=== PATIENT | female | born 1965 | race African-American/Black ===

== ENCOUNTER 2016-05-16 05:58 | Emergency (ER) | payer OTHER ==
[2016-05-16] MEDS ORDERED: Ketorolac INJ* 60 MG/2 ML VIAL IM ONE (07:10)
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
[2016-05-16 07:52] VITALS: BP 136/106
== END 2016-05-16 07:51 | disposition home or self-care (01) ==
LOC: ED 05:58
DX: T14.8 Other injury of unspecified body region (principal); E11.9 Type 2 diabetes mellitus without complications; W17.2XXA Fall into hole, initial encounter; Y92.9 Unspecified place or not applicable; G89.29 Other chronic pain; F32.9 Major depressive disorder, single episode, unspecified; Z87.891 Personal history of nicotine dependence
CPT/HCPCS: 96372; 99282; J1885

== ENCOUNTER 2016-09-28 03:17 | Emergency (ER) | payer OTHER ==
[2016-09-28] MEDS ORDERED: HYDROmorphone* 1 MG/ML 1 ML SYR IM ONE (04:25)
[2016-09-28] MEDS ORDERED: Ketorolac INJ* 60 MG/2 ML VIAL IM ONE (04:25)
[2016-09-28 05:10] VITALS: BP 130/66
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
== END 2016-09-28 05:09 | disposition home or self-care (01) ==
LOC: ED 03:17
DX: M25.572 Pain in left ankle and joints of left foot (principal); Z87.891 Personal history of nicotine dependence; R61 Generalized hyperhidrosis
CPT/HCPCS: 96372; 99282; J1170; J1885

== ENCOUNTER 2016-11-28 13:53 | Emergency (ER) | payer OTHER ==
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
[2016-11-28] MEDS ORDERED: Ketorolac INJ* 60 MG/2 ML VIAL IM ONE (15:25)
[2016-11-28] MEDS ORDERED: hydrOXYzine HCL TAB* 25 MG PO ONE (15:25)
[2016-11-28] MEDS ORDERED: hydrOXYzine HCL TAB* 50 MG PO ONE (15:40)
[2016-11-28] MEDS ORDERED: LORazepam TAB(*) 0.5 MG PO ONE (16:28)
[2016-11-28 16:47] VITALS: BP 154/83
== END 2016-11-28 16:47 | disposition home or self-care (01) ==
LOC: ED 13:53
DX: G89.29 Other chronic pain (principal); R07.9 Chest pain, unspecified; M25.572 Pain in left ankle and joints of left foot; M25.551 Pain in right hip; F41.9 Anxiety disorder, unspecified; Z87.891 Personal history of nicotine dependence
CPT/HCPCS: 99282; A9270-GY; J1885

== ENCOUNTER 2017-01-15 15:34 | Emergency (ER) | payer OTHER ==
[2017-01-15] MEDS ORDERED: HYDROcodone/ACETAMIN 5-325 MG* 1 TAB PO ONE (18:51)
[2017-01-15 19:32] VITALS: BP 149/74
--- NOTE | 2017-01-15 19:47 | RAD ---
INDICATION: Left lower extremity pain. COMPARISON: Comparison is made with a prior study from February 09, 2012. TECHNIQUE: Multiple real-time, color flow and Doppler tracings of the left lower extremity were obtained. FINDINGS: The common femoral, femoral, profunda femoral and popliteal veins all demonstrate normal compressibility, augmentation with compression and phasic response with respiration. The posterior tibial and peroneal veins demonstrate normal compressibility and augmentation with compression. There is a popliteal fossa cyst measuring 5.7 x 1.0 x 3.9 cm in size which appears similar to the prior study. IMPRESSION: 1. NO EVIDENCE FOR DEEP VENOUS THROMBOSIS. 2. POPLITEAL FOSSA CYST.
--- NOTE | 2017-01-15 20:05 | RAD ---
INDICATION: Left ankle pain. TECHNIQUE: 3 views of the left ankle were obtained. FINDINGS: There is diffuse soft tissue swelling present. There is deformity of the distal tibia most consistent with an old healed fracture. There is a single surgical screw in the distal tibial metaphysis. No acute fracture is seen. There is moderate osteoarthritic change in the tibiotalar joint with a prominent anterior spur arising from the distal tibia which would predispose to anterior impingement. IMPRESSION: 1. SOFT TISSUE SWELLING. 2. DEFORMITY OF THE DISTAL TIBIA MOST CONSISTENT WITH POSTTRAUMATIC AND SURGICAL CHANGES. 3. MODERATE OSTEOARTHRITIC CHANGES IN THE TIBIOTALAR JOINT.
--- NOTE | 2017-01-15 20:08 | RAD ---
INDICATION: Left lower leg pain. TECHNIQUE: 2 views of the left lower leg were obtained. FINDINGS: There is diffuse soft tissue swelling present. There is deformity of the distal tibia most consistent with postsurgical and posttraumatic changes. There is a single surgical screw present in the distal tibial metaphysis. No acute fracture is seen. There is moderate osteoarthritic change in the tibiotalar joint. IMPRESSION: 1. SOFT TISSUE SWELLING. 2. POSTSURGICAL POSTERIOR MATTER CHANGES IN THE DISTAL TIBIA.
[2017-01-15] MEDS ORDERED: Ketorolac INJ* 30 MG/ML 1 ML VIAL IM ONE (20:47)
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
== END 2017-01-15 21:08 | disposition home or self-care (01) ==
LOC: ED 15:34
DX: M13.872 Other specified arthritis, left ankle and foot (principal); M71.20 Synovial cyst of popliteal space [Baker], unspecified knee; M25.569 Pain in unspecified knee
CPT/HCPCS: 96372; 99282

== ENCOUNTER 2017-03-29 11:15 | Emergency (ER) | payer OTHER ==
[2017-03-29] MEDS ORDERED: HYDROcodone/ACETAMIN 5-325 MG* 1 TAB PO ONE (12:36)
[2017-03-29] MEDS ORDERED: Ketorolac INJ* 60 MG/2 ML VIAL IM ONE (13:38)
--- NOTE | 2017-03-29 13:43 | RAD ---
INDICATION: Pain and swelling. COMPARISON: None TECHNIQUE: Duplex interrogation of the Lowerextremity was performed. FINDINGS: Deep veins: The common femoral, great saphenous, profunda femoris, proximal, mid, and distal deep femoral, popliteal, posterior tibial, and peroneal veins are patent. There is normal compressibility, augmentation, and phasic flow. Superficial veins: There are no findings of superficial thrombophlebitis. Popliteal fossa:There is a popliteal cyst measuring 4.4 x 0.8 x 2.2 cm, formerly 5.7 x 1.0 x 3.9 cm. Soft tissues:There are no soft tissue abnormalities. IMPRESSION: POPLITEAL CYST WITH MILD INTERVAL DECREASE IN SIZE. NO EVIDENCE OF DEEP VENOUS THROMBOSIS.
[2017-03-29 14:20] VITALS: BP 125/86
--- NOTE | 2017-03-29 14:38 | ED ---
Lower Extremity - HPI Summary HPI Summary: Patient presents to the ED with CC of swelling in the left calf just below the posterior knee. Hx of bakers cyst, but states she feels it has moved and thinks there is a cyst in the calf medially. Concerned with DVT as patient has had a previous PE. Notes to 9/10 pain and feels as though she cannot get comfortable. Allergy to NSAIDS. Surgery to the ankle scheduled for 2 months. Denies previous pain in the area. She has not been doing anything for the pain and ambulating well. Denies color or temperature changes to the area. Takes pain medications for several previous fractures. Pain is worse with movement, better with rest. Denies smoking, travel or OCP use. - History of Current Complaint Chief Complaint: EDExtremityLower Stated Complaint: LEFT ANKLE INFECTION-UPCOMING SURGERY Time Seen by Provider: 03/29/17 11:42 Hx Obtained From: Patient, Family/Communications Billing Analyst Mechanism Of Injury: Unknown Onset of Pain: Days Onset/Duration: Days Severity Initially: Moderate Severity Currently: Moderate Pain Intensity: 7 Pain Scale Used: 0-10 Numeric Timing: Constant Location: Is Discrete @ - posterior knee and medial calf Character Of Pain: Aching Associated Signs And Symptoms: Positive: Swelling Aggravating Factor(s): Standing, Ambulation Alleviating Factor(s): Rest Able to Bear Weight: Yes - Risk Factors Gout Risk Factors: Negative DVT Risk Factors: Negative Septic Arthritis Risk Factor: Negative - Allergies/Home Medications Allergies/Adverse Reactions: Allergies Allergy/AdvReac Type Severity Reaction Status Date / Time Rofecoxib [From Vioxx] Allergy Unknown Swelling Verified 05/16/16 06:14 Nalbuphine [From Nubain] Allergy Difficulty Verified 05/16/16 06:14 Breathing PMH/Surg Hx/FS Hx/Imm Hx Previously Healthy: Yes Endocrine/Hematology History: Reports: Hx Diabetes - previously, however no longer medicated per patient Cardiovascular History: Denies: Hx Angina, Hx Pacemaker/ICD Musculoskeletal History: Reports: Other Musculoskeletal History - CHRONIC PAIN Sensory History: Denies: Hx Hearing Aid Neurological History: Reports: Other Neuro Impairments/Disorders - DEPRESSION Psychiatric History: Reports: Hx Anxiety Denies: Hx Panic Disorder - Surgical History Surgery Procedure, Year, and Place: Lt WRIST - Xs 2. Rt HIP REPLACEMENT. Lt ANKLE -FX'd (PINS REMOVED). Rt ARM - FX - Immunization History Date of Tetanus Vaccine: UTD Date of Influenza Vaccine: NO Hx Pertussis Vaccination: No Immunizations Up to Date: Unable to Obtain/Confirm Infectious Disease History: No Infectious Disease History: Reports: Hx Shingles - 10 YEARS AGO Denies: Traveled Outside the [place] in Last 30 Days - Family History Known Family History: Positive: Cardiac Disease, Hypertension, Diabetes, Other - Asthma. [place]. - Social History Occupation: Employed Full-time Lives: With Family Alcohol Use: None Hx Substance Use: Yes Substance Use Type: Reports: Prescribed Substance Use Comment - Amount & Last Used: morphine, hydrocodcone, xanax Hx Tobacco Use: Yes Smoking Status (MU): Former Smoker Review of Systems Constitutional: Negative Negative: Fever, Chills, Fatigue Eyes: Negative Cardiovascular: Negative Respiratory: Negative Genitourinary: Negative Positive: no symptoms reported, see HPI Positive: Arthralgia - left posterior knee pain and medial calf tenderness Neurological: Negative All Other Systems Reviewed And Are Negative: Yes Physical Exam Triage Information Reviewed: Yes Vital Signs On Initial Exam: Initial Vitals Temp Pulse Resp BP Pulse Ox 97.4 F 93 20 153/92 99 03/29/17 11:19 03/29/17 11:19 03/29/17 11:19 03/29/17 11:19 03/29/17 11:19 Vital Signs Reviewed: Yes Appearance: Positive: Well-Appearing, Well-Nourished Skin: Positive: Warm, Skin Color Reflects Adequate Perfusion Head/Face: Positive: Normal Head/Face Inspection Eyes: Positive: EOMI, DONA, Conjunctiva Clear Neck: Positive: Supple, Nontender, No Lymphadenopathy Respiratory/Lung Sounds: Positive: Clear to Auscultation, Breath Sounds Present Cardiovascular: Positive: Normal, RRR, Pulses are Symmetrical in both Upper and Lower Extremities Musculoskeletal: Positive: Pain @ - left medial knee and posterior knee on palpation with no cords or deformities. No swelling, warmth or redness noted. Neurological: Positive: Speech Normal Psychiatric: Positive: Normal - [place] Coma Scale Coma Scale Total: 15 Diagnostics - Vital Signs Vital Signs Temp Pulse Resp BP Pulse Ox 03/29/17 14:18 97.7 F 82 16 125/86 95 03/29/17 11:19 97.4 F 93 20 153/92 99 - Laboratory Lab Statement: Any lab studies that have been ordered have been reviewed, and results considered in the medical decision making process. Lower Extremity Course/Dx - Course Course Of Treatment: Patient evaluated for possible DVT d/t history of PE. NO warmth, redness or palpable cords in the left medial calf. Posterior calf with small bursa - bakers. Patient is given 5mg norco to tolerate US. IMPRESSION: POPLITEAL CYST WITH MILD INTERVAL DECREASE IN SIZE. NO EVIDENCE OF DEEP. VENOUS THROMBOSIS. She is encouraged to rest and use any ice for perceived swelling. She is Ok with discharge and will follow up with ortho. - Diagnoses Differential Diagnosis/HQI/PQRI: Positive: DVT, Sprain, Strain, Tendonitis Provider Diagnoses: Bakers cyst Discharge - Discharge Plan Condition: Stable Disposition: HOME Patient Education Materials: Knee Bursitis (ED) Referrals: Dory Goodman [Primary Care Provider] - Additional Instructions: I think you have a bursa which is not infected Elevate Ice Rest However, you must continue to walk around to prevent any blood clots Follow up with your ortho physician
== END 2017-03-29 14:20 | disposition home or self-care (01) ==
LOC: ED 11:15
DX: M71.22 Synovial cyst of popliteal space [Baker], left knee (principal); G89.29 Other chronic pain; F32.9 Major depressive disorder, single episode, unspecified; F41.9 Anxiety disorder, unspecified; Z87.891 Personal history of nicotine dependence
CPT/HCPCS: 96372; 99281; J1885

== ENCOUNTER 2017-05-07 03:43 | Emergency (ER) | payer OTHER ==
[2017-05-07 04:15] VITALS: BP 151/85
[2017-05-07] MEDS ORDERED: NS 0.9% 1000 ML* 1,000 ML IV ONE ×2 (04:34→04:36)
[2017-05-07] MEDS ORDERED: LORazepam INJ* 2 MG/ML 1 ML VIAL IV PUSH ONE (04:36)
--- NOTE | 2017-05-07 06:26 | ED ---
Abel Bragg Nilda, scribed for Beata Stanley MD on 05/07/17 at 0447 . Influenza-Like Illness - HPI Summary HPI Summary: This patient is a 51 year old F presenting to [facility] with a chief complaint of influenza-like symptoms since yesterday. The patient rates the pain 6/10 in severity. Symptoms aggravated and alleviated by nothing. Patient reports abd pain, fever, diaphoresis, chills, dyspnea, LE pain, body aches, and loss of appetite. Medications include abx for teeth and anxiety. 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 She states shes on Xanax 0.5 3 times per day. - History of Current Complaint Chief Complaint: EDShortnessOfBreath Time Seen by Provider: 05/07/17 03:55 Hx Obtained From: Patient Onset/Duration: Sudden Onset Associated Signs & Symptoms: Negative - Allergy/Home Medications Allergies/Adverse Reactions: Allergies Allergy/AdvReac Type Severity Reaction Status Date / Time Rofecoxib [From Vioxx] Allergy Unknown Swelling Verified 05/07/17 03:48 Nalbuphine [From Nubain] Allergy Difficulty Verified 05/07/17 03:48 Breathing PMH/Surg Hx/FS Hx/Imm Hx Endocrine/Hematology History: Reports: Hx Diabetes - previously, however no longer medicated per patient Cardiovascular History: Denies: Hx Angina, Hx Pacemaker/ICD Musculoskeletal History: Reports: Other Musculoskeletal History - CHRONIC PAIN Sensory History: Denies: Hx Hearing Aid Neurological History: Reports: Other Neuro Impairments/Disorders - DEPRESSION Psychiatric History: Reports: Hx Anxiety Denies: Hx Panic Disorder - Surgical History Surgery Procedure, Year, and Place: Lt WRIST - Xs 2. Rt HIP REPLACEMENT. Lt ANKLE -FX'd (PINS REMOVED). Rt ARM - FX - Immunization History Date of Tetanus Vaccine: UTD Date of Influenza Vaccine: NO Infectious Disease History: No Infectious Disease History: Reports: Hx Shingles - 10 YEARS AGO Denies: Traveled Outside the [place] in Last 30 Days - Family History Known Family History: Positive: Cardiac Disease, Hypertension, Diabetes, Other - Asthma. [place]. - Social History Alcohol Use: None Hx Substance Use: Yes Substance Use Type: Reports: Prescribed Substance Use Comment - Amount & Last Used: morphine, hydrocodcone, xanax Hx Tobacco Use: Yes Smoking Status (MU): Former Smoker Review of Systems Positive: Fever, Chills, Skin Diaphoresis - dyspnea Positive: Other - dyspnea Positive: Abdominal Pain, Other - loss of appetite Positive: Other - body aches All Other Systems Reviewed And Are Negative: Yes Physical Exam - Summary Physical Exam Summary: VITAL SIGNS: Reviewed. GENERAL: Patient is a well-developed and nourished female who is lying comfortable in the stretcher. Patient is not in any acute respiratory distress. HEAD AND FACE: No signs of trauma. No ecchymosis, hematomas or skull depressions. No sinus tenderness. EYES: PERRLA, EOMI x 2, No injected conjunctiva, no nystagmus. EARS: Hearing grossly intact. Ear canals and tympanic membranes are within normal limits. MOUTH: Oropharynx within normal limits. NECK: Supple, trachea is midline, no adenopathy, no JVD, no carotid bruit, no c- spine tenderness, neck with full ROM. CHEST: Symmetric, no tenderness at palpation LUNGS: Clear to auscultation bilaterally. No wheezing or crackles. CVS: Tachycardic, S1 and S2 present, no murmurs or gallops appreciated. ABDOMEN: Soft, non-tender. No signs of distention. No rebound no guarding, and no masses palpated. Bowel sounds are normal. EXTREMITIES: FROM in all major joints, no edema, no cyanosis or clubbing. NEURO: Alert and oriented x 3. No acute neurological deficits. Speech is normal and follows commands. SKIN: Dry and warm Triage Information Reviewed: Yes Vital Signs On Initial Exam: Initial Vitals Temp Pulse Resp BP Pulse Ox 97.5 F 127 18 148/90 94 05/07/17 03:45 05/07/17 03:45 05/07/17 03:45 05/07/17 03:45 05/07/17 03:45 Vital Signs Reviewed: Yes - [place] Coma Scale Coma Scale Total: 15 Diagnostics - Vital Signs Vital Signs Temp Pulse Resp BP Pulse Ox 05/07/17 03:45 97.5 F 127 18 148/90 94 - Laboratory Lab Statement: Any lab studies that have been ordered have been reviewed, and results considered in the medical decision making process. - Radiology CXR Radiology Interpretation Completed By: Radiologist - NAD - EKG 0357 Cardiac Rate: NL EKG Rhythm: Sinus Tachycardia - 103 bpm EKG Interpretation: nonspecific T wave changes Flu Symptom Course/Dx - Course Assessment/Plan: Pt presented to ER with difficulty breathing. Pt found to be tachycardic. Bloodwork was ordered to rule out acute coronary syndrome v PE v PNA. Pt refused blood work. Pt only requesting Xanax without doing blood work. Pt walked out of ER AMA. An EKG reveals sinus tachy, 103 bpm, nonspecific T wave changes. CXR reveals NAD. Dx. SOB. - Diagnoses Provider Diagnoses: SOB (shortness of breath) Discharge - Discharge Plan Condition: Stable Disposition: AGAINST MEDICAL ADVICE Referrals: Dory Goodman [Primary Care Provider] - The documentation as recorded by the Abel dunn Nilda accurately reflects the service I personally performed and the decisions made by , Beata Stanley MD.
--- NOTE | 2017-05-07 08:14 | RAD ---
Indication: Chest pain. Single frontal view of the chest performed at 0450 hours was reviewed. Comparison is made with previous exam dated May 10, 2015. No mediastinal shift is noted. Heart is of normal size and configuration. Lung leslie appear clear. IMPRESSION: NO ACTIVE CARDIOPULMONARY DISEASE IS NOTED.
== END 2017-05-07 04:43 | disposition left against medical advice (07) ==
LOC: ED 03:43
DX: R06.02 Shortness of breath (principal); R50.9 Fever, unspecified; R06.00 Dyspnea, unspecified; R00.0 Tachycardia, unspecified; R61 Generalized hyperhidrosis; M79.1 Myalgia; R10.9 Unspecified abdominal pain; E11.9 Type 2 diabetes mellitus without complications; F32.9 Major depressive disorder, single episode, unspecified; Z96.641 Presence of right artificial hip joint; Z88.8 Allergy status to other drugs, medicaments and biological substances; Z87.891 Personal history of nicotine dependence
CPT/HCPCS: 71045; 93005; 99282; J2060

== ENCOUNTER 2017-06-26 18:03 | Emergency (ER) | payer OTHER ==
--- NOTE | 2017-06-26 20:08 | ED ---
Lower Extremity - HPI Summary HPI Summary: 51-year-old female presents with acute on chronic joint pain. She denies any new injury. She denies any fevers. She states she is seeing her doctor on Sunday. She states her left ankles was suppose to have surgery months ago but they Rescheduling her. She denies any history of gout. She states she has chronic swelling of her left ankle. She states her pain feels weather related. She is complaining of left ankle pain, right hip pain, and right-sided back pain and left wrist pain. She denies any loss of bowel or bladder. She denies any saddle anesthesia. She states her right hip is prosthetic and was supposed to be replaced after 10 years which was not done. She sees Dr. Landin is her orthopedic. She takes morphine and oxycodone daily. She states this pain medication isn't working. She states her doctor told her to come here. She also has a history of anxiety and depression. She is diabetic. She states occasionally the pain in her left ankle radiates to her left calf. She does have a history of blood clots. - History of Current Complaint Chief Complaint: EDExtremityLower Stated Complaint: ANKLE, WRIST, HIP PAIN Time Seen by Provider: 06/26/17 19:08 Pain Intensity: 10 - Allergies/Home Medications Allergies/Adverse Reactions: Allergies Allergy/AdvReac Type Severity Reaction Status Date / Time nalbuphine [From Nubain] Allergy Difficulty Verified 06/26/17 19:49 Breathing rofecoxib [From Vioxx] Allergy Swelling Verified 06/26/17 19:49 PMH/Surg Hx/FS Hx/Imm Hx Endocrine/Hematology History: Reports: Hx Diabetes - previously, however no longer medicated per patient Cardiovascular History: Denies: Hx Angina, Hx Pacemaker/ICD Musculoskeletal History: Reports: Other Musculoskeletal History - CHRONIC PAIN Sensory History: Denies: Hx Hearing Aid Neurological History: Reports: Other Neuro Impairments/Disorders - DEPRESSION Psychiatric History: Reports: Hx Anxiety Denies: Hx Panic Disorder - Surgical History Surgery Procedure, Year, and Place: Lt WRIST - Xs 2. Rt HIP REPLACEMENT. Lt ANKLE -FX'd (PINS REMOVED). Rt ARM - FX - Immunization History Date of Tetanus Vaccine: UTD Date of Influenza Vaccine: NO Infectious Disease History: No Infectious Disease History: Reports: Hx Shingles - 10 YEARS AGO Denies: Traveled Outside the [place] in Last 30 Days - Family History Known Family History: Positive: Cardiac Disease, Hypertension, Diabetes, Other - Asthma. [place]. - Social History Alcohol Use: None Hx Substance Use: Yes Substance Use Type: Reports: Prescribed Substance Use Comment - Amount & Last Used: morphine, hydrocodcone, xanax Hx Tobacco Use: Yes Smoking Status (MU): Former Smoker Review of Systems Negative: Fever Negative: Chest Pain Negative: Shortness Of Breath Positive: Myalgia - left ankle and wrist, right hip and back All Other Systems Reviewed And Are Negative: Yes Physical Exam Triage Information Reviewed: Yes Vital Signs On Initial Exam: Initial Vitals Temp Pulse Resp BP Pulse Ox 97.0 F 89 16 174/99 99 06/26/17 18:07 06/26/17 18:07 06/26/17 18:07 06/26/17 18:07 06/26/17 18:07 Vital Signs Reviewed: Yes Appearance: Positive: Well-Appearing Skin: Positive: Warm, Dry Head/Face: Positive: Normal Head/Face Inspection Eyes: Positive: Normal, Conjunctiva Clear Respiratory/Lung Sounds: Positive: Clear to Auscultation, Breath Sounds Present Cardiovascular: Positive: Normal, RRR Musculoskeletal: Positive: Strength/ROM Intact - left ankle, right hip, lower back, and left wrist, Other - tenderness over left wrist dorsum, tenderness over left ankle, tenderness right side of back, neg SLR, good pulses, capillary refill<2 secs, Neurological: Positive: Normal Diagnostics - Vital Signs Vital Signs Temp Pulse Resp BP Pulse Ox 06/26/17 18:07 97.0 F 89 16 174/99 99 - Laboratory Lab Statement: Any lab studies that have been ordered have been reviewed, and results considered in the medical decision making process. Lower Extremity Course/Dx - Course Course Of Treatment: 51-year-old female presents with acute on chronic joint pain. She denies any new injury. She denies any fevers. She states she is seeing her doctor on Sunday. She states her left ankles was suppose to have surgery months ago but they Rescheduling her. She denies any history of gout. She states she has chronic swelling of her left ankle. She states her pain feels weather related. She is complaining of left ankle pain, right hip pain, and right-sided back pain and left wrist pain. She denies any loss of bowel or bladder. She denies any saddle anesthesia. She states her right hip is prosthetic and was supposed to be replaced after 10 years which was not done. She sees Dr. Landin is her orthopedic. She takes morphine and oxycodone daily. She states this pain medication isn't working. She states her doctor told her to come here. She also has a history of anxiety and depression. She is diabetic. She states occasionally the pain in her left ankle radiates to her left calf. She does have a history of blood clots. On exam has mild swelling of left ankle. Full range of motion of the ankle. Joint is not erythematous. Full range of motion of left hip. No midline tenderness back. Full range of motion of left wrist. Has tenderness over dorsum left wrist. when attempted to perform capillary refill patient jumped off table yelling but when checked it again while patient was talking no similiar response. Looking through previous note patient has been seen here multiple times for similar complaints. Patient is stating that she needs morphine. Patient declined any lab work and ultrasound or x-rays. Due to number times patient has been seen here for these complaints believe patient is possibly pain seeking. Will give Toradol. Will have add on ranitidine to prevent an ulcer so that may patient can take NSAIDs. patient understand and agrees with plan. - Diagnoses Differential Diagnosis/HQI/PQRI: Positive: DVT, Fracture (Closed), Sprain, Strain Provider Diagnoses: Left ankle pain, Right hip pain, Back pain, Left wrist pain Discharge - Discharge Plan Condition: Good Disposition: HOME Patient Education Materials: R.I.C.E. Treatment (ED) Referrals: Dory Goodman [Primary Care Provider] - Additional Instructions: Add on famotidine twice a day, try ibuprofen twice a day for until Sunday continue normal pain medication Follow up with primary with in 5 days Return to ED if develop any new or worsening symptoms
[2017-06-26] MEDS ORDERED: Ketorolac INJ* 60 MG/2 ML VIAL IM ONE (20:09)
[2017-06-26] MEDS ORDERED: O ndansetron ODT 4MG 2TAB PRPK 4 MG PAK PO ONE (20:41)
[2017-06-26 20:58] VITALS: BP 151/82
== END 2017-06-26 20:53 | disposition home or self-care (01) ==
LOC: ED 18:03
DX: M25.551 Pain in right hip (principal); M54.9 Dorsalgia, unspecified; M25.572 Pain in left ankle and joints of left foot; M25.532 Pain in left wrist; G89.29 Other chronic pain; Z87.891 Personal history of nicotine dependence; Z88.8 Allergy status to other drugs, medicaments and biological substances
CPT/HCPCS: 96372; 99282; A9270-GY; J1885

== ENCOUNTER 2017-09-24 07:59 | Emergency (ER) | payer OTHER ==
[2017-09-24 08:49] LABS: ABS Basophils 0.1 10^3/ul (0-0.2); ABS Eosinophils 0 10^3/ul (0-0.6); ABS Lymphocytes 1.5 10^3/ul (1.0-4.8); ABS Monocytes 0.5 10^3/ul (0-0.8); ABS Neutrophils 6.9 10^3/ul (1.5-7.7); ABS Nucleated RBC 0 10^3/ul; Eosinophil % 0.4 % (0-6); Hematocrit 38 % (35-47); Hemoglobin 12.5 g/dl (12.0-16.0); Lymphocyte % 17.1 % (25-47); Mean Corpuscular HGB Conc 33 g/dl (31-36); Mean Corpuscular Hemoglobin 27 pg (27-31); Mean Corpuscular Volume 83 fL (80-97); Mean Platelet Volume 7.5 um3 (7.4-10.4); Nucleated Red Blood Cells % 0; Platelet Count 429 10^3/ul (150-450); Red Blood Count 4.58 10^6/ul (4.0-5.4); Red Cell Distribution Width 16 % (10.5-15); White Blood Count 9.1 10^3/ul (3.5-10.8)
[2017-09-24 08:56] LABS: EGFR Non-African American 95.3 (>60)
[2017-09-24] MEDS ORDERED: Metoprolol Succinate XL TAB* 25 MG PO ONE (09:28)
[2017-09-24] MEDS ORDERED: Acetaminophen TAB* 325 MG PO ONE (10:14)
--- NOTE | 2017-09-24 10:55 | RAD ---
HISTORY: Left ankle pain, history of DVT COMPARISONS: March 29, 2017 TECHNIQUE: Multiple transverse and longitudinal ultrasound images were obtained of the left lower extremity from the level of the common femoral vein inferiorly through to the infrapopliteal veins using grayscale, color Doppler, and spectral Doppler imaging with and without compression and with augmentation. Comparison images were obtained of the contralateral common femoral vein. FINDINGS: VEINS: The venous system of the left lower extremity is compressible throughout its course, with normal flow on color Doppler imaging and normal response to augmentation on spectral Doppler imaging. SOFT TISSUES: Unremarkable. OTHER FINDINGS: There is a popliteal fossa fluid collection measuring 5.8 x 1 x 2 cm in size, consistent with a Brown's cyst, increased from 4.4 cm in maximum dimension on the previous examination. IMPRESSION: 1. NO LEFT LOWER EXTREMITY DEEP VEIN THROMBOSIS 2. BROWN'S CYST
--- NOTE | 2017-09-24 11:20 | RAD ---
HISTORY: Altered mental status COMPARISONS: None TECHNIQUE: Multiple contiguous axial CT scans were obtained of the head without intravenous contrast. FINDINGS: HEMORRHAGE/INFARCT: There is no hemorrhage or acute infarct. MASSES/SHIFT: There is no mass or shift. EXTRA-AXIAL SPACES: There are no extra-axial fluid collections. SULCI AND VENTRICLES: The sulci and ventricles are normal in size and position for the patient's stated age. CEREBRUM: There are no focal parenchymal abnormalities. BRAINSTEM: There are no focal parenchymal abnormalities. CEREBELLUM: There are no focal parenchymal abnormalities. VESSELS: The vessels are grossly normal. PARANASAL SINUSES: The paranasal sinuses are clear. ORBITS: The orbits are unremarkable. BONES AND SOFT TISSUE: No bone or soft tissue abnormalities are noted. OTHER: None IMPRESSION: NO ACUTE INTRACRANIAL PATHOLOGY.
--- NOTE | 2017-09-24 11:36 | RAD ---
Indication: LEFT ankle pain without known injury. Comparison: January 15, 2017 Technique: AP, mortise, and lateral views LEFT ankle. Report: Bone density appears decreased about the ankle most likely reflecting disuse osteoporosis with evidence for prior trauma. Persistent solitary lag screw at the distal metaphysis of the tibia. Severe osteophytosis and joint space narrowing at the talocrural joint most marked anteriorly without significant change. Partial flattening of the articular surfaces. Less marked osteoarthritis at the posterior facet of the subtalar joint. Nonfocal soft tissue swelling about the ankle. 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
[2017-09-24] MEDS ORDERED: Morphine TAB Extended Release (*) 30 MG TAB.ER PO ONE (12:52)
[2017-09-24] MEDS ORDERED: HYDROcodone/ACETAMIN 5-325 MG* 1 TAB PO ONE (12:53)
[2017-09-24 13:38] VITALS: BP 173/106
--- NOTE | 2017-09-25 01:33 | ED ---
Charlene Bragg Elizabeth scribed for Paige Leung MD on 09/24/17 at 0912 . Psychiatric Complaint - HPI Summary HPI Summary: This patient is a 51 year old F presenting to [facility] accompanied by Danis Krishnan with a chief complaint of altered mental status since this morning. The patient states I can see my sister but she is not there, she is really far but close at the same time. The patients friend Danis Krishnan says that her sister, Devi , is not alive. The patient talked about her siblings, all according to Danis Krishnan, and said I cant remember what time they . When asked how they , the patient said they of people beating them and using their bodies as a sex toy. When asked if anyone was hurting her, she said not anymore. When being physically examined, the patient asked are we going to work? and said its white. When asked if she is suicidal she states she wants to be with her sister. After being asked if she was having HI, the patient asked did they kill another child? The patient states I want to go see my sister, Devi and, upon being reminded that Devi had , said I dont know if I believe that, I wasnt there. The patient rates the pain 10/ 10 in severity. Symptoms aggravated by nothing. Symptoms alleviated by nothing. Patient reports left leg pain. She says I must have worn my high heels or something, I cant remember. I havent worn them in years. Patient was wearing an ortiz bandage around her left ankle. Pt has hx left ankle surgery and left Brown's cyst. Per triage note, the patient has been increased anxiety, increased depression, chronic pain and memory problems. LEVEL 5 CAVEAT - History Of Current Complaint Chief Complaint: EDGeneral Time Seen by Provider: 09/24/17 08:22 Hx Obtained From: Patient, Medical Records, Other: - Danis Krishnan Hx From Patient Unobtainable Due To: Altered Mental Status - difficult to obtain hx ?: No Onset/Duration: Gradual Onset, Still Present Timing: Constant Severity Initially: Moderate Severity Currently: Moderate Character: Depressed Aggravating Factor(s): Nothing Alleviating Factor(s): Nothing Associated Signs And Symptoms: Positive: Confused, Hallucinating Related History: Positive For: Prior Psychiatric Issues Has Suicidal: Reports: Thoughts Recent Stressor(s): chronic pain, of siblings - Allergies/Home Medications Allergies/Adverse Reactions: Allergies Allergy/AdvReac Type Severity Reaction Status Date / Time nalbuphine [From Nubain] Allergy Difficulty Verified 09/24/17 08:15 Breathing rofecoxib [From Vioxx] Allergy Swelling Verified 09/24/17 08:15 Home Medications: Home Medications Albuterol inh POWDER (NF) [Proair Respiclick] 1 puff INH .Q4-6H PRN 09/24/17 [ History Confirmed 09/24/17] Calcium Carbonate [Calcium] 500 mg PO BID 09/24/17 [History Confirmed 09/24/17] Cranberry Conc/C/Bacill Coag [Cranberry Tablet] 1 tab PO DAILY 09/24/17 [ History Confirmed 09/24/17] Desoximetasone [Topicort] 0.25 % TOPICAL BID PRN 09/24/17 [History Confirmed 08/08] HYDROcodone/ACETAMIN 5-325 MG* [[place] 5-325 TAB*] 1 tab PO BID PRN 09/24/17 [ History Confirmed 09/24/17] Ketoconazole 2 % CREAM (NF) [Nizoral 2% CREAM (NF)] 1 applic TOPICAL BID PRN 08/08 [History Confirmed 09/24/17] Lactobacillus Acidophilus [Probiotic] 1 cap PO DAILY 09/24/17 [History Confirmed 09/24/17] Metoprolol Succinate XL TAB* [Toprol XL TAB*] 25 mg PO DAILY 09/24/17 [History Confirmed 09/24/17] Nortriptyline CAP* [Nortriptylline CAP*] 10 mg PO BEDTIME 09/24/17 [History Confirmed 09/24/17] Omeprazole CAP* [Prilosec CAP* 20 MG] 40 mg PO BID 09/24/17 [History Confirmed 09/24/17] Polyethylene Glycol 3350* [Miralax*] 17 gm PO DAILY 09/24/17 [History Confirmed 09/24/17] QUEtiapine TAB* [Seroquel 100 MG *] 100 mg PO QPM 09/24/17 [History Confirmed ] QUEtiapine TAB* [Seroquel 25 MG TAB*] 50 mg PO QAM 09/24/17 [History Confirmed 09/24/17] Sennosides [Senna Lax] 17.2 mg PO BID 09/24/17 [History Confirmed 09/24/17] Sucralfate TAB* [Carafate*] 1 gm PO QID 09/24/17 [History Confirmed 09/24/17] hydrOXYzine HCL TAB* [Atarax 25 MG TAB*] 25 mg PO BID PRN 09/24/17 [History Confirmed 09/24/17] metFORMIN* [Glucophage 500 MG TAB *] 1,000 mg PO BID 09/24/17 [History Confirmed 09/24/17] metFORMIN* [Glucophage 500 MG TAB *] 500 mg PO QAM 09/24/17 [History Confirmed 09/24/17] PMH/Surg Hx/FS Hx/Imm Hx Previously Healthy: No Cardiovascular History: Denies: Hx Angina, Hx Pacemaker/ICD Musculoskeletal History: Reports: Other Musculoskeletal History - CHRONIC PAIN, Brown's cyst, left ankle surgery Sensory History: Denies: Hx Hearing Aid Neurological History: Reports: Other Neuro Impairments/Disorders - DEPRESSION Psychiatric History: Reports: Hx Anxiety, Hx Depression Denies: Hx Panic Disorder - Surgical History Surgery Procedure, Year, and Place: Lt WRIST - Xs 2. Rt HIP REPLACEMENT. Lt ANKLE -FX'd (PINS REMOVED). Rt ARM - FX - Immunization History Date of Tetanus Vaccine: UTD Date of Influenza Vaccine: NO Infectious Disease History: Yes Infectious Disease History: Reports: Hx Shingles Denies: Traveled Outside the [place] in Last 30 Days - Family History Known Family History: Positive: Cardiac Disease, Hypertension, Diabetes, Other - Asthma. [place]. - Social History Alcohol Use: None Hx Substance Use: Yes Substance Use Type: Reports: Prescribed Substance Use Comment - Amount & Last Used: morphine, hydrocodcone, xanax Hx Tobacco Use: Yes Smoking Status (MU): Former Smoker Review of Systems Eyes: Negative Negative: Epistaxis Cardiovascular: Negative Negative: Cough Negative: Vomiting Positive: Other - left leg pain Skin: Negative Neurological: Negative Positive: Depressed, Other - hallucinating All Other Systems Reviewed And Are Negative: Yes - Comments Additional Review of Systems Comments: LEVEL 5 CAVEAT Physical Exam - Summary Physical Exam Summary: Appearance no pain distress, well-nourished, stares off without focusing Skin: Warm, color reflects adequate perfusion, dry Head: Normal Head/Face inspection, atraumatic Eyes: Conjunctiva clear, PERRL, EOMI ENT: Normal inspection Neck: Supple, no nodes, no JVD Respiratory: Lungs clear, normal breath sounds, no respiratory distress Cardio: RRR, No murmur, pulses normal, brisk capillary refill Abdomen: Soft, nontender Bowel sounds: Present Musculoskeletal: Strength Intact/ROM intact, no calf tenderness, no edema, left ankle scars and tenderness on palpation, no open areas, no deformity Psychological: Depressed affect, stares off, answers nonsensical at times Neuro: Alert, muscle tone normal, no focal deficit Triage Information Reviewed: Yes Vital Signs On Initial Exam: Initial Vitals Temp Pulse Resp BP Pulse Ox 97.3 F 90 19 167/102 98 09/24/17 08:09 09/24/17 08:09 09/24/17 08:09 09/24/17 08:09 09/24/17 08:09 Vital Signs Reviewed: Yes Diagnostics - Vital Signs Vital Signs Temp Pulse Resp BP Pulse Ox 09/24/17 08:09 97.3 F 90 19 167/102 98 - Laboratory Lab Results: Lab Results 09/24/17 09/24/17 Range/Units 08:29 08:29 WBC 9.1 (3.5-10.8) 10^3/ul RBC 4.58 (4.0-5.4) 10^6/ul Hgb 12.5 (12.0-16.0) g/dl Hct 38 (35-47) % MCV 83 (80-97) fL MCH 27 (27-31) pg MCHC 33 (31-36) g/dl RDW 16 H (10.5-15) % Plt Count 429 (150-450) 10^3/ul MPV 7.5 (7.4-10.4) um3 Neut % (Auto) 76.6 (38-83) % Lymph % (Auto) 17.1 L (25-47) % [place] % (Auto) 5.3 (0-7) % Eos % (Auto) 0.4 (0-6) % Baso % (Auto) 0.6 (0-2) % Absolute Neuts (auto) 6.9 (1.5-7.7) 10^3/ul Absolute Lymphs (auto) 1.5 (1.0-4.8) 10^3/ul Absolute Monos (auto) 0.5 (0-0.8) 10^3/ul Absolute Eos (auto) 0 (0-0.6) 10^3/ul Absolute Basos (auto) 0.1 (0-0.2) 10^3/ul Absolute Nucleated RBC 0 10^3/ul Nucleated RBC % 0 Sodium 141 (139-145) mmol/L Potassium 3.6 (3.5-5.0) mmol/L Chloride 104 (101-111) mmol/L Carbon Dioxide 27 (22-32) mmol/L Anion Gap 10 (2-11) mmol/L BUN 17 (6-24) mg/dL Creatinine 0.65 (0.51-0.95) mg/dL Est GFR ( Amer) 122.6 (>60) Est GFR (Non-Af Amer) 95.3 (>60) BUN/Creatinine Ratio 26.2 H (8-20) Glucose 119 H (70-100) mg/dL Calcium 9.5 (8.6-10.3) mg/dL Total Bilirubin 0.40 (0.2-1.0) mg/dL AST 28 (13-39) U/L ALT 25 (7-52) U/L Alkaline Phosphatase 72 (34-104) U/L Total Creatine Kinase 57 (10-223) U/L Total Protein 7.3 (6.4-8.9) g/dL Albumin 4.3 (3.2-5.2) g/dL Globulin 3.0 (2-4) g/dL Albumin/Globulin Ratio 1.4 (1-3) TSH Pending Salicylates Pending Acetaminophen Pending Serum Alcohol Pending Result Diagrams: 09/24/17 08:29 09/24/17 08:29 Lab Statement: Any lab studies that have been ordered have been reviewed, and results considered in the medical decision making process. 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 Dr. Leung has reviewed this report. Radiology Interpretation Completed By: Radiologist - CT CT Brain CT Interpretation: No Acute Changes - IMPRESSION: NO ACUTE INTRACRANIAL PATHOLOGY. Dr. Leung has reviewed this report. CT Interpretation Completed By: Radiologist - EKG 08:41 Cardiac Rate: NL - at 82 BPM EKG Rhythm: Sinus Rhythm EKG Interpretation: nml AV IV CT, nml QTC, axis (-11), and no acute changes EKG Comparison: No Significant Change - from EKG on 05/07/2017 - Additional Comments Diagnostic Additional Comments: VL Lower Ext Veins Left Interpreted by radiologist. IMPRESSION: 1. NO LEFT LOWER EXTREMITY DEEP VEIN THROMBOSIS 2. BROWN'S CYST Dr. Leung has reviewed this report. Re-Evaluation - Re-Evaluation First Eval Re-Evaluation Time: 09:40 Change: Unchanged Comment: pt wants her clothes, doesn't know why she is here. C/O left ankle pain. No swelling or deformity of ankle. Pain anteriorly. Will check xray and US left leg. Will give acetaminophen for pain. Will check CT brain for altered mental status. Pupils 3mm (not constricted), speech is not slurred, pt is ambulatory, so do not feel pt is over narcotized. Will continue to monitor. Second Re-eval Change: Improved Comment: Discussed imaging results with patient. Patient reports she has been tired. I saw Jossie alone with CA by herself and it reminded me of seeing Devi alone by herself. Cannot recall her birthday month, but knows the day, year, and her age. Patient knows where she is and who she is. Danis Krishnan reports that she has had counseling for mental health but has not had counseling for a while. Patient advised to see a counselor and to visit the pain clinic. Patient denies SI. Danis Krishnan says he thinks she is acting her usual self again Course/Dx - Course Course Of Treatment: Pt presented with altered mental status, hallucinating at times about seeing siblings, possible suicidal in that she wanted to be with siblings. Pt is presribed oxycontin and hydrocodone for chronic pain. Diff dx includes intentional or accidental overdose, psychosis, metabolic abnormality. Pt was observed treated for pain and evaluated over time , and mental status continued to clear with time. Pt had a mental health examination while in the ED and per Dr. Xiao was felt to be a safe discharge home, with dx opioid use disorder. Patient said her left leg was hurting and came in wearing an ortiz-bandage around her left ankle. With hx of prior surg and pain, did xray to r/o fracture and also venous doppler to r/o DVT. An EKG at 08: 41 reveals sinus rhythm at 82 bpm with nml AV IV CT, nml QTC, axis (-11), and no acute changes. There is no change from EKG taken on 05/07/2017. VL Lower Ext Veins Left reveals, per radiologist, no LLE DVT and Bakers cyst. CT Brain reveals, per radiologist, no acute intracranial pathology. Ankle XR reveals, per radiologist, posttraumatic accelerated osteoarthritis at the talocrural joint and less marked osteoarthritis at the subtalar joint with interval worsening. ED physician has reviewed these radiology reports. Lab reults did not explain pt's altered mental status. In the ED course the patient was given Hydrocodone, Morphine, Tylenol and Toprol. Discussed imaging results with patient upon re-evaluation at 12:41. Patient reports she has been tired. Cannot recall her birthday month, but knows the day, year, and her age. Patient knows where she is and who she is. Patient advised to see a counselor and to visit the pain clinic. Patient denies SI. Danis Krishnan, friend with pt, says he thinks she is acting her usual self again. We discussed patient care with Jennifer Vieira NP, covering for pt's provider and she was made aware of patients presence in the ED. Patient is diagnosed with suicidal ideation (resolved) and altered mental status (improved) and acute and chronic left ankle pain. Patient will be discharged home and is advised to follow up with her primary care physician in 2 days. The patient is agreeable with this plan. - Differential Dx/Clinical Impression Differential Diagnosis/HQI/PQRI: Positive: Acute Psychosis, Depression, Drug Overdose/Intentional, Drug Overdose/Unintentional, Suicide Attempt, Suicidal Ideation Provider Diagnosis: Altered mental status, Suicidal ideation, Opioid use, Brown's cyst of knee, Left ankle pain, Chronic pain - Physician Notifications Discussed Care Of Patient With: Jennifer Vieira Time Discussed With Above Provider: 13:19 Instructed by Provider To: Have Pt Call For Appt. - Discussed patient care with Jennifer Vieira VOICE WRITING REPORTER who was made aware of patient's presence in the ED. Discharge - Sign-Out/Discharge Documenting (check all that apply): Discharge/Admit/Transfer - Discharge Plan Condition: Stable Disposition: HOME Patient Education Materials: Chronic Pain (ED) Referrals: Dory Goodman [Primary Care Provider] - As Soon As Possible Additional Instructions: Follow up with you doctor as soon as possible. Your ultrasound shows you still have a Brown's cyst. Your ankle xray did not show any new problems. Return to the ER if you have any new or worsening symptoms. - Billing Disposition and Condition Condition: STABLE Disposition: Home The documentation as recorded by the Charlene dunn Elizabeth accurately reflects the service I personally performed and the decisions made by , Paige Leung MD.
== END 2017-09-24 13:36 | disposition home or self-care (01) ==
LOC: ED 07:59
DX: R41.82 Altered mental status, unspecified (principal); R45.851 Suicidal ideations; F11.90 Opioid use, unspecified, uncomplicated; R44.3 Hallucinations, unspecified; M25.572 Pain in left ankle and joints of left foot; M71.22 Synovial cyst of popliteal space [Baker], left knee; F41.9 Anxiety disorder, unspecified; F32.9 Major depressive disorder, single episode, unspecified; Z86.718 Personal history of other venous thrombosis and embolism; Z96.641 Presence of right artificial hip joint; Z82.49 Family history of ischemic heart disease and other diseases of the circulatory system; Z83.3 Family history of diabetes mellitus; Z82.5 Family history of asthma and other chronic lower respiratory diseases; Z80.9 Family history of malignant neoplasm, unspecified; Z88.8 Allergy status to other drugs, medicaments and biological substances; Z87.891 Personal history of nicotine dependence
CPT/HCPCS: 36415; 70450; 80053; 80320; 80329; 82550; 84443; 85025; 93005; 99283; A9270-GY; G0480

== ENCOUNTER 2017-12-03 07:29 | Emergency (ER) | payer OTHER ==
--- NOTE | 2017-12-03 07:58 | ED ---
GI/ HPI - HPI Summary HPI Summary: Pt. is a 52 y.o female who presents to the ER for lower abd. cramping and hematuria x 1 days. Denies fever, chills, N/V. No current modifying factors. Symptoms are milld in severity. Pt. resides at assisted. - History of Current Complaint Chief Complaint: EDAbdPain Time Seen by Provider: 12/03/17 07:41 Stated Complaint: ABD PAIN Hx Obtained From: Patient Pain Intensity: 10 - Allergy/Home Medications Allergies/Adverse Reactions: Allergies Allergy/AdvReac Type Severity Reaction Status Date / Time nalbuphine [From Nubain] Allergy Difficulty Verified 12/03/17 07:52 Breathing rofecoxib [From Vioxx] Allergy Swelling Verified 12/03/17 07:52 PMH/Surg Hx/FS Hx/Imm Hx Previously Healthy: Yes Endocrine/Hematology History: Reports: Hx Diabetes - previously, however no longer medicated per patient Cardiovascular History: Denies: Hx Angina, Hx Pacemaker/ICD Musculoskeletal History: Reports: Other Musculoskeletal History - CHRONIC PAIN, Brown's cyst, left ankle surgery Sensory History: Denies: Hx Hearing Aid Neurological History: Reports: Other Neuro Impairments/Disorders - DEPRESSION Psychiatric History: Reports: Hx Anxiety, Hx Depression Denies: Hx Panic Disorder, Hx of Violent Episodes Against Others - Surgical History Surgery Procedure, Year, and Place: Lt WRIST - Xs 2. Rt HIP REPLACEMENT. Lt ANKLE -FX'd (PINS REMOVED). Rt ARM - FX - Immunization History Date of Tetanus Vaccine: UTD Date of Influenza Vaccine: NO Immunizations Up to Date: Yes Infectious Disease History: No Infectious Disease History: Reports: Hx Shingles Denies: Traveled Outside the [place] in Last 30 Days - Family History Known Family History: Positive: Cardiac Disease, Hypertension, Diabetes, Other - Asthma. [place]. - Social History Occupation: Retired Lives: At [facility] Alcohol Use: None Hx Substance Use: Yes Substance Use Type: Reports: Prescribed Substance Use Comment - Amount & Last Used: morphine, hydrocodcone, xanax Hx Tobacco Use: Yes Smoking Status (MU): Former Smoker Review of Systems Constitutional: Negative Cardiovascular: Negative Respiratory: Negative Positive: Abdominal Pain Positive: hematuria, other - Denies flank pain All Other Systems Reviewed And Are Negative: Yes Physical Exam Triage Information Reviewed: Yes Vital Signs On Initial Exam: Initial Vitals Temp Pulse Resp BP Pulse Ox 97.8 F 76 18 110/71 98 12/03/17 07:30 12/03/17 07:30 12/03/17 07:30 12/03/17 07:30 12/03/17 07:30 Vital Signs Reviewed: Yes Appearance: Positive: Well-Appearing - Pt. lying on bed in NAD> Skin: Positive: Warm, Dry Head/Face: Positive: Normal Head/Face Inspection Eyes: Positive: Normal Neck: Positive: Supple Respiratory/Lung Sounds: Positive: Clear to Auscultation, Breath Sounds Present Cardiovascular: Positive: Normal, RRR Abdomen Description: Positive: Other: - Obese. Abd. is soft with mild tenderness to the suprapubic region. No rebound tenderness or guarding. Neurological: Positive: Normal, CN Intact II-III Psychiatric: Positive: Affect/Mood Appropriate Diagnostics - Vital Signs Vital Signs Temp Pulse Resp BP Pulse Ox 12/03/17 07:38 75 8 110/71 98 12/03/17 07:37 75 98 12/03/17 07:30 97.8 F 76 18 110/71 98 - Laboratory Lab Statement: Any lab studies that have been ordered have been reviewed, and results considered in the medical decision making process. GIGU Course/Dx - Course Course Of Treatment: Pt. presenting for hematuria and lower abd. pain. She is afebrile and well appearing. She has a benign abd. exam. She has no flank pain to suspect kidney stone. U/A shows RBCs but was unable to be interpreted secondary to color of urine according to lab. Will send for culture. Given symptoms will treat for suscepted UTI. Pt. stated on keflex. To increase fluids. Tylenol or motrin for pain as directed. To return to ER for increased pain, fever, vomiting. - Diagnoses Differential Diagnoses - Female: Cancer, Cystitis, Renal Calculi, Urinary Tract Infection Provider Diagnoses: Hemorrhagic cystitis Discharge - Sign-Out/Discharge Documenting (check all that apply): Patient Departure - Discharge Plan Condition: Good Disposition: HOME Prescriptions: Cephalexin CAP* [Keflex CAP*] 500 mg PO BID #20 cap Patient Education Materials: Urinary Tract Infection in Women (ED) Referrals: Dory Goodman [Primary Care Provider] - Additional Instructions: Schedule a follow up appointment with your PCP Take antibiotic as directed Increase fluids Tylenol or Motrin for pain as directed Return to ER for fever, vomiting, increased pain or if concerned - Billing Disposition and Condition Condition: GOOD Disposition: Home
[2017-12-03 08:56] LABS: Urine Appearance Clear; Urine Color Orange
[2017-12-03 08:57] LABS: Urine Specific Gravity 1.023 (1.010-1.030)
[2017-12-03 09:02] LABS: Urine White Blood Cell Absent (Absent)
[2017-12-03 09:03] LABS: Urine Red Blood Cell 1+(3-5/hpf) (Absent)
[2017-12-03] MEDS ORDERED: Cephalexin CAP* 500 MG PO ONE (09:30)
[2017-12-03] MEDS ORDERED: Acetaminophen TAB* 325 MG PO ONE (09:49)
[2017-12-03 10:20] VITALS: BP 129/77
== END 2017-12-03 10:20 | disposition home or self-care (01) ==
LOC: ED 07:29
DX: N30.91 Cystitis, unspecified with hematuria (principal); Z87.891 Personal history of nicotine dependence; Z88.8 Allergy status to other drugs, medicaments and biological substances
CPT/HCPCS: 81003; 81015; 99283; A9270-GY

== ENCOUNTER 2017-12-07 15:09 | Emergency (ER) | payer OTHER ==
[2017-12-07] MEDS ORDERED: HYDROcodone/ACETAMIN 5-325 MG* 1 TAB PO ONE (18:04)
[2017-12-07 18:08] LABS: Urine Appearance Clear; Urine Blood 1+ (Negative); Urine Color Yellow; Urine Ketones Negative (Negative); Urine Protein Negative (Negative); Urine Red Blood Cell 3+(>10/hpf) (Absent); Urine Specific Gravity 1.014 (1.010-1.030); Urine Urobilinogen Negative (Negative); Urine White Blood Cell 1+(6-10/hpf) (Absent)
[2017-12-07 18:28] LABS: ABS Basophils 0 10^3/ul (0-0.2); ABS Eosinophils 0.1 10^3/ul (0-0.6); ABS Lymphocytes 2.3 10^3/ul (1.0-4.8); ABS Monocytes 0.6 10^3/ul (0-0.8); ABS Neutrophils 3.1 10^3/ul (1.5-7.7); ABS Nucleated RBC 0 10^3/ul; Eosinophil % 2.3 % (0-6); Hematocrit 34 % (35-47); Hemoglobin 11.1 g/dl (12.0-16.0); Lymphocyte % 36.7 % (25-47); Mean Corpuscular HGB Conc 33 g/dl (31-36); Mean Corpuscular Hemoglobin 27 pg (27-31); Mean Corpuscular Volume 83 fL (80-97); Mean Platelet Volume 7.2 um3 (7.4-10.4); Nucleated Red Blood Cells % 0; Platelet Count 360 10^3/ul (150-450); Red Blood Count 4.06 10^6/ul (4.00-5.40); Red Cell Distribution Width 17 % (10.5-15); White Blood Count 6.2 10^3/ul (3.5-10.8)
[2017-12-07 18:32] LABS: INR 0.87 (0.77-1.02)
[2017-12-07 18:43] LABS: EGFR Non-African American 104.2 (>60)
--- NOTE | 2017-12-07 18:45 | RAD ---
INDICATION: Hematuria. Flank pain COMPARISON: CT abdomen pelvis 2008 TECHNIQUE: Noncontrast axial source images were acquired from the level hemidiaphragms to the symphysis pubis as part of CT imaging for renal stone. Lung bases: The lung bases are clear. Liver: The liver is enlarged with findings of hepatic steatosis. Noncontrast imaging shows no evidence of a hepatic mass or ductal dilatation. Gallbladder: Cholecystectomy. Spleen: The spleen is normal in size. The noncontrast CT appearance is normal. Pancreas: Noncontrast imaging shows no pancreatic mass or ductal dilitation. Adrenal glands: No masses are identified. Kidneys/Bladder: There are multiple nonobstructive left renal calculi. There is a 4 mm mid pole left renal calculus and a 2 mm lower pole left renal calculus There is no evidence of hydronephrosis or hydroureter of either kidney. The distal ureters are not well evaluated due to beam hardening artifact. Limited views the bladder show no specific abnormalities. Adenopathy: There is no evidence of intraperitoneal or retroperitoneal adenopathy. Evaluation is limited without oral contrast. Fluid collections: There are no free or localized fluid collections. Vessels: The aorta and iliac vessels are normal in caliber. There are no significant atherosclerotic changes. The IVC appears normal Pelvic organs: The uterus is not visualized. There is a 3.3 cm right adnexal cystic structure which is likely ovarian in origin. GI tract: Evaluation of the bowel is limited without oral contrast. There is prior bariatric surgery. The upper and lower GI tract including the appendix otherwise appear normal. Soft tissues: No soft tissue abnormalities of the extraperitoneal abdomen or pelvis are identified. Osseous structures: There are postoperative changes of the right hemipelvis and there is right hip arthroplasty both which produce significant beam hardening artifact. The appearance unchanged. There is a chronic L5 spondylolysis with a grade 1-2 anterolisthesis of L5 on S1 IMPRESSION: 1. There are multiple small left renal calculi. These are nonobstructive. There is no hydronephrosis or hydroureter. It would be difficult to exclude a nonobstructive distal ureteral calculus due to beam hardening artifact from right pelvic and hip surgery. 2. Hepatomegaly with hepatic steatosis. 3. Hysterectomy. 3.3 cm right adnexal mass likely ovarian in origin representing a cyst. 4. Prior bariatric surgery 5. Chronic L5 spondylolysis with grade 1-2 anterolisthesis
--- NOTE | 2017-12-07 19:15 | ED ---
GI/ HPI - HPI Summary HPI Summary: 52 female presents with hematuria for the past two week. She states that is coming from her urethra. She admits to flank pain and lower bowel pain. She denies any fevers. She admits urgency and frequency at night. She states she may be on blood thinners as she is in rehabilitation. She is currently at [facility] and was discharge today. She states "I am suppose to come here to get admitted to get placed in [facility]". She does admits to chronic left leg pain that is unchanged from a fall 2 weeks ago. She denies any loss of bowel or bladder or saddle anesthesia. She has had her uterus appendix and gallbladder removed. She states that she is not having vaginal bleeding. She states she was recently she treated for a UTI with Keflex. She states she was seen at [facility] two weeks ago for a fall and a stroke and was place in [facility] for rehab. She denies any diarrhea or constipation. She denies any nausea or vomiting. - History of Current Complaint Chief Complaint: EDUrogenitalProblems Time Seen by Provider: 12/07/17 17:50 Stated Complaint: VAGINAL BLEEDING Pain Intensity: 8 - Allergy/Home Medications Allergies/Adverse Reactions: Allergies Allergy/AdvReac Type Severity Reaction Status Date / Time nalbuphine [From Nubain] Allergy Difficulty Verified 12/03/17 07:52 Breathing rofecoxib [From Vioxx] Allergy Swelling Verified 12/03/17 07:52 PMH/Surg Hx/FS Hx/Imm Hx Endocrine/Hematology History: Reports: Hx Diabetes - previously, however no longer medicated per patient Cardiovascular History: Denies: Hx Angina, Hx Pacemaker/ICD Musculoskeletal History: Reports: Other Musculoskeletal History - CHRONIC PAIN, Brown's cyst, left ankle surgery Sensory History: Denies: Hx Hearing Aid Neurological History: Reports: Other Neuro Impairments/Disorders - DEPRESSION Psychiatric History: Reports: Hx Anxiety, Hx Depression Denies: Hx Panic Disorder, Hx of Violent Episodes Against Others - Surgical History Surgery Procedure, Year, and Place: Lt WRIST - Xs 2. Rt HIP REPLACEMENT. Lt ANKLE -FX'd (PINS REMOVED). Rt ARM - FX - Immunization History Date of Tetanus Vaccine: UTD Date of Influenza Vaccine: NO Infectious Disease History: No Infectious Disease History: Reports: Hx Shingles Denies: Traveled Outside the [place] in Last 30 Days - Family History Known Family History: Positive: Cardiac Disease, Hypertension, Diabetes, Other - Asthma. [place]. - Social History Alcohol Use: Occasionally Hx Substance Use: Yes Substance Use Type: Reports: Prescribed Substance Use Comment - Amount & Last Used: morphine, hydrocodcone, xanax Hx Tobacco Use: Yes Smoking Status (MU): Former Smoker Review of Systems Negative: Fever Negative: Chest Pain Negative: Shortness Of Breath Positive: Abdominal Pain Positive: flank pain, hematuria All Other Systems Reviewed And Are Negative: Yes Physical Exam Triage Information Reviewed: Yes Vital Signs On Initial Exam: Initial Vitals Temp Pulse Resp BP Pulse Ox 97.7 F 98 16 140/91 98 12/07/17 15:15 12/07/17 15:15 12/07/17 15:15 12/07/17 15:15 12/07/17 15:15 Vital Signs Reviewed: Yes Appearance: Positive: Well-Appearing Skin: Positive: Warm, Dry Head/Face: Positive: Normal Head/Face Inspection Eyes: Positive: Normal, Conjunctiva Clear ENT: Positive: Pharynx normal Respiratory/Lung Sounds: Positive: Clear to Auscultation, Breath Sounds Present Cardiovascular: Positive: Normal, RRR Abdomen Description: Positive: Soft, CVA Tenderness (R), CVA Tenderness (L), Other: - mild tenderness suprapubic Bowel Sounds: Positive: Present Musculoskeletal: Positive: Normal Neurological: Positive: Normal Psychiatric: Positive: Normal Diagnostics - Vital Signs Vital Signs Temp Pulse Resp BP Pulse Ox 12/07/17 15:15 97.7 F 98 16 140/91 98 - Laboratory Lab Results: Lab Results 12/07/17 12/07/17 12/07/17 Range/Units 17:49 18:09 18:09 WBC 6.2 (3.5-10.8) 10^3/ul RBC 4.06 (4.00-5.40) 10^6/ul Hgb 11.1 L (12.0-16.0) g/dl Hct 34 L (35-47) % MCV 83 (80-97) fL MCH 27 (27-31) pg MCHC 33 (31-36) g/dl RDW 17 H (10.5-15) % Plt Count 360 (150-450) 10^3/ul MPV 7.2 L (7.4-10.4) um3 Neut % (Auto) 50.5 (38-83) % Lymph % (Auto) 36.7 (25-47) % [place] % (Auto) 9.8 H (0-7) % Eos % (Auto) 2.3 (0-6) % Baso % (Auto) 0.7 (0-2) % Absolute Neuts (auto) 3.1 (1.5-7.7) 10^3/ul Absolute Lymphs (auto) 2.3 (1.0-4.8) 10^3/ul Absolute Monos (auto) 0.6 (0-0.8) 10^3/ul Absolute Eos (auto) 0.1 (0-0.6) 10^3/ul Absolute Basos (auto) 0 (0-0.2) 10^3/ul Absolute Nucleated RBC 0 10^3/ul Nucleated RBC % 0 INR (Anticoag Therapy) (0.77-1.02) APTT (26.0-36.3) seconds Sodium 140 (135-145) mmol/L Potassium 4.2 (3.5-5.0) mmol/L Chloride 106 (101-111) mmol/L Carbon Dioxide 30 (22-32) mmol/L Anion Gap 4 (2-11) mmol/L BUN 14 (6-24) mg/dL Creatinine 0.60 (0.51-0.95) mg/dL Est GFR ( Amer) 126.1 (>60) Est GFR (Non-Af Amer) 104.2 (>60) BUN/Creatinine Ratio 23.3 H (8-20) Glucose 98 (70-100) mg/dL Calcium 9.0 (8.6-10.3) mg/dL Total Bilirubin 0.30 (0.2-1.0) mg/dL AST 103 H (13-39) U/L ALT 217 H (7-52) U/L Alkaline Phosphatase 135 H (34-104) U/L Total Protein 6.6 (6.4-8.9) g/dL Albumin 3.8 (3.2-5.2) g/dL Globulin 2.8 (2-4) g/dL Albumin/Globulin Ratio 1.4 (1-3) Urine Color Yellow Urine Appearance Clear Urine pH 6.0 (5-9) Ur Specific [place] 1.014 (1.010-1.030) Urine Protein Negative (Negative) Urine Ketones Negative (Negative) Urine Blood 1+ A (Negative) Urine Nitrate Negative (Negative) Urine Bilirubin Negative (Negative) Urine Urobilinogen Negative (Negative) Ur Leukocyte Esterase 3+ A (Negative) Urine WBC (Auto) 1+(6-10/hpf) A (Absent) Urine RBC (Auto) 3+(>10/hpf) A (Absent) Ur Squamous Epith Cells Present A (Absent) Urine Bacteria Absent (Absent) Urine Glucose Negative (Negative) 12/07/17 Range/Units 18:09 WBC (3.5-10.8) 10^3/ul RBC (4.00-5.40) 10^6/ul Hgb (12.0-16.0) g/dl Hct (35-47) % MCV (80-97) fL MCH (27-31) pg MCHC (31-36) g/dl RDW (10.5-15) % Plt Count (150-450) 10^3/ul MPV (7.4-10.4) um3 Neut % (Auto) (38-83) % Lymph % (Auto) (25-47) % [place] % (Auto) (0-7) % Eos % (Auto) (0-6) % Baso % (Auto) (0-2) % Absolute Neuts (auto) (1.5-7.7) 10^3/ul Absolute Lymphs (auto) (1.0-4.8) 10^3/ul Absolute Monos (auto) (0-0.8) 10^3/ul Absolute Eos (auto) (0-0.6) 10^3/ul Absolute Basos (auto) (0-0.2) 10^3/ul Absolute Nucleated RBC 10^3/ul Nucleated RBC % INR (Anticoag Therapy) 0.87 (0.77-1.02) APTT 30.3 (26.0-36.3) seconds Sodium (135-145) mmol/L Potassium (3.5-5.0) mmol/L Chloride (101-111) mmol/L Carbon Dioxide (22-32) mmol/L Anion Gap (2-11) mmol/L BUN (6-24) mg/dL Creatinine (0.51-0.95) mg/dL Est GFR ( Amer) (>60) Est GFR (Non-Af Amer) (>60) BUN/Creatinine Ratio (8-20) Glucose (70-100) mg/dL Calcium (8.6-10.3) mg/dL Total Bilirubin (0.2-1.0) mg/dL AST (13-39) U/L ALT (7-52) U/L Alkaline Phosphatase (34-104) U/L Total Protein (6.4-8.9) g/dL Albumin (3.2-5.2) g/dL Globulin (2-4) g/dL Albumin/Globulin Ratio (1-3) Urine Color Urine Appearance Urine pH (5-9) Ur Specific [place] (1.010-1.030) Urine Protein (Negative) Urine Ketones (Negative) Urine Blood (Negative) Urine Nitrate (Negative) Urine Bilirubin (Negative) Urine Urobilinogen (Negative) Ur Leukocyte Esterase (Negative) Urine WBC (Auto) (Absent) Urine RBC (Auto) (Absent) Ur Squamous Epith Cells (Absent) Urine Bacteria (Absent) Urine Glucose (Negative) Result Diagrams: 12/07/17 18:09 12/07/17 18:09 Lab Statement: Any lab studies that have been ordered have been reviewed, and results considered in the medical decision making process. - CT abd CT Interpretation: Positive (See Comments) - IMPRESSION: 1. There are multiple small left renal calculi. These are nonobstructive. There is no hydronephrosis or hydroureter. It would be difficult to exclude a nonobstructive distal ureteral calculus due to beam hardening artifact from right pelvic and hip surgery. 2. Hepatomegaly with hepatic steatosis. 3. Hysterectomy. 3.3 cm right adnexal mass likely ovarian in origin representing a cyst. 4. Prior bariatric surgery 5. Chronic L5 spondylolysis with grade 1-[address] Interpretation Completed By: Radiologist Re-Evaluation - Re-Evaluation First Eval Re-Evaluation Time: 20:26 Comment: spoke with olga and patient was ambulatory and was discharge to home today. GIGU Course/Dx - Course Course Of Treatment: 52 female presents with hematuria for the past two week. She states that is coming from her urethra. She admits to flank pain and lower bowel pain. She denies any fevers. She admits urgency and frequency at night. She states she may be on blood thinners as she is in rehabilitation. She is currently at [facility] and was discharge today. She states "I am suppose to come here to get admitted to get placed in [facility]". She does admits to chronic left leg pain that is unchanged from a fall 2 weeks ago. She denies any loss of bowel or bladder or saddle anesthesia. She has had her uterus appendix and gallbladder removed. She states that she is not having vaginal bleeding. She states she was recently she treated for a UTI with Keflex. She states she was seen at [facility] two weeks ago for a fall and a stroke and was place in [facility] for rehab. She denies any diarrhea or constipation. She denies any nausea or vomiting. on exam appears in no distress. is moving around the bed. mild suprapubic tenderness and mild cva tenderness. wbc 6.2. kidney function normal. urine shows uti. will treat with cipro. CT shows no pyelo and nonobstructing renal stones. told to follow up with urology about hematuria. when went to discharge patient states needs to be admitted. discussed with dr gar and there is no clinical need to be admitted. confirmed with [facility] that can ambulate without assistance and complete rehab today and was discharge home. patient requesting wheelchair at home which gave script for. told to continue cipro. patient understand and agrees with plan. - Diagnoses Differential Diagnoses - Female: Pyelonephritis, Urinary Tract Infection, Ureteral Calculi Provider Diagnoses: Hematuria, UTI (urinary tract infection) Discharge - Sign-Out/Discharge Documenting (check all that apply): Patient Departure - Discharge Plan Condition: Good Disposition: HOME Prescriptions: Ciprofloxacin TAB* [Cipro 500 MG TAB*] 500 mg PO BID #13 tab Patient Education Materials: Urinary Tract Infection in Women (ED) Referrals: Dory Goodman [Primary Care Provider] - Juan R Kim MD [Medical Doctor] - Additional Instructions: Take Cipro twice a day for 5 days Follow up with primary within 5 days Follow up with urology about hematuria Drink plenty of fluids Take normal pain medication Return to ED if develop any new or worsening symptoms - Billing Disposition and Condition Condition: GOOD Disposition: Home
[2017-12-07] MEDS ORDERED: Ciprofloxacin TAB* 500 MG PO ONE (19:18)
[2017-12-07 21:13] VITALS: BP 126/70
== END 2017-12-07 21:11 | disposition home or self-care (01) ==
LOC: ED 15:09
DX: N20.2 Calculus of kidney with calculus of ureter (principal); K76.0 Fatty (change of) liver, not elsewhere classified; N85.9 Noninflammatory disorder of uterus, unspecified; M43.06 Spondylolysis, lumbar region; Z87.440 Personal history of urinary (tract) infections; Z79.899 Other long term (current) drug therapy; Z87.891 Personal history of nicotine dependence; Z90.710 Acquired absence of both cervix and uterus; Z86.73 Personal history of transient ischemic attack (TIA), and cerebral infarction without residual deficits
CPT/HCPCS: 36415; 74176; 80053; 81003; 85025; 85610; 85730; 99282; A9270-GY

== ENCOUNTER → 2018-01-25 05:10 | Emergency (ER) | payer OTHER ==
[~2018-01-25 05:10] MED LIST: Ketorolac INJ* 60 MG/2 ML VIAL IM ONE
[2018-01-25 05:15] VITALS: BP 176/96
[2018-01-25 05:59] LABS: Urine Appearance Cloudy; Urine Blood Negative (Negative); Urine Color Yellow; Urine Ketones Negative (Negative); Urine Protein Negative (Negative); Urine Red Blood Cell 2+(6-10/hpf) (Absent); Urine Specific Gravity 1.023 (1.010-1.030); Urine Urobilinogen Negative (Negative); Urine White Blood Cell Trace(0-5/hpf) (Absent)
--- NOTE | 2018-01-25 06:03 | ED ---
Neurological HPI - HPI Summary HPI Summary: Patient is a 52-year-old female with a history of recent CVA and fall in September presenting to the ED with pain to the right hip and right ankle, requesting morphine IV. She is unable to give a complete history d/t her slurred speech, what appears to be difficulty word finding, and continuation of stating she would like to mckenna her apartment instead of telling provider her CC. On arrival into the room, patient does not immediately speak to provider. Instead, staring off to the left and not answering questions when asked by provider. She then begins to give talk with slurred speech but only giving one- word at a time. She is unable to piece together a sentence. Boyfriend at bedside. Provider asked if this is new, and he states he does not know. She continues to use one-word answers, slowly piecing them together faster yet not making full sentences, stating she would like to mckenna her apartment for not placing railing and again would like pain control. She is requesting IM morphine at home. When asked about her pain in her hip, she quickly answers without slurred speech and with appropriate responses. However, she then quickly returned to her one word responses stating, "no pictures" and "hungry" and "hurt bad real, mckenna bad people." Again, I asked partner if this is normal for her and he said he did not know and she was speaking well last night if he can remember correctly. Previous visit to the ED for vaginal bleeding and leg pain (2 separate visits) - there is no documentation of slurred speech, word finding or other neurological deficit. She states she would like morphine and to be discharged. Provider refused this request as she is obviously having a neurological deficit, or malingering of such. She is offered an AMA. She refuses this and states she will agree to a CT brain. Code howard not called as last known well according to patient and partner was 5 months ago (September, upon falling.) And again, patient states word finding difficulty has been since the fall. - History of Current Complaint Chief Complaint: EDWeakness Stated Complaint: WEAKNESS Time Seen by Provider: 01/25/18 05:33 Hx Obtained From: Patient Hx From Patient Unobtainable Due To: Altered Mental Status Onset/Duration: Sudden Onset Timing: Constant Onset Severity: Moderate Current Severity: Moderate Neurological Deficit Location: Generalized Pain Intensity: 0 Pain Scale Used: pain to the R hip - severe Character: Weak, Motor Weakness, Impaired Speech, Confusion, Lethargy, Responsiveness - decreased, Visual Changes Alleviating: Nothing Associated Signs and Symptoms: Positive: Unsteady Gait, Visual Changes, Confusion, AMS, Impaired Speech, Emotional Distress TPA Considered: No Similar Episode/Dx as: patient experiencing sxs since september - Allergy/Home Medications Allergies/Adverse Reactions: Allergies Allergy/AdvReac Type Severity Reaction Status Date / Time nalbuphine [From Nubain] Allergy Difficulty Verified 12/03/17 07:52 Breathing rofecoxib [From Vioxx] Allergy Swelling Verified 12/03/17 07:52 PMH/Surg Hx/FS Hx/Imm Hx Previously Healthy: Yes Endocrine/Hematology History: Reports: Hx Diabetes - previously, however no longer medicated per patient Cardiovascular History: Denies: Hx Angina, Hx Pacemaker/ICD Musculoskeletal History: Reports: Other Musculoskeletal History - CHRONIC PAIN, Brown's cyst, left ankle surgery Sensory History: Denies: Hx Hearing Aid Neurological History: Reports: Other Neuro Impairments/Disorders - DEPRESSION Psychiatric History: Reports: Hx Anxiety, Hx Depression Denies: Hx Panic Disorder, Hx of Violent Episodes Against Others - Surgical History Surgery Procedure, Year, and Place: Lt WRIST - Xs 2. Rt HIP REPLACEMENT. Lt ANKLE -FX'd (PINS REMOVED). Rt ARM - FX - Immunization History Date of Tetanus Vaccine: UTD Date of Influenza Vaccine: NO Hx Pertussis Vaccination: No Immunizations Up to Date: Yes Infectious Disease History: No Infectious Disease History: Reports: Hx Shingles Denies: Traveled Outside the [place] in Last 30 Days - Family History Known Family History: Positive: Cardiac Disease, Hypertension, Diabetes, Other - Asthma. [place]. - Social History Occupation: Unemployed, Disabled Lives: With Family Alcohol Use: Occasionally Hx Substance Use: Yes Substance Use Type: Reports: Prescribed Substance Use Comment - Amount & Last Used: morphine, hydrocodcone, xanax Hx Tobacco Use: Yes Smoking Status (MU): Former Smoker Review of Systems Negative: Fever, Chills, Fatigue, Skin Diaphoresis Negative: Blurred Vision, Diplopia, Drainage, Erythema Negative: Palpitations, Chest Pain Negative: Shortness Of Breath, Cough Positive: no symptoms reported, see HPI Negative: Arthralgia, Myalgia Skin: Negative Positive: Weakness, Slurred Speech All Other Systems Reviewed And Are Negative: Yes Physical Exam Triage Information Reviewed: Yes Vital Signs On Initial Exam: Initial Vitals Temp Pulse Resp BP Pulse Ox 97.6 F 74 16 176/96 99 01/25/18 05:12 01/25/18 05:12 01/25/18 05:12 01/25/18 05:12 01/25/18 05:12 Completion Of Physical Exam Limited Due To: Other - unable to give full history Appearance: Positive: Well-Appearing, Well-Nourished Skin: Positive: Warm, Skin Color Reflects Adequate Perfusion Eyes: Positive: EOMI, DONA, Conjunctiva Clear Neck: Positive: Supple Respiratory/Lung Sounds: Positive: Clear to Auscultation, Breath Sounds Present Cardiovascular: Positive: RRR, Pulses are Symmetrical in both Upper and Lower Extremities. Negative: Leg Edema Left, Leg Edema Right Musculoskeletal: Positive: Strength/ROM Intact Neurological: Positive: Slurred Speech Psychiatric: Positive: Patient Uncooperative for Exam AVPU Assessment: Alert - Michelle Coma Scale Best Eye Response: 4 - Spontaneous Best Motor Response: 6 - Obeys Commands Best Verbal Response: 5 - Oriented Coma Scale Total: 15 Diagnostics - Vital Signs Vital Signs Temp Pulse Resp BP Pulse Ox 01/25/18 05:12 97.6 F 74 16 176/96 99 - Laboratory Lab Results: Lab Results 01/25/18 Range/Units 05:43 Urine Color Yellow Urine Appearance Cloudy Urine pH 5.0 (5-9) Ur Specific [place] 1.023 (1.010-1.030) Urine Protein Negative (Negative) Urine Ketones Negative (Negative) Urine Blood Negative (Negative) Urine Nitrate Negative (Negative) Urine Bilirubin Negative (Negative) Urine Urobilinogen Negative (Negative) Ur Leukocyte Esterase 1+ A (Negative) Urine WBC (Auto) Trace(0-5/hpf) (Absent) Urine RBC (Auto) 2+(6-10/hpf) A (Absent) Ur Squamous Epith Cells Present A (Absent) Urine Bacteria Absent (Absent) Urine Glucose Negative (Negative) Result Diagrams: 01/25/18 06:38 01/25/18 06:38 Lab Statement: Any lab studies that have been ordered have been reviewed, and results considered in the medical decision making process. - Radiology No standard instances Xray Interpretation: No Acute Changes Radiology Interpretation Completed By: ED Physician - No acute cardiopulmonary disease, read and reviewed by Lena Brown, PAC - CT No standard instances CT Interpretation: No Acute Changes, Positive (See Comments) CT Interpretation Completed By: Radiologist - No intracranial pathology NIH Scale - NIH Scale Level of Consciousness: Alert/Keenly Responsive Ask Patient the Month and His/Her Age: Both Correct Ask Pt to Open/Close Eyes and Classroom Technology Technician/Release Non-Paretic Hand: One Correctly Best Gaze (Only Horizontal Eye Movement): Normal Visual Field Testing: No Visual Loss Facial Paresis-Pt to Smile & Close Eyes or Grimace Symmetry: Normal/Symmetrical Motor Function - Right Arm: Drifts LT 10 seconds Motor Function - Left Arm: No Movement Motor Function - Right Leg: Drifts LT 10 seconds Motor Function - Left Leg: No Movement - 38 Limb Ataxia-Must be out of Proportion to Weakness Present: Absent Sensory (Use Pinprick to Test Arms/Legs/Trunk/Face): Pinprick Less on Affected Best Language (Describe Picture, Name Items): Severe Aphasia Dysarthria (Read Several Words): Slurs Some Words Extinction and Inattention: Inattention Total Score: 16 Course/Dx - Course Course Of Treatment: Please see HPI for full course of treatment/HPI. CT brain obtained and shows no neuro deficits. Last CT 1 month ago and shows no changes. Toradol given IM. On reexamination, patient is very agitated, however speaking without slurred speech or difficulty word finding, stating "I want my morphine." ISTOP reveals she has been getting multiple pain medications by different providers. Patient states she is refusing to leave without her morphine. Again, I have refused morphine as patient was sleeping and appeared comfortable on reexamination. There is absolutely no neuro deficits just prior to discharge and patient is walking and talking without difficulty. When asked if symptoms had resolved during her stay in the ED, she becomes agitated and leads without answering. Labs, UA, EKG, chest x-ray and CT of the brain were all completed in the ED course. Labs are WNL, and other imaging is negative. I have referred her to a neurologist. - Differential Dx Differential Diagnoses Neuro: Positive: Cerebrovascular Accident - Diagnoses Provider Diagnoses: Malingering, Request for narcotic pain medication, Deficit in communication due to slurred speech Discharge - Sign-Out/Discharge Documenting (check all that apply): Patient Departure - Discharge Plan Condition: Stable Disposition: HOME Referrals: Dory Goodman [Primary Care Provider] - Jennifer Rodriguez MD [Medical Doctor] - Additional Instructions: Follow up with neurology as soon as possible Call today for an appt - Billing Disposition and Condition Condition: STABLE Disposition: Home
--- NOTE | 2018-01-25 06:31 | RAD ---
EXAM: CT Head Without Intravenous Contrast EXAM DATE/TIME: 01/25/2018 6:15 AM CLINICAL HISTORY: 52 years old, female; Injury or trauma; Fall; Injury details: HX of a fall and stroke in september; Additional info: Fall 2 months ago - unable to speak properly TECHNIQUE: Axial computed tomography images of the head/brain without intravenous contrast. All CT scans at this facility use at least one of these dose optimization techniques: automated exposure control; mA and/or kV adjustment per patient size (includes targeted exams where dose is matched to clinical indication); or iterative reconstruction. COMPARISON: BRAIN WO CT BRAIN WO 09/24/2017 11:00 AM FINDINGS: Brain: Unremarkable. No hemorrhage. No significant white matter disease. No edema. Ventricles: Unremarkable. No ventriculomegaly. Bones/joints: Unremarkable. No acute fracture. Soft tissues: Unremarkable. Sinuses: Unremarkable as visualized. No acute sinusitis. Mastoid air cells: Unremarkable as visualized. No mastoid effusion. IMPRESSION: No acute intracranial abnormality. To contact [facility] with a general question: [facility] - [phone] For direct physician to physician contact: Physician Hotline - [phone] [facility] ([facility] Facility ID #[id number])
[2018-01-25 07:15] LABS: Hematocrit 34 % (35-47); Hemoglobin 11.3 g/dl (12.0-16.0); Mean Corpuscular HGB Conc 33 g/dl (31-36); Mean Corpuscular Hemoglobin 27 pg (27-31); Mean Corpuscular Volume 83 fL (80-97); Mean Platelet Volume 7.7 um3 (7.4-10.4); Platelet Count 354 10^3/ul (150-450); Red Blood Count 4.13 10^6/ul (4.00-5.40); Red Cell Distribution Width 17 % (10.5-15); White Blood Count 11.8 10^3/ul (3.5-10.8)
[2018-01-25 07:16] LABS: ABS Basophils 0.1 10^3/ul (0-0.2); ABS Eosinophils 0.1 10^3/ul (0-0.6); ABS Lymphocytes 3.4 10^3/ul (1.0-4.8); ABS Monocytes 0.7 10^3/ul (0-0.8); ABS Neutrophils 7.5 10^3/ul (1.5-7.7); ABS Nucleated RBC 0 10^3/ul; Eosinophil % 0.7 % (0-6); Lymphocyte % 28.9 % (25-47); Nucleated Red Blood Cells % 0.2
[2018-01-25 07:22] LABS: EGFR Non-African American 112.8 (>60)
--- NOTE | 2018-01-25 07:57 | RAD ---
INDICATION: Weakness COMPARISON: Most recent comparison chest x-rays dated May 07, 2017 TECHNIQUE: PA and lateral views of the chest were obtained. FINDINGS: The heart and mediastinum are normal in size and contour. The lungs are grossly clear. There is no evidence of large pleural effusion. Visualized bones are normal for the patient's age. There is no radiographic evidence of free air beneath the diaphragm IMPRESSION: No radiographic evidence of acute cardiopulmonary disease. R1
== END | disposition home or self-care (01) ==
LOC: ED 05:10
DX: Z76.5 Malingerer [conscious simulation] (principal); R53.1 Weakness; R47.81 Slurred speech
CPT/HCPCS: 36415; 70450; 71046; 80053; 80320; 81003; 81015; 83605; 83735; 84443; 84484; 84702; 85025; 86140; 87086; 93005; 96372; 99283; G0480; J1885

== ENCOUNTER 2018-03-28 22:35 | Emergency (ER) | payer OTHER ==
--- NOTE | 2018-03-29 02:01 | ED ---
Lower Extremity - HPI Summary HPI Summary: 52 year old female with history of chronic pain syndrome presents with complaints of left ankle pain. She state that 2 days ago she was accidentally struck with a grocery cart causing her to fall to the ground. States she both twisted the ankle and the cart ran over the back of her ankle. She takes MS Contin and hydrocodone twice a day for her chronic pain and she states this is not controlling the pain. She only took her morning dose today. States she is unable to bear weight. Denies numbness or tingling. She has a history of a previous injury to this extremity requiring an open reduction and fixation. - History of Current Complaint Chief Complaint: EDExtremityLower Stated Complaint: LT ANKLE PAIN/SWELLING Time Seen by Provider: 03/29/18 01:54 Hx Obtained From: Patient Mechanism Of Injury: Direct Blow, Fall From A Standing Position, Twisted Onset of Pain: Immediate Onset/Duration: Days - 2 Severity Currently: Severe Pain Intensity: 10 Timing: Constant Character Of Pain: Aching, Throbbing Associated Signs And Symptoms: Positive: Bruising. Negative: Swelling, Redness Aggravating Factor(s): Standing, Movement, Weight Bearing Alleviating Factor(s): Nothing Able to Bear Weight: No - Allergies/Home Medications Allergies/Adverse Reactions: Allergies Allergy/AdvReac Type Severity Reaction Status Date / Time nalbuphine [From Nubain] Allergy Difficulty Verified 03/28/18 22:42 Breathing rofecoxib [From Vioxx] Allergy Swelling Verified 03/28/18 22:42 PMH/Surg Hx/FS Hx/Imm Hx Endocrine/Hematology History: Reports: Hx Diabetes - previously, however no longer medicated per patient Cardiovascular History: Reports: Hx Hypertension Denies: Hx Angina, Hx Pacemaker/ICD Respiratory History: Reports: Other Respiratory Problems/Disorders - PE 2003 Musculoskeletal History: Reports: Other Musculoskeletal History - CHRONIC PAIN, Brown's cyst, left ankle surgery Sensory History: Denies: Hx Hearing Aid Psychiatric History: Reports: Hx Anxiety, Hx Depression Denies: Hx Panic Disorder, Hx of Violent Episodes Against Others - Surgical History Surgery Procedure, Year, and Place: Lt WRIST - Xs 2. Rt HIP REPLACEMENT. Lt ANKLE -FX'd (PINS REMOVED). Rt ARM - FX - Immunization History Date of Tetanus Vaccine: UTD Date of Influenza Vaccine: NO Infectious Disease History: No Infectious Disease History: Reports: Hx Shingles Denies: Traveled Outside the [place] in Last 30 Days - Family History Known Family History: Positive: Cardiac Disease, Hypertension, Diabetes, Other - Asthma. [place]. - Social History Occupation: Disabled Lives: With Family Alcohol Use: Occasionally Hx Substance Use: Yes Substance Use Type: Reports: Prescribed Substance Use Comment - Amount & Last Used: morphine, hydrocodcone, xanax Hx Tobacco Use: Yes Smoking Status (MU): Former Smoker Review of Systems Negative: Fever, Chills Negative: Palpitations, Chest Pain Negative: Shortness Of Breath, Cough Positive: Other - See HPI Positive: Bruising Negative: Paresthesia, Numbness All Other Systems Reviewed And Are Negative: Yes Physical Exam - Summary Physical Exam Summary: GENERAL APPEARANCE: Chronically ill appearing, obese, female appears to be in no acute distress. HEAD: Atraumatic. normocephalic. NECK: Neck supple, non-tender. CARDIAC: Normal S1 and S2. No S3, S4 or murmurs. Rhythm is regular. There is no peripheral edema, cyanosis or pallor. Extremities are warm and well perfused. Capillary refill is less than 2 seconds. LUNGS: Clear to auscultation and percussion without rales, rhonchi, wheezing or diminished breath sounds. ABDOMEN: Positive bowel sounds. Soft, nondistended, nontender. No guarding or rebound. No masses or hepatosplenomegally. MUSKULOSKELETAL: Tenderness to the anterior and medial aspect of the left ankle with mild swelling. Normal muscular development. Calf supple and non-tender. BACK: Examination of the spine reveals no spinal deformity or tenderness or muscular spasm. EXTREMITIES: No significant deformity or joint abnormality. Peripheral pulses intact. NEUROLOGICAL: Strength and sensation intact. SKIN: General skin color, texture and turgor normal. Ecchymosis noted to the medial aspect of her left ankle. Triage Information Reviewed: Yes Vital Signs On Initial Exam: Initial Vitals Temp Pulse Resp BP Pulse Ox 98.2 F 94 16 139/86 96 03/28/18 22:37 03/28/18 22:37 03/28/18 22:37 03/28/18 22:37 03/28/18 22:37 Vital Signs Reviewed: Yes Diagnostics - Vital Signs Vital Signs Temp Pulse Resp BP Pulse Ox 03/28/18 22:37 98.2 F 94 16 139/86 96 - Laboratory Lab Statement: Any lab studies that have been ordered have been reviewed, and results considered in the medical decision making process. - Radiology No standard instances Radiology Interpretation Completed By: ED Physician Summary of Radiographic Findings: Soft tissue swelling. No acute fracture or dislocation noted. There is evidence of a well healed old fracture of the distal tibia with a single screw intact. Lower Extremity Course/Dx - Course Course Of Treatment: 52 year old female with history of chronic pain syndrome presents with complaints of left ankle pain. She state that 2 days ago she was accidentally struck with a grocery cart causing her to fall to the ground. States she both twisted the ankle and the cart ran over the back of her ankle. She takes MS Contin and hydrocodone twice a day for her chronic pain and she states this is not controlling the pain. She only took her morning dose today. States she is unable to bear weight. Denies numbness or tingling. She has a history of a previous injury to this extremity requiring an open reduction and fixation. Her exam revealed some mild anterior and medial tenderness of the left ankle with mild swelling and ecchymosis present. Good dorsalis pedis pulse. Sensation intact. No acute fracute or dislocation seen on x-ray. There is a well healed old fracture with intact screw. Suspect patient has ankle sprain. Due to the patient's body habitus and chronic narcotic use, I do not feel non-weightbearing with crutches is safe. Patient has walker at home therefore will place her in a CAM boot with partial weightbearing. She has a reported allergy to rofecoxib however states she has safely taken ketorolac in the past therefore she was given an injection and instructed to maintain her normal pain medication regimen as directed. Recommend RICE. She is to follow up with orthopedic surgery. Warning symptoms reviewed. Verbalizes understanding and agrees with POC. - Diagnoses Differential Diagnosis/HQI/PQRI: Positive: Contusion, Dislocation, Fracture ( Closed), Sprain, Strain Provider Diagnoses: Left ankle sprain Discharge - Sign-Out/Discharge Documenting (check all that apply): Patient Departure - Discharge Plan Condition: Stable Disposition: HOME Patient Education Materials: Ankle Sprain (ED) Referrals: Dory Goodman [Primary Care Provider] - () Ishan Peterson MD [Medical Doctor] - 7 Days (If no improvement in symptoms.) Additional Instructions: The x-ray of your ankle performed in the emergency room today showed no evidence of a new fracture. The x-ray will be reviewed by the radiologist in the morning and we will contact you if there is any change in the treatment plan. Your were given a shot of kerorolac (Toradol) in the emergency room to help with the pain. It is important that you take your regular pain medication as prescribed. Take your evening dose as soon as you get home. Wear the CAM boot that was provided to you in the emergency room until you are able to follow up with orthopedic surgery. You may remove to bath and sleep but should wear at all other times. Rest the ankle as much as possible. Use your walker at home to help ambulate. You may slowly increase weight bearing as tolerated. Apply ice to the ankle for 15-20 minutes at least 4 times a day. Keep the foot elevated while sitting to reduce swelling. Follow up with orthopedic surgery within 7 days for evaluation and treatment. Call for an appointment. Return to the emergency room if you have pain not managed with your pain medication, have worsening swelling, develop numbness or tingling in the foot or toes, or have any worsening of symptoms. - Billing Disposition and Condition Condition: STABLE Disposition: Home
[2018-03-29] MEDS ORDERED: Ketorolac INJ* 30 MG/ML 1 ML VIAL IM ONE (02:23)
[2018-03-29 03:16] VITALS: BP 128/71
== END 2018-03-29 03:15 | disposition home or self-care (01) ==
LOC: ED 22:35
DX: S93.402A Sprain of unspecified ligament of left ankle, initial encounter (principal); W18.09XA Striking against other object with subsequent fall, initial encounter; Y92.9 Unspecified place or not applicable; Z88.5 Allergy status to narcotic agent; Z88.8 Allergy status to other drugs, medicaments and biological substances; Z96.641 Presence of right artificial hip joint; Z87.891 Personal history of nicotine dependence
CPT/HCPCS: 96372; 99282; J1885

== ENCOUNTER 2018-06-14 04:38 | Emergency (ER) | payer OTHER ==
[2018-06-14] MEDS ORDERED: Ketorolac INJ* 60 MG/2 ML VIAL IM ONE (06:13)
[2018-06-14 06:48] LABS: ABS Basophils 0 10^3/ul (0-0.2); ABS Eosinophils 0.1 10^3/ul (0-0.6); ABS Lymphocytes 2.4 10^3/ul (1.0-4.8); ABS Monocytes 0.5 10^3/ul (0-0.8); ABS Neutrophils 5.3 10^3/ul (1.5-7.7); ABS Nucleated RBC 0 10^3/ul; Eosinophil % 0.8 %; Hematocrit 35 % (35-47); Hemoglobin 11.3 g/dl (12.0-16.0); Lymphocyte % 29.3 %; Mean Corpuscular HGB Conc 32 g/dl (31-36); Mean Corpuscular Hemoglobin 26 pg (27-31); Mean Corpuscular Volume 82 fL (80-97); Mean Platelet Volume 7.1 fL (7.4-10.4); Nucleated Red Blood Cells % 0.1; Platelet Count 353 10^3/ul (150-450); Red Blood Count 4.28 10^6/ul (4.00-5.40); Red Cell Distribution Width 18 % (10.5-15); White Blood Count 8.3 10^3/ul (3.5-10.8)
[2018-06-14 07:13] LABS: Acetaminophen < 15 mcg/mL; Alcohol < 10 mg/dL (<10); Salicylate < 2.50 mg/dL (<30)
[2018-06-14 07:14] LABS: ALT 16 U/L (7-52); AST 19 U/L (13-39); Albumin 3.8 g/dL (3.2-5.2); Albumin/Globulin Ratio 1.4 (1-3); Alkaline Phosphatase 71 U/L (34-104); Anion Gap 8 mmol/L (2-11); BUN/Creatinine Ratio 21.4 (8-20); Blood Urea Nitrogen 12 mg/dL (6-24); CO2 Carbon Dioxide 27 mmol/L (22-32); Calcium 9.3 mg/dL (8.6-10.3); Chloride 107 mmol/L (101-111); EGFR African American 136.5 (>60); EGFR Non-African American 112.8 (>60); Globulin 2.8 g/dL (2-4); Glucose 109 mg/dL (70-100); Potassium 3.7 mmol/L (3.5-5.0); Sodium 142 mmol/L (135-145); Total Protein 6.6 g/dL (6.4-8.9)
[2018-06-14 07:28] LABS: TSH (Thyroid Stimulating Horm) 0.21 mcIU/mL (0.34-5.60)
--- NOTE | 2018-06-14 09:00 | ED ---
Complex/Multi-Sys Presentation - HPI Summary HPI Summary: Pt. is a 52 y.o female who presents to the ER for exacerbation of chronic pain. Pt. has a hx of chronic back pain and left ankle pain. Pt. notes she fell last February and since has had exacerbation of pain. Pt. currently following with orthopedic at [facility]. Pt. is prescribed Lortab, morphine 60mg ER, and alprazolam chronically. Pt. denies recent falls or injury. Pt. states she did not take her morning medication stating it does not help. Pt. otherwise denies CP, SOB, abd. pain, V/D, fever, urinary sxs, numbness, tingling or weakness. Pt. notes that she has been very depressed over the last two weeks. She has a hx of depression , SI and psychiatric admissions. Pt. states she has been cutting her left forearm over the last month. She also notes a decrease in activity, sleep, and appetite. Pt. states she wants the pain to stop and wants to be with and hold her sister's hand. Sxs are moderate in severity. No current modifying factors. - History Of Current Complaint Chief Complaint: EDGeneral Time Seen by Provider: 06/14/18 05:53 Hx Obtained From: Patient - Allergies/Home Medications Allergies/Adverse Reactions: Allergies Allergy/AdvReac Type Severity Reaction Status Date / Time nalbuphine [From Nubain] Allergy Difficulty Verified 06/14/18 04:47 Breathing rofecoxib [From Vioxx] Allergy Swelling Verified 06/14/18 04:47 PMH/Surg Hx/FS Hx/Imm Hx Previously Healthy: Yes Endocrine/Hematology History: Reports: Hx Diabetes - previously, however no longer medicated per patient Cardiovascular History: Reports: Hx Hypertension Denies: Hx Angina, Hx Pacemaker/ICD Respiratory History: Reports: Other Respiratory Problems/Disorders - PE 2003 Musculoskeletal History: Reports: Other Musculoskeletal History - CHRONIC PAIN, Brown's cyst, left ankle surgery Sensory History: Denies: Hx Hearing Aid Neurological History: Reports: Other Neuro Impairments/Disorders - DEPRESSION Psychiatric History: Reports: Hx Anxiety, Hx Depression Denies: Hx Panic Disorder, Hx of Violent Episodes Against Others - Surgical History Surgery Procedure, Year, and Place: Lt WRIST - Xs 2. Rt HIP REPLACEMENT. Lt ANKLE -FX'd (PINS REMOVED). Rt ARM - FX - Immunization History Date of Tetanus Vaccine: UTD Date of Influenza Vaccine: NO Immunizations Up to Date: Yes Infectious Disease History: No Infectious Disease History: Reports: Hx Shingles Denies: Traveled Outside the [place] in Last 30 Days - Family History Known Family History: Positive: Cardiac Disease, Hypertension, Diabetes, Other - Asthma. [place]. - Social History Occupation: Disabled Lives: With Family Alcohol Use: Occasionally Hx Substance Use: Yes Substance Use Type: Reports: Prescribed Substance Use Comment - Amount & Last Used: morphine, hydrocodcone, xanax Hx Tobacco Use: Yes Smoking Status (MU): Former Smoker Review of Systems Constitutional: Negative Negative: Fever, Chills Cardiovascular: Negative Respiratory: Negative Negative: Shortness Of Breath Gastrointestinal: Negative Negative: Abdominal Pain, Vomiting, Diarrhea Genitourinary: Negative Positive: Other - chronic pain--back, legs Neurological: Negative All Other Systems Reviewed And Are Negative: Yes Physical Exam Triage Information Reviewed: Yes Vital Signs On Initial Exam: Initial Vitals Temp Pulse Resp BP Pulse Ox 97.0 F 77 16 168/116 99 06/14/18 04:40 06/14/18 04:40 06/14/18 04:40 06/14/18 04:40 06/14/18 04:40 Vital Signs Reviewed: Yes Appearance: Positive: Well-Nourished - Pt. lying in bed, very sleepy. SO present. Skin: Positive: Warm, Cold Head/Face: Positive: Normal Head/Face Inspection Eyes: Positive: Normal, EOMI Neck: Positive: Supple Respiratory/Lung Sounds: Positive: Clear to Auscultation, Breath Sounds Present Cardiovascular: Positive: Normal, RRR Musculoskeletal: Positive: Normal, Strength/ROM Intact, Other - 5/5 strength in bilateral UEs and LEs. Healed surgical scar to left LE. No calf swelling. Extremities neurovascularly intact. Neurological: Positive: Normal, CN Intact II-III Psychiatric: Positive: Affect/Mood Appropriate - [place] Coma Scale Best Eye Response: 4 - Spontaneous Best Motor Response: 6 - Obeys Commands Best Verbal Response: 5 - Oriented Coma Scale Total: 15 Diagnostics - Vital Signs Vital Signs Temp Pulse Resp BP Pulse Ox 06/14/18 04:40 97.0 F 77 16 168/116 99 - Laboratory Lab Results: Lab Results 06/14/18 06/14/18 Range/Units 06:37 06:37 WBC 8.3 (3.5-10.8) 10^3/ul RBC 4.28 (4.00-5.40) 10^6/ul Hgb 11.3 L (12.0-16.0) g/dl Hct 35 (35-47) % MCV 82 (80-97) fL MCH 26 L (27-31) pg MCHC 32 (31-36) g/dl RDW 18 H (10.5-15) % Plt Count 353 (150-450) 10^3/ul MPV 7.1 L (7.4-10.4) fL Neut % (Auto) 63.3 % Lymph % (Auto) 29.3 % [place] % (Auto) 6.2 % Eos % (Auto) 0.8 % Baso % (Auto) 0.4 % Absolute Neuts (auto) 5.3 (1.5-7.7) 10^3/ul Absolute Lymphs (auto) 2.4 (1.0-4.8) 10^3/ul Absolute Monos (auto) 0.5 (0-0.8) 10^3/ul Absolute Eos (auto) 0.1 (0-0.6) 10^3/ul Absolute Basos (auto) 0 (0-0.2) 10^3/ul Absolute Nucleated RBC 0 10^3/ul Nucleated RBC % 0.1 Sodium 142 (135-145) mmol/L Potassium 3.7 (3.5-5.0) mmol/L Chloride 107 (101-111) mmol/L Carbon Dioxide 27 (22-32) mmol/L Anion Gap 8 (2-11) mmol/L BUN 12 (6-24) mg/dL Creatinine 0.56 (0.51-0.95) mg/dL Est GFR ( Amer) 136.5 (>60) Est GFR (Non-Af Amer) 112.8 (>60) BUN/Creatinine Ratio 21.4 H (8-20) Glucose 109 H (70-100) mg/dL Calcium 9.3 (8.6-10.3) mg/dL Total Bilirubin 0.30 (0.2-1.0) mg/dL AST 19 (13-39) U/L ALT 16 (7-52) U/L Alkaline Phosphatase 71 (34-104) U/L Total Protein 6.6 (6.4-8.9) g/dL Albumin 3.8 (3.2-5.2) g/dL Globulin 2.8 (2-4) g/dL Albumin/Globulin Ratio 1.4 (1-3) TSH 0.21 L (0.34-5.60) mcIU/mL Salicylates < 2.50 (<30) mg/dL Acetaminophen < 15 mcg/mL Serum Alcohol < 10 (<10) mg/dL Result Diagrams: 06/14/18 06:37 06/14/18 06:37 Lab Statement: Any lab studies that have been ordered have been reviewed, and results considered in the medical decision making process. Complex Multi-Symp Course/Dx Course Of Treatment: Pt. presenting initially for chronic pain. She states she did not take her narcotic medication today because they're not helping her however patient appears sedated she falls asleep frequently while talking to her. She has no new symptoms or recent falls. Blood pressure elevated patient states she did not take her blood pressure medication today. While interviewing patient she notes to me how depressed she has been and she's been cutting her left arm. Patient states she wants her pain to and and she would like to be with her sister and hold her hand. Patient has been admitted to the psychiatric unit in the past. Patient agrees on psychiatric evaluation. Blood work is unremarkable. Patient angry she is not getting further pain medication. Patient at this time is more awake and alert. Patient was evaluated by Dr. Marcus as well. Patient was given a dose of Lortab. Patient will eventually moved to and asked for psychiatric evaluation. Patient was examined by social service coordinator Char. Her case was discussed with psychiatrist, Dr. Mendiola they feel patient is safe to return home and follow-up as an outpatient. Patient's friend who is present takes care of her and will come back to the ER for anything changes. Patient to follow-up with her normal outpatient physicians as well. To return to the ER if symptoms change or worsen. - Diagnoses Provider Diagnoses: Chronic pain, Depression, Self-mutilation Discharge - Sign-Out/Discharge Documenting (check all that apply): Patient Departure Patient Received Moderate/Deep Sedation with Procedure: No - Discharge Plan Condition: Improved Disposition: HOME Patient Education Materials: Chronic Pain (ED), Depression (ED) Referrals: Dory Goodman [Primary Care Provider] - - Billing Disposition and Condition Condition: IMPROVED Disposition: Home
[2018-06-14] MEDS ORDERED: HYDROcodone/ACETAMIN 5-325 MG* 1 TAB PO ONE (09:17)
[2018-06-14 09:20] LABS: Urine Appearance Clear; Urine Bilirubin Negative (Negative); Urine Blood Negative (Negative); Urine Color Yellow; Urine Glucose Negative (Negative); Urine Ketones Negative (Negative); Urine Nitrite Negative (Negative); Urine Protein Negative (Negative); Urine Specific Gravity 1.014 (1.010-1.030); Urine Urobilinogen Negative (Negative)
[2018-06-14 09:21] LABS: Barbiturates Urine Screen None Detected (None Detect); Benzodiazepine Urine Screen Presumptive Positive (None Detect); Urine Cannabinoids Screen None Detected (None Detect)
[2018-06-14] MEDS ORDERED: Metoprolol Succinate XL TAB* 25 MG PO ONE (13:29)
[2018-06-14 14:15] VITALS: BP 152/86
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
== END 2018-06-14 14:21 | disposition home or self-care (01) ==
LOC: ED 04:38
DX: F32.9 Major depressive disorder, single episode, unspecified (principal); Z91.5 Personal history of self-harm; G89.29 Other chronic pain; M54.9 Dorsalgia, unspecified; M25.572 Pain in left ankle and joints of left foot; Z87.891 Personal history of nicotine dependence
CPT/HCPCS: 36415; 80053; 80307; 80320; 80329; 81003; 84443; 85025; 96372; 99285; G0480; J1885

== ENCOUNTER 2018-08-07 12:34 | Emergency (ER) | payer OTHER ==
--- NOTE | 2018-08-07 14:25 | ED ---
Back Pain - HPI Summary HPI Summary: 52-year-old female presents with right-sided back pain for the past month. States that she fell a month ago and has been having pain since. She has not followed up with her primary. She is on multiple pain medications daily. She also states she's been feeling more confused since the fall. She keeps changing the day of the fall. She denies any numbness or tingling. She states pain is worse when she takes deep breath. Denies any cough. No chest pain. No numbness or tingling. States she has all over weakness. She has not followed up with anyone about her symptoms. She's been having issues with her depression and feels that her depression medications are not working. She denies any suicidal or homicidal ideation. She states she is going to call her primary for follow-up by her psych meds and her symptoms today. She declines mental health exam. She states she did not want take her pain medication today because wanted to tell where the pains was. She has been having a slow speech and difficulties forming thoughts on exam. I have seen this patient before and have seen this kind of behavior before with her. She denies any recent change in mental status. No difficulties with speech finding. No appreciable neuro defect seen. - History of Current Complaint Chief Complaint: EDBackInjuryPain Stated Complaint: FELL MONTH AGO/BACK PAIN PER PT Time Seen by Provider: 08/07/18 13:36 Pain Intensity: 10 - Allergies/Home Medications Allergies/Adverse Reactions: Allergies Allergy/AdvReac Type Severity Reaction Status Date / Time nalbuphine [From Nubain] Allergy Difficulty Verified 08/07/18 12:39 Breathing rofecoxib [From Vioxx] Allergy Swelling Verified 08/07/18 12:39 PMH/Surg Hx/FS Hx/Imm Hx Endocrine/Hematology History: Reports: Hx Diabetes - previously, however no longer medicated per patient Cardiovascular History: Reports: Hx Hypertension Denies: Hx Angina, Hx Pacemaker/ICD Respiratory History: Reports: Other Respiratory Problems/Disorders - PE 2003 Musculoskeletal History: Reports: Other Musculoskeletal History - CHRONIC PAIN, Brown's cyst, left ankle surgery Sensory History: Denies: Hx Hearing Aid Neurological History: Reports: Other Neuro Impairments/Disorders - DEPRESSION Psychiatric History: Reports: Hx Anxiety, Hx Eating Disorder, Hx Depression Denies: Hx Panic Disorder, Hx of Violent Episodes Against Others - Surgical History Surgery Procedure, Year, and Place: Lt WRIST - Xs 2. Rt HIP REPLACEMENT. Lt ANKLE -FX'd (PINS REMOVED). Rt ARM - FX - Immunization History Date of Tetanus Vaccine: UTD Date of Influenza Vaccine: NO Infectious Disease History: No Infectious Disease History: Reports: Hx Shingles Denies: Traveled Outside the [place] in Last 30 Days - Family History Known Family History: Positive: Cardiac Disease, Hypertension, Diabetes, Other - Asthma. [place]. - Social History Alcohol Use: Occasionally Hx Substance Use: Yes Substance Use Type: Reports: Prescribed Substance Use Comment - Amount & Last Used: morphine, hydrocodcone, xanax Hx Tobacco Use: Yes Smoking Status (MU): Former Smoker Review of Systems Negative: Fever Negative: Chest Pain Positive: Other - right rib pain. Negative: Shortness Of Breath Negative: Abdominal Pain Positive: Myalgia - upper back pain All Other Systems Reviewed And Are Negative: Yes Physical Exam Triage Information Reviewed: Yes Vital Signs On Initial Exam: Initial Vitals Temp Pulse Resp BP Pulse Ox 98.8 F 84 18 175/107 99 08/07/18 12:36 08/07/18 12:36 08/07/18 12:36 08/07/18 12:36 08/07/18 12:36 Vital Signs Reviewed: Yes Appearance: Positive: Well-Appearing Skin: Positive: Warm, Dry Head/Face: Positive: Normal Head/Face Inspection Eyes: Positive: Normal, EOMI, DONA, Conjunctiva Clear ENT: Positive: Normal ENT inspection, Pharynx normal, TMs normal Respiratory/Lung Sounds: Positive: Clear to Auscultation, Breath Sounds Present , Other - tenderness over right ribs, Cardiovascular: Positive: Normal, RRR Abdomen Description: Positive: Nontender, Soft Bowel Sounds: Positive: Present Musculoskeletal: Positive: Other - tenderness over right side upper back, 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 - Radiology rib Radiology Interpretation Completed By: Radiologist Summary of Radiographic Findings: IMPRESSION: NO DISPLACED RIB FRACTURE OR PNEUMOTHORAX. back Radiology Interpretation Completed By: Radiologist Summary of Radiographic Findings: IMPRESSION: DEGENERATIVE DISC DISEASE Back Pain Course/Dx - Course Course Of Treatment: 52-year-old female presents with right-sided back pain for the past month. States that she fell a month ago and has been having pain since. She has not followed up with her primary. She is on multiple pain medications daily. She also states she's been feeling more confused since the fall. She keeps changing the day of the fall. She denies any numbness or tingling. She states pain is worse when she takes deep breath. Denies any cough. No chest pain. No numbness or tingling. States she has all over weakness. She has not followed up with anyone about her symptoms. She's been having issues with her depression and feels that her depression medications are not working. She denies any suicidal or homicidal ideation. She states she is going to call her primary for follow-up by her psych meds and her symptoms today. She declines mental health exam. She states she did not want take her pain medication today because wanted to tell where the pains was. on exam has tenderness over right ribs and right side of back. neurovascular intact. gave toradol and feeling better. xrays show no fx. will prescribe flexeril. told contact primary as may need psych meds adjusted as may be mental health causing issues. patient understand and agrees with plan. - Diagnoses Differential Diagnosis/HQI/PQRI: Positive: Fracture, Herniated Disc, Strain Provider Diagnoses: Rib pain on right side, Upper back pain Discharge - Sign-Out/Discharge Documenting (check all that apply): Patient Departure Patient Received Moderate/Deep Sedation with Procedure: No - Discharge Plan Condition: Stable Disposition: HOME Prescriptions: Cyclobenzaprine TAB* [Flexeril 10 MG TAB*] 10 mg PO BID PRN #10 tab PRN Reason: Pain Patient Education Materials: Rib Contusion (ED) Referrals: Dory Goodman [Primary Care Provider] - Additional Instructions: Take muscle relaxers twice a day continue normal pain medications ice/heat area, move as much as possible Follow up with primary within 5 days Return to ED if develop any new or worsening symptoms - Billing Disposition and Condition Condition: STABLE Disposition: Home
[2018-08-07] MEDS ORDERED: Ketorolac INJ* 30 MG/ML 1 ML VIAL IM ONE (14:39)
[2018-08-07] MEDS ORDERED: Diazepam TAB(*) 5 MG PO ONE (15:34)
[2018-08-07 15:49] VITALS: BP 173/90
== END 2018-08-07 15:48 | disposition home or self-care (01) ==
LOC: ED 12:34
DX: R07.81 Pleurodynia (principal); M54.6 Pain in thoracic spine; I10 Essential (primary) hypertension; E11.9 Type 2 diabetes mellitus without complications; F32.9 Major depressive disorder, single episode, unspecified; F41.9 Anxiety disorder, unspecified; Z88.8 Allergy status to other drugs, medicaments and biological substances; Z87.891 Personal history of nicotine dependence
CPT/HCPCS: 72070; 96374; 99282; A9270-GY; J1885

== ENCOUNTER 2018-08-09 19:21 | Emergency (ER) | payer OTHER ==
--- NOTE | 2018-08-09 23:57 | ED ---
Back Pain - HPI Summary HPI Summary: 52 yo hx depression on meds, c/o chronic back pain, worse since a fall 4 weeks ago, came tonight because continued worsening back pain and no relief with medications and depresion due to chronic back pain. Also has left wrist pain that started 4 weeks ago after the fall, and had wrist xray that was negative. Also has left ankle pain and swelling, worse after the fall 4 weeks ago, and pain and swelling are getting worse such that she has difficulty walking. All of the pain is making her anxiety worse. Pt is not suicidal or homicidal. No new injury since 4 weeks. Pt is with Danis, her friend who lives with her, not her SO, and he concurs with the hx and that pt is not suicidal or homicidal. Pt has long acting morphine 60mg, hydrocodone 5/325 bid, xanax 0.5 bid. Pt was on prozac, and spoke to her provider on the phone who has been adjusting her depression medications, and has added a new for depression and pt does not know the name of that medication. Pt also states she is queasy, did not eat all day. No vomiting and some diarrhea. No fever. Pt has not slept in 3 days, per Danis and pt. Gilma states her doctor advised her to come to the ED today to be evaluated, to seek relief of her pain, and she advised a mental health evaluation to determine if pt would benefit from a voluntary admission for depression. Pt is agreeable to a voluntary admission. - History of Current Complaint Chief Complaint: EDGeneral Stated Complaint: MHE PER PT Hx Obtained From: Patient, Family/Washtub Worker - friend Danis Onset/Duration: Gradual Onset, Lasting Weeks, Worse Since - today Onset/Duration: Started Weeks Ago, Traumatic - but trauma was 4 weeks ago Timing: Constant Back Pain Location: Is Discrete @ - lower back Severity Initially: Moderate Severity Currently: Severe Pain Intensity: 10 Pain Scale Used: 0-10 Numeric Character: Sharp - stabbing Aggravating Symptom(s): Movement, Lifting Alleviating Symptom(s): Nothing Associated Signs And Symptoms: Positive: Weakness - chronic weakness left leg due to broken ankle in the past - Allergies/Home Medications Allergies/Adverse Reactions: Allergies Allergy/AdvReac Type Severity Reaction Status Date / Time nalbuphine [From Nubain] Allergy Difficulty Verified 08/07/18 12:39 Breathing rofecoxib [From Vioxx] Allergy Swelling Verified 08/07/18 12:39 PMH/Surg Hx/FS Hx/Imm Hx Previously Healthy: No Endocrine/Hematology History: Reports: Hx Diabetes - is on metformin, did not take 08/10/18 Cardiovascular History: Reports: Hx Hypertension Denies: Hx Angina, Hx Pacemaker/ICD Respiratory History: Reports: Hx Pulmonary Embolism - 2003 GI History: Reports: Hx Ulcer - takes protonix Musculoskeletal History: Reports: Other Musculoskeletal History - CHRONIC PAIN, Brown's cyst, left ankle surgery Sensory History: Denies: Hx Hearing Aid Psychiatric History: Reports: Hx Anxiety, Hx Eating Disorder - anorexia , Hx Depression, Hx Inpatient Treatment, Hx Suicide Attempt - six attempts, last time was 3-4 years ago. Denies: Hx Panic Disorder, Hx of Violent Episodes Against Others - Surgical History Surgery Procedure, Year, and Place: Lt WRIST - Xs 2. Rt HIP REPLACEMENT. Lt ANKLE -FX'd (PINS REMOVED). Rt ARM - FX - Immunization History Date of Influenza Vaccine: 2017 Infectious Disease History: Yes Infectious Disease History: Reports: Hx Shingles Denies: Traveled Outside the [place] in Last 30 Days - Family History Known Family History: Positive: Cardiac Disease, Hypertension, Diabetes, Other - Asthma. [place]. - Social History Occupation: Disabled Lives: With Family - with friend Alcohol Use: former ETOH abuse, none for 10 years Hx Substance Use: Yes Substance Use Type: Reports: Prescribed Substance Use Comment - Amount & Last Used: morphine, hydrocodcone, xanax Hx Tobacco Use: No - quit 06/2018 Smoking Status (MU): Former Smoker Review of Systems Positive: Fatigue Positive: Blurred Vision ENT: Negative Cardiovascular: Negative Respiratory: Negative Positive: Diarrhea, Nausea Positive: frequency. Negative: burning, dysuria, incontinence Positive: Arthralgia, Myalgia Skin: Negative Positive: Headache, Weakness - generalized Positive: Anxious, Depressed All Other Systems Reviewed And Are Negative: Yes Physical Exam Triage Information Reviewed: Yes Vital Signs On Initial Exam: Initial Vitals Temp Pulse Resp BP Pulse Ox 97.6 F 102 16 170/121 98 08/09/18 19:27 08/09/18 19:27 08/09/18 19:27 08/09/18 19:27 08/09/18 19:27 Vital Signs Reviewed: Yes Appearance: Positive: Ill-Appearing, Pain Distress, Obese Skin: Positive: Warm, Skin Color Reflects Adequate Perfusion, Dry Head/Face: Positive: Normal Head/Face Inspection Eyes: Positive: Conjunctiva Clear ENT: Positive: Normal ENT inspection Neck: Positive: Supple, Nontender Respiratory/Lung Sounds: Positive: Clear to Auscultation, Breath Sounds Present Cardiovascular: Positive: RRR, Tachycardia, Leg Edema Left - worse than right, Leg Edema Right. Negative: Murmur Abdomen Description: Positive: Nontender, Soft Bowel Sounds: Positive: Present Musculoskeletal: Positive: Strength/ROM Intact, Pain @ - left wrist, left ankle , lower back Neurological: Positive: Sensory/Motor Intact, Alert, Oriented to Person Place, Time, CN Intact II-III, Normal Gait - with walker, Facial Symmetry, Speech Normal Psychiatric: Positive: Depressed - affect Diagnostics - Vital Signs Vital Signs Temp Pulse Resp BP Pulse Ox 08/09/18 22:52 98.5 F 103 16 159/113 99 08/09/18 21:24 97.3 F 92 16 150/114 97 08/09/18 19:27 97.6 F 102 16 170/121 98 - Laboratory Result Diagrams: 08/10/18 00:20 08/10/18 00:20 Lab Statement: Any lab studies that have been ordered have been reviewed, and results considered in the medical decision making process. Re-Evaluation - Re-Evaluation First Eval Re-Evaluation Time: 02:00 Change: Improved Comment: Pt's pain is improved after meds. Remains calm and in behavioral control. Still denies SI/HI, but wishes evaluation for possible voluntary admission to U. Pt is medically cleared for MHE. Back Pain Course/Dx - Diagnoses Provider Diagnoses: Depression, Chronic pain due to injury Discharge - Sign-Out/Discharge Documenting (check all that apply): Sign-Out Patient Signing out patient TO: Robert Scott - pending MHE - Discharge Plan Condition: Stable Referrals: Dory Goodman [Primary Care Provider] - - Billing Disposition and Condition Condition: STABLE
[2018-08-10] MEDS ORDERED: Ketorolac INJ* 30 MG/ML 1 ML VIAL IM ONE ×2 (00:07→10:03)
[2018-08-10] MEDS ORDERED: Morphine TAB Extended Release (*) 30 MG TAB.ER PO ONE (00:08)
[2018-08-10] MEDS ORDERED: ALPRAZolam TAB* 0.5 MG PO ONE (00:08)
[2018-08-10] MEDS ORDERED: Metoprolol Succinate XL TAB* 25 MG PO ONE (00:21)
[2018-08-10 00:37] LABS: ABS Basophils 0.1 10^3/ul (0-0.2); ABS Eosinophils 0 10^3/ul (0-0.6); ABS Lymphocytes 2.8 10^3/ul (1.0-4.8); ABS Monocytes 0.7 10^3/ul (0-0.8); ABS Neutrophils 5.9 10^3/ul (1.5-7.7); ABS Nucleated RBC 0 10^3/ul; Eosinophil % 0.5 %; Hematocrit 38 % (33-41); Hemoglobin 12.3 g/dL (12.0-16.0); Lymphocyte % 29.7 %; Mean Corpuscular HGB Conc 32 g/dL (31-36); Mean Corpuscular Hemoglobin 26 pg (27-31); Mean Corpuscular Volume 81 fL (80-97); Mean Platelet Volume 7.4 fL (7.4-10.4); Nucleated Red Blood Cells % 0.2; Platelet Count 454 10^3/uL (150-450); Red Blood Count 4.69 10^6 /uL (3.70-4.87); Red Cell Distribution Width 17 % (10.5-15); White Blood Count 9.5 10^3/uL (3.5-10.8)
[2018-08-10 00:44] LABS: ALT 12 U/L (7-52); AST 15 U/L (13-39); Albumin 4.3 g/dL (3.2-5.2); Albumin/Globulin Ratio 1.3 (1-3); Alkaline Phosphatase 78 U/L (34-104); Anion Gap 13 mmol/L (2-11); BUN/Creatinine Ratio 18.8 (8-20); Blood Urea Nitrogen 13 mg/dL (6-24); CO2 Carbon Dioxide 26 mmol/L (22-32); Calcium 9.8 mg/dL (8.6-10.3); Chloride 103 mmol/L (101-111); Creatine Kinase 32 U/L (10-223); EGFR African American 107.3 (>60); EGFR Non-African American 88.7 (>60); Globulin 3.2 g/dL (2-4); Glucose 114 mg/dL (70-100); Potassium 3.6 mmol/L (3.5-5.0); Sodium 142 mmol/L (135-145); Total Protein 7.5 g/dL (6.4-8.9)
[2018-08-10 00:51] LABS: Acetaminophen < 15 mcg/mL; Alcohol < 10 mg/dL (<10); Salicylate < 2.50 mg/dL (<30)
[2018-08-10 01:07] LABS: TSH (Thyroid Stimulating Horm) 0.98 mcIU/mL (0.34-5.60)
[2018-08-10 06:31] LABS: Urine Appearance Cloudy; Urine Bacteria Absent (Absent); Urine Bilirubin Negative (Negative); Urine Blood Negative (Negative); Urine Color Amber; Urine Glucose Negative (Negative); Urine Ketones 1+ (Negative); Urine Nitrite Negative (Negative); Urine Protein 2+(100 mg/dL) (Negative); Urine Red Blood Cell 1+(3-5/hpf) (Absent); Urine Specific Gravity 1.031 (1.010-1.030); Urine Squamous Epithelial Cell Present (Absent); Urine Urobilinogen Negative (Negative); Urine White Blood Cell 1+(6-10/hpf) (Absent)
[2018-08-10 06:44] LABS: Urine Benzodiazepine Screen Presumptive Positive (None Detect)
[2018-08-10 06:45] LABS: Urine Opiates Screen Presumptive Positive (None Detect)
--- NOTE | 2018-08-10 07:40 | ED ---
Progress - Progress Note Progress Note: Patient signed out to Dr. Baron from Dr. Scott pending MHE at 0700. MHE plans to discharge this patient with a diagnoses of depression and chronic pain due to injury. Pt refused to be discharged without getting pain medications. Pt states she fell 6 weeks ago and will get a left ankle and left wrist XR to determine any potential traumatic injury. Left Wrist XR: No Fracture of the wrist is noted. Degenerative changes of the radiocarpal joint. ED Provider has reviewed this report. Left Ankle XR: No Fracture is noted although arthritis at the talocrural joint is noted. ED Provider has reviewed this report. Patient is medically cleared and will be seen by MHE again for reevaluation. Upon reevaluation, MHE decided to discharge her, per Dr. Tompkins, psychiatry. - Consult/PCP Time Called: 03:00 Re-Evaluation - Re-Evaluation First Eval Re-Evaluation Time: 08:17 Comment: Pt refused to leave without getting pain medications. Pt states she fell 6 weeks ago and will get a left ankle and left wrist XR to determine any potential traumatic injury. Course/Dx - Course Course Of Treatment: I am not comfortable giving her pain medication at this time. Her mouth is dry and she slurs her speech a little bit. I'm actually concerned she may have been taking pain medication while she's been here. She was concerned that her about her living situation and we have notified social work instructor to go out and see her as an outpatient and see if she needs anything that were able to help with. In terms of her pain medication I think that needs to be managed by a pain specialist as she has a complicated history and is taking multiple medications at this time. There was a rumor that she has been cut off from her pain medications and she filled her prescription last July 15. If this were the case she could be starting to run out but she adamantly denies that. She currently does not appear to be in any kind of withdrawal and if she were to return in that condition I would be glad to treat her. - Diagnoses Provider Diagnoses: Depression, Chronic pain due to injury Discharge - Sign-Out/Discharge Documenting (check all that apply): Patient Departure - Discharge, Receiving Sign-Out Receiving patient FROM: Robert Scott Patient Received Moderate/Deep Sedation with Procedure: No - Discharge Plan Condition: Stable Disposition: HOME Patient Education Materials: Depression (DC) Referrals: Dory Goodman [Primary Care Provider] - Additional Instructions: Per completion of a mental health evaluation, you are cleared for release and do not require inpatient psychiatric hospitalization at this time. Please go to nearest emergency room or call 911 if safety concerns arise or condition worsens. Please follow up with your outpatient therapy. you can get a medicaid cab for transportation if you are unable to go to therapy on your own Important Phone Numbers: [facility] [phone] Suicide Prevention and Crisis Services........................ [phone] National Suicide Prevention Lifeline............................ 657-555-SYJG (4688) [facility]....................... [phone] Alcoholics Anonymous............................................... [facility].............. [phone] [facility] Police.............................................. [phone] Substance Abuse Treatment Programs [facility] [phone] Alcohol and Drug [facility] - Billing Disposition and Condition Condition: STABLE Disposition: Home - Attestation Statements Document Initiated by Scribe: Yes Documenting Scribe: Diego Mcconnell Provider For Whom Rodolfoibe is Documenting (Include Credential): Robert Baron MD Scribe Attestation: Diego Bragg scribed for Robert Baron MD on 08/10/18 at 3891. Scribe Documentation Reviewed: Yes Provider Attestation: The documentation as recorded by the scribe, Diego Mcconnell accurately reflects the service I personally performed and the decisions made by me, Robert Baron MD Status of Rodolfoibalex Document: Viewed
--- NOTE | 2018-08-10 07:47 | ED ---
Progress - Progress Note Progress Note: The patient is a sign-out from Dr. Paige Leung MD, to Dr. Robert Scott MD , at change of shift at 22:00 pending mental health evaluation and disposition. The patient is a sign-out to Dr. Robert Baron MD, from Dr. Robert Scott MD , at change of shift at 0700 pending mental health evaluation and disposition. - Consult/PCP Time Called: 03:00 Re-Evaluation - Re-Evaluation First Eval Re-Evaluation Time: 02:00 Change: Improved Comment: Pt's pain is improved after meds. Remains calm and in behavioral control. Still denies SI/HI, but wishes evaluation for possible voluntary admission to U. Pt is medically cleared for MHE. Course/Dx - Diagnoses Provider Diagnoses: Depression, Chronic pain due to injury Discharge - Sign-Out/Discharge Documenting (check all that apply): Sign-Out Patient, Receiving Sign-Out Signing out patient TO: Robert Baron - Patient is a sign-out at shift change at 0700 pending MHE and disposition. Receiving patient FROM: Paige Leung - Patient is a sign-out at shift change at 2200 pending MHE and disposition. Patient Received Moderate/Deep Sedation with Procedure: No - Discharge Plan Condition: Stable Disposition: HOME Patient Education Materials: Depression (DC) Referrals: Dory Goodman [Primary Care Provider] - Additional Instructions: Per completion of a mental health evaluation, you are cleared for release and do not require inpatient psychiatric hospitalization at this time. Please go to nearest emergency room or call 911 if safety concerns arise or condition worsens. Please follow up with your outpatient therapy. you can get a medicaid cab for transportation if you are unable to go to therapy on your own Important Phone Numbers: [facility] [phone] Suicide Prevention and Crisis Services........................ [phone] National Suicide Prevention Lifeline............................ 449-203-NEUB (9853) [facility]....................... [phone] Alcoholics Anonymous............................................... [phone] [facility].............. [phone] [facility] Police.............................................. Substance Abuse Treatment Programs [facility] Alcohol and Drug [facility] - Billing Disposition and Condition Condition: STABLE Disposition: Home - Attestation Statements Document Initiated by Rodolfoibe: Yes Documenting Scribe: Sara Saunders Provider For Whom Paula is Documenting (Include Credential): Dr. Robert Scott MD Scribe Attestation: ISara scribed for Dr. Robert Scott MD on 08/11/18 at 0541. Scribe Documentation Reviewed: Yes Provider Attestation: The documentation as recorded by the Sara dunn accurately reflects the service I personally performed and the decisions made by me, Dr. Robert Scott MD Status of Scribe Document: Viewed
[2018-08-10 08:24] VITALS: BP 124/92
== END 2018-08-10 07:30 | disposition home or self-care (01) ==
LOC: ED 19:21
DX: F32.9 Major depressive disorder, single episode, unspecified (principal); G89.29 Other chronic pain; I10 Essential (primary) hypertension; E11.9 Type 2 diabetes mellitus without complications; Z79.84 Long term (current) use of oral hypoglycemic drugs; Z87.891 Personal history of nicotine dependence; Z86.711 Personal history of pulmonary embolism
CPT/HCPCS: 36415; 80053; 80307; 80320; 80329; 81003; 81015; 82550; 84443; 85025; 87077; 87086; 87186; 96372; 99285; A9270-GY; G0480; J1885

== ENCOUNTER → 2018-08-11 13:09 | Emergency (ER) | payer OTHER ==
[2018-08-11 13:16] VITALS: BP 156/93
== END | disposition left against medical advice (07) ==
LOC: ED 13:09
DX: Z53.21 Procedure and treatment not carried out due to patient leaving prior to being seen by health care provider (principal)

== ENCOUNTER 2018-09-10 08:58 | Inpatient (IN) | payer OTHER ==
[2018-09-10 09:37] LABS: INR 1.08 (0.82-1.09)
[2018-09-10] MEDS ORDERED: Acetaminophen TAB* 325 MG PO ONE (09:45)
--- NOTE | 2018-09-10 10:29 | ED ---
Altered Mental Status - HPI Summary HPI Summary: Patient is a 52-year-old female who is a frequent visitor to the ED with request for pain control coming in today with AMS per EMS on arrival. Patient is refusing to speak on arrival. However when RN asks anything regarding pain management, patient is very alert and able to answer questions appropriately. However when provider asks about her chief complaint, she states "i don't want the pictures, make the pictures go away." She has been seen here multiple times in the past with same type of situation/complaints. Patient often will refuse blood draws until pain medication is given. She will often states she will hurt herself or hurt others if we end up discharging her. on arrival, patient states she is unable to use her lower extremities, however on painful stimuli she immediately pulls away and c/o pain. - History Of Current Complaint Chief Complaint: EDAltMentalStatus Stated Complaint: AMS PER EMS Time Seen by Provider: 09/10/18 09:00 Hx Obtained From: Patient Onset/Duration: Still Present Timing: Constant Severity Initially: Moderate Severity Currently: Moderate Character: Confusion, Agitation, Lethargy Alleviating Factor(s): Nothing Associated Signs And Symptoms: Positive: Negative Has Suicidal: Thoughts Has Homicidal: Thoughts - states she will hurt someone if discharged - Risk Factors Cardiac Risk Factors: Negative CVA Risk Factor: Negative - Allergies/Home Medications Allergies/Adverse Reactions: Allergies Allergy/AdvReac Type Severity Reaction Status Date / Time nalbuphine [From Nubain] Allergy Difficulty Verified 08/11/18 13:14 Breathing rofecoxib [From Vioxx] Allergy Swelling Verified 08/11/18 13:14 Home Medications: Home Medications FLUoxetine CAP* [PROzac CAP*] 20 mg PO DAILY 09/10/18 [History Confirmed ] PMH/Surg Hx/FS Hx/Imm Hx Previously Healthy: Yes Endocrine/Hematology History: Reports: Hx Diabetes - is on metformin, did not take 08/10/18 Cardiovascular History: Reports: Hx Hypertension, Other Cardiovascular Problems/ Disorders - DIABETIC / ANXIOTY, AND DEPRSSION Denies: Hx Angina, Hx Pacemaker/ICD Respiratory History: Reports: Hx Pulmonary Embolism - 2003, Other Respiratory Problems/Disorders - PE 2003 GI History: Reports: Hx Ulcer - takes protonix Musculoskeletal History: Reports: Other Musculoskeletal History - CHRONIC PAIN, Brown's cyst, left ankle surgery Sensory History: Denies: Hx Hearing Aid Neurological History: Reports: Other Neuro Impairments/Disorders - DEPRESSION Psychiatric History: Reports: Hx Anxiety, Hx Eating Disorder - anorexia , Hx Depression, Hx Inpatient Treatment, Hx Suicide Attempt - six attempts, last time was 3-4 years ago. Denies: Hx Panic Disorder, Hx of Violent Episodes Against Others - Surgical History Surgery Procedure, Year, and Place: Lt WRIST - Xs 2. Rt HIP REPLACEMENT. Lt ANKLE -FX'd (PINS REMOVED). Rt ARM - FX - Immunization History Date of Tetanus Vaccine: UTD Date of Influenza Vaccine: 2017 Hx Pertussis Vaccination: No Immunizations Up to Date: Yes Infectious Disease History: No Infectious Disease History: Reports: Hx Shingles Denies: Traveled Outside the [place] in Last 30 Days - Family History Known Family History: Positive: Cardiac Disease, Hypertension, Diabetes, Other - Asthma. [place]. - Social History Occupation: Unemployed Lives: Alone Alcohol Use: unknown Alcohol Amount: unkown Hx Substance Use: Yes Substance Use Type: Reports: Prescribed Substance Use Comment - Amount & Last Used: morphine, hydrocodcone, xanax Hx Tobacco Use: No - quit 06/2018 Smoking Status (MU): Former Smoker Review of Systems Constitutional: Negative Negative: Fever, Chills, Fatigue, Skin Diaphoresis Negative: Palpitations, Chest Pain Negative: Shortness Of Breath, Cough Genitourinary: Negative Positive: no symptoms reported, see HPI Positive: Other - endorses L leg pain (10/10 present x several mos). Negative: Arthralgia Negative: Weakness, Paresthesia, Numbness, Syncope Psychological: Normal All Other Systems Reviewed And Are Negative: Yes Physical Exam Triage Information Reviewed: Yes Vital Signs On Initial Exam: Initial Vitals Temp Pulse Resp BP Pulse Ox 97 F 87 16 138/61 97 09/10/18 09:06 09/10/18 09:06 09/10/18 09:06 09/10/18 09:06 09/10/18 09:06 Vital Signs Reviewed: Yes Appearance: Positive: Well-Appearing, Well-Nourished Skin: Positive: Skin Color Reflects Adequate Perfusion Head/Face: Positive: Normal Head/Face Inspection Eyes: Positive: EOMI, Conjunctiva Clear Neck: Positive: Supple, No Lymphadenopathy Respiratory/Lung Sounds: Positive: Clear to Auscultation, Breath Sounds Present Cardiovascular: Positive: Pulses are Symmetrical in both Upper and Lower Extremities Musculoskeletal: Positive: Pain @ - anterior left left on palpation, patient pulls back Neurological: Positive: Sensory/Motor Intact, Speech Normal Psychiatric: Positive: Affect/Mood Appropriate AVPU Assessment: Alert Diagnostics - Vital Signs Vital Signs Temp Pulse Resp BP Pulse Ox 09/10/18 09:06 97 F 87 16 138/61 97 - Laboratory Lab Results: Lab Results 09/10/18 09/10/18 Range/Units 09:04 09:21 INR (Anticoag Therapy) 1.08 (0.82-1.09) POC Glucose (mg/dL) 118 H (70-100) mg/dL Result Diagrams: 09/10/18 14:37 09/10/18 14:37 Lab Statement: Any lab studies that have been ordered have been reviewed, and results considered in the medical decision making process. Altered Mental Statu Course/Dx - Course Course Of Treatment: Patient is a 52-year-old female who is a frequent visitor to the ED with request for pain control coming in today with AMS per EMS on arrival. Patient is refusing to speak on arrival. However when RN asks anything regarding pain management, patient is very alert and able to answer questions appropriately. However when provider asks about her chief complaint, she states "i don't want the pictures, make the pictures go away." She has been seen here multiple times in the past with same type of situation/ complaints. Patient often will refuse blood draws until pain medication is given. She will often states she will hurt herself or hurt others if we end up discharging her. On physical examination, there are no signs of altered mental. Patient is answering questions appropriately when pertained to pain medication, however is refusing to answer other questions. After arrival and requesting pain medications, provider has agreed to give her Tylenol. To this she becomes very upset and begins to raise her voice. She states she will hurt someone unless she gets her pain control as well as her someone if we do not keep her in the hospital. When asked why she wants to stay in the hospital, she states she needs her pain medications. It is at this time she has absolutely no neurologic deficits, speaking well, acting appropriately, however angry. She is stating she will hurt someone if we discharge her, I have asked the mental health unit to come given an evaluation. She is refusing blood draws. MHE completed and will involuntary admit for SI. - Diagnoses Differential Diagnosis/HQI/PQRI: Other - malingering, request for narcotics Provider Diagnoses: Verbalizes suicidal thoughts Discharge - Sign-Out/Discharge Documenting (check all that apply): Patient Departure All imaging exams completed and their final reports reviewed: No Studies Patient Received Moderate/Deep Sedation with Procedure: No - Discharge Plan Condition: Fair Disposition: [facility]IATRIC FACILITY-[facility] [place] - Billing Disposition and Condition Condition: FAIR Disposition: Psychiatric Facility [facility]
[2018-09-10 13:54] LABS: Urine Appearance Cloudy; Urine Bacteria Absent (Absent); Urine Bilirubin Negative (Negative); Urine Blood Negative (Negative); Urine Color Yellow; Urine Glucose Negative (Negative); Urine Ketones 1+ (Negative); Urine Nitrite Negative (Negative); Urine Protein 1+(30 mg/dL) (Negative); Urine Red Blood Cell Trace(0-2/hpf) (Absent); Urine Specific Gravity 1.027 (1.010-1.030); Urine Squamous Epithelial Cell Present (Absent); Urine Urobilinogen Negative (Negative); Urine White Blood Cell Trace(0-5/hpf) (Absent)
[2018-09-10 14:35] LABS: Urine Benzodiazepine Screen Presumptive Positive (None Detect); Urine Opiates Screen Presumptive Positive (None Detect)
[2018-09-10] MEDS ORDERED: Ketorolac INJ* 60 MG/2 ML VIAL IM ONE (14:51)
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
[2018-09-10] MEDS ORDERED: Nicotine PATCH 21 MG/24 HR* PATCH TRANSDERM SCH (15:00)
[2018-09-10 15:05] LABS: ABS Lymphocytes 1.3 10^3/ul (1.0-4.8); ABS Monocytes 0.3 10^3/ul (0-0.8); ABS Neutrophils 6.1 10^3/ul (1.5-7.7); Hematocrit 38 % (35-47); Hemoglobin 12.4 g/dL (12.0-16.0); Lymphocyte % 16.7 %; Mean Corpuscular HGB Conc 33 g/dL (31-36); Mean Corpuscular Hemoglobin 27 pg (27-31); Mean Corpuscular Volume 82 fL (80-97); Mean Platelet Volume 7.7 fL (7.4-10.4); Platelet Count 372 10^3/uL (150-450); Red Blood Count 4.66 10^6 /uL (3.70-4.87); Red Cell Distribution Width 16 % (10.5-15); White Blood Count 7.7 10^3/uL (3.5-10.8)
[2018-09-10 15:26] LABS: Albumin 4.2 g/dL (3.2-5.2); Albumin/Globulin Ratio 1.3 (1-3); BUN/Creatinine Ratio 18.3 (8-20); Calcium 9.9 mg/dL (8.6-10.3); EGFR African American 126.1 (>60); EGFR Non-African American 104.2 (>60); Globulin 3.3 g/dL (2-4); Magnesium 1.5 mg/dL (1.9-2.7); Potassium 3.8 mmol/L (3.5-5.0); Total Bilirubin 0.3 mg/dL (0.2-1.0); Total Protein 7.5 g/dL (6.4-8.9)
[2018-09-10] MEDS: DULoxetine DR CAP* 30 MG CAP.DR PO SCH (15:33)
[2018-09-10] MEDS: Pantoprazole TAB * 40 MG TAB PO SCH (15:59)
[2018-09-10] MEDS ORDERED: QUEtiapine TAB* 100 MG PO SCH (16:00)
[2018-09-10] MEDS: LORazepam TAB(*) 0.5 MG PO PRN (17:20)
[2018-09-10] MEDS ORDERED: Ondansetron TAB* 4 MG ONE (18:57)
[2018-09-10] MEDS ORDERED: Ondansetron TAB* 4 MG PO PRN (19:03)
[2018-09-10] MEDS: metFORMIN* 500 MG TAB PO SCH (19:39)
[2018-09-10] MEDS: Magnesium Oxide TAB* 400 MG PO SCH (19:39)
[2018-09-10] MEDS: Morphine TAB Extended Release (*) 30 MG TAB.ER PO SCH (19:40)
[2018-09-10 20:43] LABS: Acetaminophen < 15 mcg/mL; Alcohol < 10 mg/dL (<10); Salicylate < 2.50 mg/dL (<30)
[2018-09-10 20:56] LABS: TSH (Thyroid Stimulating Horm) 0.14 mcIU/mL (0.34-5.60)
[2018-09-10] MEDS ORDERED: Nicotine Patch Removal NOTE PATCH OFF SCH (21:00)
[2018-09-11 07:18] LABS: HDL Cholesterol 46.5 mg/dL
[2018-09-11] MEDS: metFORMIN* 500 MG TAB PO SCH ×2 (08:07→19:59)
[2018-09-11] MEDS: Morphine TAB Extended Release (*) 30 MG TAB.ER PO SCH ×2 (08:07→20:00)
[2018-09-11] MEDS: Magnesium Oxide TAB* 400 MG PO SCH ×2 (08:07→19:59)
[2018-09-11] MEDS: Pantoprazole TAB * 40 MG TAB PO SCH (08:07)
[2018-09-11] MEDS: DULoxetine DR CAP* 30 MG CAP.DR PO SCH (08:07)
[2018-09-11] MEDS: Multivitamins/Minerals TAB PO SCH (08:10)
[2018-09-11] MEDS ORDERED: Naloxone Nasal Spray* 4 MG/0.1 ML NASAL.SPR INTRANASAL PRN (09:04)
--- NOTE | 2018-09-11 10:49 | PN ---
Subjective - Subjective Date of Service: 09/11/18 Service Type: 05829 Hosp care 35 min high complexity Subjective: Nursing Report: Patient was visible on unit eating breakfast this morning CC: "Alright Patient was seen and evaluated today in the common room. She spoke about how her sister "nicanor" being a prostitute and she plans to buy her earnings and put them on her grave. She spoke about how she has a daughter that is and lives in [place]. She reported adequate pain control today. The patient reported she feels safe on the unit and is interacting with peers. She reported having a better appetite and ate some of her breakfast. Patient reported that she is tolerating medications without side effects. She reported seeing images yesterday of her family members. Objective - General Observations Appearance: Disheveled Appears Stated Age: No - older Stature: Overweight Posture: Slumped Eye Contact: Intermittent Behavior/Activity: Slowed - Interaction Observations Attitude Towards Examiner: Anxious Stated Mood: Dysphoric Affect: Blunted Speech Pattern/Tone: Delayed Thought Process: Loose Associations Perception: Depersonalization Thought Content: Depressive Thought Process: Lethality: Passive Wish Hallucination Type: Visual Delusion Type: None - Cognitive Function Orientation: A&O x 4 Level of Consciousness: Awake Ability to Make Reasonable Decisions: Mildly Impaired - Medication Compliance Cooperative with Inpatient Medication Regimen: Yes - Group Participation Participates in Group Activities: No Assessment - Assessment Merits Inpatient Hospitalization: For Immediate Safety Clinical Impression: 52 year old female with past psychiatric hospitalizations expressing suicidal ideation and homicidal ideation in the Emergency room. Today she is more alert and orientated. Plan - Plan Treatment Plan: Name: JONATHAN KATE Birthdate: 1965 [id number] # Q15 minute observation. #Today the patient shows improvement of attention and concentration as well as thought process. # The patient requires inpatient admission at this time to assure safety, receive treatment and work toward stabilization. # Obtain collateral information once release is signed. # Collaboration with Social Work to assist with disposition and after care. #Hospitalist team contacted and plans to address medical issues #Total T3/ T4 ordered # Walker for assistance with ambulation # PT consult for assistance with ambulation # OT consulted for assistance with showering # Increase Cymbalta 40mg daily. # Pain control achieved with current treatment #MOCA #MMPI #Goals before discharge include: Psychiatric Stabilization Vital Signs Temp Pulse Resp BP Pulse Ox 98.6 F 100 16 132/75 100 09/11/18 07:58 09/11/18 07:58 09/11/18 10:58 09/11/18 07:58 09/11/18 07:58 09/10/18 09/10/18 09/10/18 09:04 09:21 12:48 WBC RBC Hgb Hct MCV MCH MCHC RDW Plt Count MPV Neut % (Auto) Lymph % (Auto) Rice % (Auto) Eos % (Auto) Baso % (Auto) Absolute Neuts (auto) Absolute Lymphs (auto) Absolute Monos (auto) Absolute Eos (auto) Absolute Basos (auto) Absolute Nucleated RBC Nucleated RBC % INR (Anticoag Therapy) 1.08 Sodium Potassium Chloride Carbon Dioxide Anion Gap BUN Creatinine Est GFR ( Amer) Est GFR (Non-Af Amer) BUN/Creatinine Ratio Glucose POC Glucose (mg/dL) 118 H Hemoglobin A1c Lactic Acid Calcium Magnesium Total Bilirubin AST ALT Alkaline Phosphatase Ammonia Troponin I Total Protein Albumin Globulin Albumin/Globulin Ratio Triglycerides Cholesterol LDL Cholesterol HDL Cholesterol TSH Urine Color Yellow Urine Appearance Cloudy Urine pH 6.0 Ur Specific [place]ton 1.027 Urine Protein 1+(30 mg/dl) A Urine Ketones 1+ A Urine Blood Negative Urine Nitrate Negative Urine Bilirubin Negative Urine Urobilinogen Negative Ur Leukocyte Esterase Negative Urine WBC (Auto) Trace(0-5/hpf) Urine RBC (Auto) Trace(0-2/hpf) Ur Squamous Epith Cells Present A Urine Bacteria Absent Hyaline Casts Present A Urine Glucose Negative Salicylates Urine Opiates Screen Acetaminophen Ur Barbiturates Screen Ur Phencyclidine Scrn Ur Amphetamines Screen U Benzodiazepines Scrn Urine Cocaine Screen U Cannabinoids Screen Serum Alcohol 09/10/18 09/10/18 09/10/18 12:51 14:37 14:37 WBC 7.7 RBC 4.66 Hgb 12.4 Hct 38 MCV 82 MCH 27 MCHC 33 RDW 16 H Plt Count 372 MPV 7.7 Neut % (Auto) 79.5 Lymph % (Auto) 16.7 Rice % (Auto) 3.5 Eos % (Auto) 0.0 Baso % (Auto) 0.3 Absolute Neuts (auto) 6.1 Absolute Lymphs (auto) 1.3 Absolute Monos (auto) 0.3 Absolute Eos (auto) 0.0 Absolute Basos (auto) 0.0 Absolute Nucleated RBC 0.0 Nucleated RBC % 0.0 INR (Anticoag Therapy) Sodium 142 Potassium 3.8 Chloride 105 Carbon Dioxide 24 Anion Gap 13 H BUN 11 Creatinine 0.60 Est GFR ( Amer) 126.1 Est GFR (Non-Af Amer) 104.2 BUN/Creatinine Ratio 18.3 Glucose 105 H POC Glucose (mg/dL) Hemoglobin A1c Lactic Acid Calcium 9.9 Magnesium 1.5 L Total Bilirubin 0.30 AST 17 ALT 12 Alkaline Phosphatase 92 Ammonia Troponin I 0.00 Total Protein 7.5 Albumin 4.2 Globulin 3.3 Albumin/Globulin Ratio 1.3 Triglycerides Cholesterol LDL Cholesterol HDL Cholesterol TSH Cancelled Urine Color Urine Appearance Urine pH Ur Specific Elton Urine Protein Urine Ketones Urine Blood Urine Nitrate Urine Bilirubin Urine Urobilinogen Ur Leukocyte Esterase Urine WBC (Auto) Urine RBC (Auto) Ur Squamous Epith Cells Urine Bacteria Hyaline Casts Urine Glucose Salicylates Cancelled Urine Opiates Screen Presumptive positive A Acetaminophen Cancelled Ur Barbiturates Screen None detected Ur Phencyclidine Scrn None detected Ur Amphetamines Screen None detected U Benzodiazepines Scrn Presumptive positive A Urine Cocaine Screen None detected U Cannabinoids Screen None detected Serum Alcohol Cancelled 09/10/18 09/10/18 09/10/18 15:46 15:46 17:53 WBC RBC Hgb Hct MCV MCH MCHC RDW Plt Count MPV Neut % (Auto) Lymph % (Auto) Rice % (Auto) Eos % (Auto) Baso % (Auto) Absolute Neuts (auto) Absolute Lymphs (auto) Absolute Monos (auto) Absolute Eos (auto) Absolute Basos (auto) Absolute Nucleated RBC Nucleated RBC % INR (Anticoag Therapy) Sodium Potassium Chloride Carbon Dioxide Anion Gap BUN Creatinine Est GFR ( Amer) Est GFR (Non-Af Amer) BUN/Creatinine Ratio Glucose POC Glucose (mg/dL) 191 H Hemoglobin A1c Lactic Acid 1.6 Calcium Magnesium Total Bilirubin AST ALT Alkaline Phosphatase Ammonia 44 Troponin I Total Protein Albumin Globulin Albumin/Globulin Ratio Triglycerides Cholesterol LDL Cholesterol HDL Cholesterol TSH Urine Color Urine Appearance Urine pH Ur Specific Elton Urine Protein Urine Ketones Urine Blood Urine Nitrate Urine Bilirubin Urine Urobilinogen Ur Leukocyte Esterase Urine WBC (Auto) Urine RBC (Auto) Ur Squamous Epith Cells Urine Bacteria Hyaline Casts Urine Glucose Salicylates Urine Opiates Screen Acetaminophen Ur Barbiturates Screen Ur Phencyclidine Scrn Ur Amphetamines Screen U Benzodiazepines Scrn Urine Cocaine Screen U Cannabinoids Screen Serum Alcohol 09/10/18 09/11/18 09/11/18 19:47 06:38 06:38 WBC RBC Hgb Hct MCV MCH MCHC RDW Plt Count MPV Neut % (Auto) Lymph % (Auto) Rice % (Auto) Eos % (Auto) Baso % (Auto) Absolute Neuts (auto) Absolute Lymphs (auto) Absolute Monos (auto) Absolute Eos (auto) Absolute Basos (auto) Absolute Nucleated RBC Nucleated RBC % INR (Anticoag Therapy) Sodium Potassium Chloride Carbon Dioxide Anion Gap BUN Creatinine Est GFR ( Amer) Est GFR (Non-Af Amer) BUN/Creatinine Ratio Glucose POC Glucose (mg/dL) Hemoglobin A1c 6.0 H Lactic Acid Calcium Magnesium Total Bilirubin AST ALT Alkaline Phosphatase Ammonia Troponin I Total Protein Albumin Globulin Albumin/Globulin Ratio Triglycerides 98 Cholesterol 134 LDL Cholesterol 68 HDL Cholesterol 46.5 TSH 0.14 L Urine Color Urine Appearance Urine pH Ur Specific El[place] Urine Protein Urine Ketones Urine Blood Urine Nitrate Urine Bilirubin Urine Urobilinogen Ur Leukocyte Esterase Urine WBC (Auto) Urine RBC (Auto) Ur Squamous Epith Cells Urine Bacteria Hyaline Casts Urine Glucose Salicylates < 2.50 Urine Opiates Screen Acetaminophen < 15 Ur Barbiturates Screen Ur Phencyclidine Scrn Ur Amphetamines Screen U Benzodiazepines Scrn Urine Cocaine Screen U Cannabinoids Screen Serum Alcohol < 10 09/11/18 08:07 WBC RBC Hgb Hct MCV MCH MCHC RDW Plt Count MPV Neut % (Auto) Lymph % (Auto) Rice % (Auto) Eos % (Auto) Baso % (Auto) Absolute Neuts (auto) Absolute Lymphs (auto) Absolute Monos (auto) Absolute Eos (auto) Absolute Basos (auto) Absolute Nucleated RBC Nucleated RBC % INR (Anticoag Therapy) Sodium Potassium Chloride Carbon Dioxide Anion Gap BUN Creatinine Est GFR ( Amer) Est GFR (Non-Af Amer) BUN/Creatinine Ratio Glucose POC Glucose (mg/dL) 70 Hemoglobin A1c Lactic Acid Calcium Magnesium Total Bilirubin AST ALT Alkaline Phosphatase Ammonia Troponin I Total Protein Albumin Globulin Albumin/Globulin Ratio Triglycerides Cholesterol LDL Cholesterol HDL Cholesterol TSH Urine Color Urine Appearance Urine pH Ur Specific [place] Urine Protein Urine Ketones Urine Blood Urine Nitrate Urine Bilirubin Urine Urobilinogen Ur Leukocyte Esterase Urine WBC (Auto) Urine RBC (Auto) Ur Squamous Epith Cells Urine Bacteria Hyaline Casts Urine Glucose Salicylates Urine Opiates Screen Acetaminophen Ur Barbiturates Screen Ur Phencyclidine Scrn Ur Amphetamines Screen U Benzodiazepines Scrn Urine Cocaine Screen U Cannabinoids Screen Serum Alcohol Continued Medication Management: Start Medication Medications: Current Medications Acetaminophen (Tylenol Tab*) 650 mg PO Q4H PRN PRN Reason: for pain; or Temp >101 F Duloxetine HCl (Cymbalta Cap*) 30 mg PO DAILY [facility] Last Admin: 09/11/18 08:07 Dose: 30 mg Lorazepam (Ativan Tab(*)) 0.5 mg PO Q6H PRN PRN Reason: ANXIETY Last Admin: 09/10/18 17:20 Dose: 0.5 mg Magnesium Oxide (Magox 400 Tab*) 400 mg PO BID [facility] Last Admin: 09/11/18 08:07 Dose: 400 mg Metformin HCl (Glucophage*) 500 mg PO BID [facility] Last Admin: 09/11/18 08:07 Dose: 500 mg Morphine Sulfate (Ms Contin(*)) 60 mg PO BID [facility] Last Admin: 09/11/18 08:07 Dose: 60 mg Multivitamins/Minerals (Theragran/Minerals Tab*) 1 tab PO DAILY [facility] Last Admin: 09/11/18 08:10 Dose: Not Given Naloxone HCl (Narcan Nasal [place]) 4 mg INTRANASAL .REPEAT Q2M to Q3M PRN PRN Reason: BEHAVIOR Ondansetron HCl (Zofran Tab*) 4 mg PO BID PRN PRN Reason: NAUSEA/VOMITING Pantoprazole Sodium (Protonix Tab*) 40 mg PO DAILY [facility] Last Admin: 09/11/18 08:07 Dose: 40 mg Quetiapine Fumarate (Seroquel Tab*) 100 mg PO BEDTIME [facility] - Discharge Plan Discharge Plan: Inpatient Hospitalization
[2018-09-11 12:19] LABS: T4, Total 5.97 mcg/dL (6.09-12.23)
[2018-09-11] MEDS: Acetaminophen TAB* 325 MG PO PRN ×2 (13:10→16:56)
[2018-09-11] MEDS: LORazepam TAB(*) 0.5 MG PO PRN (13:11)
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
[2018-09-11 15:14] LABS: Free T3 2.8 pg/mL (2.5-3.9)
[2018-09-11 15:15] LABS: Free T4 0.74 ng/dL (0.61-1.12)
[2018-09-11] MEDS: QUEtiapine TAB* 100 MG PO SCH (20:00)
[2018-09-12] MEDS: Acetaminophen TAB* 325 MG PO PRN (01:00)
[2018-09-12] MEDS: LORazepam TAB(*) 0.5 MG PO PRN ×3 (01:00→16:59)
[2018-09-12] MEDS: Pantoprazole TAB * 40 MG TAB PO SCH (07:00)
[2018-09-12] MEDS: DULoxetine DR CAP* 20 MG CAP.DR PO SCH (07:00)
[2018-09-12] MEDS: Morphine TAB Extended Release (*) 30 MG TAB.ER PO SCH ×2 (07:00→21:31)
[2018-09-12] MEDS: Magnesium Oxide TAB* 400 MG PO SCH ×2 (07:00→21:30)
[2018-09-12] MEDS: Multivitamins/Minerals TAB PO SCH (07:00)
[2018-09-12] MEDS: metFORMIN* 500 MG TAB PO SCH ×2 (07:00→21:30)
--- NOTE | 2018-09-12 11:20 | PN ---
BSU: Group Therapy Note - Service Type Service Type: [id number] Group Psychotherapy - Cognitive Behavioral Group Therapy ( CBT):Patient was attentive and participatory in CBT programming this morning, and remained in good behavioral control. Patient expressed positive insights regarding relevant treatment interventions and goals.
--- NOTE | 2018-09-12 13:14 | PN ---
Subjective - Subjective Date of Service: 09/12/18 Service Type: 34749 Hosp care 35 min high complexity Subjective: Nursing Report: Patient was visible on unit, Slept overnight without incident. Attending group activities. CC: "Fine Patient was seen and evaluated today in the common room. The patient ate breakfast this morning. She reported that her pain is in control. She reported having an adequate appetite and sleep. The patient reports attending and participating in day groups. Per nursing no behavioral issues or overnight events reported. Patient reported that she is tolerating medications without side effects. Objective - General Observations Appearance: Disheveled Appears Stated Age: Yes Stature: Overweight Posture: Slumped Eye Contact: Average Behavior/Activity: Slowed - Interaction Observations Attitude Towards Examiner: Cooperative Stated Mood: Dysphoric Affect: Blunted Speech Pattern/Tone: Clear Thought Process: Coherent Perception: Derealization Thought Content: WNL Hallucination Type: None Delusion Type: None - Cognitive Function Orientation: A&O x 4 Level of Consciousness: Awake - Medication Compliance Cooperative with Inpatient Medication Regimen: Yes - Group Participation Participates in Group Activities: Yes Assessment - Assessment Clinical Impression: 52 year old female with past psychiatric hospitalizations expressing suicidal ideation and homicidal ideation in the Emergency room. Today she is more alert and orientated. Plan - Plan Treatment Plan: Name: JONATHAN KATE Birthdate: 1965 [id number] # Q30 minute observation. Staff pass with wheelchair. #Today the patient shows improvement of attention and concentration as well as thought process. # The patient requires inpatient admission at this time to assure safety, receive treatment and work toward stabilization. # Obtain collateral information once release is signed. # Collaboration with Social Work to assist with disposition and after care. #Hospitalist team contacted and plans to address medical issues patient was diaphoretic with tachycardia # Walker for assistance with ambulation # PT consult for assistance with ambulation # OT consulted for assistance with showering # Continue Cymbalta 40mg daily. # Pain control achieved with current treatment # Collateral from PCP TONE obtained who plans to see her for a follow up appointment on Sunday. #Collateral obtained from Farhat who confirmed that she has no access to firearms, and he manages her medications #MOCA patient refused to complete in full #MMPI pending #Goals before discharge include: Psychiatric Stabilization Vital Signs Temp Pulse Resp BP Pulse Ox 97.6 F 133 16 147/75 100 0523/19 13:00 09/12/18 13:00 09/12/18 13:00 09/12/18 13:00 09/12/18 13:00 09/10/18 09/10/18 09/10/18 09:04 09:21 12:48 WBC RBC Hgb Hct MCV MCH MCHC RDW Plt Count MPV Neut % (Auto) Lymph % (Auto) [place] % (Auto) Eos % (Auto) Baso % (Auto) Absolute Neuts (auto) Absolute Lymphs (auto) Absolute Monos (auto) Absolute Eos (auto) Absolute Basos (auto) Absolute Nucleated RBC Nucleated RBC % INR (Anticoag Therapy) 1.08 Sodium Potassium Chloride Carbon Dioxide Anion Gap BUN Creatinine Est GFR ( Amer) Est GFR (Non-Af Amer) BUN/Creatinine Ratio Glucose POC Glucose (mg/dL) 118 H Hemoglobin A1c Lactic Acid Calcium Magnesium Total Bilirubin AST ALT Alkaline Phosphatase Ammonia Troponin I Total Protein Albumin Globulin Albumin/Globulin Ratio Triglycerides Cholesterol LDL Cholesterol HDL Cholesterol TSH Urine Color Yellow Urine Appearance Cloudy Urine pH 6.0 Ur Specific [place] 1.027 Urine Protein 1+(30 mg/dl) A Urine Ketones 1+ A Urine Blood Negative Urine Nitrate Negative Urine Bilirubin Negative Urine Urobilinogen Negative Ur Leukocyte Esterase Negative Urine WBC (Auto) Trace(0-5/hpf) Urine RBC (Auto) Trace(0-2/hpf) Ur Squamous Epith Cells Present A Urine Bacteria Absent Hyaline Casts Present A Urine Glucose Negative Salicylates Urine Opiates Screen Acetaminophen Ur Barbiturates Screen Ur Phencyclidine Scrn Ur Amphetamines Screen U Benzodiazepines Scrn Urine Cocaine Screen U Cannabinoids Screen Serum Alcohol 09/10/18 09/10/18 09/10/18 12:51 14:37 14:37 WBC 7.7 RBC 4.66 Hgb 12.4 Hct 38 MCV 82 MCH 27 MCHC 33 RDW 16 H Plt Count 372 MPV 7.7 Neut % (Auto) 79.5 Lymph % (Auto) 16.7 Anson % (Auto) 3.5 Eos % (Auto) 0.0 Baso % (Auto) 0.3 Absolute Neuts (auto) 6.1 Absolute Lymphs (auto) 1.3 Absolute Monos (auto) 0.3 Absolute Eos (auto) 0.0 Absolute Basos (auto) 0.0 Absolute Nucleated RBC 0.0 Nucleated RBC % 0.0 INR (Anticoag Therapy) Sodium 142 Potassium 3.8 Chloride 105 Carbon Dioxide 24 Anion Gap 13 H BUN 11 Creatinine 0.60 Est GFR ( Amer) 126.1 Est GFR (Non-Af Amer) 104.2 BUN/Creatinine Ratio 18.3 Glucose 105 H POC Glucose (mg/dL) Hemoglobin A1c Lactic Acid Calcium 9.9 Magnesium 1.5 L Total Bilirubin 0.30 AST 17 ALT 12 Alkaline Phosphatase 92 Ammonia Troponin I 0.00 Total Protein 7.5 Albumin 4.2 Globulin 3.3 Albumin/Globulin Ratio 1.3 Triglycerides Cholesterol LDL Cholesterol HDL Cholesterol TSH Cancelled Urine Color Urine Appearance Urine pH Ur Specific [place] Urine Protein Urine Ketones Urine Blood Urine Nitrate Urine Bilirubin Urine Urobilinogen Ur Leukocyte Esterase Urine WBC (Auto) Urine RBC (Auto) Ur Squamous Epith Cells Urine Bacteria Hyaline Casts Urine Glucose Salicylates Cancelled Urine Opiates Screen Presumptive positive A Acetaminophen Cancelled Ur Barbiturates Screen None detected Ur Phencyclidine Scrn None detected Ur Amphetamines Screen None detected U Benzodiazepines Scrn Presumptive positive A Urine Cocaine Screen None detected U Cannabinoids Screen None detected Serum Alcohol Cancelled 09/10/18 09/10/18 09/10/18 15:46 15:46 17:53 WBC RBC Hgb Hct MCV MCH MCHC RDW Plt Count MPV Neut % (Auto) Lymph % (Auto) Anson % (Auto) Eos % (Auto) Baso % (Auto) Absolute Neuts (auto) Absolute Lymphs (auto) Absolute Monos (auto) Absolute Eos (auto) Absolute Basos (auto) Absolute Nucleated RBC Nucleated RBC % INR (Anticoag Therapy) Sodium Potassium Chloride Carbon Dioxide Anion Gap BUN Creatinine Est GFR ( Amer) Est GFR (Non-Af Amer) BUN/Creatinine Ratio Glucose POC Glucose (mg/dL) 191 H Hemoglobin A1c Lactic Acid 1.6 Calcium Magnesium Total Bilirubin AST ALT Alkaline Phosphatase Ammonia 44 Troponin I Total Protein Albumin Globulin Albumin/Globulin Ratio Triglycerides Cholesterol LDL Cholesterol HDL Cholesterol TSH Urine Color Urine Appearance Urine pH Ur Specific [place] Urine Protein Urine Ketones Urine Blood Urine Nitrate Urine Bilirubin Urine Urobilinogen Ur Leukocyte Esterase Urine WBC (Auto) Urine RBC (Auto) Ur Squamous Epith Cells Urine Bacteria Hyaline Casts Urine Glucose Salicylates Urine Opiates Screen Acetaminophen Ur Barbiturates Screen Ur Phencyclidine Scrn Ur Amphetamines Screen U Benzodiazepines Scrn Urine Cocaine Screen U Cannabinoids Screen Serum Alcohol 09/10/18 09/11/18 09/11/18 19:47 06:38 06:38 WBC RBC Hgb Hct MCV MCH MCHC RDW Plt Count MPV Neut % (Auto) Lymph % (Auto) [place] % (Auto) Eos % (Auto) Baso % (Auto) Absolute Neuts (auto) Absolute Lymphs (auto) Absolute Monos (auto) Absolute Eos (auto) Absolute Basos (auto) Absolute Nucleated RBC Nucleated RBC % INR (Anticoag Therapy) Sodium Potassium Chloride Carbon Dioxide Anion Gap BUN Creatinine Est GFR ( Amer) Est GFR (Non-Af Amer) BUN/Creatinine Ratio Glucose POC Glucose (mg/dL) Hemoglobin A1c 6.0 H Lactic Acid Calcium Magnesium Total Bilirubin AST ALT Alkaline Phosphatase Ammonia Troponin I Total Protein Albumin Globulin Albumin/Globulin Ratio Triglycerides 98 Cholesterol 134 LDL Cholesterol 68 HDL Cholesterol 46.5 TSH 0.14 L Urine Color Urine Appearance Urine pH Ur Specific [place] Urine Protein Urine Ketones Urine Blood Urine Nitrate Urine Bilirubin Urine Urobilinogen Ur Leukocyte Esterase Urine WBC (Auto) Urine RBC (Auto) Ur Squamous Epith Cells Urine Bacteria Hyaline Casts Urine Glucose Salicylates < 2.50 Urine Opiates Screen Acetaminophen < 15 Ur Barbiturates Screen Ur Phencyclidine Scrn Ur Amphetamines Screen U Benzodiazepines Scrn Urine Cocaine Screen U Cannabinoids Screen Serum Alcohol < 10 09/11/18 08:07 WBC RBC Hgb Hct MCV MCH MCHC RDW Plt Count MPV Neut % (Auto) Lymph % (Auto) [place] % (Auto) Eos % (Auto) Baso % (Auto) Absolute Neuts (auto) Absolute Lymphs (auto) Absolute Monos (auto) Absolute Eos (auto) Absolute Basos (auto) Absolute Nucleated RBC Nucleated RBC % INR (Anticoag Therapy) Sodium Potassium Chloride Carbon Dioxide Anion Gap BUN Creatinine Est GFR ( Amer) Est GFR (Non-Af Amer) BUN/Creatinine Ratio Glucose POC Glucose (mg/dL) 70 Hemoglobin A1c Lactic Acid Calcium Magnesium Total Bilirubin AST ALT Alkaline Phosphatase Ammonia Troponin I Total Protein Albumin Globulin Albumin/Globulin Ratio Triglycerides Cholesterol LDL Cholesterol HDL Cholesterol TSH Urine Color Urine Appearance Urine pH Ur Specific [place] Urine Protein Urine Ketones Urine Blood Urine Nitrate Urine Bilirubin Urine Urobilinogen Ur Leukocyte Esterase Urine WBC (Auto) Urine RBC (Auto) Ur Squamous Epith Cells Urine Bacteria Hyaline Casts Urine Glucose Salicylates Urine Opiates Screen Acetaminophen Ur Barbiturates Screen Ur Phencyclidine Scrn Ur Amphetamines Screen U Benzodiazepines Scrn Urine Cocaine Screen U Cannabinoids Screen Serum Alcohol Continued Medication Management: Continue Outpt Medication Medications: Current Medications Acetaminophen (Tylenol Tab*) 650 mg PO Q4H PRN PRN Reason: for pain; or Temp >101 F Last Admin: 09/12/18 01:00 Dose: 650 mg Duloxetine HCl (Cymbalta Cap*) 40 mg PO DAILY@0700 [facility] Last Admin: 09/12/18 07:00 Dose: 40 mg Lorazepam (Ativan Tab(*)) 0.5 mg PO Q6H PRN PRN Reason: ANXIETY Last Admin: 09/12/18 10:37 Dose: 0.5 mg Magnesium Oxide (Magox 400 Tab*) 400 mg PO BID [facility] Last Admin: 09/12/18 07:00 Dose: 400 mg Metformin HCl (Glucophage*) 500 mg PO BID [facility] Last Admin: 09/12/18 07:00 Dose: 500 mg Morphine Sulfate (Ms Contin(*)) 60 mg PO BID [facility] Last Admin: 09/12/18 07:00 Dose: 60 mg Multivitamins/Minerals (Theragran/Minerals Tab*) 1 tab PO DAILY [facility] Last Admin: 09/12/18 07:00 Dose: 1 tab Naloxone HCl (Narcan Nasal [place]) 4 mg INTRANASAL .REPEAT Q2M to Q3M PRN PRN Reason: BEHAVIOR Ondansetron HCl (Zofran Tab*) 4 mg PO BID PRN PRN Reason: NAUSEA/VOMITING Pantoprazole Sodium (Protonix Tab*) 40 mg PO DAILY [facility] Last Admin: 09/12/18 07:00 Dose: 40 mg Quetiapine Fumarate (Seroquel Tab*) 100 mg PO BEDTIME [facility] Last Admin: 09/11/18 20:00 Dose: 100 mg - Discharge Plan Discharge Plan: Inpatient Hospitalization
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
[2018-09-12] MEDS: HYDROcodone/ACETAMIN 5-325 MG* 1 TAB PO PRN (16:29)
[2018-09-12] MEDS: QUEtiapine TAB* 100 MG PO SCH (21:32)
[2018-09-13] MEDS: Magnesium Oxide TAB* 400 MG PO SCH ×2 (08:30→20:00)
[2018-09-13] MEDS: metFORMIN* 500 MG TAB PO SCH ×2 (08:30→20:01)
[2018-09-13] MEDS: Morphine TAB Extended Release (*) 30 MG TAB.ER PO SCH ×2 (08:30→20:01)
[2018-09-13] MEDS: Pantoprazole TAB * 40 MG TAB PO SCH (08:31)
[2018-09-13] MEDS: Multivitamins/Minerals TAB PO SCH (08:31)
[2018-09-13] MEDS: DULoxetine DR CAP* 20 MG CAP.DR PO SCH (08:31)
[2018-09-13] MEDS: LORazepam TAB(*) 0.5 MG PO PRN (08:32)
--- NOTE | 2018-09-13 12:03 | PN ---
Subjective - Subjective Date of Service: 09/13/18 Service Type: 20058 Hosp care 35 min high complexity Subjective: Nursing Report: Patient was visible on unit, Slept overnight without incident. Attending some group activities. CC: "I am doing much better Patient was seen and evaluated today. The patient reported she feels safe on the unit and is interacting with peers. She reported that she is not in any pain and that her ankle has not felt this well in some time. She reported having an adequate appetite and sleep. The patient reports attending and participating in some of the day groups. Per nursing no behavioral issues or overnight events reported. Patient reported that she is tolerating medications without side effects. Objective - General Observations Appearance: Disheveled Appears Stated Age: Yes Stature: Overweight Posture: Slumped Eye Contact: Average Behavior/Activity: WNL - Interaction Observations Attitude Towards Examiner: Cooperative Stated Mood: Dysphoric Affect: Blunted Speech Pattern/Tone: Clear Thought Process: Loose Associations Thought Content: Depressive Hallucination Type: None Delusion Type: None, Persecution - Cognitive Function Orientation: A&O x 4 Level of Consciousness: Awake - Medication Compliance Cooperative with Inpatient Medication Regimen: Yes - Group Participation Participates in Group Activities: Yes Assessment - Assessment Merits Inpatient Hospitalization: For Immediate Safety Clinical Impression: 52 year old female with past psychiatric hospitalizations expressing suicidal ideation and homicidal ideation in the Emergency room. Plan - Plan Treatment Plan: Name: JONATHAN KATE Birthdate: 1965 [id number] # Q30 minute observation. Staff pass with wheelchair. # The patient requires inpatient admission at this time to assure safety, receive treatment and work toward stabilization. # Collaboration with Social Work to assist with disposition and after care. #Medical management per Hospitalist team # Walker for assistance with ambulation # PT consult for assistance with ambulation # OT consulted for assistance with showering # Continue Cymbalta 40mg daily. # Pain control achieved with current treatment # Collateral from PCP TONE obtained who plans to see her for a follow up appointment on Sunday. #Collateral obtained from Farhat who confirmed that she has no access to firearms, and he manages her medications #MMPI not completed Plan for discharge Sunday #Goals before discharge include: Psychiatric Stabilization Continued Medication Management: Start Medication Medications: Current Medications Acetaminophen (Tylenol Tab*) 650 mg PO Q4H PRN PRN Reason: for pain; or Temp >101 F Last Admin: 09/12/18 01:00 Dose: 650 mg Hydrocodone Bitart/Acetaminophen ([place] 5-325 Tab*) 1 tab PO BID PRN PRN Reason: PAIN Last Admin: 09/12/18 16:29 Dose: 1 tab Duloxetine HCl (Cymbalta Cap*) 40 mg PO DAILY@0700 [facility] Last Admin: 09/13/18 08:31 Dose: 40 mg Lorazepam (Ativan Tab(*)) 0.5 mg PO Q6H PRN PRN Reason: ANXIETY Last Admin: 09/13/18 08:32 Dose: 0.5 mg Magnesium Oxide (Magox 400 Tab*) 400 mg PO BID [facility] Last Admin: 09/13/18 08:30 Dose: 400 mg Metformin HCl (Glucophage*) 500 mg PO BID [facility] Last Admin: 09/13/18 08:30 Dose: 500 mg Morphine Sulfate (Ms Contin(*)) 60 mg PO BID [facility] Last Admin: 09/13/18 08:30 Dose: 60 mg Multivitamins/Minerals (Theragran/Minerals Tab*) 1 tab PO DAILY [facility] Last Admin: 09/13/18 08:31 Dose: 1 tab Naloxone HCl (Narcan Nasal [place]) 4 mg INTRANASAL .REPEAT Q2M to Q3M PRN PRN Reason: BEHAVIOR Ondansetron HCl (Zofran Tab*) 4 mg PO BID PRN PRN Reason: NAUSEA/VOMITING Pantoprazole Sodium (Protonix Tab*) 40 mg PO DAILY [facility] Last Admin: 09/13/18 08:31 Dose: 40 mg Quetiapine Fumarate (Seroquel Tab*) 100 mg PO BEDTIME [facility] Last Admin: 09/12/18 21:32 Dose: 100 mg - Discharge Plan Discharge Plan: Inpatient Hospitalization
[2018-09-13] MEDS: HYDROcodone/ACETAMIN 5-325 MG* 1 TAB PO PRN ×2 (13:00→18:14)
[2018-09-13] MEDS ORDERED: Docusate CAP* 100 MG PO PRN (13:04)
[2018-09-13] MEDS: QUEtiapine TAB* 100 MG PO SCH (20:02)
[2018-09-14] MEDS: HYDROcodone/ACETAMIN 5-325 MG* 1 TAB PO PRN ×2 (05:21→17:59)
[2018-09-14] MEDS: metFORMIN* 500 MG TAB PO SCH ×2 (08:52→20:55)
[2018-09-14] MEDS: Magnesium Oxide TAB* 400 MG PO SCH ×2 (08:52→20:55)
[2018-09-14] MEDS: Pantoprazole TAB * 40 MG TAB PO SCH (08:52)
[2018-09-14] MEDS: Multivitamins/Minerals TAB PO SCH (08:52)
[2018-09-14] MEDS: Morphine TAB Extended Release (*) 30 MG TAB.ER PO SCH ×2 (08:52→20:55)
[2018-09-14] MEDS: DULoxetine DR CAP* 20 MG CAP.DR PO SCH (08:54)
[2018-09-14] MEDS: Acetaminophen TAB* 325 MG PO PRN (11:55)
[2018-09-14] MEDS: LORazepam TAB(*) 0.5 MG PO PRN ×2 (11:55→17:59)
[2018-09-14] MEDS: QUEtiapine TAB* 100 MG PO SCH (20:55)
[2018-09-15] MEDS: Magnesium Oxide TAB* 400 MG PO SCH ×2 (12:06→20:35)
[2018-09-15] MEDS: Multivitamins/Minerals TAB PO SCH (12:06)
[2018-09-15] MEDS: metFORMIN* 500 MG TAB PO SCH ×2 (12:06→20:21)
[2018-09-15] MEDS: Morphine TAB Extended Release (*) 30 MG TAB.ER PO SCH ×2 (12:06→20:21)
[2018-09-15] MEDS: Pantoprazole TAB * 40 MG TAB PO SCH (12:07)
[2018-09-15] MEDS: DULoxetine DR CAP* 20 MG CAP.DR PO SCH (12:08)
[2018-09-15] MEDS: HYDROcodone/ACETAMIN 5-325 MG* 1 TAB PO PRN (16:41)
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
[2018-09-15] MEDS: QUEtiapine TAB* 100 MG PO SCH (20:22)
[2018-09-16] MEDS: Acetaminophen TAB* 325 MG PO PRN ×3 (00:14→17:58)
[2018-09-16] MEDS: metFORMIN* 500 MG TAB PO SCH ×2 (08:40→21:26)
[2018-09-16] MEDS: Morphine TAB Extended Release (*) 30 MG TAB.ER PO SCH ×2 (08:40→21:25)
[2018-09-16] MEDS: Magnesium Oxide TAB* 400 MG PO SCH ×2 (08:41→21:26)
[2018-09-16] MEDS: Multivitamins/Minerals TAB PO SCH (08:41)
[2018-09-16] MEDS: Pantoprazole TAB * 40 MG TAB PO SCH (08:41)
[2018-09-16] MEDS: DULoxetine DR CAP* 20 MG CAP.DR PO SCH (08:43)
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
[2018-09-16] MEDS: LORazepam TAB(*) 0.5 MG PO PRN (16:19)
[2018-09-16] MEDS: HYDROcodone/ACETAMIN 5-325 MG* 1 TAB PO PRN (16:19)
[2018-09-16] MEDS: QUEtiapine TAB* 100 MG PO SCH (21:26)
[2018-09-17] MEDS: HYDROcodone/ACETAMIN 5-325 MG* 1 TAB PO PRN (05:10)
[2018-09-17 08:09] VITALS: BP 156/95
[2018-09-17] MEDS: Magnesium Oxide TAB* 400 MG PO SCH (08:32)
[2018-09-17] MEDS: metFORMIN* 500 MG TAB PO SCH (08:32)
[2018-09-17] MEDS: Pantoprazole TAB * 40 MG TAB PO SCH (08:32)
[2018-09-17] MEDS: Multivitamins/Minerals TAB PO SCH (08:33)
[2018-09-17] MEDS: Morphine TAB Extended Release (*) 30 MG TAB.ER PO SCH (08:33)
[2018-09-17] MEDS: DULoxetine DR CAP* 20 MG CAP.DR PO SCH (08:34)
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
[2018-09-17] MEDS ORDERED: VENLAFAXINE 100 MG PO SCH (11:00)
== END 2018-09-17 12:43 | disposition home or self-care (01) | DRG 751 ==
LOC: ED 08:58 → BSU 13:15
PROVIDERS: ADMIT Psychiatry & Neurology Psychiatry; ATTEND Psychiatry & Neurology Psychiatry
DX: F33.3 Major depressive disorder, recurrent, severe with psychotic symptoms (principal); R45.851 Suicidal ideations; F43.10 Post-traumatic stress disorder, unspecified; F60.3 Borderline personality disorder; R45.850 Homicidal ideations; G89.29 Other chronic pain; E11.9 Type 2 diabetes mellitus without complications; K21.9 Gastro-esophageal reflux disease without esophagitis; M19.90 Unspecified osteoarthritis, unspecified site; Z96.649 Presence of unspecified artificial hip joint; E05.90 Thyrotoxicosis, unspecified without thyrotoxic crisis or storm; E83.42 Hypomagnesemia; R00.0 Tachycardia, unspecified; R61 Generalized hyperhidrosis; E07.89 Other specified disorders of thyroid; M25.572 Pain in left ankle and joints of left foot; Z79.891 Long term (current) use of opiate analgesic; Z87.891 Personal history of nicotine dependence; Z81.8 Family history of other mental and behavioral disorders; Z79.899 Other long term (current) drug therapy; Z79.84 Long term (current) use of oral hypoglycemic drugs
CPT/HCPCS: 36415; 80053; 80061; 80307; 80320; 80329; 81003; 81015; 82140; 83036; 83605; 83735; 84436; 84439; 84443; 84479; 84481; 84484; 85025; 85610; 86780; 87086; 90853; 93005; 99222; 99231; 99233; 99284; A9270-GY; G0480; G8978-GP-CJ; G8979-GP-CI; G8987-GO-CI; G8988-GO-CI; G8989-GO-CI; J1885

== ENCOUNTER 2018-09-25 18:26 | Inpatient (IN) | payer OTHER ==
--- NOTE | 2018-09-25 19:14 | ED ---
Complex/Multi-Sys Presentation - HPI Summary HPI Summary: Patient is a 52 y/o F presenting to ED with complaints of depression and, per triage, bilateral leg pain. Per triage, "Pt states she has been depressed and it is making her have no appetite. Pt denies SI. Pt reports she also has pain to bilat legs and wants a referral to the pain clinic. Pt states she was recently admitted to the [facility] and thinks she was discharged to early". In the room, patient is somnolent and slow to answer questions. Patient denies substance usage. She denies SI, HI in room as well. Patient lives with a housemates. Patient reports depression and pain in the room as well. On triage, pain is rated 10/10, nothing is noted to aggravate/alleviate Sx. Home medications and allergies. - History Of Current Complaint Chief Complaint: EDMentalHealth Time Seen by Provider: 09/25/18 18:55 Hx Obtained From: Patient Onset/Duration: Still Present Timing: Constant Severity Currently: Severe Severity Initially: Severe Location: Pain At: - legs bilaterally Aggravating Factor(s): nothing Alleviating Factor(s): nothing Associated Signs And Symptoms: Positive: Other - bilateral leg pain, depression , decreased appetite endorsed; denies SI, HI - Allergies/Home Medications Allergies/Adverse Reactions: Allergies Allergy/AdvReac Type Severity Reaction Status Date / Time nalbuphine [From Nubain] Allergy Difficulty Verified 08/11/18 13:14 Breathing rofecoxib [From Vioxx] Allergy Swelling Verified 08/11/18 13:14 PMH/Surg Hx/FS Hx/Imm Hx Endocrine/Hematology History: Reports: Hx Diabetes - is on metformin, did not take 08/10/18 Cardiovascular History: Reports: Hx Hypertension, Other Cardiovascular Problems/ Disorders - DIABETIC / ANXIOTY, AND DEPRSSION Denies: Hx Angina, Hx Pacemaker/ICD Respiratory History: Reports: Hx Pulmonary Embolism - 2003, Other Respiratory Problems/Disorders - PE 2003 GI History: Reports: Hx Ulcer - takes protonix Musculoskeletal History: Reports: Other Musculoskeletal History - CHRONIC PAIN, Brown's cyst, left ankle surgery Sensory History: Denies: Hx Contacts or Glasses, Hx Hearing Aid Opthamlomology History: Denies: Hx Contacts or Glasses Neurological History: Reports: Hx Headaches, Hx Migraine, Other Neuro Impairments/Disorders - DEPRESSION Psychiatric History: Reports: Hx Anxiety, Hx Eating Disorder - anorexia , Hx Depression, Hx Inpatient Treatment, Hx Suicide Attempt - six attempts, last time was 3-4 years ago. Denies: Hx Panic Disorder, Hx of Violent Episodes Against Others - Surgical History Surgery Procedure, Year, and Place: Lt WRIST - Xs 2. Rt HIP REPLACEMENT. Lt ANKLE -FX'd (PINS REMOVED). Rt ARM - FX - Immunization History Date of Tetanus Vaccine: UTD Date of Influenza Vaccine: 2017 Infectious Disease History: No Infectious Disease History: Reports: Hx Shingles Denies: Traveled Outside the [place] in Last 30 Days - Family History Known Family History: Positive: Cardiac Disease, Hypertension, Diabetes, Other - Asthma. CA. - Social History Alcohol Use: unknown Alcohol Amount: unkown Hx Substance Use: Yes Substance Use Type: Reports: Prescribed Substance Use Comment - Amount & Last Used: morphine, hydrocodcone, xanax Hx Tobacco Use: No - quit 06/2018 Smoking Status (MU): Former Smoker Review of Systems Gastrointestinal: Other - POSITIVE - DECREASED APPETITE Musculoskeletal: Other - POSITIVE - BILATERAL LEG PAIN Psychological: Other - PATIENT DENIES SI, HI Positive: Depressed All Other Systems Reviewed And Are Negative: Yes Physical Exam - Summary Physical Exam Summary: GENERAL: Patient is a well-developed and nourished female who is lying comfortable in the stretcher. Patient is not in any acute respiratory distress. HEAD AND FACE: Normocephalic EYES: PERRLA, EOMI x 2. EARS: Hearing grossly intact. MOUTH: Oropharynx within normal limits. NECK: Supple, trachea is midline, no adenopathy, no JVD, no carotid bruit. CHEST: Symmetric, no tenderness at palpation LUNGS: Clear to auscultation bilaterally. No wheezing or crackles. CVS: Regular rate and rhythm, S1 and S2 present, no murmurs or gallops appreciated. ABDOMEN: Soft, non-tender. Bowel sounds are normal. No abnormal abdominal pulsations. EXTREMITIES: Full ROM in all major joints, no edema, no cyanosis or clubbing. NEURO: Alert and oriented x 3. No acute neurological deficits. Speech is normal and follows commands. SKIN: Dry and warm PSYCH: flat affect, patient denies SI, HI Triage Information Reviewed: Yes Vital Signs On Initial Exam: Initial Vitals Temp Pulse Resp BP Pulse Ox 95.4 F 77 18 166/109 97 09/25/18 18:30 09/25/18 18:30 09/25/18 18:30 09/25/18 18:30 09/25/18 18:30 Vital Signs Reviewed: Yes Diagnostics - Vital Signs Vital Signs Temp Pulse Resp BP Pulse Ox 09/25/18 18:30 95.4 F 77 18 166/109 97 - Laboratory Result Diagrams: 09/25/18 19:20 09/25/18 19:20 Lab Statement: Any lab studies that have been ordered have been reviewed, and results considered in the medical decision making process. Re-Evaluation - Re-Evaluation First Eval Re-Evaluation Time: 21:23 Comment: Patient is medically cleared for MHE. Complex Multi-Symp Course/Dx Course Of Treatment: Patient is a 52 y/o F presenting to ED with complaints of depression and, per triage, bilateral leg pain. Per triage, "Pt states she has been depressed and it is making her have no appetite. Pt denies SI. Pt reports she also has pain to bilat legs and wants a referral to the pain clinic. Pt states she was recently admitted to the [facility] and thinks she was discharged to early". In the room, patient is somnolent and slow to answer questions. Patient denies substance usage. She denies SI, HI in room as well. Patient lives with a housemates. Patient reports depression and pain in the room as well. On physical exam, patient has a flat affect, patient denies SI, HI. Labs showed Hgb 11.2, RDW 17, MPV 7.3, glucose 121. UA showed trace ketones, 1+ leukocyte esterase, 2+ WBC, 1+ RBC, present squamous epith cells. Tox screen was negative. Patient was medically cleared for MHE, patient is signed out to Dr. Stanley pending MHE and disposition of this patient. - Diagnoses Provider Diagnoses: Mental health problem Discharge - Sign-Out/Discharge Documenting (check all that apply): Sign-Out Patient Signing out patient TO: Beata Stanley - Discharge Plan Referrals: Dory Goodman [Primary Care Provider] - - Attestation Statements Document Initiated by Scribe: Yes Documenting Scribe: DEJA MATSON Provider For Whom Scribe is Documenting (Include Credential): ARUNA PATINO MD Scribe Attestation: DEJA Bragg scribed for ARUNA PATINO MD on 09/25/18 at 2151. Scribe Documentation Reviewed: Yes Provider Attestation: The documentation as recorded by the scribeDEJA accurately reflects the service I personally performed and the decisions made by me, ARUNA PATINO MD Status of Scribe Document: Viewed
[2018-09-25 19:24] LABS: ABS Eosinophils 0.1 10^3/ul (0-0.6); ABS Lymphocytes 2.3 10^3/ul (1.0-4.8); ABS Monocytes 0.6 10^3/ul (0-0.8); ABS Neutrophils 5.3 10^3/ul (1.5-7.7); Eosinophil % 0.7 %; Hematocrit 35 % (35-47); Hemoglobin 11.2 g/dL (12.0-16.0); Lymphocyte % 27.4 %; Mean Corpuscular HGB Conc 32 g/dL (31-36); Mean Corpuscular Hemoglobin 27 pg (27-31); Mean Corpuscular Volume 82 fL (80-97); Mean Platelet Volume 7.3 fL (7.4-10.4); Platelet Count 386 10^3/uL (150-450); Red Blood Count 4.19 10^6 /uL (3.70-4.87); Red Cell Distribution Width 17 % (10.5-15); White Blood Count 8.2 10^3/uL (3.5-10.8)
[2018-09-25 19:49] LABS: ALT 13 U/L (7-52); AST 19 U/L (13-39); Albumin 3.8 g/dL (3.2-5.2); Albumin/Globulin Ratio 1.3 (1-3); Alkaline Phosphatase 67 U/L (34-104); Anion Gap 8 mmol/L (2-11); BUN/Creatinine Ratio 16.4 (8-20); Blood Urea Nitrogen 10 mg/dL (6-24); CO2 Carbon Dioxide 26 mmol/L (22-32); Calcium 9.2 mg/dL (8.6-10.3); Chloride 108 mmol/L (101-111); EGFR African American 123.7 (>60); EGFR Non-African American 102.2 (>60); Globulin 2.9 g/dL (2-4); Glucose 121 mg/dL (70-100); Potassium 3.6 mmol/L (3.5-5.0); Sodium 142 mmol/L (135-145); Total Protein 6.7 g/dL (6.4-8.9)
[2018-09-25 19:52] LABS: Acetaminophen < 15 mcg/mL; Alcohol < 10 mg/dL (<10); Salicylate < 2.50 mg/dL (<30)
[2018-09-25 20:07] LABS: TSH (Thyroid Stimulating Horm) 0.47 mcIU/mL (0.34-5.60)
[2018-09-25 20:50] LABS: Urine Appearance Cloudy; Urine Bacteria Absent (Absent); Urine Bilirubin Negative (Negative); Urine Blood Negative (Negative); Urine Color Yellow; Urine Glucose Negative (Negative); Urine Ketones Trace (Negative); Urine Nitrite Negative (Negative); Urine Protein Negative (Negative); Urine Red Blood Cell 1+(3-5/hpf) (Absent); Urine Specific Gravity 1.017 (1.010-1.030); Urine Squamous Epithelial Cell Present (Absent); Urine Urobilinogen Negative (Negative); Urine White Blood Cell 2+(11-20/hpf) (Absent)
[2018-09-25 21:05] LABS: Urine Benzodiazepine Screen Presumptive Positive (None Detect); Urine Opiates Screen Presumptive Positive (None Detect)
[2018-09-25] MEDS ORDERED: Acetaminophen TAB* 325 MG PO ONE (21:20)
--- NOTE | 2018-09-25 22:02 | ED ---
Progress - Progress Note Progress Note: This patient was signed out from Dr. Alba to Dr. Stanley at 22:00 09/25/18 pending MHE. Per mental health hull builder, Dr. Alba has decided that the patient will be admitted. Dx: recurrent depressive disorder. Re-Evaluation - Re-Evaluation First Eval Re-Evaluation Time: 22:27 Change: Unchanged Comment: Pt reports ankle pain and depression. Course/Dx - Course Course Of Treatment: This patient was signed out from Dr. Alba to Dr. Stanley at 22:00 09/25/18 pending MHE. Per mental health hull builder, Dr. Alba has decided that the patient will be admitted. Dx: recurrent depressive disorder. - Diagnoses Provider Diagnoses: Recurrent depressive disorder - Provider Notifications Discussed Care Of Patient With: Viktor Alba Time Discussed With Above Provider: 02:21 Instructed by Provider To: Other - Per mental health hull builder, Dr. Alba has decided that the patient will be admitted. Dx: recurrent depressive disorder. Discharge - Sign-Out/Discharge Documenting (check all that apply): Patient Departure - admit, Receiving Sign- Out Receiving patient FROM: Brennen Alba Patient Received Moderate/Deep Sedation with Procedure: No - Discharge Plan Condition: Fair Disposition: PSYCHIATRIC FACILITY-[facility] [place] - Billing Disposition and Condition Condition: FAIR Disposition: Psychiatric Facility [facility] [place] - Attestation Statements Document Initiated by Paula: Yes Documenting Scribe: Ramiro Goodson Provider For Whom Paula is Documenting (Include Credential): Beata Stanley MD Scribe Attestation: Ramiro Bragg scribed for Beata Stanley MD on 09/26/18 at 2054. Scribe Documentation Reviewed: Yes Provider Attestation: The documentation as recorded by the Ramiro dunn accurately reflects the service I personally performed and the decisions made by me, Beata Stanley MD Status of Scribe Document: Viewed
[2018-09-25] MEDS ORDERED: oxyCODONE TAB* 5 MG TAB PO ONE (22:31)
[2018-09-26] MEDS ORDERED: Ketorolac INJ* 30 MG/ML 1 ML VIAL IM ONE (00:23)
[2018-09-26] MEDS ORDERED: Morphine 4 MG/ML VIAL (1 ml) 4 MG/ML VIAL IM ONE (02:24)
[2018-09-26] MEDS ORDERED: Al Hydrox/Mg Hydrox/Simet LIQ* 30 ML UDC PO PRN (05:08)
[2018-09-26] MEDS ORDERED: Docusate CAP* 100 MG PO PRN (05:09)
[2018-09-26] MEDS ORDERED: HYDROcodone/ACETAMIN 5-325 MG* 1 TAB PO PRN (05:09)
[2018-09-26] MEDS ORDERED: Ondansetron TAB* 4 MG PO PRN (05:10)
[2018-09-26] MEDS: Multivitamins/Minerals TAB PO SCH (08:50)
[2018-09-26] MEDS: Magnesium Oxide TAB* 400 MG PO SCH ×2 (08:50→20:40)
[2018-09-26] MEDS: metFORMIN* 500 MG TAB PO SCH ×2 (08:50→20:40)
[2018-09-26] MEDS: Acetaminophen TAB* 325 MG PO PRN (12:27)
[2018-09-26] MEDS: Pantoprazole TAB * 40 MG TAB PO SCH (13:59)
[2018-09-26] MEDS: DULoxetine DR CAP* 60 MG CAP.DR PO SCH (13:59)
[2018-09-26] MEDS: LORazepam TAB(*) 0.5 MG PO PRN ×2 (14:00→20:40)
[2018-09-26] MEDS: HYDROcodone/ACETAMIN 5-325 MG* 1 TAB PO PRN ×2 (17:36→19:23)
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
[2018-09-26] MEDS ORDERED: Morphine TAB Extended Release (*) 30 MG TAB.ER PO SCH (21:00)
[2018-09-26] MEDS ORDERED: QUEtiapine TAB* 100 MG PO SCH (21:00)
[2018-09-27] MEDS: Acetaminophen TAB* 325 MG PO PRN (01:35)
[2018-09-27 08:10] VITALS: BP 168/92
[2018-09-27] MEDS: LORazepam TAB(*) 0.5 MG PO PRN (08:12)
[2018-09-27] MEDS: HYDROcodone/ACETAMIN 5-325 MG* 1 TAB PO PRN (08:13)
[2018-09-27] MEDS: metFORMIN* 500 MG TAB PO SCH (08:13)
[2018-09-27] MEDS: DULoxetine DR CAP* 60 MG CAP.DR PO SCH (08:13)
[2018-09-27] MEDS: Magnesium Oxide TAB* 400 MG PO SCH (08:13)
[2018-09-27] MEDS: Multivitamins/Minerals TAB PO SCH (08:13)
[2018-09-27] MEDS: Pantoprazole TAB * 40 MG TAB PO SCH (08:14)
[2018-09-27 08:16] LABS: HDL Cholesterol 60.1 mg/dL
[2018-09-27] MEDS ORDERED: Morphine TAB Extended Release (*) 30 MG TAB.ER PO ONE (10:36)
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
== END 2018-09-27 12:30 | disposition home or self-care (01) | DRG 755 ==
LOC: ED 18:26 → BSU 09-26 04:30
PROVIDERS: ADMIT Psychiatry & Neurology Psychiatry; ATTEND Psychiatry & Neurology Psychiatry
DX: F43.10 Post-traumatic stress disorder, unspecified (principal); F50.00 Anorexia nervosa, unspecified; F32.9 Major depressive disorder, single episode, unspecified; E11.9 Type 2 diabetes mellitus without complications; I10 Essential (primary) hypertension; F41.9 Anxiety disorder, unspecified; G89.29 Other chronic pain; G43.909 Migraine, unspecified, not intractable, without status migrainosus; F60.3 Borderline personality disorder; M19.90 Unspecified osteoarthritis, unspecified site; K21.9 Gastro-esophageal reflux disease without esophagitis; E66.9 Obesity, unspecified; Z96.641 Presence of right artificial hip joint; Z82.49 Family history of ischemic heart disease and other diseases of the circulatory system; Z83.3 Family history of diabetes mellitus; Z82.5 Family history of asthma and other chronic lower respiratory diseases; Z79.84 Long term (current) use of oral hypoglycemic drugs; Z87.891 Personal history of nicotine dependence; Z86.711 Personal history of pulmonary embolism; Z88.8 Allergy status to other drugs, medicaments and biological substances; Z81.8 Family history of other mental and behavioral disorders; Z91.5 Personal history of self-harm; Z72.89 Other problems related to lifestyle; Z68.34 Body mass index [BMI] 34.0-34.9, adult
CPT/HCPCS: 36415; 80053; 80061; 80307; 80320; 80329; 81003; 81015; 83036; 84443; 85025; 87086; 99222; 99238; 99285; A9270-GY; G0480; J1885; J2270

== ENCOUNTER 2018-11-16 15:58 | Inpatient (IN) | payer OTHER ==
[2018-11-16] MEDS ORDERED: Midazolam* 1 MG/ML 2 ML VIAL (2 MG) IM ONE (16:21)
[2018-11-16] MEDS ORDERED: Haloperidol INJ IV/IM* 5 MG/ML AMP IM ONE (16:22)
[2018-11-16] MEDS ORDERED: LORazepam INJ* 2 MG/ML 1 ML VIAL IM ONE (16:23)
[2018-11-16] MEDS ORDERED: Lorazepam PYXIS KEY PRN (16:23)
[2018-11-16] MEDS ORDERED: Lorazepam PYXIS KEY ONE (16:27)
[2018-11-16] MEDS ORDERED: NS 0.9% 1000 ML** 1,000 ML IV ONE ×2 (17:09→18:29)
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
[2018-11-16 17:24] LABS: ABS Basophils 0.1 10^3/ul (0-0.2); ABS Lymphocytes 2.2 10^3/ul (1.0-4.8); ABS Monocytes 0.5 10^3/ul (0-0.8); ABS Neutrophils 5.5 10^3/ul (1.5-7.7); Eosinophil % 0.3 %; Hematocrit 38 % (35-47); Hemoglobin 12.4 g/dL (12.0-16.0); Lymphocyte % 26.9 %; Mean Corpuscular HGB Conc 33 g/dL (31-36); Mean Corpuscular Hemoglobin 27 pg (27-31); Mean Corpuscular Volume 82 fL (80-97); Mean Platelet Volume 7.6 fL (7.4-10.4); Nucleated Red Blood Cells % 0.1; Platelet Count 457 10^3/uL (150-450); Red Cell Distribution Width 17 % (10-15); White Blood Count 8.3 10^3/uL (3.5-10.8)
[2018-11-16 17:46] LABS: ALT 14 U/L (7-52); AST 20 U/L (13-39); Albumin 4.4 g/dL (3.2-5.2); Albumin/Globulin Ratio 1.3 (1-3); Alkaline Phosphatase 76 U/L (34-104); Anion Gap 13 mmol/L (2-11); BUN/Creatinine Ratio 21.9 (8-20); Blood Urea Nitrogen 14 mg/dL (6-24); CO2 Carbon Dioxide 23 mmol/L (22-32); Chloride 103 mmol/L (101-111); EGFR African American 116.6 (>60); EGFR Non-African American 96.3 (>60); Globulin 3.4 g/dL (2-4); Glucose 102 mg/dL (70-100); Potassium 3.8 mmol/L (3.5-5.0); Sodium 139 mmol/L (135-145); Total Protein 7.8 g/dL (6.4-8.9)
[2018-11-16 17:48] LABS: Troponin I 0.01 ng/mL (<0.04)
[2018-11-16 18:28] LABS: Acetaminophen < 15 mcg/mL; Alcohol < 10 mg/dL (<10); Salicylate < 2.50 mg/dL (<30)
[2018-11-16 20:48] LABS: Urine Appearance Cloudy; Urine Bacteria 1+ (Absent); Urine Bilirubin Negative (Negative); Urine Blood Negative (Negative); Urine Color Yellow; Urine Glucose Negative (Negative); Urine Ketones 2+ (Negative); Urine Nitrite Negative (Negative); Urine Protein Negative (Negative); Urine Red Blood Cell Trace(0-2/hpf) (Absent); Urine Specific Gravity 1.021 (1.010-1.030); Urine Squamous Epithelial Cell Present (Absent); Urine Urobilinogen Negative (Negative); Urine White Blood Cell Trace(0-5/hpf) (Absent)
[2018-11-16 21:02] LABS: Urine Benzodiazepine Screen Presumptive Positive (None Detect); Urine Opiates Screen Presumptive Positive (None Detect)
[2018-11-16] MEDS ORDERED: Al Hydrox/Mg Hydrox/Simet LIQ* 30 ML UDC PO PRN (23:10)
[2018-11-16] MEDS ORDERED: Docusate CAP* 100 MG PO PRN (23:11)
[2018-11-17] MEDS: Pantoprazole TAB * 40 MG TAB PO SCH ×3 (04:21→22:27)
[2018-11-17] MEDS: QUEtiapine TAB* 100 MG PO SCH ×2 (04:21→22:28)
[2018-11-17] MEDS: metFORMIN* 500 MG TAB PO SCH ×3 (04:21→22:27)
[2018-11-17] MEDS: Magnesium Oxide TAB* 400 MG PO SCH ×3 (04:21→22:27)
[2018-11-17] MEDS: Vitamin THERAPEUTIC TAB PO SCH (09:31)
[2018-11-17] MEDS: DULoxetine DR CAP* 60 MG CAP.DR PO SCH (09:31)
[2018-11-17] MEDS: LORazepam TAB(*) 0.5 MG PO PRN (09:33)
[2018-11-17] MEDS: Acetaminophen TAB* 325 MG PO PRN (12:18)
[2018-11-17] MEDS: HYDROcodone/ACET. 7.5/325 LIQ* 15 ML UDC PO SCH ×2 (16:49→22:28)
[2018-11-17] MEDS: ALPRAZolam TAB* 0.5 MG PO SCH ×2 (16:49→19:05)
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
[2018-11-18 07:45] LABS: HDL Cholesterol 53.3 mg/dL
[2018-11-18] MEDS: DULoxetine DR CAP* 60 MG CAP.DR PO SCH (08:18)
[2018-11-18] MEDS: HYDROcodone/ACET. 7.5/325 LIQ* 15 ML UDC PO SCH ×3 (08:18→20:38)
[2018-11-18] MEDS: metFORMIN* 500 MG TAB PO SCH ×2 (08:20→20:35)
[2018-11-18] MEDS: Vitamin THERAPEUTIC TAB PO SCH (08:20)
[2018-11-18] MEDS: Pantoprazole TAB * 40 MG TAB PO SCH ×2 (08:21→20:36)
[2018-11-18] MEDS: Magnesium Oxide TAB* 400 MG PO SCH ×2 (08:21→20:36)
[2018-11-18] MEDS: ALPRAZolam TAB* 0.5 MG PO SCH ×3 (08:21→20:36)
[2018-11-18] MEDS: Acetaminophen TAB* 325 MG PO PRN (10:59)
--- NOTE | 2018-11-18 15:09 | PN ---
Subjective - Subjective Service Type: 95193 Hosp care 25 min moderate complexity Subjective: Patient is calm but tells a long, rambling story ostensibly about her history of her siblings and her mother and of worrying about her daughter who lives in [place]. Has no suicidal ideation and has been sleeping well based on staff notes. Only takes cymbalta and benzodiazepines for anxiety and does not want medication change. Objective - General Observations Appearance: Neat Appears Stated Age: No - appears younger than stated age Stature: Overweight Posture: WNL Eye Contact: Average Behavior/Activity: WNL Separation from Parent/Guardian: Unremarkable/Age Appropriate - Interaction Observations Attitude Towards Examiner: Cooperative, Ingratiating Stated Mood: Euthymic Affect: Incongruent Speech Pattern/Tone: Normal Volume, Rambling Thought Process: Disorganized, Circumstantial, Over Inclusive Perception: WNL Thought Content: Preoccupation/Ruminations - ruminating about family of origin Hallucination Type: Denies Delusion Type: Denies - Cognitive Function Orientation: A&O x 4 Level of Consciousness: Awake Cognition: WNL Estimated Intelligence: Normal Insight: Difficulty Acknowledging Presence of Psyciatric Problems Judgment Within Normal Limits: Yes Ability to Make Reasonable Decisions: Mildly Impaired - Medication Compliance Cooperative with Inpatient Medication Regimen: Partial - reluctant to add medications - Group Participation Participates in Group Activities: Partial - Elaboration on Positive Findings Positive MSE Findings: circumstantial speech and grandiose disorganization about family; almost speaks as if she is doing a mannered monologue in a play. Assessment - Assessment Merits Inpatient Hospitalization: For Stabilization Inpatient DSM-V Dx: F60.3 Clinical Impression: Woman with borderline personality who seems to have decompensated with lack of sleep before admission but who does not have bipolar history and is now sleeping well. Still rambling about family of origin. Will continue to stabilize here. BSU: Problem List - Patient Problems (1) Depression Current Visit: No Status: Acute Priority: Medium Code(s): F32.9 - MAJOR DEPRESSIVE DISORDER, SINGLE EPISODE, UNSPECIFIED SNOMED Code(s): 16578687 (2) PTSD (post-traumatic stress disorder) Current Visit: No Status: Acute Priority: Medium Code(s): F43.10 - POST- TRAUMATIC STRESS DISORDER, UNSPECIFIED SNOMED Code(s): 36905478 Plan - Plan Treatment Plan: Name: JONATHAN KATE Birthdate: 1965 [id number] Continued Medication Management: Continue Outpt Medication Medications: Current Medications Acetaminophen (Tylenol Tab*) 650 mg PO Q4H PRN PRN Reason: PAIN or TEMP > 101 F Last Admin: 11/18/18 10:59 Dose: 650 mg Hydrocodone Bitart/Acetaminophen (Nortab 7.5/325 Liq*) 15 ml PO TID [facility] Last Admin: 11/18/18 14:29 Dose: 15 ml Al Hydrox/Mg Hydrox/Simethicone (Maalox Plus*) 30 ml PO Q4H PRN PRN Reason: INDIGESTION Alprazolam (Xanax Tab*) 0.5 mg PO TID [facility] Last Admin: 11/18/18 14:28 Dose: 0.5 mg Docusate Sodium (Colace Cap*) 100 mg PO BID PRN PRN Reason: CONSTIPATION Duloxetine HCl (Cymbalta Cap*) 60 mg PO DAILY [facility] Last Admin: 11/18/18 08:18 Dose: 60 mg Lorazepam (Ativan Tab(*)) 0.5 mg PO Q6H PRN PRN Reason: ANXIETY Last Admin: 11/17/18 09:33 Dose: 0.5 mg Magnesium Oxide (Magox 400 Tab*) 400 mg PO BID [facility] Last Admin: 11/18/18 08:21 Dose: 400 mg Metformin HCl (Glucophage*) 500 mg PO BID [facility] Last Admin: 11/18/18 08:20 Dose: 500 mg Miscellaneous (Ativan Pyxis Soria) 1 ea N/A .ATIVAN IV SORIA PRN PRN Reason: PYXIS SORIA Multivitamins (Theragran Tab*) 1 tab PO DAILY [facility] Last Admin: 11/18/18 08:20 Dose: 1 tab Pantoprazole Sodium (Protonix Tab*) 40 mg PO BID [facility] Last Admin: 11/18/18 08:21 Dose: 40 mg Quetiapine Fumarate (Seroquel Tab*) 100 mg PO BEDTIME [facility] Last Admin: 11/17/18 22:28 Dose: Not Given - Discharge Plan Discharge Plan: Outpatient Follow Up Outpatient Program: try to persuade her to see mental health rather than only pcp
[2018-11-18] MEDS: QUEtiapine TAB* 100 MG PO SCH (20:37)
[2018-11-19 08:07] VITALS: BP 146/76
[2018-11-19] MEDS: ALPRAZolam TAB* 0.5 MG PO SCH (09:03)
[2018-11-19] MEDS: Vitamin THERAPEUTIC TAB PO SCH (09:03)
[2018-11-19] MEDS: metFORMIN* 500 MG TAB PO SCH (09:03)
[2018-11-19] MEDS: HYDROcodone/ACET. 7.5/325 LIQ* 15 ML UDC PO SCH (09:04)
[2018-11-19] MEDS: DULoxetine DR CAP* 60 MG CAP.DR PO SCH (09:04)
[2018-11-19] MEDS: Magnesium Oxide TAB* 400 MG PO SCH (09:04)
[2018-11-19] MEDS: Pantoprazole TAB * 40 MG TAB PO SCH (09:04)
[2018-11-19] MEDS: LORazepam TAB(*) 0.5 MG PO PRN (11:35)
--- NOTE | 2018-11-19 11:59 | DCNOTE ---
Subjective - Subjective Service Types: 26010 Hosp DC Day Mgmt simple under 30 min Discharge Date: 11/19/18 Subjective: Reports doing well. Still rambles about events which took place in her youth but is sleeping well. Wants to go home. Objective - General Observations Appearance: Neat Appears Stated Age: Yes Stature: Overweight Posture: WNL Eye Contact: Average Behavior/Activity: WNL - Interaction Observations Attitude Towards Examiner: Cooperative, Ingratiating Stated Mood: Euphoric Affect: Full Speech Pattern/Tone: Clear Thought Process: Coherent Perception: WNL Thought Content: Preoccupation/Ruminations Hallucination Type: None Delusion Type: None - Cognitive Function Orientation: A&O x 4 Level of Consciousness: Awake, Alert, Appropriate Cognition: WNL Estimated Intelligence: Normal Insight: Difficulty Acknowledging Presence of Psyciatric Problems Judgment Within Normal Limits: Yes Ability to Make Reasonable Decisions: Mildly Impaired - Medication Compliance Cooperative with Inpatient Medication Regimen: Yes - Group Participation Participates in Group Activities: Yes - Elaboration on Positive Findings Positive MSE Findings: still circumstantial but no suicidality DC Assessment - Assessment Clinical Impression: Woman with borderline personality who seems to have decompensated with lack of sleep before admission but who does not have bipolar history and is now sleeping well. Still rambling about family of origin. Will continue to stabilize here. Merits Inpatient Hospitalization: No Clear for Discharge: Adequate Clinical Respons, Acceptable Safety Profile, Low Utility of Inpt Care Inpatient DSM-V Dx: F60.3 Discharge Planning - Discharge Planning Discharge Plan: Outpatient Follow Up Outpatient Program: prefers primary med provider Recommendations for Continuing Care: Medication Management Medications: Current Medications Acetaminophen (Tylenol Tab*) 650 mg PO Q4H PRN PRN Reason: PAIN or TEMP > 101 F Last Admin: 11/18/18 10:59 Dose: 650 mg Hydrocodone Bitart/Acetaminophen (Nortab 7.5/325 Liq*) 15 ml PO TID [facility] Last Admin: 11/19/18 09:04 Dose: 15 ml Al Hydrox/Mg Hydrox/Simethicone (Maalox Plus*) 30 ml PO Q4H PRN PRN Reason: INDIGESTION Alprazolam (Xanax Tab*) 0.5 mg PO TID [facility] Last Admin: 11/19/18 09:03 Dose: 0.5 mg Docusate Sodium (Colace Cap*) 100 mg PO BID PRN PRN Reason: CONSTIPATION Duloxetine HCl (Cymbalta Cap*) 60 mg PO DAILY [facility] Last Admin: 11/19/18 09:04 Dose: 60 mg Lorazepam (Ativan Tab(*)) 0.5 mg PO Q6H PRN PRN Reason: ANXIETY Last Admin: 11/19/18 11:35 Dose: 0.5 mg Magnesium Oxide (Magox 400 Tab*) 400 mg PO BID [facility] Last Admin: 11/19/18 09:04 Dose: 400 mg Metformin HCl (Glucophage*) 500 mg PO BID [facility] Last Admin: 11/19/18 09:03 Dose: 500 mg Miscellaneous (Ativan Pyxis Soria) 1 ea N/A .ATIVAN IV SORIA PRN PRN Reason: PYXIS SORIA Multivitamins (Theragran Tab*) 1 tab PO DAILY [facility] Last Admin: 11/19/18 09:03 Dose: 1 tab Pantoprazole Sodium (Protonix Tab*) 40 mg PO BID [facility] Last Admin: 11/19/18 09:04 Dose: 40 mg Quetiapine Fumarate (Seroquel Tab*) 100 mg PO BEDTIME [facility] Last Admin: 11/18/18 20:37 Dose: 100 mg Discharge Planning: Prescriptions provided for discharge [] Yes [] No Follow up care details as per social work arrangements. Patient response to discharge plan: [] eager for discharge [] agreeable with discharge plan [] ambivalent about discharge [] disagrees with discharge today
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
== END 2018-11-19 12:20 | disposition home or self-care (01) | DRG 752 ==
LOC: ED 15:58 → BSU 22:07 → ED 22:07
PROVIDERS: ADMIT Psychiatry & Neurology Psychiatry; ATTEND Psychiatry & Neurology Psychiatry
DX: F60.3 Borderline personality disorder (principal); F33.1 Major depressive disorder, recurrent, moderate; R45.851 Suicidal ideations; F11.20 Opioid dependence, uncomplicated; F13.20 Sedative, hypnotic or anxiolytic dependence, uncomplicated; F60.0 Paranoid personality disorder; F41.9 Anxiety disorder, unspecified; F50.9 Eating disorder, unspecified; E11.9 Type 2 diabetes mellitus without complications; G89.29 Other chronic pain; M19.90 Unspecified osteoarthritis, unspecified site; K21.9 Gastro-esophageal reflux disease without esophagitis; E66.01 Morbid (severe) obesity due to excess calories; Z62.810 Personal history of physical and sexual abuse in childhood; F29 Unspecified psychosis not due to a substance or known physiological condition; G43.909 Migraine, unspecified, not intractable, without status migrainosus; Z96.641 Presence of right artificial hip joint; I10 Essential (primary) hypertension; F43.10 Post-traumatic stress disorder, unspecified; Z86.711 Personal history of pulmonary embolism; Z87.891 Personal history of nicotine dependence; Z68.35 Body mass index [BMI] 35.0-35.9, adult; Z91.5 Personal history of self-harm; Z88.8 Allergy status to other drugs, medicaments and biological substances; Z86.19 Personal history of other infectious and parasitic diseases; Z82.5 Family history of asthma and other chronic lower respiratory diseases; Z83.3 Family history of diabetes mellitus; Z72.89 Other problems related to lifestyle; Z81.8 Family history of other mental and behavioral disorders; Z82.49 Family history of ischemic heart disease and other diseases of the circulatory system; Z56.0 Unemployment, unspecified
CPT/HCPCS: 36415; 70450; 71045; 80053; 80061; 80307; 80320; 80329; 81003; 81015; 82140; 83036; 83605; 84443; 84484; 85025; 87086; 93005; 99222; 99232; 99238; 99285; A9270-GY; G0480; J1630; J2060

== ENCOUNTER 2019-01-09 00:19 | Emergency (ER) | payer OTHER ==
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
[2019-01-09] MEDS ORDERED: Ketorolac INJ* 30 MG/ML 1 ML VIAL IM ONE (01:17)
[2019-01-09] MEDS ORDERED: HYDROcodone/ACETAMIN 5-325 MG* 1 TAB PO ONE (01:25)
[2019-01-09 01:32] VITALS: BP 0/0
== END 2019-01-09 01:31 | disposition home or self-care (01) ==
LOC: ED 00:19
DX: G89.29 Other chronic pain (principal); E11.9 Type 2 diabetes mellitus without complications; I10 Essential (primary) hypertension; F41.9 Anxiety disorder, unspecified; Z87.891 Personal history of nicotine dependence; Z96.641 Presence of right artificial hip joint; Z79.84 Long term (current) use of oral hypoglycemic drugs; Z79.899 Other long term (current) drug therapy; Z88.5 Allergy status to narcotic agent; Z88.8 Allergy status to other drugs, medicaments and biological substances
CPT/HCPCS: 96372; 99282; J1885

== ENCOUNTER 2019-01-10 15:31 | Emergency (ER) | payer OTHER ==
--- NOTE | 2019-01-10 16:31 | ED ---
Back Pain - HPI Summary HPI Summary: The patient is a 3 y/o F presenting to [facility] with a chief complaint of lower back pain beginning today. She reports the pain goes into the right hip, where she may need another hip replacement but hasnt followed up with orthopedics concerning surgery. She denies any urinary or fecal dysfunction.She also has pain in the left ankle, which is chronic, but is currently worse than usual as she had difficulty ambulating on it today. Her symptoms are now rated 10/10 in severity. She has not taken any medications prior to arrival. Movement aggravates the pain and rest somewhat alleviates it. No known trauma to the back. PMHx: DM, HTN, PE, migraines, anxiety, depression. Former smoker, rare EtOH, no substance use. Medications reviewed. Allergies noted. - History of Current Complaint Chief Complaint: EDBackInjuryPain Stated Complaint: LT ANKLE AND BACK PAIN PER PT Time Seen by Provider: 01/10/19 16:17 Hx Obtained From: Patient Onset/Duration: Sudden Onset, Lasting Hours, Still Present Onset/Duration: Started Hours Ago, Still Present Timing: Lasting Hours Back Pain Location: Is Discrete @ - low back, right hip, left ankle Severity Initially: Moderate Severity Currently: Severe Pain Intensity: 10 Pain Scale Used: 0-10 Numeric Character: Sharp Aggravating Symptom(s): Movement Alleviating Symptom(s): Rest - to some relief Associated Signs And Symptoms: Positive: Other - Positive: urinary retention. Negative: consitpation. Negative: Bladder Incontinence, Bowel Incontinence - Allergies/Home Medications Allergies/Adverse Reactions: Allergies Allergy/AdvReac Type Severity Reaction Status Date / Time nalbuphine [From Nubain] Allergy Difficulty Verified 01/11/19 01:16 Breathing rofecoxib [From Vioxx] Allergy Swelling Verified 01/11/19 01:16 PMH/Surg Hx/FS Hx/Imm Hx Endocrine/Hematology History: Reports: Hx Diabetes - managed PO with metformin Cardiovascular History: Reports: Hx Hypertension Denies: Hx Angina, Hx Hypercholesterolemia, Hx Pacemaker/ICD Respiratory History: Reports: Hx Pulmonary Embolism - 2003 GI History: Reports: Hx Ulcer - takes protonix History: Denies: Hx Dialysis Musculoskeletal History: Reports: Other Musculoskeletal History - CHRONIC PAIN, Brown's cyst, left ankle surgery Sensory History: Reports: Hx Contacts or Glasses Denies: Hx Deafness, Hx Hearing Aid Opthamlomology History: Reports: Hx Contacts or Glasses Neurological History: Reports: Hx Headaches, Hx Migraine Psychiatric History: Reports: Hx Anxiety, Hx Eating Disorder - Hx anorexia, Hx Depression, Hx Inpatient Treatment - [facility] x 2, Hx Community Mental Health Tx - did not follow up with [facility], Hx Suicide Attempt - six attempts, last time was 3- 4 years ago. , Hx Substance Abuse Denies: Hx Panic Disorder, Hx of Violent Episodes Against Others - Surgical History Surgical History: Yes Surgery Procedure, Year, and Place: Lt WRIST - Xs 2. Rt HIP REPLACEMENT. Lt ANKLE -FX'd (PINS REMOVED). Rt ARM - FX - Immunization History Date of Tetanus Vaccine: UTD Date of Influenza Vaccine: 2018 Infectious Disease History: No Infectious Disease History: Reports: Hx Shingles Denies: Traveled Outside the [place] in Last 30 Days - Family History Known Family History: Positive: Cardiac Disease, Hypertension, Diabetes, Other - Asthma. [place]. - Social History Alcohol Use: Rare Alcohol Amount: unkown Hx Substance Use: Yes Substance Use Type: Reports: None Substance Use Comment - Amount & Last Used: morphine, hydrocodcone, xanax Hx Tobacco Use: Yes - quit 06/2018 Smoking Status (MU): Former Smoker Review of Systems Positive: Other - Negative: constipation, bowel incontinence. Positive: other - urinary retention. Negative: incontinence Positive: Other - pain in the lower back, right hip, and left ankle All Other Systems Reviewed And Are Negative: Yes Physical Exam - Summary Physical Exam Summary: VITAL SIGNS: Reviewed. GENERAL: Patient is a well-developed and nourished female who is lying comfortable in the stretcher. Patient is not in any acute respiratory distress. HEAD AND FACE: No signs of trauma. No ecchymosis, hematomas or skull depressions. No sinus tenderness. EYES: PERRLA, EOMI x 2, No injected conjunctiva, no nystagmus. EARS: Hearing grossly intact. Ear canals and tympanic membranes are within normal limits. MOUTH: Oropharynx within normal limits. NECK: Supple, trachea is midline, no adenopathy, no JVD, no carotid bruit, no c- spine tenderness, neck with full ROM. CHEST: Symmetric, no tenderness at palpation. LUNGS: Clear to auscultation bilaterally. No wheezing or crackles. CVS: Regular rate and rhythm, S1 and S2 present, no murmurs or gallops appreciated. ABDOMEN: Soft, non-tender. No signs of distention. No rebound, no guarding, and no masses palpated. Bowel sounds are normal. EXTREMITIES: Some paraspinal muscle tenderness in the lumbar spine, Decreased ROM in the left ankle without deformity, swelling, hematomas, or rashes. FROM in all major joints, no edema, no cyanosis or clubbing. NEURO: Alert and oriented x 3. No acute neurological deficits. Speech is normal and follows commands. SKIN: Dry and warm. Declines a rectal exam Triage Information Reviewed: Yes Vital Signs On Initial Exam: Initial Vitals Temp Pulse Resp BP Pulse Ox 98.3 F 103 20 158/110 100 01/10/19 15:34 01/10/19 15:34 01/10/19 15:34 01/10/19 15:34 01/10/19 15:34 Vital Signs Reviewed: Yes Diagnostics - Vital Signs Vital Signs Temp Pulse Resp BP Pulse Ox 01/10/19 15:34 98.3 F 103 20 158/110 100 - Laboratory Lab Statement: Any lab studies that have been ordered have been reviewed, and results considered in the medical decision making process. - Radiology Lumbar Spine XR Radiology Interpretation Completed By: Radiologist Summary of Radiographic Findings: Impression: 1. Grade II anterior spondylolisthesis at the L5-S1 level demonstrating slight progression from the prior study. 2. Probable left renal calculus. ED physician has reviewed this report. Left Ankle XR Radiology Interpretation Completed By: Radiologist Summary of Radiographic Findings: Impression: Stable exam with no evidence of fracture. 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 ED physician has reviewed this report. Re-Evaluation - Re-Evaluation First Eval Re-Evaluation Time: 18:05 Comment: We discussed all results and plan for disposition. She is agreeable with plan. Back Pain Course/Dx - Course Assessment/Plan: Patient is a 53 y/o F with chief complaint of low back pain that radiates into the hip. She also has left ankle pain that is chronic but is worse than usual causing inability to ambulate. Lumbar spine X ray IMPRESSION: 1. GRADE II ANTERIOR SPONDYLOLISTHESIS AT THE L5-S1 LEVEL DEMONSTRATING SLIGHT PROGRESSION FROM THE PRIOR STUDY. 2. PROBABLE LEFT RENAL CALCULUS. Ankle x ray IMPRESSION: Stable exam with no evidence of fracture. 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 In the ED course the patient was given Decadron and Norflex. Patient reports that the symptoms improved. Now the patient reports that she is homeless and she wants to be admitted. The social worker palliative care and the charge nurse reported the patient can go to the group home. I had a long discussion with the patient about going to the group home however the patient declined. She reports that she is going to monitor first before going. She requested for lidocaine patch. Patient will be discharged home with a prescription for lidocaine patch, Medrol Dosepak, and Robaxin. She is hemodynamically stable alert and oriented 3. - Diagnoses Provider Diagnoses: Back pain, Chronic ankle pain Discharge ED - Sign-Out/Discharge Documenting (check all that apply): Patient Departure - Patient will be discharged home. Patient Received Moderate/Deep Sedation with Procedure: No - Discharge Plan Condition: Stable Disposition: HOME Prescriptions: Lidocaine PATCH 5%* [Lidoderm 5% Patch*] 1 patch TRANSDERM DAILY #5 patch Methocarbamol TAB* [Robaxin 500 MG TAB*] 500 mg PO TID PRN #9 tab PRN Reason: Spasms - Back methylPREDNISolone [Medrol Dosepak 4 MG*] 0 mg PO .SEE YONI INSTRUCTION #1 yoni Patient Education Materials: Back Pain (ED) Referrals: Dory Goodman [Primary Care Provider] - 3 Days Lanie Oh MD [Medical Doctor] - 3 Days Additional Instructions: Please use medications as prescribed. Follow up with Dr. Oh from orthopedics in 2-3 days. Follow up with your primary care provider in 2-3 days. Return to the emergency department for any new or worsening symptoms. - Billing Disposition and Condition Condition: STABLE Disposition: Home - Attestation Statements Document Initiated by Paula: Yes Documenting Scribe: Sara Saunders Provider For Whom Paula is Documenting (Include Credential): Dr. Gilberto Blevins MD Scribe Attestation: Sara Bragg scribed for Dr. Gilberto Blevins MD on 01/11/19 at 1835. Scribe Documentation Reviewed: Yes Provider Attestation: The documentation as recorded by the Sara dunn accurately reflects the service I personally performed and the decisions made by me, Dr. Gilberto Blevins MD Status of Scribe Document: Viewed
[2019-01-10] MEDS ORDERED: Dexamethasone IV* 4 MG/ML 1 ML (4 MG) IM ONE (16:41)
[2019-01-10] MEDS ORDERED: Orphenadrine Citrate IV* 30 MG/ML 2 ML VIAL IM ONE (16:41)
[2019-01-10 18:42] VITALS: BP 174/94
== END 2019-01-10 18:55 | disposition home or self-care (01) ==
LOC: ED 15:31
DX: M54.9 Dorsalgia, unspecified (principal); M25.572 Pain in left ankle and joints of left foot; G89.29 Other chronic pain; E11.9 Type 2 diabetes mellitus without complications; I10 Essential (primary) hypertension; F41.9 Anxiety disorder, unspecified; F32.9 Major depressive disorder, single episode, unspecified; M43.16 Spondylolisthesis, lumbar region; Z87.891 Personal history of nicotine dependence; Z79.84 Long term (current) use of oral hypoglycemic drugs; Z79.899 Other long term (current) drug therapy; Z88.5 Allergy status to narcotic agent; Z88.8 Allergy status to other drugs, medicaments and biological substances
CPT/HCPCS: 72100; 96372; 96374; 99282; J1100; J2360

== ENCOUNTER 2019-01-11 01:08 | Emergency (ER) | payer OTHER ==
[2019-01-11] MEDS ORDERED: HYDROcodone/ACETAMIN 5-325 MG* 1 TAB PO ONE ×2 (01:57→11:47)
[2019-01-11] MEDS ORDERED: Ketorolac INJ* 30 MG/ML 1 ML VIAL IV PUSH ONE (01:57)
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
[2019-01-11 04:16] LABS: ABS Lymphocytes 1.3 10^3/ul (1.0-4.8); ABS Monocytes 0.1 10^3/ul (0-0.8); ABS Neutrophils 4.9 10^3/ul (1.5-7.7); Hematocrit 37 % (35-47); Lymphocyte % 20.9 %; Mean Corpuscular HGB Conc 33 g/dL (31-36); Mean Corpuscular Hemoglobin 27 pg (27-31); Mean Corpuscular Volume 84 fL (80-97); Mean Platelet Volume 7.8 fL (7.4-10.4); Platelet Count 381 10^3/uL (150-450); Red Cell Distribution Width 16 % (10-15); White Blood Count 6.4 10^3/uL (3.5-10.8)
[2019-01-11 04:26] LABS: ALT 13 U/L (7-52); AST 16 U/L (13-39); Albumin 4.2 g/dL (3.2-5.2); Albumin/Globulin Ratio 1.3 (1-3); Alkaline Phosphatase 69 U/L (34-104); Anion Gap 9 mmol/L (2-11); BUN/Creatinine Ratio 19.7 (8-20); Blood Urea Nitrogen 12 mg/dL (6-24); C Reactive Protein 5.27 mg/L (<8.01); CO2 Carbon Dioxide 26 mmol/L (22-32); Calcium 9.5 mg/dL (8.6-10.3); Chloride 105 mmol/L (101-111); EGFR African American 123.2 (>60); EGFR Non-African American 101.8 (>60); Globulin 3.2 g/dL (2-4); Glucose 109 mg/dL (70-100); Potassium 4.1 mmol/L (3.5-5.0); Sodium 140 mmol/L (135-145); Total Protein 7.4 g/dL (6.4-8.9)
[2019-01-11 04:27] LABS: Alcohol < 10 mg/dL (<10); Salicylate < 2.50 mg/dL (<30)
--- NOTE | 2019-01-11 07:27 | ED ---
Progress - Progress Note Progress Note: This patient was signed out from Dr. Scott upon shift change on 01/11/19 at 07: 00, pending transfer disposition. Course/Dx - Course Course Of Treatment: This patient was signed out from Dr. Scott upon shift change on 01/11/19 at 07:00, pending transfer disposition. Per nursing note, the patient's friend Farhat came to the ED to pick the patient up since the patient no longer wanted to stay. The patient was [facility]. - Diagnoses Provider Diagnoses: Psychosis, Chronic pain syndrome Discharge ED - Sign-Out/Discharge Documenting (check all that apply): Patient Departure - Discharge Patient Received Moderate/Deep Sedation with Procedure: No - Discharge Plan Condition: Stable Disposition: HOME Patient Education Materials: Non-pharmacological Pain Management Therapies for Adults (ED) Referrals: Dory Goodman [Primary Care Provider] - - Billing Disposition and Condition Condition: STABLE Disposition: Home - Attestation Statements Document Initiated by Scribe: Yes Documenting Scribe: Charo Wood Provider For Whom Paula is Documenting (Include Credential): Gilebrto Blevins MD Scribe Attestation: Charo Bragg, scribed for Gilberto Blevins MD on 01/11/19 at 1857. Scribe Documentation Reviewed: Yes Provider Attestation: The documentation as recorded by the Charo dunn accurately reflects the service I personally performed and the decisions made by , Gilberto Blevins MD Status of Scribe Document: Viewed
--- NOTE | 2019-01-11 10:36 | PN ---
ED Psychiatric Progress Note Subjective: This is a 53 year-old F who is pending admission to [facility] transfer to another psychiatric facility. Pt. examined in room 21 around 1030. Pt. sleeping comfortably. Objective: Vitals: Most recent vital signs documented below. General NAD Laboratory: Current laboratory results documented below. Assessment: SI Plan: Pending transfer for admission. Home medications ordered. Vital Signs Temp Pulse Resp BP Pulse Ox 97 F 105 18 164/95 98 01/11/19 01:11 01/11/19 01:11 01/11/19 01:11 01/11/19 04:54 01/11/19 01:11 Lab Results - Entire Visit 01/11/19 01/11/19 03:51 03:51 WBC 6.4 RBC 4.40 Hgb 12.0 Hct 37 MCV 84 MCH 27 MCHC 33 RDW 16 H Plt Count 381 MPV 7.8 Neut % (Auto) 76.6 Lymph % (Auto) 20.9 Mcintosh % (Auto) 2.1 Eos % (Auto) 0.0 Baso % (Auto) 0.4 Absolute Neuts (auto) 4.9 Absolute Lymphs (auto) 1.3 Absolute Monos (auto) 0.1 Absolute Eos (auto) 0.0 Absolute Basos (auto) 0.0 Absolute Nucleated RBC 0.0 Nucleated RBC % 0.0 Sodium 140 Potassium 4.1 Chloride 105 Carbon Dioxide 26 Anion Gap 9 BUN 12 Creatinine 0.61 Est GFR ( Amer) 123.2 Est GFR (Non-Af Amer) 101.8 BUN/Creatinine Ratio 19.7 Glucose 109 H Calcium 9.5 Total Bilirubin 0.40 AST 16 ALT 13 Alkaline Phosphatase 69 C-Reactive Protein 5.27 Total Protein 7.4 Albumin 4.2 Globulin 3.2 Albumin/Globulin Ratio 1.3 Salicylates < 2.50 Serum Alcohol < 10
[2019-01-11] MEDS ORDERED: metFORMIN* 500 MG TAB PO ONE (11:47)
[2019-01-11] MEDS ORDERED: DULoxetine DR CAP* 60 MG CAP.DR PO ONE (11:47)
[2019-01-11] MEDS ORDERED: Pantoprazole TAB * 40 MG TAB PO ONE (11:47)
--- NOTE | 2019-01-11 13:57 | PN ---
ED Psychiatric Progress Note Date of Service: 01/11/19 Subjective: This is a 53 year-old F who is pending admission to [facility] / transfer to another psychiatric facility / discharge to home / or being observed secondary to . Pt offers no complaints at this time or is c/o . Objective: Vitals: Most recent vital signs documented below. General NAD, Alert and oriented x3. Heart: rrr at bpm Lungs: CTA or with rales, rhonchi, wheezing Laboratory: Current laboratory results documented below. Assessment: Plan: Pending psychiatric or medical consultation to observe / transfer / admit / discharge will follow up daily . Vital Signs Temp Pulse Resp BP Pulse Ox 97.3 F 114 18 154/96 100 01/11/19 11:23 01/11/19 11:23 01/11/19 11:23 01/11/19 11:23 01/11/19 11:23 Lab Results - Entire Visit 01/11/19 01/11/19 03:51 03:51 WBC 6.4 RBC 4.40 Hgb 12.0 Hct 37 MCV 84 MCH 27 MCHC 33 RDW 16 H Plt Count 381 MPV 7.8 Neut % (Auto) 76.6 Lymph % (Auto) 20.9 Barbour % (Auto) 2.1 Eos % (Auto) 0.0 Baso % (Auto) 0.4 Absolute Neuts (auto) 4.9 Absolute Lymphs (auto) 1.3 Absolute Monos (auto) 0.1 Absolute Eos (auto) 0.0 Absolute Basos (auto) 0.0 Absolute Nucleated RBC 0.0 Nucleated RBC % 0.0 Sodium 140 Potassium 4.1 Chloride 105 Carbon Dioxide 26 Anion Gap 9 BUN 12 Creatinine 0.61 Est GFR ( Amer) 123.2 Est GFR (Non-Af Amer) 101.8 BUN/Creatinine Ratio 19.7 Glucose 109 H Calcium 9.5 Total Bilirubin 0.40 AST 16 ALT 13 Alkaline Phosphatase 69 C-Reactive Protein 5.27 Total Protein 7.4 Albumin 4.2 Globulin 3.2 Albumin/Globulin Ratio 1.3 Salicylates < 2.50 Serum Alcohol < 10
[2019-01-11 17:21] VITALS: BP 0/0
== END 2019-01-11 17:10 | disposition home or self-care (01) ==
LOC: ED 01:08
DX: F29 Unspecified psychosis not due to a substance or known physiological condition (principal); G89.4 Chronic pain syndrome; R45.851 Suicidal ideations; E11.9 Type 2 diabetes mellitus without complications; Z79.84 Long term (current) use of oral hypoglycemic drugs; I10 Essential (primary) hypertension; Z96.641 Presence of right artificial hip joint; Z88.8 Allergy status to other drugs, medicaments and biological substances; Z87.891 Personal history of nicotine dependence
CPT/HCPCS: 36415; 80053; 80320; 80329; 85025; 86140; 93005; 96374; 99284; A9270-GY; G0480; J1885

== ENCOUNTER 2019-01-13 05:57 | Emergency (ER) | payer OTHER ==
[2019-01-13 06:33] VITALS: BP 163/112
--- NOTE | 2019-01-13 06:34 | ED ---
Lower Extremity - HPI Summary HPI Summary: The patient is a 53 y/o F presenting to [facility] with a chief complaint of increased pain and swelling in the left ankle today. She has hx of pins placed in the ankle from chronic trauma. There is no bruising of changes. Currently, her symptoms are rated 9/10 in severity. There are no aggravating or alleviating factors, but she states that Toradol has helped in the past. PMHx: DM, HTN, PE, chronic pain, anxiety, depression, left ankle with pins, shingles. Former smoker, rare EtOH, morphine and hydrocodone use. Medications reviewed. Allergies noted. - History of Current Complaint Chief Complaint: EDExtremityLower Stated Complaint: INFLAMMATION IN MY ANKLE PER PT Time Seen by Provider: 01/13/19 06:20 Hx Obtained From: Patient Mechanism Of Injury: Other - chronic trauma Onset of Pain: Post Accident Onset/Duration: Still Present Severity Initially: Moderate Severity Currently: Moderate Pain Intensity: 9 Pain Scale Used: 0-10 Numeric Timing: Constant Location: Is Discrete @ - left ankle Character Of Pain: Aching Associated Signs And Symptoms: Positive: Swelling. Negative: Bruising Aggravating Factor(s): Nothing Alleviating Factor(s): Nothing - Allergies/Home Medications Allergies/Adverse Reactions: Allergies Allergy/AdvReac Type Severity Reaction Status Date / Time nalbuphine [From Nubain] Allergy Difficulty Verified 01/13/19 06:30 Breathing rofecoxib [From Vioxx] Allergy Swelling Verified 01/13/19 06:30 PMH/Surg Hx/FS Hx/Imm Hx Endocrine/Hematology History: Reports: Hx Diabetes - managed PO with metformin Cardiovascular History: Reports: Hx Hypertension, Other Cardiovascular Problems/ Disorders - DIABETIC / ANXIOTY, AND DEPRSSION Denies: Hx Angina, Hx Hypercholesterolemia, Hx Pacemaker/ICD Respiratory History: Reports: Hx Pulmonary Embolism - 2003, Other Respiratory Problems/Disorders - PE 2003 GI History: Reports: Hx Ulcer - takes protonix History: Denies: Hx Dialysis Musculoskeletal History: Reports: Other Musculoskeletal History - CHRONIC PAIN, Brown's cyst, left ankle surgery Sensory History: Reports: Hx Contacts or Glasses Denies: Hx Deafness, Hx Hearing Aid Opthamlomology History: Reports: Hx Contacts or Glasses Neurological History: Reports: Hx Headaches, Hx Migraine, Other Neuro Impairments/Disorders - DEPRESSION Psychiatric History: Reports: Hx Anxiety, Hx Eating Disorder - Hx anorexia, Hx Depression, Hx Inpatient Treatment - [facility] x 2, Hx Community Mental Health Tx - did not follow up with [facility], Hx Suicide Attempt - six attempts, last time was 3- 4 years ago. , Hx Substance Abuse Denies: Hx Panic Disorder, Hx of Violent Episodes Against Others - Surgical History Surgical History: Yes Surgery Procedure, Year, and Place: Lt WRIST - Xs 2. Rt HIP REPLACEMENT. Lt ANKLE -FX'd (PINS REMOVED). Rt ARM - FX - Immunization History Date of Tetanus Vaccine: UTD Date of Influenza Vaccine: 2017 Infectious Disease History: No Infectious Disease History: Reports: Hx Shingles Denies: Traveled Outside the [place] in Last 30 Days - Family History Known Family History: Positive: Cardiac Disease, Hypertension, Diabetes, Other - Asthma. [place]. - Social History Alcohol Use: Rare Alcohol Amount: unkown Hx Substance Use: Yes Substance Use Type: Reports: None Substance Use Comment - Amount & Last Used: morphine, hydrocodcone, xanax Hx Tobacco Use: Yes - quit 06/2018 Smoking Status (MU): Former Smoker Review of Systems Positive: Other - left ankle pain with swelling Negative: Bruising All Other Systems Reviewed And Are Negative: Yes Physical Exam - Summary Physical Exam Summary: Appearance: Well-appearing, Well-nourished, lying in bed comfortable Skin: Warm, dry, no obvious rash Eyes: sclera anicteric, no conjunctival pallor ENT: mucous membranes moist Neck: deferred Respiratory: No signs of respiratory distress Cardiovascular: Appears well perfused, pulses are nml Abdomen: deferred Musculoskeletal: Left ankle is the area of discomfort, Chronic changes from prior injury in surgery, No acute swelling, erythema, or warmth in the ankle, Otherwise moving extremities without obvious discomfort Neurological: Awake and alert, mentation is normal, speech is fluent and appropriate Psychiatric: affect is normal, does not appear anxious or depressed Triage Information Reviewed: Yes Vital Signs On Initial Exam: Initial Vitals Temp Pulse Resp BP Pulse Ox 98.8 F 126 20 148/100 98 01/13/19 05:58 01/13/19 05:58 01/13/19 05:58 01/13/19 05:58 01/13/19 05:58 Vital Signs Reviewed: Yes Diagnostics - Vital Signs Vital Signs Temp Pulse Resp BP Pulse Ox 01/13/19 05:58 98.8 F 126 20 148/100 98 - Laboratory Lab Statement: Any lab studies that have been ordered have been reviewed, and results considered in the medical decision making process. Lower Extremity Course/Dx - Course Course Of Treatment: Pt is a 53 y/o F with cc of swelling and pain without bruising in the left ankle, which is a chronic pain from a previously experienced trauma followed by surgery. Upon physical exam, the left ankle is the area of discomfort with chronic changes from prior injury in surgery without any acute swelling, erythema, or warmth in the ankle. Pt already has good follow up plans in place for chronic pain from the past trauma she has experienced. We discussed plan for discharge with follow up with PCP. She understands and agrees with this plan. Dx is chronic ankle pain. - Diagnoses Provider Diagnoses: Chronic pain of left ankle Discharge ED - Sign-Out/Discharge Documenting (check all that apply): Patient Departure - Patient will be discharged home. Patient Received Moderate/Deep Sedation with Procedure: No - Discharge Plan Condition: Good Disposition: HOME Patient Education Materials: Chronic Pain (ED) Referrals: Dory Goodman [Primary Care Provider] - Additional Instructions: Unfortunately we are fairly limited in what we can do in the ED to help with chronic pain problems. For now the best I can advise you is to continue working with your regular physicians on this problem. - Billing Disposition and Condition Condition: GOOD Disposition: Home - Attestation Statements Document Initiated by Paula: Yes Documenting Scribe: Sara Saunders Provider For Whom Paula is Documenting (Include Credential): Dr. Robert Scott MD Scribe Attestation: I, zuly Robledoed for Dr. Robert Scott MD on 01/13/19 at 1851. Scribe Documentation Reviewed: Yes Provider Attestation: The documentation as recorded by the Sara dunn accurately reflects the service I personally performed and the decisions made by me, Dr. Robert Scott MD Status of Scribalex Document: Viewed
== END 2019-01-13 06:31 | disposition home or self-care (01) ==
LOC: ED 05:57
DX: M25.572 Pain in left ankle and joints of left foot (principal); G89.29 Other chronic pain; E11.9 Type 2 diabetes mellitus without complications; I10 Essential (primary) hypertension; F41.9 Anxiety disorder, unspecified; F32.9 Major depressive disorder, single episode, unspecified; Z87.891 Personal history of nicotine dependence; Z96.641 Presence of right artificial hip joint; Z88.6 Allergy status to analgesic agent; Z88.5 Allergy status to narcotic agent; Z79.84 Long term (current) use of oral hypoglycemic drugs; Z79.899 Other long term (current) drug therapy
CPT/HCPCS: 99282

== ENCOUNTER 2019-03-07 15:19 | Emergency (ER) | payer OTHER ==
[2019-03-07] MEDS ORDERED: Methocarbamol TAB* 500 MG PO ONE (16:08)
--- NOTE | 2019-03-07 16:14 | ED ---
Complex/Multi-Sys Presentation - HPI Summary HPI Summary: This pt is a 53 y/o female presenting to [facility] c/o left ankle pain. Per triage note, pt also c/o lower back pain. Pt has been taking pain medications but has not had any relief. Her left ankle pain is aggravated with ambulation. She states she has hx of left ankle surgery a long time ago. Pt notes she has a follow up appointment with an orthopedist on 03/27/19. Denies fever, chills, nausea, vomiting, headache. Pt states she did not take any pain medications today. She reports she can't take Motrin due to hx of ulcers. - History Of Current Complaint Chief Complaint: EDBackInjuryPain Hx Obtained From: Patient Onset/Duration: Lasting Days, Still Present Timing: Days Severity Currently: Moderate Location: Pain At: - left ankle Aggravating Factor(s): nothing Alleviating Factor(s): nothing Associated Signs And Symptoms: Positive: Other - POSITIVE: left ankle pain, lower back pain.. Negative: Headache, Nausea, Vomiting, Fever - Allergies/Home Medications Allergies/Adverse Reactions: Allergies Allergy/AdvReac Type Severity Reaction Status Date / Time nalbuphine [From Nubain] Allergy Difficulty Verified 01/13/19 06:30 Breathing rofecoxib [From Vioxx] Allergy Swelling Verified 01/13/19 06:30 PMH/Surg Hx/FS Hx/Imm Hx Endocrine/Hematology History: Reports: Hx Diabetes - managed PO with metformin Cardiovascular History: Reports: Hx Hypertension, Other Cardiovascular Problems/ Disorders - DIABETIC / ANXIOTY, AND DEPRSSION Denies: Hx Angina, Hx Hypercholesterolemia, Hx Pacemaker/ICD Respiratory History: Reports: Hx Pulmonary Embolism - 2003, Other Respiratory Problems/Disorders - PE 2003 GI History: Reports: Hx Ulcer - takes protonix History: Denies: Hx Dialysis Musculoskeletal History: Reports: Other Musculoskeletal History - CHRONIC PAIN, Brown's cyst, left ankle surgery Sensory History: Reports: Hx Contacts or Glasses Denies: Hx Deafness, Hx Hearing Aid Opthamlomology History: Reports: Hx Contacts or Glasses Neurological History: Reports: Hx Headaches, Hx Migraine, Other Neuro Impairments/Disorders - DEPRESSION Psychiatric History: Reports: Hx Anxiety, Hx Eating Disorder - Hx anorexia, Hx Depression, Hx Inpatient Treatment - [facility] x 2, Hx [facility] Tx - did not follow up with [facility], Hx Suicide Attempt - six attempts, last time was 3- 4 years ago. , Hx Substance Abuse Denies: Hx Panic Disorder, Hx of Violent Episodes Against Others - Surgical History Surgery Procedure, Year, and Place: Lt WRIST - Xs 2. Rt HIP REPLACEMENT. Lt ANKLE -FX'd (PINS REMOVED). Rt ARM - FX - Immunization History Date of Tetanus Vaccine: UTD Date of Influenza Vaccine: 2017 Infectious Disease History: No Infectious Disease History: Reports: Hx Shingles Denies: Traveled Outside the [place] in Last 30 Days - Family History Known Family History: Positive: Cardiac Disease, Hypertension, Diabetes, Other - Asthma. [place]. - Social History Alcohol Use: Rare Alcohol Amount: unkown Hx Substance Use: Yes Substance Use Type: Reports: None Substance Use Comment - Amount & Last Used: morphine, hydrocodcone, xanax Hx Tobacco Use: Yes - quit 06/2018 Smoking Status (MU): Former Smoker Review of Systems Negative: Fever, Chills Negative: Vomiting, Nausea Musculoskeletal: Other - POSITIVE: left ankle pain, lower back pain Negative: Headache All Other Systems Reviewed And Are Negative: Yes Physical Exam - Summary Physical Exam Summary: General: Well appearing, no distress HEENT: PERRL Cardiovascular: Skin is well perfused Pulmonary: No respiratory distress, no tachypnea Abdomen: Non-distended Skin: Warm, pink, dry MSK: No edema. Mild tenderness over the medial left ankle with no swelling or erythema. Psych: Normal affect Neuro: A&Ox3 Triage Information Reviewed: Yes Vital Signs On Initial Exam: Initial Vitals Temp Pulse Resp BP Pulse Ox 97.9 F 117 16 133/97 96 03/07/19 15:34 03/07/19 15:34 03/07/19 15:34 03/07/19 15:34 03/07/19 15:34 Vital Signs Reviewed: Yes Procedures - Sedation Patient Received Moderate/Deep Sedation with Procedure: No Diagnostics - Vital Signs Vital Signs Temp Pulse Resp BP Pulse Ox 03/07/19 15:34 97.9 F 117 16 133/97 96 - Laboratory Lab Statement: Any lab studies that have been ordered have been reviewed, and results considered in the medical decision making process. Re-Evaluation - Re-Evaluation First Eval Re-Evaluation Time: 17:25 Comment: Heart rate is down to 107. Second Eval Re-Evaluation Time: 17:42 Comment: Pt is requesting Tylenol. Will give and plan for orthopedic f/u Complex Multi-Symp Course/Dx Course Of Treatment: 53 y/o F w hx chronic left ankle pain, psychiatric conditions who presents with left ankle pain. Patient denies trauma, infectious symptoms, no swelling or erythema of the ankle, no pain with range of motion. Low suspicion for traumatic pathology, septic joint. Patient states he orthopedic follow-up in March. Patient requesting tylenol w/ codeine, will give patient Tylenol and Toradol she has had this in the past. HR 110's, per ROR has been tachycardic in past. Denies SOB, CP. Will try pain control, reassess. - Diagnoses Provider Diagnoses: Ankle pain Discharge ED - Sign-Out/Discharge Documenting (check all that apply): Patient Departure - Discharge home - Discharge Plan Condition: Stable Disposition: HOME Prescriptions: Acetaminophen [Acetaminophen Extra Strength] 500 mg PO Q8H PRN 10 Days #30 tablet PRN Reason: Pain - Mild Patient Education Materials: Arthralgia (ED) Referrals: Dory Goodman [Primary Care Provider] - Additional Instructions: You were seen for ankle pain. take tylenol at home for pain. Follow up with orthopedics. Return for worsening pain, fevers, or if you are concerned. - Billing Disposition and Condition Condition: STABLE Disposition: Home - Attestation Statements Document Initiated by Paula: Yes Documenting Scribe: Denise Zacarias Provider For Whom Paula is Documenting (Include Credential): Jovita Pearson MD Scribe Attestation: I, Denise Zacarias, scribed for Jovita Pearsno MD on 03/07/19 at 1758. Scribe Documentation Reviewed: Yes Provider Attestation: The documentation as recorded by the Denise dunn accurately reflects the service I personally performed and the decisions made by me, Jovita Pearson MD Status of Scribe Document: Viewed
[2019-03-07] MEDS ORDERED: Ketorolac INJ* 30 MG/ML 1 ML VIAL IM ONE (16:32)
[2019-03-07] MEDS ORDERED: Acetaminophen TAB* 325 MG PO ONE (17:42)
[2019-03-07 18:20] VITALS: BP 158/101
== END 2019-03-07 18:12 | disposition home or self-care (01) ==
LOC: ED 15:19
DX: M25.572 Pain in left ankle and joints of left foot (principal); E11.9 Type 2 diabetes mellitus without complications; I10 Essential (primary) hypertension; K25.9 Gastric ulcer, unspecified as acute or chronic, without hemorrhage or perforation; F41.9 Anxiety disorder, unspecified; F32.9 Major depressive disorder, single episode, unspecified; Z87.891 Personal history of nicotine dependence; Z86.711 Personal history of pulmonary embolism; Z96.641 Presence of right artificial hip joint; Z79.84 Long term (current) use of oral hypoglycemic drugs; Z79.899 Other long term (current) drug therapy; Z88.5 Allergy status to narcotic agent; Z88.8 Allergy status to other drugs, medicaments and biological substances
CPT/HCPCS: 96372; 99282; A9270-GY; J1885

== ENCOUNTER 2019-03-08 19:29 | Emergency (ER) | payer OTHER ==
[2019-03-08 19:36] VITALS: BP 176/101
--- NOTE | 2019-03-08 19:52 | ED ---
Back Pain - HPI Summary HPI Summary: This patient is a 53 year old F presenting to [facility] accompanied by boyfriend with a chief complaint of chronic back and left ankle pain. Symptoms aggravated by nothing. Symptoms alleviated by nothing. Per triage, pt was seen in ED yesterday with similar complaints. Pt reports she takes 1 pill for pain ( acetaminophen) that her doctor prescribes who offered more medications but pt denied before her pain worsened. Pt states she is getting more disabled. - History of Current Complaint Chief Complaint: EDBackInjuryPain Stated Complaint: BACK AND ANKLE PAIN PER PARTNER Time Seen by Provider: 03/08/19 19:47 Hx Obtained From: Patient Onset/Duration: Lasting Weeks, Still Present Onset/Duration: Still Present Timing: Constant Severity Currently: Severe Pain Intensity: 10 Pain Scale Used: 0-10 Numeric Aggravating Symptom(s): Nothing Alleviating Symptom(s): Nothing - Allergies/Home Medications Allergies/Adverse Reactions: Allergies Allergy/AdvReac Type Severity Reaction Status Date / Time nalbuphine [From Nubain] Allergy Difficulty Verified 03/10/19 11:36 Breathing rofecoxib [From Vioxx] Allergy Swelling Verified 03/10/19 11:36 PMH/Surg Hx/FS Hx/Imm Hx Endocrine/Hematology History: Reports: Hx Diabetes - managed PO with metformin Cardiovascular History: Reports: Hx Hypertension, Other Cardiovascular Problems/ Disorders - DIABETIC / ANXIOTY, AND DEPRSSION Denies: Hx Angina, Hx Hypercholesterolemia, Hx Pacemaker/ICD Respiratory History: Reports: Hx Pulmonary Embolism - 2003, Other Respiratory Problems/Disorders - PE 2003 GI History: Reports: Hx Ulcer - takes protonix History: Denies: Hx Dialysis Musculoskeletal History: Reports: Other Musculoskeletal History - CHRONIC PAIN, Brown's cyst, left ankle surgery Sensory History: Reports: Hx Contacts or Glasses Denies: Hx Deafness, Hx Hearing Aid Opthamlomology History: Reports: Hx Contacts or Glasses Neurological History: Reports: Hx Headaches, Hx Migraine, Other Neuro Impairments/Disorders - DEPRESSION Psychiatric History: Reports: Hx Anxiety, Hx Eating Disorder - Hx anorexia, Hx Depression, Hx Inpatient Treatment - [facility] [place] 2, Hx Community Mental Health Tx - did not follow up with [facility], Hx Suicide Attempt - six attempts, last time was 3- 4 years ago. , Hx Substance Abuse Denies: Hx Panic Disorder, Hx of Violent Episodes Against Others - Surgical History Surgery Procedure, Year, and Place: Lt WRIST - Xs 2. Rt HIP REPLACEMENT. Lt ANKLE -FX'd (PINS REMOVED). Rt ARM - FX - Immunization History Date of Tetanus Vaccine: UTD Date of Influenza Vaccine: 2017 Infectious Disease History: No Infectious Disease History: Reports: Hx Shingles Denies: Traveled Outside the [place] in Last 30 Days - Family History Known Family History: Positive: Cardiac Disease, Hypertension, Diabetes, Other - Asthma. [place]. - Social History Alcohol Use: Rare Alcohol Amount: unkown Hx Substance Use: Yes Substance Use Type: Reports: Prescribed Substance Use Comment - Amount & Last Used: morphine, hydrocodcone, xanax Hx Tobacco Use: Yes - quit 06/2018 Smoking Status (MU): Former Smoker Review of Systems Negative: Fever Positive: Other - chronic back and left ankle pain All Other Systems Reviewed And Are Negative: Yes Physical Exam - Summary Physical Exam Summary: Appearance: Well-appearing, Well-nourished, lying in bed comfortably Skin: Warm, dry, no obvious rash Eyes: sclera anicteric, no conjunctival pallor ENT: mucous membranes moist, pharynx appears normal Neck: Supple, nontender Respiratory: Clear to auscultation, no signs of respiratory distress Cardiovascular: Normal S1, S2. No murmurs. Normal distal pulses in tibial and radial bilaterally. Abdomen: Soft, nontender, normal active bowel sounds present Musculoskeletal: Normal, Strength/ROM Intact, left ankle is non swollen, not red , or warm. Neurological: A&Ox3, awake and alert, mentation is normal, speech is fluent and appropriate Psychiatric: affect is normal, does not appear anxious or depressed Triage Information Reviewed: Yes Vital Signs On Initial Exam: Initial Vitals Temp Pulse Resp BP Pulse Ox 95.0 F 115 16 176/101 100 03/08/19 19:31 03/08/19 19:31 03/08/19 19:31 03/08/19 19:31 03/08/19 19:31 Vital Signs Reviewed: Yes Procedures - Sedation Patient Received Moderate/Deep Sedation with Procedure: No Diagnostics - Vital Signs Vital Signs Temp Pulse Resp BP Pulse Ox 03/08/19 19:31 95.0 F 115 16 176/101 100 - Laboratory Lab Statement: Any lab studies that have been ordered have been reviewed, and results considered in the medical decision making process. Back Pain Course/Dx - Course Course Of Treatment: This is a 53 y/o woman with a chronic pain problem effecting her back and left ankle for which she has presented to the ED on multiple occasions. She reports she is seeing Dr. Pittman who has told her surgery may be helpful. Review of [employer] shows monthly maintenance opioid rx from her PCP, as well as some intermittent short term prescriptions from the ED. She also is on chronic benzodiazepines. There is nothing new on this presentation to suggest a change in her condition and I gently explained to her that we are unable to help her with the chronic pain condition here. At this point she began to get a bit upset and told me to call her regular doctor. As it is late on a Sunday evening that clearly is not indicated, but I told her she could certainly try to reach her doctor's service. The patient also has a significant mental health history which also makes her management difficult. - Diagnoses Provider Diagnoses: Chronic pain Discharge ED - Sign-Out/Discharge Documenting (check all that apply): Patient Departure - discharge - Discharge Plan Condition: Stable Disposition: HOME Patient Education Materials: Chronic Pain (ED) Referrals: Dory Goodman [Primary Care Provider] - Additional Instructions: We are not able to help you here with this chronic pain problem. I encourage you to work with your orthopedic surgeon and your primary care provider. You do have pain medication prescribed to you already so there really are no other options I have to help with your problem. - Billing Disposition and Condition Condition: STABLE Disposition: Home - Attestation Statements Document Initiated by Paula: Yes Documenting Scribe: Cami Chris Provider For Whom Paula is Documenting (Include Credential): Dr. Robert Scott MD Scribe Attestation: ICami, scribed for Dr. Robert Scott MD on 03/11/19 at 1738. Scribe Documentation Reviewed: Yes Provider Attestation: The documentation as recorded by the Cami dunn accurately reflects the service I personally performed and the decisions made by me, Dr. Robert Scott MD Status of Scribe Document: Viewed
== END 2019-03-08 20:05 | disposition home or self-care (01) ==
LOC: ED 19:29
DX: M25.572 Pain in left ankle and joints of left foot (principal); G89.29 Other chronic pain; M54.9 Dorsalgia, unspecified; E11.9 Type 2 diabetes mellitus without complications; I10 Essential (primary) hypertension; Z86.711 Personal history of pulmonary embolism; Z87.891 Personal history of nicotine dependence; R51 Headache; F41.9 Anxiety disorder, unspecified
CPT/HCPCS: 99282

== ENCOUNTER 2019-03-10 11:20 | Emergency (ER) | payer OTHER ==
[2019-03-10 11:39] VITALS: BP 172/105
== END 2019-03-10 12:55 | disposition left against medical advice (07) ==
LOC: ED 11:20
DX: M79.605 Pain in left leg (principal); M79.604 Pain in right leg; Z53.21 Procedure and treatment not carried out due to patient leaving prior to being seen by health care provider

== ENCOUNTER 2019-03-19 16:03 | Emergency (ER) | payer OTHER ==
[2019-03-19] MEDS ORDERED: Ketorolac *IM* INJ* 60 MG/2 ML VIAL IM ONE (16:53)
[2019-03-19] MEDS ORDERED: Ondansetron ODT TAB* 4 MG SL ONE (16:54)
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
[2019-03-19 17:44] VITALS: BP 154/94
== END 2019-03-19 17:33 | disposition home or self-care (01) ==
LOC: ED 16:03
DX: G89.29 Other chronic pain (principal); E11.9 Type 2 diabetes mellitus without complications; I10 Essential (primary) hypertension; F41.9 Anxiety disorder, unspecified; F32.9 Major depressive disorder, single episode, unspecified; Z96.641 Presence of right artificial hip joint; Z87.891 Personal history of nicotine dependence; Z79.84 Long term (current) use of oral hypoglycemic drugs; Z79.899 Other long term (current) drug therapy; Z88.6 Allergy status to analgesic agent; Z88.5 Allergy status to narcotic agent
CPT/HCPCS: 96372; 99282; A9270-GY; J1885

== ENCOUNTER 2019-03-20 15:58 | Emergency (ER) | payer OTHER ==
[2019-03-20 16:02] VITALS: BP 131/81
[2019-03-20] MEDS ORDERED: Ketorolac INJ* 30 MG/ML 1 ML VIAL IM ONE (16:33)
[2019-03-20] MEDS ORDERED: Acetaminophen TAB* 325 MG PO ONE (16:34)
--- NOTE | 2019-03-20 16:35 | ED ---
Back Pain - HPI Summary HPI Summary: This patient is a 53 year old F presenting to ED with a chief complaint of left leg and back pain since one week ago. Patient has had the leg pain before but the back pain is new since the cold weather started. The pain is described as throbbing. Has been seen in ED several times for ankle pain, has orthopedic apt. Patient denies any recent falls or numbness. She reports subjective fevers/ chills. Had reported sensation of urinary retention earlier. No saddle anesthesia. The patient rates the pain 10/10 in severity. Symptoms aggravated by walking. Symptoms alleviated by nothing. - History of Current Complaint Chief Complaint: EDBackInjuryPain Stated Complaint: BACK AND LEG PAIN PER FRIEND Time Seen by Provider: 03/20/19 16:28 Hx Obtained From: Patient Onset/Duration: Gradual Onset, Lasting Weeks - 1 week, Still Present Onset/Duration: Started Weeks Ago - 1 week, Atraumatic, Still Present Timing: Constant, Lasting Weeks - 1 week Severity Initially: Severe Severity Currently: Severe Pain Intensity: 10 Pain Scale Used: 0-10 Numeric Character: Throbbing Aggravating Symptom(s): Movement, Nothing Alleviating Symptom(s): Nothing Associated Signs And Symptoms: Positive: Fever. Negative: Numbness, Bladder Incontinence - Allergies/Home Medications Allergies/Adverse Reactions: Allergies Allergy/AdvReac Type Severity Reaction Status Date / Time nalbuphine [From Nubain] Allergy Difficulty Verified 03/20/19 16:02 Breathing rofecoxib [From Vioxx] Allergy Swelling Verified 03/20/19 16:02 PMH/Surg Hx/FS Hx/Imm Hx Endocrine/Hematology History: Reports: Hx Diabetes - managed PO with metformin Cardiovascular History: Reports: Hx Hypertension, Other Cardiovascular Problems/ Disorders - DIABETIC / ANXIOTY, AND DEPRSSION Denies: Hx Angina, Hx Hypercholesterolemia, Hx Pacemaker/ICD Respiratory History: Reports: Hx Pulmonary Embolism - 2003, Other Respiratory Problems/Disorders - PE 2003 GI History: Reports: Hx Ulcer - takes protonix History: Denies: Hx Dialysis Musculoskeletal History: Reports: Other Musculoskeletal History - CHRONIC PAIN, Brown's cyst, left ankle surgery Sensory History: Reports: Hx Contacts or Glasses Denies: Hx Deafness, Hx Hearing Aid Opthamlomology History: Reports: Hx Contacts or Glasses Neurological History: Reports: Hx Headaches, Hx Migraine, Other Neuro Impairments/Disorders - DEPRESSION Psychiatric History: Reports: Hx Anxiety, Hx Eating Disorder - Hx anorexia, Hx Depression, Hx Inpatient Treatment - [facility] x 2, Hx Community Mental Health Tx - did not follow up with [facility], Hx Suicide Attempt - six attempts, last time was 3- 4 years ago. , Hx Substance Abuse Denies: Hx Panic Disorder, Hx of Violent Episodes Against Others - Surgical History Surgery Procedure, Year, and Place: Lt WRIST - Xs 2. Rt HIP REPLACEMENT. Lt ANKLE -FX'd (PINS REMOVED). Rt ARM - FX - Immunization History Date of Tetanus Vaccine: UTD Date of Influenza Vaccine: 2017 Infectious Disease History: No Infectious Disease History: Reports: Hx Shingles Denies: Traveled Outside the [place] in Last 30 Days - Family History Known Family History: Positive: Cardiac Disease, Hypertension, Diabetes, Other - Asthma. [place]. , Non-Contributory - Social History Alcohol Use: Rare Alcohol Amount: unkown Hx Substance Use: Yes Substance Use Type: Reports: Prescribed Substance Use Comment - Amount & Last Used: morphine, hydrocodcone, xanax Hx Tobacco Use: Yes - quit 06/2018 Smoking Status (MU): Former Smoker Review of Systems Positive: Fever, Chills Genitourinary: Other - Urinary retention Musculoskeletal: Other - Back and left leg pain Negative: Numbness All Other Systems Reviewed And Are Negative: Yes Physical Exam - Summary Physical Exam Summary: General: Well appearing, no distress HEENT: PERRL Cardiovascular: Skin is well perfused Pulmonary: No respiratory distress, no tachypnea Abdomen: Non-distended Skin: Warm, pink, dry MSK: left medial ankle tenderness without erythema or swelling, full range of motion, left piriformis and buttock tenderness. No midline CTL tenderness. Strength 5/5 BLE. SILT. Ambulates w steady gait . Psych: Normal affect Neuro: A&Ox3 Triage Information Reviewed: Yes Vital Signs On Initial Exam: Initial Vitals Temp Pulse Resp BP Pulse Ox 97 F 90 16 131/81 100 03/20/19 16:00 03/20/19 16:00 03/20/19 16:00 03/20/19 16:00 03/20/19 16:00 Vital Signs Reviewed: Yes Procedures - Sedation Patient Received Moderate/Deep Sedation with Procedure: No Diagnostics - Vital Signs Vital Signs Temp Pulse Resp BP Pulse Ox 03/20/19 16:00 97 F 90 16 131/81 100 - Laboratory Lab Statement: Any lab studies that have been ordered have been reviewed, and results considered in the medical decision making process. Re-Evaluation - Re-Evaluation First Eval Re-Evaluation Time: 17:30 Comment: Post-void bladder scan 21mL. Patient reports she wants to go home. Patient was able to urinate. She was able to ambulate around the department. Patient will be discharged home with dx of left ankle pain and piriformus pain, follow up w orthopedics. Patient understands and agrees with this plan. Back Pain Course/Dx - Course Course Of Treatment: 53 y/o F w chronic L ankle pain, now w L hip/buttock pain. - PE w/o midline tenderness, strength 5/5 LE. Afebrile. Well appearing. PVR 12 mL. Denies saddle anesthesia, no appreciable numbness to lateral buttock or leg on exam. - no signs of infectious cause, trauma. - given toradol and tylenol here, has orthopedic f/u - Diagnoses Provider Diagnoses: Left ankle pain, Piriformis muscle pain Discharge ED - Sign-Out/Discharge Documenting (check all that apply): Patient Departure - Discharge - Discharge Plan Condition: Stable Disposition: HOME Patient Education Materials: Arthralgia (ED), Piriformis Syndrome (ED) Referrals: Dory Goodman [Primary Care Provider] - Additional Instructions: You were seen in the emergency department for ankle and left buttock pain. Please take Tylenol home. Please follow up with orthopedic surgeon as previously scheduled Please follow up with your primary care doctor in next 2-3 days and return to emergency department for worsening pain, numbness or weakness in her legs, inability to use the restroom, or concerning symptoms. It was a pleasure taking care of you today. - Billing Disposition and Condition Condition: STABLE Disposition: Home - Attestation Statements Document Initiated by Scribe: Yes Documenting Scribe: Ace Acuña Provider For Whom Paula is Documenting (Include Credential): Jovita Pearson MD Scribe Attestation: Ace Bragg, scribed for Jovita Pearson MD on 03/20/19 at 1752. Scribe Documentation Reviewed: Yes Provider Attestation: The documentation as recorded by the Ace dunn accurately reflects the service I personally performed and the decisions made by me, Jovita Pearson MD Status of Scribe Document: Viewed
== END 2019-03-20 17:42 | disposition home or self-care (01) ==
LOC: ED 15:58
DX: M25.572 Pain in left ankle and joints of left foot (principal); G57.02 Lesion of sciatic nerve, left lower limb; E11.9 Type 2 diabetes mellitus without complications; I10 Essential (primary) hypertension; F41.9 Anxiety disorder, unspecified; F32.9 Major depressive disorder, single episode, unspecified; Z96.641 Presence of right artificial hip joint; Z87.891 Personal history of nicotine dependence; Z79.84 Long term (current) use of oral hypoglycemic drugs; Z79.899 Other long term (current) drug therapy; Z88.5 Allergy status to narcotic agent; Z88.8 Allergy status to other drugs, medicaments and biological substances
CPT/HCPCS: 96372; 99282; A9270-GY; J1885

== ENCOUNTER 2019-05-10 15:36 | Emergency (ER) | payer OTHER ==
--- NOTE | 2019-05-10 15:44 | ED ---
Psychiatric Complaint - HPI Summary HPI Summary: This patient is a 53 year old female brought in by EMS presenting to [facility] with a psychiatric complaint. EMS states she has had increased hallucinations and eaten very little over the last 4 days. She stated to EMS that she has been low- dosing her medication. Medically, she reports right hand and left knee pain. She has a Hx of PTSD, 6 suicide attempts, and substance abuse. - History Of Current Complaint Hx Obtained From: Patient Onset/Duration: Lasting Hours - Allergies/Home Medications Allergies/Adverse Reactions: Allergies Allergy/AdvReac Type Severity Reaction Status Date / Time nalbuphine [From Nubain] Allergy Difficulty Verified 03/20/19 16:02 Breathing rofecoxib [From Vioxx] Allergy Swelling Verified 03/20/19 16:02 PMH/Surg Hx/FS Hx/Imm Hx Endocrine/Hematology History: Reports: Hx Diabetes - managed PO with metformin Cardiovascular History: Reports: Hx Hypertension, Other Cardiovascular Problems/ Disorders - DIABETIC / ANXIOTY, AND DEPRSSION Denies: Hx Angina, Hx Hypercholesterolemia, Hx Pacemaker/ICD Respiratory History: Reports: Hx Pulmonary Embolism - 2003, Other Respiratory Problems/Disorders - PE 2003 GI History: Reports: Hx Ulcer - takes protonix History: Denies: Hx Dialysis Musculoskeletal History: Reports: Other Musculoskeletal History - CHRONIC PAIN, Brown's cyst, left ankle surgery Sensory History: Reports: Hx Contacts or Glasses Denies: Hx Deafness, Hx Hearing Aid Opthamlomology History: Reports: Hx Contacts or Glasses Neurological History: Reports: Hx Headaches, Hx Migraine, Other Neuro Impairments/Disorders - DEPRESSION Psychiatric History: Reports: Hx Anxiety, Hx Eating Disorder - Hx anorexia, Hx Depression, Hx Inpatient Treatment - [facility] [place] x 2, Hx Community Mental Health Tx - did not follow up with [facility], Hx Suicide Attempt - six attempts, last time was 3- 4 years ago. , Hx Substance Abuse Denies: Hx Panic Disorder, Hx of Violent Episodes Against Others - Surgical History Surgery Procedure, Year, and Place: Lt WRIST - Xs 2. Rt HIP REPLACEMENT. Lt ANKLE -FX'd (PINS REMOVED). Rt ARM - FX - Immunization History Date of Tetanus Vaccine: UTD Date of Influenza Vaccine: 2017 Infectious Disease History: Reports: Hx Shingles - Family History Known Family History: Positive: Cardiac Disease, Hypertension, Diabetes, Other - Asthma. [place]. , Non-Contributory - Social History Alcohol Use: Rare Alcohol Amount: unkown Hx Substance Use: Yes Substance Use Type: Reports: Prescribed Substance Use Comment - Amount & Last Used: morphine, hydrocodcone, xanax Hx Tobacco Use: Yes - quit 06/2018 Smoking Status (MU): Former Smoker Review of Systems Positive: Other - Right hand and left knee pain Neurological: Other - Hallucinations All Other Systems Reviewed And Are Negative: Yes Physical Exam - Summary Physical Exam Summary: Constitutional: Well-developed, Well-nourished, Alert. (-) Distressed Skin: Warm, Dry HENT: Normocephalic; Atraumatic Eyes: Conjunctiva normal Neck: Musculoskeletal ROM normal neck. (-) JVD, (-) Stridor, (-) Nuchal rigidity Cardio: Rhythm regular, rate normal, Heart sounds normal; Intact distal pulses; Radial pulses are 2+ and symmetric. (-) Murmur Pulmonary/Chest wall: Effort normal. (-) Respiratory distress, (-) Wheezes, (-) Rales Abd: Soft, (-) tenderness, (-) Distension, (-) Guarding, (-) Rebound Musculoskeletal: (-) Edema. Tenderness of the right hand w/o snuffbox tenderness , tenderness of the left knee full ROM. Neuro: Alert, Oriented x3 Psych: Poor eye contact, +delusions, denies SI. Triage Information Reviewed: Yes Vital Signs On Initial Exam: Temp Pulse Resp BP Pulse Ox 97.6 F 108 16 139/93 96 05/10/19 15:44 05/10/19 15:44 05/10/19 15:44 05/10/19 15:44 05/10/19 15:44 Vital Signs Reviewed: Yes Procedures - Sedation Patient Received Moderate/Deep Sedation with Procedure: No Diagnostics - Laboratory Result Diagrams: 05/10/19 16:07 05/10/19 16:07 Lab Statement: Any lab studies that have been ordered have been reviewed, and results considered in the medical decision making process. - Radiology Right hand XR Radiology Interpretation Completed By: Radiologist Summary of Radiographic Findings: NO evidence for fracture. ED Provider has reviewed this report. Left knee XR Radiology Interpretation Completed By: Radiologist Summary of Radiographic Findings: NO evidence for fracture. ED Provider has reviewed this report. Re-Evaluation - Re-Evaluation First Eval Re-Evaluation Time: 18:45 Change: Improved - updated on neg XR. given tylenol. HR 88. Course/Dx - Course Course Of Treatment: 53 y/o F w hx PTSD, delusions, chronic L ankle pain p/w hand and ankle pain as well as delusions. - VS mild tachycardia (often present) , tenderness of the R hand, no snuffbox tenderness. Tenderness of the left knee with full range of motion and ability to ambulate. - XRs neg, cleared by psych. Given tylenol for pain - Differential Dx/Clinical Impression Provider Diagnosis: Hand pain, Knee pain, Delusions, Shared psychotic disorder Discharge ED - Sign-Out/Discharge Documenting (check all that apply): Patient Departure - Discharge, per Dr. James, [facility] - Discharge Plan Condition: Stable Disposition: HOME Referrals: Dory Goodman [Primary Care Provider] - - Billing Disposition and Condition Condition: STABLE Disposition: Home - Attestation Statements Document Initiated by Rodolfoibe: Yes Documenting Scribe: Diego Mcconnell Provider For Whom Paula is Documenting (Include Credential): Jovita Pearson MD Scribe Attestation: Diego Bragg, scribed for Jovita Pearson MD on 05/10/19 at 1907. Scribe Documentation Reviewed: Yes Provider Attestation: The documentation as recorded by the Diego dunn accurately reflects the service I personally performed and the decisions made by , Jovita Pearson MD Status of Scribe Document: Viewed
[2019-05-10 16:15] LABS: ABS Lymphocytes 1.8 10^3/ul (1.0-4.8); ABS Monocytes 0.4 10^3/ul (0-0.8); ABS Neutrophils 5.3 10^3/ul (1.5-7.7); Eosinophil % 0.6 %; Hematocrit 35 % (35-47); Hemoglobin 11.5 g/dL (12.0-16.0); Lymphocyte % 23.8 %; Mean Corpuscular HGB Conc 33 g/dL (31-36); Mean Corpuscular Hemoglobin 27 pg (27-31); Mean Corpuscular Volume 83 fL (80-97); Mean Platelet Volume 7.2 fL (7.4-10.4); Platelet Count 403 10^3/uL (150-450); Red Blood Count 4.26 10^6 /uL (3.70-4.87); Red Cell Distribution Width 16 % (10-15); White Blood Count 7.6 10^3/uL (3.5-10.8)
[2019-05-10 16:30] LABS: ALT 19 U/L (7-52); AST 22 U/L (13-39); Albumin 4.1 g/dL (3.2-5.2); Albumin/Globulin Ratio 1.3 (1-3); Alkaline Phosphatase 89 U/L (34-104); Anion Gap 9 mmol/L (2-11); BUN/Creatinine Ratio 26.5 (8-20); Blood Urea Nitrogen 18 mg/dL (6-24); CO2 Carbon Dioxide 26 mmol/L (22-32); Calcium 9.6 mg/dL (8.6-10.3); Chloride 105 mmol/L (101-111); EGFR African American 108.7 (>60); EGFR Non-African American 89.8 (>60); Globulin 3.2 g/dL (2-4); Glucose 143 mg/dL (70-100); Potassium 4.5 mmol/L (3.5-5.0); Sodium 140 mmol/L (135-145); Total Protein 7.3 g/dL (6.4-8.9)
[2019-05-10 16:31] LABS: Acetaminophen < 15 mcg/mL; Alcohol < 10 mg/dL (<10); Salicylate < 2.50 mg/dL (<30)
--- OUTSIDE RECORDS SUMMARY | 2019-05-10 16:42 | XMS REPORT | Continuity of Care Document ---
:1965 Author Organization [address] [place] [address] Address [address] [place] [address] Phone Care Team Providers Name Role Phone MELODY CHOUDHARY, MARIANN Unavailable Unavailable Allergies, Adverse Reactions, Alerts Substance Reaction Status clonazepam not effective Active rofecoxib Active DICLOFENAC SODIUM GI Active fentanyl edema Active NALBUPHINE HCL seizure Active Medications Medication Instructions Dosage Effective Status Comments Dates (start - stop) omeprazole 40 mg take 1 capsule - Active capsule,delayed (40MG) by ORAL release route BID hydrocodone 7.5 take 1 tablet by - Active mdd3 28 day mg-acetaminophen oral route 3 supply per 325 mg tablet times day policy Xanax 0.5 mg take 1 tablet by 0.5 MG - Active mdd4 tablet oral route 3 times every day Effexor XR 75 mg take 1 capsule by - Active capsule,extended oral route every release day with food in am Seroquel 100 mg take 1 tablet by - Active tablet oral route at bed Toprol XL 50 mg take 1 tablet by 50 MG - Active tablet,extended oral route 2 release times every day metformin 500 mg take 1 bkfst 1 - Active tablet supper lidocaine 5 % apply 1 patch by 1.00 patch - Active any strength topical patch transdermal route covered by every day (May ins. wear up to 12hours.) Topicort 0.25 % apply by topical - Active topical cream route 2 times every day to the affected area(s) Carafate 1 gram take 1 tablet by 1 G - Active tablet oral route 4 times every day on an empty stomach 1 hour before meals and at bedtime ProAir HFA 90 inhale 1 puff by - Active mcg/actuation inhalation route aerosol inhaler every 4 - 6 hours as needed diclofenac 3 % apply by topical 0.00 - Active topical gel route 2 times every day to lesion areas Tylenol Extra take 2 tablet by - Active Strength 500 mg oral route twice tablet daily between other pain medications Senna Lax 8.6 mg take 2 by Oral 2 - Active tablet route 2 times every day ketoconazole 2 % apply by TOPICAL Not Available - Active large tube topical cream route 2- 3 times 60gm every day to the affected area(s) Probiotic 20 ONE DAILY - Active billion cell capsule One Touch Ultra take 1 by 1 - Active 250.00 Test strips Subcutaneous route every day calcium 500 mg takes 1 po bid - Active Tab CRANBERRY take 1 tablet by Not Available - Active (unknown mouth daily strength) hydrocodone 7.5 take 1 tablet by - No Longer mdd3 28 day mg-acetaminophen oral route 3 Active supply per 325 mg tablet times day policy omeprazole 40 mg take 1 capsule - No Longer capsule,delayed (40MG) by ORAL Active release route BID Problems Condition Effective Dates (start - stop) Clinical Status Chronic pain of left ankle Other chronic pain Chronic, continuous use of opioids Chronic pain of left ankle Other chronic pain PTSD (post-traumatic stress disorder) Anxiety with depression Chronic pain due to injury Type 2 diabetes mellitus without complication, without long-term current use of insulin Cntct w and expsr to environ tobacco - smoke (acute) (chronic) ply cutter (current) use of oral - hypoglycemic drugs skilled nursing (current) use of opiate - analgesic Hallucinations, unspecified - Neurotic depression - Post-traumatic stress disorder, chronic Essential (primary) hypertension Type 2 diabetes mellitus without complications Other chronic pain Cntct w and expsr to environ tobacco - smoke (acute) (chronic) ply cutter (current) use of oral - hypoglycemic drugs Other chronic pain Major depressive disorder, recurrent, unspecified Post-traumatic stress disorder, chronic skilled nursing (current) use of opiate - analgesic Type 2 diabetes mellitus without complications Essential (primary) hypertension Chronic pain due to trauma Chronic pain of left ankle Cntct w and expsr to environ tobacco - smoke (acute) (chronic) skilled nursing (current) use of oral - hypoglycemic drugs Anxiety and depression Other chronic pain Other abnormal glucose Chronic pain of left ankle Other specified anxiety disorders - Cntct w and expsr to environ tobacco - smoke (acute) (chronic) ply cutter (current) use of opiate - analgesic Other chronic pain Anxiety and depression Post-traumatic stress disorder, chronic Essential (primary) hypertension Other specified anxiety disorders - Cntct w and expsr to environ tobacco - smoke (acute) (chronic) Other chronic pain Anxiety and depression Essential (primary) hypertension Cntct w and expsr to environ tobacco - smoke (acute) (chronic) Other specified anxiety disorders - Pain in left ankle and joints of left foot Post-traumatic stress disorder, chronic Essential (primary) hypertension Cntct w and expsr to environ tobacco - smoke (acute) (chronic) Traumatic arthritis of left ankle Type 2 diabetes mellitus without complications Essential (primary) hypertension History of UTI Cntct w and expsr to environ tobacco - smoke (acute) (chronic) Episode of altered cognition Anxiety and depression Other specified anxiety disorders - Chronic pain of left ankle Localized edema Essential hypertension Cntct w and expsr to environ tobacco - smoke (acute) (chronic) Chronic pain of left ankle Post-traumatic stress disorder, chronic Type 2 diabetes mellitus without complications ply cutter (current) use of oral - hypoglycemic drugs Other chronic pain Osteoarthritis of multiple joints, unspecified osteoarthritis type Dermatitis Anxiety and depression Other specified anxiety disorders - Anxiety and depression Post-traumatic stress disorder, chronic Other specified anxiety disorders - Dermatitis Anxiety and depression Other specified anxiety disorders - Chronic pain of left ankle Post-traumatic stress disorder, chronic Type 2 diabetes mellitus with hyperglycemia, without long-term current use of insulin Gastro-esophageal reflux disease without esophagitis ply cutter (current) use of oral - hypoglycemic drugs Skin lesion of back 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 Neurotic depression - Chronic pain due to trauma Essential (primary) hypertension Hip pain, left Gastro-esophageal reflux disease without esophagitis Insomnia, unspecified type Overweight Encounter for preprocedural - cardiovascular examination Pain in left ankle and joints of left - foot Palpitations - Unspecified osteoarthritis, - unspecified site Obesity, unspecified - Cntct w and expsr to environ tobacco - smoke (acute) (chronic) Body mass index (BMI) 40.0-44.9, adult - Family hx of ischem heart dis and oth - dis of the circ sys Pre-op evaluation Chronic pain of left ankle Anxious depression Type 2 diabetes mellitus without complications GERD w/o esophagitis Essential (primary) hypertension Tobacco use - GERD w/o esophagitis - Post-traumatic osteoarthritis, left ankle and foot Chronic pain due to trauma Chronic pain of left ankle Other chronic pain Other chronic pain Hip pain, left Post-traumatic osteoarthritis, left - ankle and foot Balance problem Insomnia, unspecified type Chronic pain of left knee Chronic pain of left ankle Urinary tract infection, site not specified Urinary hesitancy DDD (degenerative disc disease), lumbosacral Hip pain, left Chronic pain syndrome - Arthralgia of left ankle Pain in unspecified knee Encntr for general adult medical exam w/o abnormal findings Chronic pain due to trauma Abnormal TSH Gassiness Chronic pain of left knee Other chronic pain Other malaise Risk For Fall - Other chronic pain Fall, subsequent encounter Joint pain of lower extremity Type 2 diabetes mellitus without complications Fall into hole, initial encounter - skilled nursing (current) use of oral - hypoglycemic drugs Anxiety disorder, unspecified Unspecified abdominal pain Type 2 diabetes mellitus without complications Other chronic pain Nicotine dependence, unspecified, - uncomplicated ply cutter (current) use of oral - hypoglycemic drugs Anxious depression Post-traumatic stress disorder, chronic Other chronic pain Exposure to mold Unspecified fall, initial encounter - Ot places as the place of occurrence - of the external cause Essential (primary) hypertension Overweight Anxious depression Other abnormal glucose Other chronic pain Nicotine dependence, cigarettes, - uncomplicated Contact/exposure mold Mold exposure Coughing Anxious depression Anxiety disorder, unspecified Panic attacks Fatigue, unspecified type Other depressive episodes Other chronic pain Type 2 diabetes mellitus without complications Post-traumatic stress disorder, - chronic Anxiety and depression Chronic pain Hypertension, essential NOS Diabetes mellitus type 2 Brown's cyst of knee Anxiety and depression Chronic pain Brown's cyst of knee Anxiety and depression Memory impairment ABNORMAL GLUCOSE NEC Chronic pain Hypertension, Benign Dependence, drug NOS, unspecified Lumbago Depression Diabetes mellitus type 2 Overweight Chronic pain Examination, preoperative NOS Overweight ABNORMAL GLUCOSE NEC Hip pain Fatigue Anxiety and depression Diabetes mellitus type 2 Pain in joint, multiple sites Arthropathy Depression Anemia Dependence, drug NOS, unspecified Glucose in urine UTI Arthropathy Constipation Overweight 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, prolonged posttraumatic stress Pain, Chronic, Other Anxiety and depression Overweight 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, menstrual NEC Anxiety and depression Fibroid, uterine GERD Lumbago Ankle pain, left Vaccine against DTP - Influenza Vaccine - Disorder, menstrual NEC Leiomyoma, uterus NOS Pulmonary Embolus Hx, family, malignancy, genital organ NEC Disorder, menstrual NEC Anxiety and depression Disorder, prolonged posttraumatic stress GERD Hypertension, Benign Chronic ankle pain Vaginal yeast infection Abnormal uterine bleeding Eye pain Vaginal yeast infection Abnormal uterine bleeding Pain Depression, neurotic Pain, Chronic, Other Abdominal pain Renal calculus, left Pain, Chronic, Other Disorder, prolonged posttraumatic stress Hypertension, Benign Pain, Chronic, Other Sprain/strain, ankle NOS Depression, neurotic Hypertension, Benign Left wrist pain Left ankle sprain Depression, neurotic Disorder, prolonged posttraumatic stress Hypertension, Benign Sprain/strain, ankle NOS - Depression, neurotic - Disorder, prolonged posttraumatic - stress Hypertension, Benign - Anxiety and depression Pain in joint, lower leg Constipation Pain in joint, lower leg - Depression, neurotic - Constipation NOS - Knee pain, left Disorder, prolonged posttraumatic stress Hypertension, Benign Pain in joint, lower leg Disorder, prolonged posttraumatic - stress Hypertension, Benign - Pain in joint, lower leg - Pain in joint, lower leg - Pain in joint, lower leg - Depression Arthropathy Hypertension, Benign GERD Depression - Disorder, prolonged posttraumatic - stress Arthropathy - Hypertension, Benign - Depression Pain in joint, lower leg Hypertension, Benign Depression - Pain in joint, lower leg - Hypertension, Benign - Depression - Depression - Pain, Chronic, Other Depression, neurotic Hypertension, Benign Pain, Chronic, Due To Trauma GERD Depression, neurotic - Hypertension, Benign - GERD - Depression, neurotic Hypertension, Benign Pain, Chronic, Due To Trauma Depression, neurotic - Hypertension, Benign - Anxiety and depression Chronic pain due to injury Hypertension, Benign Edema GERD Depression, neurotic - Hypertension, Benign - Edema - Malfunction, internal ortho device/graft Malfunction, internal ortho - device/graft Follow-up examination, after surgery - NEC Complication NEC due to oth int ortho - device Hypertension, Benign Depression, neurotic Dermatitis NOS Edema Chronic pain due to injury Hypertension, Benign - Depression, neurotic - Dermatitis NOS - Edema - Dermatitis NOS Depression Hypertension, Benign Pain in joint, multiple sites Dermatitis NOS - Depression - Hypertension, Benign - Pain in joint, multiple sites - Hypertension, Benign Depression Pain in joint, multiple sites Dermatitis NOS Hypertension, Benign - Depression - Pain in joint, multiple sites - Dermatitis NOS - Depression Hypertension, Benign Pain in joint, multiple sites Dermatitis NOS Depression - Hypertension, Benign - Pain in joint, multiple sites - Dermatitis NOS - Depression Hypertension, Benign GERD Pain in joint, multiple sites Depression - Hypertension, Benign - GERD - Pain in joint, multiple sites - Hypertension, Benign Depression Chronic pain Hypertension, Benign - Depression - Depression, neurotic GERD Hypertension, Benign Pain in joint, multiple sites Depression, neurotic - GERD - Hypertension, Benign - Pain in joint, multiple sites - Pain in joint, multiple sites Depression, neurotic GERD Hypertension, Benign Dermatitis NOS Pain in joint, multiple sites - Depression, neurotic - GERD - Hypertension, Benign - Pain in joint, multiple sites Increased urinary frequency Pain in joint, multiple sites - Frequency, urinary - Arthralgia of multiple sites Anxiety Pain in joint, forearm Anxiety - Pain in joint, forearm - Pain in joint, forearm Anxiety Examination, preoperative NOS - Pain in joint, forearm - Anxiety - Hypertension, essential NOS - Anxiety Hypertension Anxiety - Hypertension, essential NOS - Examination, preoperative NOS Left wrist pain Epigastric pain Hypertension Blood in stool - Examination, preoperative NOS - Pain in joint, forearm - Pain, abdominal, epigastric - Hypertension, essential NOS - Hypertension, essential NOS Depression, neurotic Pain, Chronic, Other Hypertension, essential NOS - Depression, neurotic - Pain, Chronic, Other Depression Hypertension, essential NOS Depression - Hypertension, essential NOS - Hypertension, essential NOS Pain, Chronic, Other Depression GERD Dependence, drug NOS, unspecified Depression, neurotic Hypertension, essential NOS - Depression - GERD - Hypertension Chest Pain, Unspecified - Hypertension, essential NOS - Chest Pain, Unspecified - Pain, Chronic, Other Depression GERD Dependence, drug NOS, unspecified Depression - GERD - Dependence, drug NOS, unspecified - Pain, Chronic, Other Depression GERD Narcotic addiction Depression - GERD - Dependence, drug NOS, unspecified - Pain in limb - Pain in limb - Depression Pain, Chronic, Other Depression - Depression Pain, Chronic, Other Depression Pain, Chronic, Other Disorder, prolonged posttraumatic stress GERD Fatigue / Malaise Depression Pain, Chronic, Other Disorder, prolonged posttraumatic stress GERD Anemia Depression Pain, Chronic, Other Disorder, prolonged posttraumatic stress Pain in limb Lumbago Depression Pain, Chronic, Other Disorder, prolonged posttraumatic stress Disorder, depressive NEC - Disorder, prolonged posttraumatic - stress Embolism/infarction, pulmonary NEC - Pain, Chronic, Other - Anemia Improved Hypertension, essential NOS Stable Chest Pain, Unspecified Symptomatic Depression Symptomatic Myalgia/myositis NOS Symptomatic Fatigue / Malaise Symptomatic Procedures Procedure Date Procedure Unknown Results Test Name Date and Time Measure Units Reference Range Abnormal Flag Status Comments Unknown Encounters Encounter Practice Location Reason(s) Diagnoses Date Provider Providers Description For Visit Copied on Encounter 2019 - [facility] Primary Dec-2 shenzhoufu, Care 6- MARIANN. [address] [place] 9 [facility], [address]. [place], tel:[phone], [address] tel:[phone] 2019 - [facility] Primary Dec-2 shenzhoufu, Care 3-201 MARIANN. [address] [place] 9 [facility], [address]. [place], tel:[phone], [place] [address] tel:[phone] 0001 - S Primary Nov-2 [facility], Care 9 JAMEE. [address] [place] [address] [place], [address]. Misbah tel:[phone] [place], [address], [place] tel:[phone] 0001 - S Primary Chronic pain of Nov-2 MELODY S Inc, Care left ankleOther 2-201 MARIANN. [address] [place] chronic 9 [facility] painChronic, [place], [facility], Street, [place], [address]. [place], tel:[phone], [place] [address] tel:[phone] 0001 - S Primary Chronic pain of Sep-2 [employer] [facility], Care left ankleOther 4 JAMEE. [address] [place] chronic pain 9 [place], [address]. Misbah tel:[phone] [place], [address], [place] tel:[phone] 0001 - [facility] Primary PTSD [facility]- [facility] Inc, Care (post-traumatic . [facility] [place] stress [address] [place] disorder)[facility], [place], [address]. [place], ic pain due to tel:[phone], [place] injuryType 2 [address] tel:[phone] diabetes [phone] mellitus without complication, without long-term current use of insulinCntct w and expsr to environ tobacco smoke (acute) (chronic)skilled nursing (current) use of oral hypoglycemic drugsLong term (current) use of opiate analgesicHalluc inations, unspecified 0001 - [facility] Primary Nov-0 [facility], Care 6. [facility] [address] [place] [address] [facility], [place], [address]. [place], tel:[phone], [place] [address] tel:[phone] 0001 - [facility] Primary Oct-[address] [facility], Care 0-201 LUIS. [address] [place] [address], [address], [facility], [address]. [place], tel:[phone], [place] [address] tel:[phone] 0001 - [facility] Primary Neurotic Natalio-1 [facility], Care depression 7OctIE. [address] [place] [address], [address], [facility], [address]. [place], tel:[phone], [place] [address] tel:[phone] 0001 - [facility] Primary Post-traumatic Natalio-1 [facility], Care stress 3OctIE. [facility] [address] [place] disorder, [address] chronic[address]entia , Street, l (primary) [facility] [place], [address]. [place], e 2 diabetes tel:[phone], [place] mellitus [address] tel:[phone] without [phone] complicationsOt her chronic painCntct w and expsr to environ tobacco smoke (acute) (chronic)ply cutter (current) use of oral hypoglycemic drugs 0001 - [facility] Primary Other chronic Natalio-0 [facility], Care painMajor OctIE. [facility] [address] [place] depressive [address] disorder, St, Street, recurrent, [facility] [place], [address]. [place], -traumatic tel:[phone], [place] stress [address] tel:+60 disorder, [phone] chronicLong term (current) use of opiate analgesic 0001 - [facility] Primary Type 2 diabetes May- [facility], Care mellitus 7OctIE. [address] [place] without [address], [address], sential [facility] [place] (primary) [place], [address]. [place], hypertensionChr tel:[phone], [place] onic pain due [address] tel:[phone] to [phone] traumaChronic pain of left ankleCntct w and expsr to environ tobacco smoke (acute) (chronic)ply cutter (current) use of oral hypoglycemic drugs 0001 - [facility] Primary Anxiety and Apr- [employer] [facility], Care depressionOther LUIS. [facility] [address] [place] chronic [address], Street, abnormal [place], [address]. [place], pain of left tel:[phone], [place] ankleOther [address] tel:[phone] specified [phone] anxiety disordersCntct w and expsr to environ tobacco smoke (acute) (chronic)ply cutter (current) use of opiate analgesic 0001 - [facility] Primary May- [employer], Care OctIE. [facility] [address] [place] [address], [address], [place], [address]. [place], tel:[phone], [place] [address] tel:[phone] 0001 - [facility] Primary Other chronic May- [employer], Care painAnxiety and OctIE. [facility] [address] [place] depressionPost- [address], [address], stress [facility] [place], [address]. [place], chronicEssentia tel:[phone], [place] l (primary) [address] tel:[phone] hypertensionOth [phone] er specified anxiety disordersCntct w and expsr to environ tobacco smoke (acute) (chronic) 0001 - [facility] Primary Other chronic Mar- [employer], Care painAnxiety and OctIE. [facility] [address] [place] depressionEssen 8 [address] tial (primary) St, Street, hypertensionCnt [facility] [place], [address]. [place], to environ tel:[phone], [place] tobacco smoke [address] tel:[phone] (acute) [phone] (chronic)Other specified anxiety disorders 0001 - S Primary Nov- [facility] [employer], Care . [address] [place] [address], [facility], [address]. [place], tel:[phone], [place] [address] tel:[phone] 0001 - S Primary Pain in left Oct- [facility], Care ankle and . [address] [place] joints of left [address] [place] footPost-trauma St, Street, tic stress [facility] [place], [address]. [place], chronicEssentia tel:[phone], [place] l (primary) [address] tel:[phone] w and expsr to environ tobacco smoke (acute) (chronic) 0001 - S Primary Traumatic Sep- [facility], Care arthritis of . [facility] [address] [place] left ankleType [address] [place] [address], mellitus [place], [facility], [address]. [place], complicationsEs tel:[phone], [place] sential [address] tel:[phone] (primary) [phone] hypertensionHis tory of UTICntct w and expsr to environ tobacco smoke (acute) (chronic) 0001 - S Primary Sep-0 [facility], Care . [facility] [address] [place] [address] [facility], Street, [facility], [address]. [place], tel:[phone], [place] [address] tel:[phone] 0001 - S Primary Episode of [facility] S Inc, Care altered . [facility] [address] [place] cognitionAnxiet 8 [address], Street, depressionOther [facility], [address]. [place], anxiety tel:[phone], [place] disorders [address] tel:[phone] 0001 - S Primary Chronic pain of Nov-0 [facility], Care left . [facility] [address] [place] ankleLocalized [address], Street, hypertensionCnt [place], [place], [address]. [place], to environ tel:[phone], [place] tobacco smoke [address] tel:[phone] (acute) [phone] (chronic) 0001 - [facility] Primary Chronic pain of [facility], Care left . [address] [place] anklePost-traum [address] stress [address], Street, disorder, [place], [place] chronicType 2 [place], [address]. [place], diabetes tel:[phone], [place] mellitus [address] tel:+60 without [phone] complicationsLo ng term (current) use of oral hypoglycemic drugs 0001 - [facility] Primary Other chronic [facility], Care painOsteoarthri . [facility] [address] [place] tis of multiple [address] joints, St, Street, unspecified [place], [place], [address]. [place], typeDermatitisA tel:[phone], [place] nxiety and [address] tel:[phone] depressionOther [phone] specified anxiety disorders 0001 - [facility] Primary Anxiety and August- [facility] Inc, Care depressionPost- . [facility] [address] [place] traumatic [address], Street, disorder, [place], [place], [address]. [place], specified tel:[phone], [place] anxiety [address] tel:[phone] disorders [phone] 0001 - [facility] Primary DermatitisAnxie Apr-0 [facility], Care ty and . S 33-57 [place] depressionOther [address], Street, anxiety [place], [place], [address]. [place], tel:[phone], [place] [address] tel:[phone] 0001 - [facility] Primary Chronic pain of Mar-2 [employer], Care left . [facility] 33-57 [place] anklePost-traum 8 [address] Tam atic stress , Street, disorder, [facility] [place], [address]. [place], diabetes tel:[phone], [place] mellitus with [address] tel:+60 hyperglycemia, [id number] without long-term current use of insulinGastro-e sophageal reflux disease without esophagitisLong term (current) use of oral hypoglycemic drugs 2019 - [facility] Primary Skin lesion of [employer], Care backAnxious . [facility] 33-57 [place] depressionOther [address] specified , Street, congenital [place], [facility], [address]. [place], of skin tel:[phone], [place] [address] tel:[phone] 2019 [facility] Primary Neurotic [employer], Care depression . [facility] 33-57 [place] 8 [address] [facility], Street, [facility], [address]. [place], tel:[phone], [place] [address] tel:[phone] 0001 - G WS Chronic pain [facility], Cardiology due to HISHAM. 30 -57 traumaEssential 8 [facility] (primary) [place], hypertensionHip [address], [facility], [place], [place], [place], [address], [place] hageal reflux [address]. tel:+60 disease without tel:[phone] esophagitisInso [address] mnia, unspecified typeOverweightE ncounter for preprocedural cardiovascular examinationPain in left ankle and joints of left footPalpitation sUnspecified osteoarthritis, unspecified siteObesity, unspecifiedCntc t w and expsr to environ tobacco smoke (acute) (chronic)Body mass index (BMI) 40.0-44.9, adultFamily hx of ischem heart dis and oth dis of the circ sys 0001 - [facility] Primary Pre-op Dec- Tech urSelfA [employer], Care evaluationChron 0-201 LUIS. S 33-57 [place] ic pain of left [address], Street, depressionType [place], [place] 2 [place], [address]. [place], mellitus tel:[phone], [place] without [address] tel:+[id number] w/o esophagitisEsse ntial (primary) hypertensionTob acco use 0001 - S Primary GERD w/o Nov-2 Tech urSelfA [employer], Care esophagitis 4- LUIS. S 33-57 [place] [address], Street, [place], [address]. 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 [facility] 33-57 left ankle and 7 [address], Street, pain due to [place], [place], [place] trauma [address]. [place], tel:[phone], [place] [address] tel:[phone] 0001 - S Ortho Chronic pain of Nov- [employer], Ctr Pod left ankleOther 0-201 QUANG. S 33-57 chronic 7 [address], Street, chronic painHip [place], [place], [place], [address]. [place], leftPost-trauma tel:[phone], [place] tic [address] tel:+160 osteoarthritis, [id number] left ankle and foot 0001 - S Primary Balance Nov- Tech urSelfA [employer], Care problemInsomnia 8 LUIS. S 33-57 [place] , unspecified [address], Street, pain of [place], [address]. [place], pain of left tel:[phone], [place] ankle [address] tel:[phone] 0001 - S Primary Urinary tract [facility], Care infection, site . S 33-57 [place] not specified 7 [address] [facility], [facility], [address]. [place], tel:[phone], [place] [address] tel:[phone] 0001 - [facility] Primary Urinary [facility], Care hesitancyDDD . S 33-57 [place] (degenerative [address] disc disease), [facility], lumbosacral [facility], [address]. [place], tel:[phone], [place] [address] tel:[phone] 0001 - S Primary Hip pain, [facility], Care leftChronic . S 33-57 [place] pain syndrome 7 [address] [facility] [place], [address]. [place], tel:[phone], [place] [address] tel:[phone] 0001 - S Primary Arthralgia of [facility], Care left ankle . S 33-57 [place] 7 [address] [facility] [place], [address]. [place], tel:[phone], [place] [address] tel:[phone] 0001 - S Primary [facility], Care . S 33-57 [place] 7 [address] [facility] [place], [address]. [place], tel:[phone], [place] [address] tel:[phone] 0001 - S Ortho Pain in [employer]. S Inc, Ctr Ortho unspecified S 4433 33-[address], Sam[place], [place], [address]. [place] tel:[phone] [place], [address], [place] tel:[phone] 0001 - S Primary Encntr for August- [facility], Care general adult . [facility] 33-57 [place] medical exam 7 [address] Tam w/o abnormal St, Street, findingsChronic [facility] [place], [address]. [place], trauma tel:[phone], [place] [address] tel:[phone] 0001 - S Primary Abnormal TSH Apr-2 [facility], Care OctIE. [facility] 33-57 [place] [address], Street, [facility] [place], [address]. [place], tel:[phone], [place] [address] tel:[phone] 0001 - S Primary GassinessChroni Apr- [facility], Care c pain of left . [facility] 33-57 [place] kneeOther [address], Street, [facility] [place], [address]. [place], tel:[phone], [place] [address] tel:[phone] 0001 - S Primary Other malaise Mar-0 [facility] Inc, Care OctIE. [facility] 33-57 [place] [address], Street, [facility] [place], [address]. [place], tel:[phone], [place] [address] tel:[phone] 0001 - S Primary Risk For Mar-0 [facility] Inc, Care FallOther . [facility] 33-57 [place] chronic 7 [address] Tam painFall, St, Street, subsequent [facility] [place], [address]. [place], pain of lower tel:[phone], [place] extremityType 2 [address] tel:+[phone] diabetes [id number] mellitus without complicationsFa ll into hole, initial encounterLong term (current) use of oral hypoglycemic drugs 0001 - [facility] Primary Anxiety Jan- ANTHONY ALBER. [facility] Inc, Care disorder, 4-201 [facility]HSP[facility] [address] E 33-57 [place] unspecifiedUnsp [address], Tam ecified [place], [place], [place], [address]. [place] painType 2 tel:[phone] [place], diabetes [address], [place] mellitus tel:[phone] without [phone] complicationsOt her chronic painNicotine dependence, unspecified, uncomplicatedLo ng term (current) use of oral hypoglycemic drugs 0001 - [facility] Primary Anxious Oct- [facility], Care depressionPost- LUIS. [facility] 33-57 [place] traumatic [address], Street, disorder, [place], [place], [address]. [place], chronic tel:[phone], [place] painExposure to [address] tel:+160 moldUnspecified [id number] fall, initial encounterOth places as the place of occurrence of the external cause 0001 - [facility] Primary Essential Natalio-0 [facility], Care (primary) . [facility] 33-57 [place] hypertensionOve [address] rweightAnxious , Street, depressionOther [place], [place], [address]. [place], glucoseOther tel:[phone], [place] chronic [address] tel:+1-60 painNicotine [id number] dependence, cigarettes, uncomplicated 0001 - [facility] Primary Contact/exposur Apr-0 [facility], Care e mold OctIE. [facility] 33-57 [place] [address], Street, [facility] [place], [address]. [place], tel:[phone], [place] [address] tel:[phone] 0001 - [facility] Primary Mold Mar-3 [facility], Care exposureCoughin OctIE. [facility] 33-57 [place] gAnxious [address], Street, [place], [place], [address]. [place], tel:[phone], [place] [address] tel:[phone] 0001 - [facility] Primary Anxiety ELISHA S Inc, Care disorder, 6- SHANNAN. 33-57 [place] unspecifiedPani [address], Street, attacksFatigue, [place], [place], [address]. [place], type tel:[phone], [place] [address] tel:[phone] 0001 - S Primary Other B[facility]A S Inc, Care depressive 3 LUIS. [facility] 33-57 [place] episodesOther [address], Street, painType 2 [place], [address]. [place], mellitus tel:[phone], [place] without [address] tel:+1-60 complications [id number] 0001 - S Primary Post-traumatic Jan- PONTICIELLO S Inc, Care stress 9 FLOYD. 33-57 [place] disorder, [address], [address], [place], [place] [address]. [place], tel:[phone], [place] [address] tel:[phone] 0001 - [facility] Primary Anxiety and B[employer]A S Inc, Care depressionChron 2 LUIS. [facility] 33-57 [place] ic [address], Street, n, [place], [address]. [place], mellitus type 2 tel:[phone], [place] [address] tel:[phone] 0001 - S Primary Brown's cyst of [facility], Care kneeAnxiety and LUIS. S 33-57 [place] depressionChron [address] ic pain [address], Street, [place], [place], [address]. [place], tel:[phone], [place] [address] tel:[phone] 0001 - S Primary Brown's cyst of [facility], Care kneeAnxiety and LUIS. S 33-57 [place] depressionMemor 5 [address] y impairment , Street, [facility], [address]. [place], tel:[phone], [place] [address] tel:[phone] 0001 - [facility] Primary ABNORMAL Fe- [facility], Care GLUCOSE 9-201 LUIS. [facility] 33-57 [place] NECChronic 5 [address] painHypertensio , Street, n, [facility] [place], [address]. [place], e, drug NOS, tel:[phone], [place] unspecified [address] tel:[phone] 0001 - [facility] Primary Lumbago Vito- [facility], Care 0-201 LUIS. [facility] 33-57 [place] 5 [address] [facility], [place], [facility], [address]. [place], tel:[phone], [place] [address] tel:[phone] 0001 - [facility] Primary DepressionDiabe Dec- [facility], Care rocky mellitus 8-201 LUIS. [facility] 33-57 [place] type 4 [address] 2OverweightChro [facility], kristine pain [facility], [address]. [place], tel:[phone], [place] [address] tel:[phone] 0001 - [facility] Primary Examination, Nov [facility], Care preoperative 3-201 LUIS. [facility] 33-57 [place] NOSOverweight 4 [address] [facility], [place], [facility], [address]. [place], tel:[phone], [place] [address] tel:[phone] 0001 - [facility] Primary ABNORMAL Oct- [facility], Care GLUCOSE NECHip 6-201 LUIS. [facility] 33-57 [place] painFatigue 4 [address] [facility], [place], [facility], [address]. [place], tel:[phone], [place] [address] tel:[phone] 0001 - S Primary AnemiaAnxiety Sep-1 [facility], Care Distant and 6-201 LOULOU. 33-57 depressionDiabe 4 [address] rocky mellitus [address] [facility], type 2Pain in [place], [place], [place] joint, multiple [address]. [place], sites tel:[phone], [place] [address] tel:[phone] 0001 - S Primary ArthropathyDepr Sep-1 SCHECTER S Inc, Care Distant essionAnemiaDep 0-201 LOULOU. 33-57 endence, drug 4 [address] NOS, [address] [facility], unspecifiedGluc [place], [place], [place] ose in urineUTI [address]. [place], tel:[phone], [place] [address] tel:[phone] 0001 - S Primary ArthropathyCons Natalio-2 BAMBARA S Inc, Care tipationOverwei 7 LUIS. [facility] 33-57 [place] ght 4 [address] [facility], [facility], [address]. [place], tel:[phone], [place] [address] tel:[phone] 0001 - S Samy Aquired absence May-0 [employer], Gynecology of both cervix 7- BRIGIDA. 4417 33-57 and uterus 4 [facility], [place], [place], [place], [address]. [address], [place] tel:[phone] tel:[phone] 0001 - S Primary Disorder, Apr-0 [facility], Care prolonged 2- LUIS. S 33-57 [place] posttraumatic 4 [address] [facility] stressPain, [facility], [facility], [facility] [place], [address]. [place], and tel:[phone], [place] depressionOverw [address] tel:[phone] 0001 - S Samy Aquired absence Mar-2 SHU[employer], Gynecology of both cervix 0-201 BRIGIDA. 4417 33-57 and uterus 4 Samy [facility], [facility], [facility], [place], [facility] [place], [address]. [address], [place] tel:[phone] tel:[phone] 0001 - S Samy Disorder, May- [employer] S Inc, Gynecology menstrual NEC 7-201 BRIGIDA. 4417 33-57 4 [address] Tam [facility], [facility], [place], [place], [facility] [place], [address]. [address], [place] tel:[phone] tel:[phone] 0001 - S Primary Anxiety and BAMBARA S Inc, Care depressionFibro LUIS. [facility] 33-57 [place] id, [address] uterineGERDLumb , Street, agoAnkle pain, [facility] [place], [address]. [place], [facility] tel:[phone], [place] DTPInfluenza [address] tel:+60 Vaccine [phone] 0001 - S Samy Disorder, May- [employer] S Inc, Gynecology menstrual 2-201 BRIGIDA. 441 33-57 NECLeiomyoma, 4 [address] [place] uterus [facility], NOSPulmonary [facility], [place] EmbolusHx, [place], [place], [facility], [place], family, [address]. [address], [place] malignancy, tel:[phone] tel:+160 genital organ 56306 [id number] NEC 0001 - S Samy Disorder, [employer]. S Inc, Gynecology menstrual NEC 7- 4417 Samy 33-[address], [facility], [place], [place], Street, [address]. [place] tel:[phone] [place], [address], [place] tel:[phone] 0001 - S Primary Anxiety and BAMBARA S Inc, Care depressionDisor LUIS. [facility] 33-57 [place] tio, prolonged 4 [address] [facility] Street, stressGERDHyper [place], [place], [address]. [place], BenignChronic tel:[phone], [place] ankle pain [address] tel:[phone] 0001 - [facility] Primary Vaginal yeast Dec-1 PONTICIELLO S Inc, Care infectionAbnorm 7201 FLOYD. 33-57 [place] al uterine [address], [address], pain [place], [place], [place] [address]. [place], tel:[phone], [place] [address] tel:[phone] 0001 - [facility] Primary Vaginal yeast Dec-0 PONTICIELLO S Inc, Care infectionAbnorm 3201 FLOYD. - [place] al uterine [address], [address], [place], [place], [place] [address]. [place], tel:[phone], [place] [address] tel:[phone] 0001 - [facility] Primary Depression, [facility], Care neuroticPain, LUIS. [facility] Provider: [place] Chronic, 3 [address] [facility] OtherAbdominal , [facility], [place], painRenal [place], [facility] [address] [place], [address]. Main , [place], tel:[phone] [place], [address], [place] [address] [place], [address]. tel:+60 tel:[phone] - [facility] Primary Pain, Chronic, Aug-0 [facility], Care OtherDisorder, 2201 LUIS. [facility] 33-57 [place] prolonged 3 [address] posttraumatic , Street, stressHypertens [place], [place], [place], [address]. [place], tel:[phone], [place] [address] tel:[phone] 0001 - [facility] Primary Pain, Chronic, Oct- [facility], Care Other 8-201 LUIS. [facility] 33-57 [place] 3 [address] [facility], Street, [place], [place], [address]. [place], tel:[phone], [place] [address] tel:[phone] 0001 - S Primary Sprain/strain, Natalio-2 [facility] Referring [facility], Care ankle 8. [facility] Provider: 33-57 [place] NOSDepression, 3 [address] [facility] neuroticHyperte St, BANNER A, Street, nsion, [place], S [address] [place], [address]. Main , [place], wrist pain tel:[phone] [place], [address], [place] [address] [place], [address]. tel:+ tel:[phone] 0001 - S Primary Left ankle August- [facility], Care sprainDepressio . [facility] 33-57 [place] n, 3 [address] neuroticDisorde , Street, r, prolonged [place], [place], [address]. [place], stressHypertens tel:[phone], [place] ion, [address] tel:+60 BenignSprain/st [phone] rain, ankle NOSDepression, neuroticDisorde r, prolonged posttraumatic stressHypertens ion, Benign 0001 - S Primary Anxiety and Jun- [facility], Care depressionPain OctIE. [facility] 33-57 [place] in joint, lower 3 [address] [facility] legConstipation St, Street, Pain in joint, [facility] [place], [address]. [place], legDepression, tel:[phone], [place] neuroticConstip [address] tel:+60 ation NOS [id number] 0001 - S Primary Knee pain, left Mar-0 [facility], Care . [facility] 33-57 [place] 3 [address] [facility], Street, [place], [place], [address]. [place], tel:[phone], [place] [address] tel:+ [phone] 0001 - S Primary Disorder, [facility], Care prolonged 0 LUIS. [facility] 33-57 [place] posttraumatic [address], Street, ion, BenignPain [place], [address]. [place], legDisorder, tel:[phone], [place] prolonged [address] tel:+1-60 posttraumatic [id number] stressHypertens ion, BenignPain in joint, lower legPain in joint, lower legPain in joint, lower leg 0001 - S Primary DepressionArthr [facility], Care opathyHypertens . S 33-57 [place] ion, [address], Street, ssionDisorder, [place], [place], [address]. [place], posttraumatic tel:[phone], [place] stressArthropat [address] tel:+1-60 hyHypertension, [id number] Benign 0001 - [facility] Primary DepressionPain [facility] Inc, Care in joint, lower LUIS. [facility] 33-57 [place] legHypertension 3 [address] , , Street, BenignDepressio [place], [address]. [place], lower tel:[phone], [place] legHypertension [address] tel:+1-60 , [phone] BenignDepressio nDepression 0001 - [facility] Primary Pain, Chronic, [facility], Care Other LUIS. S 33-57 [place] [address] , Street, [place], [address]. [place], tel:[phone], [place] [address] tel:[phone] 0001 - S Primary Depression, [facility], Care neuroticHyperte LUIS. [facility] 33-57 [place] nsion, 3 [address] BenignPain, , Street, Chronic, Due To [place], [place], [address]. [place], ssion, tel:[phone], [place] neuroticHyperte [address] tel:+1-60 nsion, [phone] BenignGERD 0001 - [facility] Primary Depression, [facility], Care neuroticHyperte OctIE. [facility] 33-57 [place] nsion, [address] BenignPain, , Street, Chronic, Due To [place], [place], [address]. [place], n, tel:[phone], [place] neuroticHyperte [address] tel:+1-60 nsion, Benign [id number] 0001 - [facility] Primary Anxiety and [facility], Care depressionChron OctIE. [facility] Provider: 33-57 [place] ic pain due to [address] LUIS Turcios injuryHypertens , [facility], Street, ion, [place], S [address] [place], [address]. Main , [place], [place], Depression, tel:[phone] [place], [address], [place] [address] [place], [address]. tel:+[phone] nsion, tel:[phone] BenignEdema [id number] 0001 - [facility] [place], [facility], Orthopedics internal ortho JOSAFAT. [facility] 33-57 [place] device/graftMal 2 [address] function, [address]kw[address], Street, internal ortho [place], [place], [place] device/graftFol [address]. [place], low-up tel:[phone], [place] examination, [address] tel:+1-60 after surgery [id number] NECComplication NEC due to oth int ortho device 0001 - [facility] Primary Hypertension, [facility] Inc, Care BenignDepressio . [facility] 33-57 [place] n, [address], Street, tis [place], [place], [address]. [place], pain due to tel:[phone], [place] injuryHypertens [address] tel:+160 ion, [id number] BenignDepressio n, neuroticDermati tis NOSEdema 0001 - [facility] Primary Dermatitis Sep-1 [facility], Care NOSDepressionHy . S 33-57 [place] pertension, [address] Tam BenignPain in St, Street, joint, multiple [place], [place], [address]. [place], NOSDepressionHy tel:[phone], [place] pertension, [address] tel:+160 BenignPain in [id number] joint, multiple sites 0001 - [facility] Primary Hypertension, Sep-0 [facility], Care BenignDepressio . [facility] 33-57 [place] nPain in joint, [address], Street, sitesDermatitis [place], [place], [address]. [place], , tel:[phone], [place] BenignDepressio [address] tel:+1-60 nPain in joint, [id number] multiple sitesDermatitis NOS 0001 - [facility] Primary DepressionHyper Aug- [facility], Care tension, . S 33-57 [place] BenignPain in 2 [address] Tam joint, multiple St, Street, sitesDermatitis [place], [place], [address]. [place], pertension, tel:[phone], [place] [address] tel:+1-60 joint, multiple [id number] sitesDermatitis NOS 0001 - [facility] Primary DepressionHyper Aug- [facility], Care tension, . S 33-57 [place] BenignGERDPain 2 [address] Tam in joint, St, Street, multiple [place], [place], [address]. [place], Hypertension, tel:[phone], [place] BenignGERDPain [address] tel:+160 in joint, [id number] multiple sites 0001 - [facility] Primary Hypertension, Aug-[address] [facility] [facility], Care BenignDepressio 2-201 LUIS. [facility] Provider: 33 [place] nChronic [address] LUIS Turcios painHypertensio , [facility], , [place], S [address] [place], [address]. Main , [place], [place], n tel:[phone] [place], [address], [place] [address] [place], [address]. tel:+60 tel:[phone] [id number] 0001 - [facility] Primary Depression, [facility] Inc, Care neuroticGERDHyp 7 LUIS. [facility] 33-57 [place] ertension, [address] BenignPain in [facility], [facility], [place], [place], [address]. [place], [place], , tel:[phone], [place] neuroticGERDHyp [address] tel:+60 ertension, [phone] BenignPain in joint, multiple sites 0001 - S Primary Pain in joint, [facility] Referring S Inc, Care multiple 8201 LUIS. [facility] Provider: [place] sitesDepression 2 [address] , , [facility], neuroticGERDHyp [place], S [address] [place], [address]. [place], BenignDermatiti tel:[phone] [place], [address], [place] [address] [place], [address]. tel:+60 joint, multiple tel:[phone] sitesDepression [id number] , neuroticGERDHyp ertension, Benign 0001 - S Primary Pain in joint, [facility], Care multiple 0-201 CADET 33-57 [place] sitesIncreased 2 HOMERO. Tam urinary [address], [address], [place] in joint, [place], [place], [address]. [address], [place] sitesFrequency, tel:[phone] tel:[phone] urinary [phone] 0001 - [facility] Primary Arthralgia of [facility], Care multiple sites CADET 33-57 [place] [address], [place], [address]. [address], [place] tel:[phone] tel:[phone] 0001 - [facility] Primary AnxietyPain in Natalio- [facility], Care joint, CADET 33-57 [place] forearmAnxietyP 2 HOMERO. Tam ain in joint, [address] [facility], [place], [address]. [address], [place] tel:[phone] tel:[phone] 0001 - [facility] Primary Pain in joint, [facility], Care forearmAnxietyH CADET 33-57 [place] ypertension, 2 HOMERO. Tam essential [address] [facility], NOSExamination, [place], [address]. [address], [place] joint, tel:[phone] tel:[phone] forearmAnxietyH [phone] ypertension, essential NOS 0001 - [facility] Primary AnxietyHyperten Jul- [facility], Care sionAnxietyHype CADET Provider: 33-57 [place] rtension, 2 HOMERO. HOMERO Turcios essential NOS [address] [facility], Street, CADET, [address] [place], [address]. Street, [address], [place] tel:[phone] [place] tel:[phone] , [place], [phone]. tel:[phone] 0001 - [facility] Primary Examination, [facility], Care preoperative CADET 33-57 [place] NOSLeft wrist 2 HOMERO. Tam painEpigastric [address] [facility], painHypertensio Street, [place] nBlood in [place], [place], [place], [place], [address]. [address], [place] n, preoperative tel:[phone] tel:[phone] [address] [phone] joint, forearmPain, abdominal, epigastricHyper tension, essential NOS 0001 - [facility] Primary Hypertension, Jun- [employer] Inc, Care essential 3. [facility] 33-57 [place] NOSDepression, [address] neuroticPain, St, Street, Chronic, [place], [place], [address]. [place], [place], on, essential tel:[phone], [place] NOSDepression, [address] tel:[phone] neurotic [phone] 0001 - [facility] Primary Pain, Chronic, May- [facility] [employer], Care OtherDepression . [facility] 33-57 [place] Hypertension, [address], Street, NOSDepressionHy [place], [address]. [place], [place], essential NOS tel:[phone], [place] [address] tel:[phone] 0001 - [facility] Primary Hypertension, [facility] [employer], Care essential 0OctIE. S 33-57 [place] NOSPain, [address] Chronic, St, Street, OtherDepression [place], [place], [address]. [place], drug NOS, tel:[phone], [place] unspecifiedDepr [address] tel:+[phone] ession, [phone] neuroticHyperte nsion, essential NOSDepressionGE RD 0001 - [facility] Primary HypertensionChe May- [facility], Care st Pain, . S 33-57 [place] UnspecifiedChes [address] t Pain, St, Street, UnspecifiedHype [place], [place], [address]. [place], [place], essential tel:[phone], [place] NOSChest Pain, [address] tel:[phone] Unspecified [phone] 2019 - [facility] Primary Pain, Chronic, [facility] Inc, Care OtherDepression 0-. [facility] 33-57 [place] GERDDependence, [address] drug NOS, St, Street, unspecifiedDepr [facility] [place], [address]. [place], dence, drug tel:[phone], [place] NOS, [address] tel: unspecified [phone] 0001 - [facility] Primary Pain, Chronic, [facility] Inc, Care OtherDepression . [facility] 33-57 [place] GERDNarcotic [address], Street, sionGERDDepende [facility] [place]ce, [place], [address]. [facility], [place], unspecified tel:[phone], [place] [address] tel: [phone] 2019 - [facility] Primary Pain [facility], Care limbPain in . [facility] Provider: 33-57 [place] limbDepressionP [address] LUIS Turcios ain, Chronic, , [facility], OtherDepression [place], [facility] [address] [facility], [address]. Main , [place], [place], tel:[phone] [place], [address], [place] [address] [place], [address]. tel: tel:[phone] 0001 - [facility] Primary DepressionPain, [facility] Inc, Care Chronic, Other . [facility] 33-57 [place] [address], Street, [place], [place], [address]. [place], [place], tel:[phone], [place] [address] tel:+ [phone] 2019 - [facility] Primary DepressionPain, [facility] Inc, Care Chronic, . [facility] 33-57 [place] OtherDisorder, [address], Street, posttraumatic [place], [place], [address]. [place], [place], ue / Mal[place] tel:[phone], [place] [address] tel:[phone] 0001 - [facility] Primary DepressionPain, Sep- [facility], Care Chronic, LUIS. S 33-57 [place] OtherDisorder, [address], Street, posttraumatic [place], [place], [address]. [place], a tel:[phone], [place] [address] tel:[phone] 0001 - [facility] Primary DepressionPain, Sep- [facility], Care Chronic, OctIE. [facility] 33-57 [place] OtherDisorder, [address], Street, posttraumatic [place], [place], [address]. [place], limbLumbago tel:[phone], [place] [address] tel:[phone] 0001 - [facility] Primary DepressionPain, [facility] Inc, Care Chronic, -57 [place]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 HRS PRIOR TO NEXT RFL Stay Healthy Disease Program, good resource for information. Contact at ( Nurse ) Free information. AGREE TO [facility] MENTAL [facility] Related to Anxiety and depression CALL ME W UPDATE NEXT WEEKCONT MEDSREV ALL ER REPORTS FROM LAST APPT DISCUSSED NEED FOR RET TO MENTAL HEALTH ORTHO CONSULT IN 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 No added salt dietExercise 10-20 mins daily cont pain meds urine testing today Related to Chronic pain PAIN MEDS SPARINGLYDO EXERCISES AT Related to Chronic pain DAILY cont meds Related to Depression low sugar high fibermetformin Related to Diabetes mellitus type 2 F/U BARIATRIC PROGRAM DR LY Related to Overweight START HEAT OR ICE CONT MEDS Related to Hip pain HIP XRAY NL SHOWS PROSTHESIS INTACTPERCOCET ONLY IF BREAKTHOUGH INCREASE METFORMIN 500MG 1 3 TIMES Related to ABNORMAL GLUCOSE MEALSSTART EXERCISE JUNE IN PLACE 5 MINS 2 TIMES DAY Continue with MS contin and Tylenol Related to Pain in joint, multiple with Codeine #3. Continue to follow sites with orthopedics.Did discuss doing therapy, ie water therapy - declined at this time. Weight loss encouraged. Metformin as prescribed. Check A1C in Related to Diabetes mellitus type 2 months, target is at least 8 and 2 ideally less than 7. Low cholesterol, low carbohydrate diet advised and aerobic exercise at least every other day. Continue with seroquel, prozac and Related to Anxiety and depression xanax as previously prescribed. Encourage to continue with counseling services. Resolved. No anemia at this time. Related to Anemia Continue with prozac and seroquel as Related to Depression previously prescribed. Continue with xanax and hydroxyzine as previously prescribed. Continue with counseling services. Blood work ordered, pending results. Related to Anemia Bactrim as prescribed. Lots of fluids. Related to UTI Cranberry juice and yogurt. Blood work ordered, pending results. 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 Drug screening/toxicology unspecified sent. Pending results. Pain management agreement signed. Continue with oxycodone and MS contin Related to Arthropathy as previously prescribed. F/U DR HOOPER IN [place] CONT Related to Overweight WEIGHT LOSS SMALLER PORTIONS. 8 OZ WATER BEFORE MEALS, LOW STARCH AND HIGH PROTIEN Stay Healthy Disease Program, good resource for information. Contact at ( Nurse ) Free information. stool softner daily fr/veggieswater Related to Constipation cont meds and exercises use pain Related to Arthropathy meds sparinglyDUE TO FLARE TODAY AND HEAT TORADOL INJECTION NOW
--- OUTSIDE RECORDS SUMMARY | 2019-05-10 16:43 | XMS REPORT | Continuity of Care Document ---
:1965 Author Organization [email or web address] [place] [address] Phone Care Team Providers Name Role Phone MELODY CHOUDHARY, MARIANN Unavailable Unavailable Allergies, Adverse Reactions, Alerts Substance Reaction Status clonazepam not effective Active rofecoxib Active DICLOFENAC SODIUM GI Active fentanyl edema Active NALBUPHINE HCL seizure Active Medications Medication Instructions Dosage Effective Dates (start - stop) Status Comments Drug Treatment Unknown Problems Condition Effective Dates (start - stop) Clinical Status Unknown Procedures Procedure Date Procedure Unknown Results Test Name Date and Time Measure Units Reference Range Abnormal Flag Status Comments Unknown Encounters Encounter Practice Location Reason(s) Diagnoses Date Provider Providers Description For Visit Copied on Encounter 2018 [facility] Primary [employer], Care -2018 MARIANN[address], [address], [facility], tel:[phone] [place], [address]. [id number] tel:[phone] 2018 [facility] Primary [employer], Care -2017 LUIS. [facility] [place], [address]. [address], tel:+ [phone] [facility] Primary [employer], Care -2016 LUIS. [facility] [place] [address] [place], [address]. [address], [place] tel:[phone] tel:[phone] - [facility] Primary [employer], Care [place]. [facility] [employer] [address] [place], [address]. [address], [place] tel:+[phone] tel:[phone] - [facility] Primary [employer], Care LUIS. [facility] [address] [place], [address]. [address], [place] tel:+[phone] tel:[phone] - [facility] Primary [employer], [place]. [facility] [employer] [address] [place], [place], [address]. [address], [place] tel:[phone] tel:[phone] - [facility] Primary [employer], -2008 LUIS. [facility] [place] [address] [place], [address]. [address], [place] tel:+[phone] tel:[phone] Family History Family Member Diagnosis Age At Onset Brother Lymphoma 40 Close relative Diabetes mellitus type 2 Father cancer, gastric Mother Hypertension Mother multiple myloma 62 Maternal aunt Cancer, endometrial Immunizations Vaccine Date Status Comments Influenza, injectable, administered Source: New Immunization quadrivalent, preservative Record free, split virus Influenza, injectable, administered Source: New Immunization quadrivalent, preservative Record free, split virus Fluarix Quadrivalent Syringe administered Source: Source Unspecified Tdap administered Source: Source Unspecified Td (adult) administered Note: Abstracted -12/29/2008 ; Source: New Immunization Record Payers Payer name Insurance type Covered constitution party ID Authorization(s) Medicaid Managed Care He [id number] Medicaid Mgd Misc He [id number] [place] [id number] Social History Type Description Quantity Date Captured [...] Plan Of Care Date Type Action Status Appointment JONATHAN KATE Date Type Problem Goal Intervention Status Start Date Unknown History Of Present Illness Encounter Date Complaint History Of Present Illness No information Functional Status Encounter Date Functional Assessment Cognitive Assessment Unknown Medications Administered Medication Instructions Dosage Effective Dates (start - stop) Status Comments Drug Treatment Unknown Instructions Date Instruction Additional Information Unknown
--- OUTSIDE RECORDS SUMMARY | 2019-05-10 16:43 | XMS REPORT | Continuity of Care Document ---
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 - analgesic Hallucinations, unspecified - Neurotic depression - Post-traumatic stress disorder, chronic Essential (primary) hypertension Type 2 diabetes mellitus without complications Other chronic pain Cntct w and expsr to environ tobacco - smoke (acute) (chronic) 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 Other chronic pain Major depressive disorder, recurrent, unspecified Post-traumatic stress disorder, chronic senior care (current) use of opiate - analgesic Type 2 diabetes mellitus without complications Essential (primary) hypertension Chronic pain due to trauma Chronic pain of left ankle Cntct w and expsr to environ tobacco - smoke (acute) (chronic) 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 Anxiety and depression Other chronic pain Other abnormal glucose Chronic pain of left ankle Other specified anxiety disorders - Cntct w and expsr to environ tobacco - smoke (acute) (chronic) senior care (current) use of opiate - analgesic Other [...] chronic Type 2 diabetes mellitus without complications senior care (current) use of oral - hypoglycemic drugs [...] of insulin Gastro-esophageal reflux disease without esophagitis senior care (current) use of oral - hypoglycemic drugs [...] complications Fall into hole, initial encounter - 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 130[address] 33[address], [facility], [address]. [place], tel:[phone], [address] tel:[phone] 4416 - [facility] Primary Dec-2 MELODY [facility], Care 3-201 MARIANN. 1302 33-57 [place] 9 [facility], [facility], Street, [place], [facility], [address]. [place], tel:[phone], [place] [address] tel:[phone] 0001 - S Primary Nov-2 [employer] S Inc, Care 9- JAMEE. [address] [facility], [place], [address]. [place] tel:[phone] [place], [address], [place] tel:[phone] 0001 - [facility] Primary Chronic pain of Nov-2 MELODY S Inc, Care left ankleOther 2-201 MARIANN. 1302 33-57 [place] chronic 9 [facility] painChronic, [place], [facility], Street, continuous [place], [address]. [place], tel:[phone], [place] [address] tel:[phone] 0001 - [facility] Primary Chronic pain of Sep-2 [employer] Inc, Care left ankleOther 4-201 JAMEE. 130[address] 33[address]57 [place] chronic pain 9 [place], [address]. [place] tel:[phone] [place], [address], [place] tel:[phone] 0001 - [facility] Primary PTSD Aug-0 [facility] Inc, Care (post-traumatic OctIE. [facility] 3357 [place] stress 9 [address] [facility] disorder)Anxiet [facility], [place], [address]. [place], ic pain due to tel:[phone], [place] injuryType 2 [address] tel:[phone] diabetes [id number] mellitus without complication, without long-term current use of insulinCntct w and expsr to environ tobacco smoke (acute) (chronic)senior care (current) use of oral hypoglycemic drugsLong term (current) use of opiate analgesicHalluc inations, unspecified 0001 - [facility] Primary Aug-0 [facility] Inc, Care 6OctIE. [facility] 33-57 [place] 9 [address] [facility], Street, [facility], [address]. [place], tel:[phone], [place] [address] tel:[phone] 0001 - [facility] Primary Oct-3 [facility] Inc, Care 0-201 LUIS. S 33-57 [place] 9 [address] [facility], Street, [facility], [address]. [place], tel:[phone], [place] [address] tel:[phone] 0001 - [facility] Primary Neurotic Natalio-1 [facility] Inc, Care depression 7 LUIS. S 33-57 [place] 9 [address] [facility], Street, [facility], [address]. [place], tel:[phone], [place] [address] tel:[phone] 0001 - [facility] Primary Post-traumatic Natalio-1 [facility], Care stress 3-201 LUIS. [facility] 33-57 [place] disorder, 9 [address] [place] chronicEssentia , Street, l (primary) [facility], [address]. 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 Inc, Care painMajor 5201 LUIS. S 33-57 [place] depressive 9 [address] [place] disorder, , Street, recurrent, [facility] [place], [address]. [place], -traumatic tel:[phone], [place] stress [address] tel:+160 disorder, [id number] chronicLong term (current) use of opiate analgesic 0001 - [facility] Primary Type 2 diabetes May- [facility] Inc, Care mellitus 7 LUIS. S 33-57 [place] without [address] complications[address], Street, sential [facility] [place] ([place]) [place], [address]. [place], hypertensionChr tel:[phone], [place] due [address] tel:[phone] to [phone] traumaChronic pain of left ankleCntct w and expsr to environ tobacco smoke (acute) (chronic)senior care (current) use of oral hypoglycemic drugs 0001 - [facility] Primary Anxiety and Apr- [facility] S Inc, Care depressionOther . [facility] 33-57 [place] chronic [address] pain[address], Street, abnormal [place], [address]. [place], pain of left tel:[phone], [place] ankleOther [address] tel:+160 specified [id number] anxiety disordersCntct w and expsr to environ tobacco smoke (acute) (chronic)senior care (current) use of opiate analgesic 0001 - [facility] Primary May- [facility] Inc, Care . [facility] 33-57 [place] [address], [address], [place], [address]. [place], tel:[phone], [place] [address] tel:[phone] 0001 - [facility] Primary Other chronic Feb- [facility] Inc, Care painAnxiety and . [facility] 33-57 [place] depressionPost- 9 [address], Street, stress [facility] [place], [address]. [place], chronicEssentia tel:[phone], [place] l (primary) [address] tel:+160 hypertensionOth [id number] er specified anxiety disordersCntct w and expsr to environ tobacco smoke (acute) (chronic) 0001 - [facility] Primary Other chronic Mar- [facility] [employer], Care painAnxiety and . [facility] 33-57 [place] depressionEssen 8 [address] Tam tial (primary) St, Street, hypertensionCnt [facility], [address]. [place], to environ tel:[phone], [place] tobacco smoke [address] tel:[phone] (acute) [phone] (chronic)Other specified anxiety disorders 0001 - [facility] Primary Nov- [facility], Care . S 33-57 [place] [address], [address], [place], [facility], [address]. [place], tel:[phone], [place] [address] tel:[phone] 0001 - [facility] Primary Pain in left Oct- [facility], Care ankle and . [facility] 33-57 [place] joints of left 8 [address] Tam footPost-trauma St, Street, tic stress [place], [place], [address]. [place], chronicEssentia tel:[phone], [place] l (primary) [address] tel:+[id number] w and expsr to environ tobacco smoke (acute) (chronic) 0001 - [facility] Primary Traumatic Sep- [facility], Care arthritis of . [facility] 33-57 [place] left ankleType [address], mellitus [place], [place], [address]. [place], complicationsEs tel:[phone], [place] sential [address] tel:[phone] (primary) [phone] hypertensionHis tory of UTICntct w and expsr to environ tobacco smoke (acute) (chronic) 0001 - [facility] Primary Sep-0 [facility], Care . [facility] 33-57 [place] [address], [address], [place], [place], [address]. [place], tel:[phone], [place] [address] tel:[phone] 0001 - [facility] Primary Episode of [facility], Care altered . [facility] 33-57 [place] cognitionAnxiet 8 [address] Tam y and St, Street, depressionOther [place], [address]. [place], anxiety tel:[phone], [place] disorders [address] tel:[phone] 0001 - [facility] Primary Chronic pain of [facility] Inc, Care left . S 33-57 [place] ankleLocalized [address]ential [address], Street, hypertensionCnt [place], [place], [address]. [place], to environ tel:[phone], [place] tobacco smoke [address] tel:[phone] (acute) [phone] (chronic) 0001 - [facility] Primary Chronic pain of [facility] Inc, Care left . S 33-57 [place] anklePost-traum 8 [address] Tam atic stress St, Street, disorder, [place], [place] chronic[place] 2 [place], [address]. [place], diabetes tel:[phone], [place] mellitus [address] tel:60 without [id number] complicationsLo ng term (current) use of oral hypoglycemic drugs 0001 - [facility] Primary Other chronic [facility], Care painOsteoarthri . [facility] 33-57 [place] tis of multiple 8 [address] Tam joints, St, Street, unspecified [place], [place], [address]. [place], typeDermatitisA tel:[phone], [place] nxiety and [address] tel:+160 depressionOther [id number] specified anxiety disorders 0001 - [facility] Primary Anxiety and [facility], Care depressionPost- . S 33-57 [place] traumatic [address], Street, disorder, [place], [place], [address]. [place], specified tel:[phone], [place] anxiety [address] tel:+160 disorders [phone] 0001 - [facility] Primary DermatitisAnxie Apr- [facility] Inc, Care ty and . S 33-57 [place] depressionOther [address], Street, anxiety [place], [place], [address]. [place], tel:[phone], [place] [address] tel:[phone] 0001 - [facility] Primary Chronic pain of Mar-2 [facility] Inc, Care left LUIS. [facility] 33-57 [place] anklePost-traum 8 [address] [facility] atic stress , Street, disorder, [facility] chronicType 2 [place], [address]. [place], diabetes tel:[phone], [place] mellitus with [address] tel:+60 hyperglycemia, [id number] without long-term current use of insulinGastro-e sophageal reflux disease without esophagitisLong term (current) use of oral hypoglycemic drugs 0001 - [facility] Primary Skin lesion of [facility] S Inc, Care backAnxious . [facility] 33-57 [place] depressionOther 8 [address] [facility], Street, congenital [facility], [address]. [place], of skin tel:[phone], [place] [address] tel:[phone] 0001 - [facility] Primary Neurotic Apr- [facility], Care depression . [facility] 33-57 [place] 8 [address] [facility], Street, [facility], [address]. [place], [place], tel:[phone], [place] [address] tel:[phone] 0001 - [facility] Chronic pain [facility], Cardiology due to HISHAM. [address] [facility] (primary) [place], hypertensionHip [address], [facility], [place], [place], [place], [address], [place] hageal reflux [address]. tel:+60 disease without tel:[phone] esophagitisInso [address] mnia, unspecified typeOverweightE ncounter for preprocedural cardiovascular examinationPain in left ankle and joints of left footPalpitation sUnspecified osteoarthritis, unspecified siteObesity, unspecifiedCntc t w and expsr to environ tobacco smoke (acute) (chronic)Body mass index (BMI) 40.0-44.9, adultFamily hx of ischem heart dis and oth dis of the circ sys 0001 - S Primary Pre-op Mar- [facility] Inc, Care evaluationChron 0- LUIS. S 33-57 [place] ic pain of left [address], Street, depressionType [place], [place] 2 [place], [address]. [place], mellitus tel:[phone], [place] without [address] tel:+[id number] w/o esophagitisEsse ntial (primary) hypertensionTob acco use 4416 - [facility] Primary GERD w/o Feb- [facility] [employer] Care esophagitis LUIS. [facility] 33-57 [place] [address], [address], [place], [place], [address]. [place], tel:[phone], [place] [address] tel:[phone] 0001 - S Ortho Post-traumatic Jan- [employer], Ctr Pod osteoarthritis, QUANG. [facility] 33-57 left ankle and 7 [address], Street, pain due to [place], [place], [place] trauma [address]. [place], tel:[phone], [place] [address] tel:[phone] 0001 - S Ortho Chronic pain of RAMIREZ [employer] Inc, Ctr Pod left ankleOther 0-201 QUANG. [facility] 33-57 chronic 7 [address] pain[address], Street, chronic painHip Samy, [employer], [place] pain, [address]. [place], leftPost-trauma tel:[phone], [place] tic [address] tel:+60 osteoarthritis, [id number] left ankle and foot 0001 - S Primary Balance Nov- [facility] Inc, Care problemInsomnia 8 LUIS. [facility] 33-57 [place] , unspecified [address], Street, pain of left [place], [place], [address]. [place], pain of left tel:[phone], [place] ankle [address] tel:[phone] 0001 - [facility] Urinary tract Aug-0 BAMBARA [facility] Inc, Care infection, site . S 33-57 [place] not specified 7 [address] [facility], [place], [facility], [address]. [place], tel:[phone], [place] [address] tel:[phone] 0001 - [facility] Urinary Oct- BAMBARA [facility] Inc, Care hesitancyDDD . S 33-57 [place] (degenerative 7 [address] [place] disc disease), [facility], lumbosacral [facility], [address]. [place], tel:[phone], [place] [address] tel:[phone] 0001 - [facility] Hip pain, Oct- [facility]AM[facility]A [facility], Care leftChronic . S 33-57 [place] pain syndrome 7 [address] [facility], [facility], [address]. [place], tel:[phone], [place] [address] tel:[phone] 0001 - [facility] Primary Arthralgia of Natalio- [facility], Care left ankle . S 33-57 [place] 7 [address] [facility], [address]. [place], tel:[phone], [place] [address] tel:[phone] 0001 - [facility] Primary August- BAM[facility]A [facility], Care OctIE. [facility] 33-57 [place] 7 [address] [facility], [address]. [place], tel:[phone], [place] [address] tel:[phone] 0001 - [facility]o Pain in CHERI JOEY. [facility] Inc, Ctr Ortho unspecified [facility] 4433 33-[address], [place], [place], [address]. [place] tel:[phone] [place], [address], [place] tel:[phone] 0001 - S Primary Encntr for August- BAMBARA S Inc, Care general adult . [facility] 33-57 [place] medical exam 7 [address] Tam w/o abnormal St, Street, findingsChronic [facility] [place], [address]. [place], trauma tel:[phone], [place] [address] tel:[phone] 0001 - S Primary Abnormal TSH Apr- BAMBARA S Inc, Care . [facility] 33-57 [place] [address], [place], [facility], [address]. [place], tel:[phone], [place] [address] tel:[phone] 0001 - S Primary GassinessChroni Apr- BAMBARA S Inc, Care c pain of left . [facility] 33-57 [place] kneeOther 7 [address] chronic pain St, [place], [facility], [address]. [place], tel:[phone], [place] [address] tel:[phone] 0001 - S Primary Other malaise Mar-0 [facility]A [facility], Care OctIE. S 33-57 [place] [address], [place], [facility], [address]. [place], tel:[phone], [place] [address] tel:[phone] 0001 - S Primary Risk For Mar-0 BAMBARA S Inc, Care FallOther OctIE. S 33-57 [place] chronic 7 [address] Tam painFall, St, Street, subsequent [place], [address]. [place], pain of lower tel:[phone], [place] extremityType 2 [address] tel:+[phone] diabetes [id number] mellitus without complicationsFa ll into hole, initial encounterLong term (current) use of oral hypoglycemic drugs 0001 - [facility] Primary Anxiety Oct- ANTHONY CAMPO. [employer], Care disorder, [facility] [address] E 33-[address] [place] unspecifiedUnsp [address], Tam ecified [place], [place], [address]. [place] painType 2 tel:[phone] [place], diabetes [address], [place] mellitus tel:+1-60 without [phone] complicationsOt her chronic painNicotine dependence, unspecified, uncomplicatedLo ng term (current) use of oral hypoglycemic drugs 0001 - [facility] Primary Anxious Oct-2 [employer], Care depressionPost- 0 LUIS. [facility] 33-57 [place] traumatic 6 [address] [place] stress St, Street, disorder, [facility], [address]. [place], chronic tel:[phone], [place] [address] tel:+[phone] moldUnspecified [id number] fall, initial encounterOth places as the place of occurrence of the external cause 0001 - [facility] Primary Essential Natalio-0 [employer], Care (primary) OctIE. [facility] 33-57 [place] hypertensionOve 6 [address] [place] rweightAnxious St, Street, depressionOther [place], [address]. [place], glucoseOther tel:[phone], [place] chronic [address] tel:+1-60 painNicotine [id number] dependence, cigarettes, uncomplicated 0001 - [facility] Primary Contact/exposur Apr-0 [employer], Care e mold LUIS. [facility] 33-57 [place] 6 [address] [facility], Street, [facility], [address]. [place], tel:[phone], [place] [address] tel:[phone] 0001 - [facility] Primary Mold Mar-3 [employer], Care exposureCoughin LUIS. [facility] 33-57 [place] gAnxious 6 [address] [place] depression St, Street, [place], [place], [address]. [place], tel:[phone], [place] [address] tel:[phone] 0001 - S Primary Anxiety Vito-2 ELISHA S Inc, Care disorder, 6- SHANNAN. 33-57 [place] unspecifiedPani [address], Street, attacksFatigue, [place], [place], [address]. [place], type tel:[phone], [place] [address] tel:[phone] 0001 - S Primary Other Apr- BAMBARA S Inc, Care depressive 3- LUIS. [facility] 33-57 [place] episodesOther [address], Street, painType 2 [place], [place], [address]. [place], mellitus tel:[phone], [place] without [address] tel:+1-60 complications [phone] 0001 - S Primary Post-traumatic Jan- [employer]ONT[employer] S Inc, Care stress 9 FLOYD. 33-57 [place] disorder, [address], [address], [place], [place], [place] [address]. [place], tel:[phone], [place] [address] tel:[phone] 0001 - S Primary Anxiety and Oct-0 BAMBARA S Inc, Care depressionChron 2 LUIS. S 33-57 [place] ic 5 [address], Street, n, essential [place], [place], [address]. [place], mellitus type 2 tel:[phone], [place] [address] tel:[phone] 0001 - S Primary Brown's cyst of BAMBARA S Inc, Care kneeAnxiety and LUIS. S 33-57 [place] depressionChron 5 [address] ic pain St, Street, [place], [place], [address]. [place], tel:[phone], [place] [address] tel:[phone] 0001 - [facility] Primary Brown's cyst of August- [facility] Inc, Care kneeAnxiety and LUIS. [facility] 33-57 [place] depressionMemor 5 [address] [place] y impairment , [place], [facility], [address]. [place], tel:[phone], [place] [address] tel:[phone] 0001 - [facility] Primary ABNORMAL [facility] Inc, Care GLUCOSE 9 LUIS. [facility] 33-57 [place] NECChronic 5 [address] [place] painHypertensio , Street, n, [facility] [place], [address]. [place], e, drug NOS, tel:[phone], [place] unspecified [address] tel:[phone] 0001 - [facility] Primary Lumbago [facility] Inc, Care 0- LUIS. [facility] 33-57 [place] 5 [address] [facility], [place], [facility], [address]. [place], tel:[phone], [place] [address] tel:[phone] 0001 - [facility] Primary DepressionDiabe [facility] [employer] Inc, Care rocky mellitus 8 LUIS. [facility] 33-[address] [place] type 4 [address] [place] 2OverweightChro , [place], kristine pain [facility], [address]. [place], tel:[phone], [place] [address] tel:[phone] 0001 - [facility] Primary Examination, [facility] [employer] Care preoperative 3 LUIS. [facility] 33-57 [place] NOSOverweight 4 [address] [facility], [facility], [address]. [place], tel:[phone], [place] [address] tel:[phone] 0001 - S Primary ABNORMAL [facility] [employer] Inc, Care GLUCOSE NECHip 6 LUIS. [facility] 33-[address] [place] painFatigue 4 [address] [facility], [facility], [address]. [place], tel:[phone], [place] [address] tel:[phone] 0001 - [facility] Primary AnemiaAnxiety Sep-1 SCHECTER [facility] Inc, Care [place] and 6- LOULOU. 33-57 depressionDiabe 4 7 [facility] rocky mellitus [address] [facility], type 2Pain in [place], [place], [place] joint, multiple [address]. [place], sites tel:[phone], [place] [address] tel:[phone] 0001 - S Primary ArthropathyDepr Sep-1 [facility], Care [place] essionAnemiaDep 0- LOULOU. 33-57 endence, drug 4 4416 [facility] NOS, Pkwy [facility], unspecifiedGluc [place], [place], [place] ose in urineUTI [address]. [place], tel:[phone], [place] [address] tel:[phone] 0001 - S Primary ArthropathyCons Natalio-2 BAMBARA [facility], Care tipationOverwei 7 LUIS. S 33-57 [place] ght 4 [address] [facility], [facility], [address]. [place], [place], tel:[phone], [place] [address] tel:[phone] 0001 - S Samy Aquired absence May-0 SHUMEYKO [facility], Gynecology of both cervix BRIGIDA. 4417 and uterus 4 [place], [place], [place], [address]. [address], [place] tel:[phone] tel:[phone] 0001 - S Primary Disorder, Apr-0 BAMBARA [facility], Care prolonged 2- LUIS. S 33-57 [place] posttraumatic 4 [address] [facility] stressPain, , Street, Chronic, [facility], [address]. [place], [place], and tel:[phone], [place] depressionOverw [address] tel:[phone] 0001 - S Samy Aquired absence Mar-2 SHUMEYKO S Inc, Gynecology of both cervix 0-201 BRIGIDA. 4417 33-57 and uterus 4 Samy [facility], [facility], [place], [place], [address]. [address], [place] tel:[phone] tel:[phone] 0001 - [facility] Samy Disorder, SHUMEYKO [facility], Gynecology menstrual NEC 7-201 BRIGIDA. 441 33-57 4 Samy [facility], [facility], [place], [place], [address]. [address], [place] tel:[phone] tel:[phone] 0001 - S Primary Anxiety and BAMBARA S Inc, Care depressionFibro LUIS. [facility] 3357 [place] id, 4 [address] [place] [facility] Street, agoAnkle pain, [place], [address]. [place], [place], against tel:[phone], [place] DTPInfluenza [address] tel:+60 Vaccine [phone] 0001 - S Samy Disorder, May- SHUMEYKO [employer], Gynecology menstrual 2-201 BRIGIDA. 441 33-57 NECLeiomyoma, 4 Samy [facility], NOSPulmonary [facility], [place] EmbolusHx, [place], [place], [place], [place], [address]. [address], [place] malignancy, tel:[phone] tel:+60 genital organ [phone] NEC 0001 - S Samy Disorder, [employer]. S Inc, Gynecology menstrual NEC Samy 33-[address], S, [place], [place], Street, [address]. [place] tel:[phone] [place], [address], [place] tel:[phone] 0001 - S Primary Anxiety and BAMBARA S Inc, Care depressionDisor 2-201 LUIS. [facility] -57 [place] tio, prolonged [address], Street, stressGERDHyper [place], [place], [address]. [place], BenignChronic tel:[phone], [place] ankle pain [address] tel:[phone] 0001 - [facility] Primary Vaginal yeast Dec-1 PONTICIELLO S Inc, Care infectionAbnorm 7201 FLOYD. - [place] al uterine [address], Street, pain [place], [place], [place] [address]. [place], tel:[phone], [place] [address] tel:[phone] 0001 - [facility] Primary Vaginal yeast Dec-0 [facility] S Inc, Care infectionAbnorm 3201 FLOYD. -57 [place] al uterine [address], [place], [place], [place], [place] [address]. [place], tel:[phone], [place] [address] tel:[phone] 0001 - [facility] Primary Depression, [facility] Referring S Inc, Care neuroticPain, LUIS. [facility] Provider: [place] Chronic, 3 [address] ULIS Tam OtherAbdominal St, [facility] A, Street, painRenal [place], S [address] [place], [address], [place], tel:[phone] [place], [address], [place] [address] [place], [address]. tel:+60 tel:[phone] 0001 - [facility] Primary Pain, Chronic, Aug-0 [facility] Inc, Care OtherDisorder, LUIS. [facility] 57 [place] prolonged [address], Street, stressHypertens [place], [place], [place], [address]. [place], tel:[phone], [place] [address] tel:[phone] 0001 - [facility] Primary Pain, Chronic, [facility] Inc, Care Other . S 33-57 [place] 3 [address] [facility], [place], [facility], [address]. [place], tel:[phone], [place] [address] tel:[phone] 0001 - S Primary Sprain/strain, Natalio- [facility] Referring [facility], Care ankle . [facility] Provider: 33-57 [place] NOSDepression, 3 [address] [facility] [address], [facility], Street, nsion, [place], S [address] [place], [address]. [facility], [place], [place], wrist pain tel:[phone] [place], [address], [place] [address] [place], [address]. tel:+60 tel:[phone] 0001 - S Primary Left ankle August- [facility] Inc, Care sprainDepressio . [facility] 33-57 [place] n, 3 [address] [place] neuroticDisorde , Street, r, prolonged [place], [place], [address]. [place], stressHypertens tel:[phone], [place], [address] tel:[phone] BenignSprain/st [id number] rain, ankle NOSDepression, neuroticDisorde r, prolonged posttraumatic stressHypertens ion, Benign 0001 - [facility] Primary Anxiety and Jun- [facility] Inc, Care depressionPain . [facility] 33-57 [place] in joint, lower 3 [address] [place] legConstipation St, Street, Pain in joint, [place], [address]. [place], legDepression, tel:[phone], [place] neuroticConstip [address] tel:+[phone] ation NOS [phone] 0001 - S Primary Knee pain, left Mar-0 [facility] Inc, Care . [facility] 33-57 [place] 3 [address] [facility], Street, [place], [place], [address]. [place], tel:[phone], [place] [address] tel:[phone] 0001 - S Primary Disorder, [facility] S Inc, Care prolonged 0OctIE. [facility] 33-57 [place] posttraumatic 3 [address] [place] stressHypertens , [place], ion, BenignPain [place], [address]. [place], [place], legDisorder, tel:[phone], [place] prolonged [address] tel:[phone] posttraumatic [id number] stressHypertens ion, BenignPain in joint, lower legPain in joint, lower legPain in joint, lower leg 0001 - S Primary DepressionArthr [facility] Inc, Care opathyHypertens . [facility] 33-57 [place] ion, 3 [address] [place] BenignGERDDepre , Street, ssionDisorder, [place], [address]. [place], posttraumatic tel:[phone], [place] stressArthropat [address] tel:[phone] hyHypertension, [phone] Benign 0001 - S Primary DepressionPain [facility] Inc, Care in joint, lower OctIE. [facility] 33-57 [place] legHypertension 3 [address] [facility], BenignDepressio [place], [address]. [place], lower tel:[phone], [place] legHypertension [address] tel:[phone] BenignDepressio nDepression 0001 - S Primary Pain, Chronic, [facility] [employer] Inc, Care Other . [facility] 33-57 [place] 3 [address] [facility], [place], [place], [address]. [place], tel:[phone], [place] [address] tel:[phone] 0001 - S Primary Depression, [facility] Inc, Care neuroticHyperte . [facility] 33-57 [place] nsion, 3 [address] Tam BenignPain, , Street, Chronic, Due To [place], [place], [address]. [place], ssion, tel:[phone], [place] neuroticHyperte [address] tel:+[phone] nsion, [phone] BenignGERD 0001 - [facility] Primary Depression, [facility] Inc, Care neuroticHyperte OctIE. [facility] 33-57 [place] nsion, 2 [address] Tam BenignPain, St, Street, Chronic, Due To [place], [place], [address]. [place], [place], n, tel:[phone], [place] neuroticHyperte [address] tel:+[phone] nsion, Benign [phone] 0001 - [facility] Primary Anxiety and [facility] Inc, Care depressionChron OctIE. [facility] Provider: 33-57 [place] ic pain due to 2 [address] LUISRAMAN Chawlaon injuryHypertens St, [facility] A, Street, ion, [place], S [address] [place], [address]. [facility], [place], [place], Depression, tel:[phone] [place], [address], [place] [address] [place], [address]. tel:[phone] nsion, tel:[phone] BenignEdema [id number] 0001 - [facility] Malfunction, [facility] Inc, Orthopedics internal ortho JOSAFAT. [facility] 33-57 [place] device/graftMal 2 [address] Samy Tam function, Pkwy E, Street, internal ortho [place], [place], [place] device/graftFol [address]. [place], [place], low-up tel:[phone], [place] examination, [address] tel:+[phone] after surgery [id number] NECComplication NEC due to oth int ortho device 0001 - [facility] Primary Hypertension, [facility] Inc, Care BenignDepressio OctIE. [facility] 33-57 [place] n, [address] neuro[address], Street, tis [place], [place], [address]. [place], pain due to tel:[phone], [place] injuryHypertens [address] tel:+[phone] ion, [phone] BenignDepressio n, neuroticDermati tis NOSEdema 0001 - [facility] Primary Dermatitis Sep-1 BAMBARA [employer] Inc, Care NOSDepressionHy . S 33-57 [place] pertension, [address] Tam BenignPain in St, Street, joint, multiple [place], [place], [address]. [place], NOSDepressionHy tel:[phone], [place] pertension, [address] tel:+[phone] BenignPain in [id number] joint, multiple sites 0001 - [facility] Primary Hypertension, Sep-0 BAMBARA [employer] Inc, Care BenignDepressio . S 33-57 [place] nPain in joint, [address], Street, sitesDermatitis [place], [place], [address]. [place], [place], , tel:[phone], [place] BenignDepressio [address] tel:+1-60 nPain in joint, [id number] multiple sitesDermatitis NOS 0001 - [facility] Primary DepressionHyper Aug-2 BAMBARA [employer] Inc, Care tension, . S 33-57 [place] BenignPain in 2 [address] Tam joint, multiple St, Street, sitesDermatitis [place], [place], [address]. [place], pertension, tel:[phone], [place] [address] tel:+[phone] joint, multiple [id number] sitesDermatitis NOS 0001 - [facility] Primary DepressionHyper Aug- BAMBARA [employer] Inc, Care tension, . S 33-57 [place] BenignGERDPain 2 [address] Tam in joint, St, Street, multiple [place], [place], [address]. [place], Hypertension, tel:[phone], [place] BenignGERDPain [address] tel:+60 in joint, [id number] multiple sites 0001 - [facility] Primary Hypertension, [facility] Inc, Care BenignDepressio . [facility] Provider: 33- [place] nChronic 2 [address] LUIS Turcios painHypertensio , [facility], , [place], S [address] [place], [address]. [place], [place], n tel:[phone] [place], [address], [place] [address] [place], [address]. tel: tel:[phone] 0001 - [facility] Primary Depression, [facility], Care neuroticGERDHyp 7. [facility] [place] ertension, [address] Tam BenignPain in [facility], [facility], multiple [place], [place], [address]. [place], [place], , tel:[phone], [place] neuroticGERDHyp [address] tel: ertension, [phone] BenignPain in joint, multiple sites 0001 - S Primary Pain in joint, [facility] Inc, Care multiple . [facility] Provider: [place] sitesDepression [address] LUIS Turcios , , [facility], neuroticGERDHyp [place], S [address] [place], [address]. [place], [place], BenignDermatiti tel:[phone] [place], [address], [place] [address] [place], [address]. tel:+ joint, multiple tel:[phone] sitesDepression [id number] , neuroticGERDHyp ertension, Benign 0001 - S Primary Pain in joint, [facility] Inc, Care multiple 0-201 CADET 33-57 [place] sitesIncreased 2 HOMERO. Tam urinary 203 [facility], frequencyPain Street, [place], [address]. [address], [place] sitesFrequency, tel:[phone] tel:+60 urinary [phone] 0001 - S Primary Arthralgia of Oct- [facility] Inc, Care multiple sites 2 CADET 33-57 [place] 2 HOMERO. Tam 203 [facility], [place], [address]. [address], [place] tel:[phone] tel:[phone] 0001 - S Primary AnxietyPain in Sep- [facility] Inc, Care joint, CADET 33-57 [place] forearmAnxietyP 2 HOMERO. Tam changn in joint, 203 [facility], [place], [address]. [address], [place] tel:+[phone] tel:[phone] 0001 - [facility] Primary Pain in joint, [facility] Inc, Care forearmAnxietyH 2 CADET 33-57 [place] ypertension, 2 HOMERO. Tam essential 203 [facility], NOSExamination, [place], [place], [address]. [address], [place] joint, tel:[phone] tel:+60 forearmAnxietyH [address] [id number] ypertension, essential NOS 0001 - [facility] Primary AnxietyHyperten Apr- [facility] Inc, Care sionAnxietyHype CADET Provider: 33-57 [place] rtension, 2 HOMERO. HOMERO Turcios essential NOS 203 [facility], [place], CADET, 203 [place], [address]. Street, [address], [place] tel:+[phone] [place] tel:[phone] , [place], [phone]. tel:[phone] 0001 - [facility] Primary Examination, Jun- [facility] Inc, Care preoperative CADET 33-57 [place] NOSLeft wrist 2 HOMERO[address] Tam painEpigastric [address], painHypertensio Street, [place] nBlood [place], [place], [place], [address]. [address], [place] n, preoperative tel:[phone] tel:+1-[place] [address] [id number] joint, forearmPain, abdominal, epigastricHyper tension, essential NOS 0001 - [facility] Primary Hypertension, [facility] Inc, Care essential 3 LUIS. [facility] 33-57 [place] NOSDepression, [address] Tam neuroticPain, St, Street, Chronic, [place], [place], [address]. [place], on, essential tel:[phone], [place] NOSDepression, [address] tel:+1-60 neurotic [phone] 0001 - [facility] Primary Pain, Chronic, May- [facility] Inc, Care OtherDepression 8 LUIS. [facility] 33-57 [place] Hypertension, [address] essential St, Street, NOSDepressionHy [facility]core[facility] [place], [address]. [place], essential NOS tel:[phone], [place] [address] tel:[phone] 0001 - [facility] Primary Hypertension, May- [facility] Inc, Care essential 0-201 LUIS. [facility] 33-57 [place] NOSPain, 2 [address] Tam Chronic, St, Street, OtherDepression [place], [place], [address]. [place], drug NOS, tel:[phone], [place] unspecifiedDepr [address] tel:+1-60 ession, [id number] neuroticHyperte nsion, essential NOSDepressionGE RD 0001 - [facility] Primary HypertensionChe May-0 [facility] Inc, Care st Pain, 3-201 LUIS. [facility] 33-57 [place] UnspecifiedChes 2 [address] Tam t Pain, St, Street, UnspecifiedHype [place], [place], [address]. [place], essential tel:[phone], [place] NOSChest Pain, [address] tel:+ Unspecified [phone] 0001 - [facility] Primary Pain, Chronic, [facility] Inc, Care OtherDepression 0. [facility] 33-57 [place] GERDDependence, 2 [address] Tam drug NOS, St, Street, unspecifiedDepr [facility] [place], [address]. [place], dence, drug tel:[phone], [place] NOS, [address] tel:+60 unspecified [phone] 0001 - [facility] Primary Pain, Chronic, [facility] Inc, Care OtherDepression . [facility] 33-57 [place] GERDNarcotic [address] addictionDepres St, Street, sionGERDDepende [place], [place], [address]. [place], unspecified tel:[phone], [place] [address] tel:+ [phone] 0001 - [facility] Primary Pain in [facility] Inc, Care limbPain in . [facility] Provider: 33-57 [place] limbDepressionP 2 [address] LUIS Chawlaon ain, Chronic, St, [facility] A, Street, OtherDepression [place], [facility] [address] [facility], [address], [place], [place], tel:[phone] [place], [address], [place] [address] [place], [address]. tel:+60 tel:[phone] 0001 - [facility] Primary DepressionPain, [facility] Inc, Care Chronic, Other . [facility] 33-57 [place] [address], Street, [place], [place], [address]. [place], tel:[phone], [place] [address] tel:[phone] 0001 - [facility] Primary DepressionPain, [facility] Inc, Care Chronic, . S 33-57 [place] OtherDisorder, [address], Street, posttraumatic [place], [place], [address]. [place], ue / [place] tel:[phone], [place] [address] tel:[phone] 0001 - S Primary DepressionPain, [facility] Inc, Care Chronic, OctIE. S 33-57 [place] OtherDisorder, [address], Street, posttraumatic [place], [place], [address]. [place], a tel:[phone], [place] [address] tel:[phone] 0001 - S Primary DepressionPain, [facility] Inc, Care Chronic, . S 33-57 [place] OtherDisorder, [address], Street, posttraumatic [place], [place], [address]. [place], limbLumbago tel:[phone], [place] [address] tel:[phone] 0001 - [facility] Primary DepressionPain, S Inc, Care Chronic, 33-57 [place] OtherDisorder, [address], posttraumatic [place], [address], [place] tel:[phone] 0001 - [facility] Primary DepressionMyalg [facility] Inc, Care ia/myositis OctIE. S 33-57 [place] NOSFatigue / [address], Street, [place], [place], [address]. [place], tel:[phone], [place] [address] tel:[phone] 0001 - S Primary [facility] S Inc, Care LUIS. S 33-57 [place] [address], Street, [place], [place], [address]. [place], tel:[phone], [place] [address] tel:[phone] 0001 - [facility] Primary Dec-1 BAMBARA [facility] Inc, Care 4-200 LUIS. S 33-57 [place] [address], Street, [place], [facility], [address]. [place], tel:[phone], [place] [address] tel:[phone] 0001 - [facility] Primary Disorder, Sep-0 BAMBARA [facility] Inc, Care depressive 8-200 LUIS. S 33-57 [place] NECDisorder, [address] prolonged St, Street, posttraumatic [facility] [place] stressEmbol[place]/ [place], [address]. [place], infarction, tel:[phone], pulmonary [address] tel:+60 NECPain, [id number] Chronic, Other Family History Family Member Diagnosis Age At Onset Brother Lymphoma 40 Close relative Diabetes mellitus type 2 Father cancer, gastric Mother Hypertension Mother multiple myloma 62 Maternal aunt Cancer, endometrial Immunizations Vaccine Date Status Comments Influenza, injectable, administered Source: New Immunization quadrivalent, preservative Record free, split virus Influenza, injectable, administered Source: New Immunization quadrivalent, preservative Record free, split virus [id number] Fluarix Quadrivalent Syringe administered Source: Source Unspecified Tdap administered Source: Source Unspecified Td (adult) administered Note: Abstracted -12/29/2008 ; Source: New Immunization Record Payers Payer name Insurance type Covered democrat ID Authorization(s) Medicaid Managed Care He [id number] Medicaid d [facility] [place] [id number] Medicaid [facility] He [id number] Social History Type Description Quantity Date Captured [...] Date Type Action Status Referral Referred To: brad BURCH [address] [facility] [address] [place], [address] [phone] Ordered: Referrals: Pain Management. 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 Evaluate and treat Appointment date/timeframe: 1 Month Referral Ordered: ordered CT Brain/Head w & w/o Contrast Referral Referred To: ordered GARRETT MCFARLANE MD [address] [place], [phone] Ordered: Referrals: Orthopedic Surgery. GARRETT MCFARLANE MD Referral Ordered: ordered Echocardiography With Color Flow Appointment date/timeframe: 04/26/2017 Referral Ordered: ordered *EKG Complete Referral Referred To: ordered HEBERT LYONS MD [address] [facility] 2 [place], [address] [phone] Ordered: Referrals: Pain Management. HEBERT LYONS MD. Evaluate and treat Referral Referred To: ordered ROSEANN BHATT RPA [facility] [address] [place], [address] [phone] Ordered: Referrals: Orthopedic Surgery. ROSEANN BHATT RPA. Evaluate and treat Referral Ordered: ordered CT Extremity Lower w/o Contrast (must designate body part) LT ankle Appointment date/timeframe: 12/29/2016 Referral Ordered: ordered CT Spine Lumbar w/o Contrast Referral Ordered: ordered Xray Pelvis, AP Referral Ordered: ordered Xray HIP UNILATERAL 2-3 VIEWS Left Referral Referred To: ordered JOSAFAT HOFFMANN [facility] [address] [place], [address] [phone] Ordered: Referrals: Orthopedic Surgery. JOSAFAT HOFFMANN. Follow-up and Treat Appointment date/timeframe: 09/19/2016 Referral Ordered: ordered U/S Abdomen complete Referral Referred To: ordered in [facility] where lives Ordered: Referrals: Pulmonology. in [facility] where lives. Evaluate and treat Referral Ordered: ordered Xray Chest 2 view Referral Referred To: ordered [facility] any ortho avail Ordered: [facility] any ortho avail. Ortho Surg. Consult and treat. Appointment date/timeframe: 1 Month Referral Ordered: ordered MRI of brain w/o Contrast Referral Ordered: ordered Xray Spine Lumbar complete Referral Referred To: ordered CAITIE MUNOZ [address] [place], [address] [phone] Ordered: CAITIE MUNOZ. Nutrition. Consult and treat. Appointment date/timeframe: 1 Month Referral Referred To: ordered AT [facility] Ordered: AT [facility]. Sleep Disorders. Consult and treat. 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 Physical Therapy. Follow-up [...] ordered JUAQUIN FANG MARIA DE JESUS [address], [address] [phone] Ordered: JUAQUIN FANG. Gastroenterology. Consult and treat. Appointment date/timeframe: 07/24/2011 Referral Referred To: ordered MARVIN AC OA [address] [place], [address] [phone] Ordered: MARVIN AC. Ortho Surg. Appointment date/timeframe: 06/13/2011 Referral Referred To: ordered clinic per pt requestelmira pain Ordered: clinic per pt requestelmira pain. Pain Management. Consult and treat. Appointment date/timeframe: 6 Weeks Referral Ordered: ordered . pain clinic. Follow-up and Treat. Appointment JONATHAN KATE I Date Type Problem Goal Intervention Status [...] Wall. Do blood work before that appointment. See above Related to Other chronic pain Refilled hydrocodone, lidocaine Related to Chronic pain of left patchesFollow up with PCP for moodIf ankle worsening please let office know Risks and benefits of new medication discussed. NEED TO F/U W COUNSELING PER [place] Related to PTSD (post- traumatic HOSPITAL ADVISE [...] activity and stretchingI CALLED JORJE BA IN [facility] RX WAS LAST PRESCRIBED AND PICKED UP 11-09-18 AT 1:50PM EXPLAINED THAT WE CANT RFL 12-10-18 ADVISE [facility] Related to Anxiety with depression FOR EVALUATION CONT MEDSIF WORSE THEN CPEP AVOID CAFF, Related to Major depressive PRACTICE RELAXATION TECHNIQUES DAILY, disorder, recurrent, unspecified EXERCISE TO RELIEVE STRESSTAKE MEDS DIRECTEDCONSIDER COUNSELING TO HELP MANAGE rev all hosp reports from [place] Related to Post-traumatic stress medical disorder, chronic [...] HELP TO LOWER BLOOD SUGAR REV ALL [facility] MED[facility] REPORTSMAY USE Related to Other chronic [...] the local emergency room or call 911 STABLECONT SUPPORT GROUP Related to Post-traumatic stress disorder, chronic Blood pressure should be range Related to Essential (primary) <140/80. No added salt dietExercise hypertension 10-20 mins daily Risks and benefits of new medication discussed.INCREASE METORPOLOL TO 50 MG TWICE DAY W BKFST W SUPPERLABS FASTING NEXT WEEKRTO 3 MOS CHR PAIN BP ANXIETY AVOID CAFF, PRACTICE RELAXATION Related to Anxiety [...] you would like to see somebody in [place] please contact me with who you would [...] resource for information. Contact at ( [email or web address]) Free information.RTO 4 MOS CHR PAIN CONT MEDS DIRECTED AVOID CAFF, Related to Post-traumatic stress PRACTICE RELAXATION TECHNIQUES DAILY, disorder, chronic EXERCISE TO RELIEVE STRESSTAKE MEDS DIRECTEDCONSIDER COUNSELING TO HELP MANAGE CONSIDER PSCHY EVAL IN [facility] CONT W PAIN MEDSNO SURGERY HAS [...] resource for information. Contact at ( [email or web address]) Free information.RTO 3 MOS CHR PAIN PTSD [...] office The CAT scan you had echo 3 November 22 Related to Episode of altered [...] 25 mg daily until they're gone them oyster picker a new prescriptionIf you are in [...] in one week with blood sugar reading SUGG PSCH EVAL Related to Post-traumatic stress disorder, chronic ICE TORADOL INJECTION TODAYF/U W ORTHO Related to Chronic pain of left CONSIDER PT ankle CONT SEREQUEL ADVISEDREMAIN OUT OF Related to Anxiety and depression HOUSE SINCE ITS A SOURCE OF STRESS DUE TO LIVING CONDITIONSCONT 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 IN AREA WHERE YOU LIVE PAIN MEDS SPARINGLYF/U W ORTHO APPT Related to Other chronic pain TORADOL INJECTION TODAY TO HELP W PAIN Related to Osteoarthritis of SINCE CANT TAKE NSAIDS BY MOUTH DUE TO multiple joints, unspecified GI UPSET osteoarthritis type ALOVERA 3 TIMES DAY TO ELBOWSTART Related [...] information.RTO 4 MOS CHR PAIN CONT MEDS HGBA1C DETERMINES CONTROL Related to Type 2 diabetes OFBL SUGARS OVER PAST 3 MOS FOLLOW mellitus with hyperglycemia, LOW SUGAR LOW STARCH DIET without long-term current use of insulin CONT MEDS AVOID CAFF, PRACTICE Related to Post-traumatic stress RELAXATION TECHNIQUES DAILY, EXERCISE disorder, chronic TO RELIEVE STRESSTAKE MEDS DIRECTEDCONSIDER COUNSELING TO HELP MANAGE PROCEDE DR BAILON PREV APPROVED FOR Related [...] FATTY FOODS Related to GERD w/o esophagitis STABLECONT MEDS Related to Anxious depression HGBA1C DETERMINES CONTROL OFBL SUGARS Related to Type 2 diabetes OVER PAST 3 MOS FOLLOW LOW SUGAR mellitus without complications LOW STARCH DIET Blood pressure should be range Related to Essential (primary) <140/80. No added salt dietExercise hypertension 10-20 mins daily HX PIN IN ANKLE IN 1997SURGERY TO EVAL Related to Chronic pain of left PAIN ankle NO FUTHER MEDS NO CAFFCONT TRAZADONE Related to Insomnia, unspecified type XRAY TODAY LAST WAS [address] Related to Chronic pain of left GAYCONT PAIN MEDS DIRECTED knee XRAY TODAYNEED TO RET TO ORTHO FOR Related to Chronic pain of left EVAL Stay Healthy Disease Program, good ankle resource for information. Contact at ( Nurse ) Free information. 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 RET TO [facility] ORTHO FOR EVAL SAW DIMITRI Related to Chronic pain of left [place] IN PASTICE 20 MINS 4 TIME knee DAYCONT MEDS IF NEEDBENAGY TO KNEE AT BED TO HELP CIRCULATION CONT PAIN MEDS SPARINGLYAVOID Related to Other chronic pain OVERUSINGGOAL IS TO TRY TO REDUCE Stay Healthy Disease Program, good resource for information. Contact at ( Nurse ) Free information.RTO 2 MOS CHR PAIN A NL PROCESSOFTEN CAUSED BY CERTAIN Related to Gassiness FOODS SUCH LENTILS OR BEANS, OR DAIRYLIMIT DIETKEEP FOOD LOGSTART PROBIOTIC DAILY FOR 1-2 MONTHSCALL IF WORSE THEN GI REFERRAL Mar-01-2017 LOW SUGARNEED LABS FASTING HGBA1C Related to [...] dose 3 tabs. cxray was nlprocede w [place] Related to Exposure to mold specialist stop [...] ANXRTO 3 MOS CHR PAIN BP ANX DOING GREATCONT HEALTHY EATING Related to Overweight CONT MEDSRELAXATION Related to Anxious depression LABS ORDEREDLOW SUGAR DIET Stay Healthy Related to Other abnormal glucose Disease Program, good resource for information. Contact at ( Nurse ) Free information. Blood pressure should be range Related to [...] ABLENO CAFF Related to Other depressive episodes CONT PAIN MEDS Related to Chronic pain Blood pressure should be range Related to Hypertension, essential <140/80. No added salt dietExercise NOS 10-20 mins daily HGBA1C DETERMINES CONTROL OFBL SUGARS Related to Diabetes mellitus type OVER PAST 3 MOS FOLLOW LOW SUGAR 2 LOW STARCH DIET CONT MEDSF/U W MENTAL HEALTH APPT Related to Anxiety and depression IS AVAIL AGREE TO [facility] Related to Anxiety and depression CALL ME W UPDATE NEXT WEEKCONT MEDSREV ALL ER REPORTS FROM LAST APPT DISCUSSED NEED FOR RET TO MENTAL HEALTH LAST FILLED CONTROLS ON 08-12 CALL 48 Related to Chronic pain HRS PRIOR TO NEXT RFL Stay Healthy Disease Program, good resource for information. Contact at ( [email or web address]) Free information. 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 Continue to follow sites with orthopedics.Did discuss doing therapy, ie water therapy - declined at this time. Weight loss encouraged. Continue with seroquel, prozac and Related to Anxiety and depression xanax as previously prescribed. Encourage to continue with counseling services. Metformin as prescribed. Check A1C in Related to Diabetes mellitus type 2 months, target is at least 8 and 2 ideally less than 7. Low cholesterol, low carbohydrate diet advised and aerobic exercise at least every other day. Resolved. No anemia at this time. Related to Anemia Continue with prozac and seroquel as Related to Depression previously prescribed. Continue with xanax and hydroxyzine as previously prescribed. Continue with counseling services. Bactrim as prescribed. Lots of fluids. Related to UTI Cranberry juice and yogurt. Blood work ordered, pending results. Related to Anemia Continue with oxycodone and MS contin Related to Arthropathy as previously prescribed. 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 Drug screening/toxicology unspecified sent. Pending results. Pain management agreement signed. Blood work ordered, pending results. Related to Glucose in urine F/U DR HOOPER IN [place] CONT Related to Overweight WEIGHT LOSS SMALLER PORTIONS. 8 OZ WATER BEFORE MEALS, LOW STARCH AND HIGH PROTIEN Stay Healthy Disease Program, good resource for information. Contact at ( [email or web address]) Free information. stool softner daily fr/veggieswater Related to Constipation cont meds and exercises use pain Related to Arthropathy meds sparinglyDUE TO FLARE TODAY AND HEAT TORADOL INJECTION NOW
[2019-05-10 16:44] LABS: TSH (Thyroid Stimulating Horm) 0.96 mcIU/mL (0.34-5.60)
[2019-05-10 17:04] LABS: Urine Appearance Clear; Urine Bilirubin Negative (Negative); Urine Blood Negative (Negative); Urine Color Yellow; Urine Glucose Negative (Negative); Urine Ketones Negative (Negative); Urine Nitrite Negative (Negative); Urine Protein 1+(30 mg/dL) (Negative); Urine Specific Gravity 1.024 (1.010-1.030); Urine Urobilinogen Negative (Negative)
[2019-05-10 17:14] LABS: Urine Bacteria Absent (Absent); Urine Red Blood Cell Absent (Absent); Urine Squamous Epithelial Cell Present (Absent); Urine Transitional Epithelial Present (Absent); Urine White Blood Cell 1+(6-10/hpf) (Absent)
[2019-05-10 17:15] LABS: Urine Benzodiazepine Screen Presumptive Positive (None Detect); Urine Opiates Screen Presumptive Positive (None Detect)
[2019-05-10] MEDS ORDERED: Acetaminophen TAB* 325 MG PO ONE (18:50)
[2019-05-10] MEDS ORDERED: Ketorolac TAB * 10 MG TAB PO ONE (19:19)
[2019-05-10 19:42] VITALS: BP 159/101
== END 2019-05-10 19:40 | disposition home or self-care (01) ==
LOC: ED 15:36
DX: M25.562 Pain in left knee (principal); M79.641 Pain in right hand; F29 Unspecified psychosis not due to a substance or known physiological condition; F22 Delusional disorders; F41.9 Anxiety disorder, unspecified; Z87.891 Personal history of nicotine dependence
CPT/HCPCS: 36415; 80053; 80307; 80320; 80329; 81003; 81015; 84443; 85025; 87086; 99284; G0480

== ENCOUNTER 2019-05-12 18:25 | Emergency (ER) | payer OTHER ==
--- NOTE | 2019-05-12 19:12 | ED ---
Lower Extremity - HPI Summary HPI Summary: Patient complains of acute exacerbation of chronic back pain, acute exacerbation of chronic left ankle pain, decreased by mouth intake and changes in memory 1 month. States history of fall 2 weeks ago causing worsening left ankle pain, and worsening back pain. Denies head trauma, LOC, and/V, fever, cough, sore throat, CP, abdominal pain, change in urine, change in BM. Medical history is PTSD, chronic back pain, depression, DM. History of left ankle surgery 1998 with chronic left ankle pain since. States she has a pending appointment with primary care for further evaluation of worsening chronic left ankle pain. - History of Current Complaint Chief Complaint: EDBackInjuryPain Stated Complaint: L BACK PAIN AND ANKLE PAIN PER PT Time Seen by Provider: 05/12/19 18:30 Hx Obtained From: Patient Mechanism Of Injury: Fall From A Standing Position Severity Initially: Moderate Severity Currently: Moderate Pain Intensity: 0 Pain Scale Used: 0-10 Numeric Timing: Constant Location: Is Discrete @ Character Of Pain: Aching, Throbbing Associated Signs And Symptoms: Positive: Swelling Aggravating Factor(s): Standing, Ambulation, Movement, Weight Bearing Alleviating Factor(s): Rest Able to Bear Weight: Yes - Allergies/Home Medications Allergies/Adverse Reactions: Allergies Allergy/AdvReac Type Severity Reaction Status Date / Time nalbuphine [From Nubain] Allergy Difficulty Verified 05/12/19 18:30 Breathing rofecoxib [From Vioxx] Allergy Swelling Verified 05/12/19 18:30 PMH/Surg Hx/FS Hx/Imm Hx Endocrine/Hematology History: Reports: Hx Diabetes - managed PO with metformin Cardiovascular History: Reports: Hx Hypertension, Other Cardiovascular Problems/ Disorders - DIABETIC / ANXIOTY, AND DEPRSSION Denies: Hx Angina, Hx Hypercholesterolemia, Hx Pacemaker/ICD Respiratory History: Reports: Hx Pulmonary Embolism - 2003, Other Respiratory Problems/Disorders - PE 2003 GI History: Reports: Hx Ulcer - takes protonix History: Denies: Hx Dialysis Musculoskeletal History: Reports: Other Musculoskeletal History - CHRONIC PAIN, Brown's cyst, left ankle surgery Sensory History: Reports: Hx Contacts or Glasses Denies: Hx Deafness, Hx Hearing Aid Opthamlomology History: Reports: Hx Contacts or Glasses Neurological History: Reports: Hx Headaches, Hx Migraine, Other Neuro Impairments/Disorders - DEPRESSION Psychiatric History: Reports: Hx Anxiety, Hx Eating Disorder - Hx anorexia, Hx Depression, Hx Inpatient Treatment - [facility] x 2, Hx Community Mental Health Tx - did not follow up with [facility], Hx Suicide Attempt - six attempts, last time was 3- 4 years ago. , Hx Substance Abuse Denies: Hx Panic Disorder, Hx of Violent Episodes Against Others - Surgical History Surgery Procedure, Year, and Place: Lt WRIST - Xs 2. Rt HIP REPLACEMENT. Lt ANKLE -FX'd (PINS REMOVED). Rt ARM - FX - Immunization History Date of Tetanus Vaccine: UTD Date of Influenza Vaccine: 2017 Infectious Disease History: No Infectious Disease History: Reports: Hx Shingles Denies: Traveled Outside the [place] in Last 30 Days - Family History Known Family History: Positive: Cardiac Disease, Hypertension, Diabetes, Other - Asthma. [place]. , Non-Contributory - Social History Alcohol Use: Rare Alcohol Amount: unkown Hx Substance Use: Yes Substance Use Type: Reports: Prescribed Substance Use Comment - Amount & Last Used: morphine, hydrocodcone, xanax Hx Tobacco Use: Yes - quit 06/2018 Smoking Status (MU): Former Smoker Review of Systems Constitutional: Negative Eyes: Negative ENT: Negative Cardiovascular: Negative Respiratory: Negative Gastrointestinal: Negative Genitourinary: Negative Musculoskeletal: Other Skin: Negative Neurological: Negative Psychological: Normal All Other Systems Reviewed And Are Negative: Yes Physical Exam - Summary Physical Exam Summary: Mild swelling to left ankle, no deformity erythema, ecchymosis noted. PMS intact distally. No bony point tenderness of thoracic or lumbar spine. Paraspinal tenderness on the left side of the lumbar spine. Normal flexion and extension of bilateral hips and lower extremities. Abdomen soft nontender. Neuro exam normal. Patient alert and oriented, coherent. Triage Information Reviewed: Yes Vital Signs On Initial Exam: Initial Vitals Temp Pulse Resp BP Pulse Ox 97.3 F 131 16 221/112 99 05/12/19 18:27 05/12/19 18:27 05/12/19 18:27 05/12/19 18:27 05/12/19 18:27 Vital Signs Reviewed: Yes Appearance: Positive: Well-Appearing Skin: Positive: Warm Head/Face: Positive: Normal Head/Face Inspection Eyes: Positive: Normal Neck: Positive: Supple Respiratory/Lung Sounds: Positive: Clear to Auscultation Cardiovascular: Positive: Normal Abdomen Description: Positive: Nontender Musculoskeletal: Positive: Other Neurological: Positive: Normal Psychiatric: Positive: Normal AVPU Assessment: Alert - [place] Coma Scale Best Eye Response: 4 - Spontaneous Best Motor Response: 6 - Obeys Commands Best Verbal Response: 5 - Oriented Coma Scale Total: 15 Procedures - Sedation Patient Received Moderate/Deep Sedation with Procedure: No Diagnostics - Vital Signs Vital Signs Temp Pulse Resp BP Pulse Ox 05/12/19 18:27 97.3 F 131 16 221/112 99 - Laboratory Result Diagrams: 05/12/19 19:51 05/12/19 19:51 Lab Statement: Any lab studies that have been ordered have been reviewed, and results considered in the medical decision making process. Lower Extremity Course/Dx - Course Course Of Treatment: Patient complains of acute exacerbation of chronic back pain, acute exacerbation of chronic left ankle pain, decreased by mouth intake and changes in memory 1 month. States history of fall 2 weeks ago causing worsening left ankle pain, and worsening back pain. Denies head trauma, LOC, and/V, fever, cough, sore throat, CP, abdominal pain, change in urine, change in BM. Medical history is PTSD, chronic back pain, depression, DM. History of left ankle surgery 1998 with chronic left ankle pain since. States she has a pending appointment with primary care for further evaluation of worsening chronic left ankle pain. Elevated blood pressure and heart rate in triage. Patient refused further vital signs. No history of hypertension, denies headache or visual changes. Patient repeatedly asking for pain medication. Patient has existing prescription for hydrocodone 7.5, 84 tablets a month, taken TID. States she did not take them today. X-ray left ankle negative for fracture or acute process. Ankle gel splint administered by nurse to help support left ankle. Patient advised to follow-up with primary care for further evaluation of chronic left ankle pain and chronic back pain. Patient angry on discharge and she is not receiving prescription narcotics., Suddenly started to states she is depressed, wanted mental health evaluation. Patient had mental health evaluation 2 days ago. Denies current SI or HI, just states depression. Charge nurse went in to talk to patient, patient agreed to be discharged. - Diagnoses Provider Diagnoses: Chronic pain of left ankle, Chronic back pain Discharge ED - Sign-Out/Discharge Documenting (check all that apply): Patient Departure - Discharge Plan Condition: Stable Disposition: HOME Patient Education Materials: Chronic Back Pain (DC), Swollen Joint (ED) Referrals: Dory Goodman [Primary Care Provider] - Diego Pittman MD [Medical Doctor] - Additional Instructions: Follow-up with primary care for further evaluation of memory changes in chronic ankle and chronic back pain. Return to the ED for any new or worsening symptoms. - Billing Disposition and Condition Condition: STABLE Disposition: Home
[2019-05-12] MEDS ORDERED: Ketorolac INJ* 30 MG/ML 1 ML VIAL IM ONE (19:16)
[2019-05-12 20:00] LABS: ABS Lymphocytes 1.7 10^3/ul (1.0-4.8); ABS Monocytes 0.4 10^3/ul (0-0.8); ABS Neutrophils 5.9 10^3/ul (1.5-7.7); Eosinophil % 0.1 %; Hematocrit 37 % (35-47); Hemoglobin 11.9 g/dL (12.0-16.0); Lymphocyte % 20.6 %; Mean Corpuscular HGB Conc 33 g/dL (31-36); Mean Corpuscular Hemoglobin 27 pg (27-31); Mean Corpuscular Volume 82 fL (80-97); Mean Platelet Volume 7.2 fL (7.4-10.4); Nucleated Red Blood Cells % 0.1; Platelet Count 441 10^3/uL (150-450); Red Blood Count 4.46 10^6 /uL (3.70-4.87); Red Cell Distribution Width 16 % (10-15)
[2019-05-12 20:16] LABS: Albumin 4.3 g/dL (3.2-5.2); Albumin/Globulin Ratio 1.3 (1-3); BUN/Creatinine Ratio 25.4 (8-20); C Reactive Protein 3.44 mg/L (<8.01); Calcium 9.9 mg/dL (8.6-10.3); EGFR African American 103.4 (>60); EGFR Non-African American 85.5 (>60); Globulin 3.3 g/dL (2-4); Potassium 3.8 mmol/L (3.5-5.0); Total Bilirubin 0.5 mg/dL (0.2-1.0); Total Protein 7.6 g/dL (6.4-8.9)
[2019-05-12] MEDS ORDERED: Acetaminophen TAB* 325 MG PO ONE (20:24)
[2019-05-12 20:44] LABS: TSH (Thyroid Stimulating Horm) 0.33 mcIU/mL (0.34-5.60)
[2019-05-12 21:21] VITALS: BP 0/0
== END 2019-05-12 21:20 | disposition home or self-care (01) ==
LOC: ED 18:25
DX: M25.572 Pain in left ankle and joints of left foot (principal); R60.0 Localized edema; Z87.891 Personal history of nicotine dependence; M54.9 Dorsalgia, unspecified; G89.29 Other chronic pain
CPT/HCPCS: 36415; 80053; 84443; 85025; 86140; 96372; 99282; A9270-GY; J1885

== ENCOUNTER 2020-07-09 15:27 | Inpatient (IN) ==
[2020-07-09] MEDS ORDERED: Al Hydrox/Mg Hydrox/Simet LIQ 30 ML UDC PO PRN (19:12)
[2020-07-09] MEDS ORDERED: Albuterol HFA INHALER 8 gm MDI INH PRN (19:35)
[2020-07-09] MEDS ORDERED: Nicotine GUM 2MG FRUIT FLAVOR PO PRN (20:00)
[2020-07-09] MEDS: oxyCODONE/Acetamin 5/325 mg TAB PO PRN (20:01)
[2020-07-09] MEDS: TOPICORT TOPICAL SCH (21:58)
[2020-07-10] MEDS: Vitamin THERAPEUTIC TAB PO SCH (08:24)
[2020-07-10] MEDS: oxyCODONE/Acetamin 5/325 mg TAB PO PRN ×3 (08:24→20:22)
[2020-07-10] MEDS: TOPICORT TOPICAL SCH ×2 (10:14→20:29)
[2020-07-10 11:16] LABS: Albumin 3.8 g/dL (3.2-5.2); Albumin/Globulin Ratio 1.3 (1-3); BUN/Creatinine Ratio 35.8 (8-20); Calcium 9.1 mg/dL (8.6-10.3); EGFR African American 110.2 (>60); Globulin 2.9 g/dL (2-4); Potassium 3.6 mmol/L (3.5-5.0); Total Bilirubin 0.2 mg/dL (0.2-1.0); Total Protein 6.7 g/dL (6.4-8.9)
[2020-07-10 13:26] LABS: ABS Eosinophils 0.1 10^3/ul (0-0.6); ABS Lymphocytes 3.1 10^3/ul (1.0-4.8); ABS Monocytes 0.8 10^3/ul (0-0.8); ABS Neutrophils 6.3 10^3/ul (1.5-7.7); Eosinophil % 1.2 %; Hematocrit 30 % (35-47); Hemoglobin 9.1 g/dL (12.0-16.0); Lymphocyte % 29.9 %; Mean Corpuscular HGB Conc 31 g/dL (31-36); Mean Corpuscular Hemoglobin 23 pg (27-31); Mean Corpuscular Volume 76 fL (80-97); Mean Platelet Volume 6.6 fL (7.4-10.4); Platelet Count 407 10^3/uL (150-450); Red Blood Count 3.89 10^6 /uL (3.70-4.87); Red Cell Distribution Width 21 % (10-15); White Blood Count 10.3 10^3/uL (3.5-10.8)
[2020-07-11] MEDS: oxyCODONE/Acetamin 5/325 mg TAB PO PRN ×3 (02:37→17:14)
[2020-07-11 05:15] LABS: Urine Appearance Cloudy; Urine Bilirubin Negative (Negative); Urine Blood Negative (Negative); Urine Color Yellow; Urine Glucose Negative (Negative); Urine Ketones Negative (Negative); Urine Nitrite Negative (Negative); Urine Protein 1+(30 mg/dL) (Negative); Urine Specific Gravity 1.024 (1.010-1.030); Urine Urobilinogen Negative (Negative)
[2020-07-11 05:22] LABS: Urine Benzodiazepine Screen Presumptive Positive (None Detect); Urine Cannabinoids Screen None Detected (None Detect); Urine Opiates Screen Presumptive Positive (None Detect)
[2020-07-11 05:27] LABS: Urine Bacteria 1+ (Absent); Urine Red Blood Cell Absent (Absent); Urine Squamous Epithelial Cell Present (Absent); Urine White Blood Cell 1+(6-10/hpf) (Absent)
[2020-07-11] MEDS: Vitamin THERAPEUTIC TAB PO SCH (08:46)
[2020-07-11] MEDS: Triamcinolone 0.025% OINT 15 GM TUBE TOPICAL SCH ×2 (08:49→20:40)
[2020-07-12] MEDS: oxyCODONE/Acetamin 5/325 mg TAB PO PRN ×2 (03:52→16:28)
[2020-07-12] MEDS: Vitamin THERAPEUTIC TAB PO SCH (09:28)
[2020-07-12] MEDS: Triamcinolone 0.025% OINT 15 GM TUBE TOPICAL SCH ×2 (09:30→20:46)
[2020-07-13] MEDS: oxyCODONE/Acetamin 5/325 mg TAB PO PRN ×3 (04:42→19:20)
[2020-07-13] MEDS: Vitamin THERAPEUTIC TAB PO SCH (08:11)
[2020-07-13] MEDS: Triamcinolone 0.025% OINT 15 GM TUBE TOPICAL SCH ×2 (08:12→22:55)
[2020-07-13 08:53] LABS: HDL Cholesterol 44.3 mg/dL
[2020-07-14] MEDS: oxyCODONE/Acetamin 5/325 mg TAB PO PRN ×2 (06:12→15:05)
[2020-07-14 08:11] VITALS: BP 105/52
[2020-07-14] MEDS: Vitamin THERAPEUTIC TAB PO SCH (08:50)
[2020-07-14] MEDS: Triamcinolone 0.025% OINT 15 GM TUBE TOPICAL SCH (08:51)
== END 2020-07-14 15:45 | disposition home or self-care (01) | DRG 757 ==
LOC: ED 15:27 → BSU 19:16
PROVIDERS: ADMIT Psychiatry & Neurology Addiction Psychiatry; ATTEND Psychiatry & Neurology Addiction Psychiatry

== ENCOUNTER 2020-12-18 00:21 | Inpatient (IN) ==
[2020-12-18] MEDS ORDERED: HYDROcodone/ACETAMIN 5/325 mg TAB PO ONE (05:29)
[2020-12-18 06:57] LABS: ABS Eosinophils 0.1 10^3/ul (0-0.6); ABS Lymphocytes 3.2 10^3/ul (1.0-4.8); ABS Monocytes 0.5 10^3/ul (0-0.8); ABS Neutrophils 2.9 10^3/ul (1.5-7.7); Hematocrit 28 % (35-47); Hemoglobin 8.6 g/dL (12.0-16.0); Lymphocyte % 47.4 %; Mean Corpuscular HGB Conc 31 g/dL (31-36); Mean Corpuscular Hemoglobin 20 pg (27-31); Mean Corpuscular Volume 65 fL (80-97); Mean Platelet Volume 6.7 fL (7.4-10.4); Platelet Count 474 10^3/uL (150-450); Red Cell Distribution Width 24 % (10-15); White Blood Count 6.8 10^3/uL (3.5-10.8)
[2020-12-18 07:13] LABS: ALT 11 U/L (7-52); AST 19 U/L (13-39); Albumin/Globulin Ratio 1.3 (1-3); Alkaline Phosphatase 70 U/L (35-149); Anion Gap 7 mmol/L (2-11); Blood Urea Nitrogen 18 mg/dL (6-24); CO2 Carbon Dioxide 26 mmol/L (22-32); Chloride 107 mmol/L (101-111); EGFR African American 93.5 (>60); EGFR Non-African American 77.3 (>60); Globulin 3.2 g/dL (2-4); Glucose 81 mg/dL (70-100); Potassium 3.9 mmol/L (3.5-5.0); Sodium 140 mmol/L (135-145); Total Protein 7.2 g/dL (6.4-8.9)
[2020-12-18 07:34] LABS: Acetaminophen < 15 mcg/mL; Alcohol, S < 13 mg/dL (<13); Salicylate < 2.50 mg/dL (<30)
[2020-12-18 07:49] LABS: TSH Ultra Thyroid Stim Horm 0.38 mcIU/mL (0.34-5.60)
[2020-12-18] MEDS ORDERED: Al Hydrox/Mg Hydrox/Simet LIQ 30 ML UDC PO PRN (12:28)
[2020-12-18] MEDS ORDERED: Ondansetron ODT 4 mg TAB 4 MG TAB PO PRN (12:30)
[2020-12-18] MEDS ORDERED: Albuterol HFA INHALER 8 gm MDI INH PRN (12:30)
[2020-12-18 15:06] LABS: Urine Benzodiazepine Screen Presumptive Positive (None Detect); Urine Cannabinoids Screen None Detected (None Detect); Urine Opiates Screen Presumptive Positive (None Detect)
[2020-12-18 15:08] LABS: Urine Appearance Cloudy; Urine Bilirubin Negative (Negative); Urine Blood Negative (Negative); Urine Color Amber; Urine Glucose Negative (Negative); Urine Ketones Trace (Negative); Urine Nitrite Negative (Negative); Urine Protein 1+(30 mg/dL) (Negative); Urine Specific Gravity 1.032 (1.002-1.030); Urine Urobilinogen Negative (Negative)
[2020-12-18 15:30] LABS: Urine Bacteria Absent (Absent); Urine Red Blood Cell Absent (Absent); Urine Squamous Epithelial Cell Present (Absent); Urine White Blood Cell 2+(11-20/hpf) (Absent)
[2020-12-19] MEDS: HYDROcodone/ACET. 7.5/325 LIQ 15 ML UDC PO PRN (09:27)
[2020-12-19] MEDS: Vitamin THERAPEUTIC TAB PO SCH (09:28)
[2020-12-20] MEDS: Vitamin THERAPEUTIC TAB PO SCH (08:03)
[2020-12-20] MEDS: HYDROcodone/ACET. 7.5/325 LIQ 15 ML UDC PO PRN ×2 (08:05→20:50)
[2020-12-20 08:48] LABS: HDL Cholesterol 52.5 mg/dL
[2020-12-21] MEDS: Vitamin THERAPEUTIC TAB PO SCH (08:27)
[2020-12-21] MEDS: HYDROcodone/ACET. 7.5/325 LIQ 15 ML UDC PO PRN (08:28)
[2020-12-21 09:55] VITALS: BP 133/63
== END 2020-12-21 11:13 | disposition home or self-care (01) | DRG 751 ==
LOC: ED 00:21 → BSU 15:00
PROVIDERS: ADMIT Psychiatry & Neurology Psychiatry; ATTEND Psychiatry & Neurology Psychiatry

== ENCOUNTER 2022-01-17 13:47 | Inpatient (IN) ==
[2022-01-17 15:00] LABS: ABS Eosinophils 0.1 10^3/ul (0-0.6); ABS Lymphocytes 2.1 10^3/ul (1.0-4.8); ABS Monocytes 0.6 10^3/ul (0-0.8); ABS Neutrophils 4.8 10^3/ul (1.5-7.7); Hematocrit 30 % (35-47); Hemoglobin 9.2 g/dL (12.0-16.0); Lymphocyte % 27.9 %; Mean Corpuscular HGB Conc 31 g/dL (31-36); Mean Corpuscular Hemoglobin 24 pg (27-31); Mean Corpuscular Volume 77 fL (80-97); Mean Platelet Volume 6.4 fL (7.4-10.4); Platelet Count 400 10^3/uL (150-450); Red Blood Count 3.88 10^6 /uL (3.70-4.87); Red Cell Distribution Width 19 % (10-15); White Blood Count 7.7 10^3/uL (3.5-10.8)
[2022-01-17 16:13] LABS: Albumin 3.6 g/dL (3.2-5.2); Calcium 8.7 mg/dL (8.6-10.3); Potassium 4.3 mmol/L (3.5-5.0); Total Bilirubin 0.3 mg/dL (0.2-1.0)
[2022-01-17 16:19] LABS: Albumin/Globulin Ratio 1.4 (1-3); Globulin 2.6 g/dL (2-4); Total Protein 6.2 g/dL (6.4-8.9); eGFR CKD-EPI 93.7 (>60)
[2022-01-17 16:55] LABS: Urine Appearance Cloudy; Urine Bilirubin Negative (Negative); Urine Blood Negative (Negative); Urine Color Yellow; Urine Glucose Negative (Negative); Urine Ketones Negative (Negative); Urine Nitrite Negative (Negative); Urine Protein Negative (Negative); Urine Specific Gravity 1.023 (1.002-1.030); Urine Urobilinogen Negative (Negative)
[2022-01-17 17:02] LABS: Urine Benzodiazepine Screen Presumptive Positive (None Detect); Urine Cannabinoids Screen None Detected (None Detect); Urine Opiates Screen Presumptive Positive (None Detect)
[2022-01-17 17:05] LABS: Urine Bacteria Absent (Absent); Urine Red Blood Cell 2+(6-10/hpf) (Absent); Urine Squamous Epithelial Cell Present (Absent); Urine White Blood Cell 2+(11-20/hpf) (Absent)
[2022-01-17] MEDS ORDERED: Al Hydrox/Mg Hydrox/Simet LIQ 30 ML UDC PO PRN (18:59)
[2022-01-17] MEDS ORDERED: Acetaminop/Codeine 300mg/30mg TAB PO PRN (19:06)
[2022-01-18 08:23] LABS: HDL Cholesterol 62.9 mg/dL
[2022-01-18] MEDS: Vitamin THERAPEUTIC TAB PO SCH (08:52)
[2022-01-18 11:41] LABS: Ferritin 6.5 ng/mL (11-307)
[2022-01-18] MEDS ORDERED: Albuterol HFA INHALER 8 gm MDI INH PRN (12:08)
[2022-01-18] MEDS: Iron Sucrose 200 MG in NS 0.9% 100 ml BAG 100 ML IVPB SCH (13:22)
[2022-01-18] MEDS: Acetaminop/Codeine 300mg/30mg TAB PO PRN (13:50)
[2022-01-18] MEDS ORDERED: oxyCODONE/Acetamin 5/325 mg TAB PO PRN (15:39)
[2022-01-18] MEDS ORDERED: Lactated Ringers 1000 ml BAG 1,000 ML IV ONE (19:14)
[2022-01-19] MEDS: Vitamin THERAPEUTIC TAB PO SCH (07:33)
[2022-01-19] MEDS: Acetaminop/Codeine 300mg/30mg TAB PO PRN (07:35)
[2022-01-19] MEDS: Iron Sucrose 200 MG in NS 0.9% 100 ml BAG 100 ML IVPB SCH (12:45)
[2022-01-20] MEDS: Vitamin THERAPEUTIC TAB PO SCH (07:43)
[2022-01-20] MEDS ORDERED: Magnesium Hydroxide LIQ 30 ML UDC PO PRN (09:55)
[2022-01-20] MEDS: Iron Sucrose 200 MG in NS 0.9% 100 ml BAG 100 ML IVPB SCH (12:33)
[2022-01-21] MEDS: Vitamin THERAPEUTIC TAB PO SCH (08:29)
[2022-01-22] MEDS: Vitamin THERAPEUTIC TAB PO SCH (08:36)
[2022-01-23] MEDS: Vitamin THERAPEUTIC TAB PO SCH (08:36)
[2022-01-23 09:27] VITALS: BP 193/105
== END 2022-01-23 12:16 | disposition home or self-care (01) | DRG 760 ==
LOC: ED 13:47 → EDHOLD 19:19 → BSU 19:42
PROVIDERS: ADMIT Psychiatry & Neurology Psychiatry; ATTEND Psychiatry & Neurology Psychiatry